=== PATIENT | male | born 1990 | race Caucasian/White ===

== ENCOUNTER 2023-09-21 08:09 | Day surgery (SDC) | payer OTHER ==
[2023-09-21 09:10] VITALS: RESP 18; TEMP 98.2
[2023-09-21 09:22] LABS: ALT 14 U/L (4-49); AST 37 U/L (17-59); African American GFR (CKD) >90 (>60 ml/min/1.73 sqM); Albumin 2.6 g/dL (3.5-5.0); Alkaline Phosphatase 130 U/L (38-126); Anion Gap 3 mmol/L; Blood Urea Nitrogen 13 mg/dL (9-20); Calcium 7.6 mg/dL (8.4-10.2); Carbon Dioxide 25 mmol/L (22-30); Chloride 104 mmol/L (98-107); Glucose 102 mg/dL (74-99); Non-African American GFR(CKD) >90 (>60 ml/min/1.73 sqM); Sodium 132 mmol/L (137-145); Total Bilirubin 1.2 mg/dL (0.2-1.3); Total Protein 6.6 g/dL (6.3-8.2)
[2023-09-21 09:51] LABS: Mean Platelet Volume 8.2; Platelet Count 176 k/uL (150-450)
[2023-09-21 09:57] LABS: INR 1.5 (<1.2); Prothrombin Time 15.8 sec (10.0-12.5)
[2023-09-21] MEDS: ALBUMIN HUMAN 25% 50 ML in EMPTY BAG 1 BAG IVPB SCH (10:18)
[2023-09-21 12:11] VITALS: BP 109/65; PULSE 81
--- NOTE | 2023-09-21 13:19 | US ---
Ultrasound-guided paracentesis. DATE OF EXAM: 09/21/2023 CLINICAL HISTORY: Ascites The procedure was discussed with the patient. The risks, complications, benefits, and alternatives we re discussed and any questions were answered. Informed consent was obtained. The patient was placed s upine on the ultrasound table and prepped and draped in the usual sterile fashion. All elements of maximal barrier technique were utilized. Under ultrasound guidance, access into the right lower quadrant was obtained, via the paracentesis catheter system and direct ultrasound guidanc e. Approximately 7.3 liters of straw-colored fluid was removed. The patient was stable throughout the pr ocedure and remained stable upon discharge from Department of Radiology. IMPRESSION: Successful paracentesis under ultrasound guidance.
== END 2023-09-21 11:25 | disposition home or self-care (01) ==
LOC: RADPROMAIN 08:09
PROVIDERS: ATTEND Internal Medicine
DX: R18.8 Other ascites (principal)
CPT/HCPCS: 80053; 85049; 85610; 36415; 49083; P9047

== ENCOUNTER 2023-09-28 08:47 | Day surgery (SDC) | payer OTHER ==
[2023-09-28] MEDS: ALPRAZolam 0.5 MG TAB PO PRN (09:20)
[2023-09-28] MEDS: ALBUMIN HUMAN 25% 50 ML in EMPTY BAG 1 BAG IVPB SCH (10:15)
[2023-09-28 10:17] VITALS: RESP 18; TEMP 97.9
[2023-09-28 12:09] VITALS: BP 111/70; PULSE 74
--- NOTE | 2023-09-28 14:00 | US ---
EXAMINATION TYPE: US paracentesis abd w/image DATE OF EXAM: 09/28/2023 10:22 AM CLINICAL INDICATION:Male, 32 years old with history of R18.8 OTHER ASCITES; COMPARISON: 09/21/2023 ATTENDING: Dr. Lemuel Vanegas PROCEDURE: Informed consent was obtained. The risks of the procedure were extensively explained incl uding risk of damage to surrounding bowel with perforation and need for additional procedures. Proced ure was performed in the ultrasound procedure suite. Ultrasound imaging of the abdomen demonstrate as citic fluid. An appropriate access site was localized to the right lower abdomen. Timeout was taken p er protocol. The skin was prepped and draped in the usual sterile fashion and then locally anesthetiz ed with 1% lidocaine. The peritoneal cavity was then accessed via a 5-Thai one-step needle/cathete r. Approximately 7600 cc of clear straw-colored fluid was obtained. Postprocedural imaging of the a bdomen demonstrate a minimal amount of abdominal fluid. Patient tolerated procedure well without immediate complication. Hemostasis at the procedural site w as obtained with a sterile bandage placed. The patient was monitored in the holding area following th e procedure and was subsequently discharged in stable condition. IMPRESSION: Ultrasound guided paracentesis, with approximately 7600 cc of clear straw-colored fluid drained. No immediate complications were evident.
== END 2023-09-28 11:40 | disposition home or self-care (01) ==
LOC: RADPROMAIN 08:47
PROVIDERS: ATTEND Internal Medicine
DX: R18.8 Other ascites (principal)
CPT/HCPCS: 49083; P9047

== ENCOUNTER 2023-10-05 09:18 | Day surgery (SDC) | payer OTHER ==
[~2023-10-05 09:18] MED LIST: ALPRAZolam 1 MG TAB PO PRN
[2023-10-05] MEDS: ALPRAZolam 0.5 MG TAB PO STA (09:52)
[2023-10-05 09:59] LABS: Mean Platelet Volume 7.7; Platelet Count 229 k/uL (150-450)
[2023-10-05 10:04] LABS: INR 1.5 (<1.2); Prothrombin Time 15.6 sec (10.0-12.5)
[2023-10-05 10:08] VITALS: TEMP 98
[2023-10-05 10:27] LABS: African American GFR (CKD) >90 (>60 ml/min/1.73 sqM); Non-African American GFR(CKD) >90 (>60 ml/min/1.73 sqM)
[2023-10-05] MEDS: ALBUMIN HUMAN 25% 50 ML in EMPTY BAG 1 BAG IVPB SCH (10:33)
[2023-10-05 12:06] VITALS: BP 101/56; PULSE 56; RESP 18
--- NOTE | 2023-10-05 12:38 | US ---
EXAMINATION TYPE: US paracentesis abd w/image DATE OF EXAM: 10/05/2023 11:00 AM CLINICAL INDICATION:Male, 32 years old with history of R18.8 OTHER ASCITES; COMPARISON: 09/28/2023 ATTENDING: Dr. Lemuel Vanegas PROCEDURE: Informed consent was obtained. The risks of the procedure were extensively explained incl uding risk of damage to surrounding bowel with perforation and need for additional procedures. Proced ure was performed in the ultrasound procedure suite. Ultrasound imaging of the abdomen demonstrate as citic fluid. An appropriate access site was localized to the right lower abdomen. Timeout was taken p er protocol. The skin was prepped and draped in the usual sterile fashion and then locally anesthetiz ed with 1% lidocaine. The peritoneal cavity was then accessed via a 5-Sinhala one-step needle/cathete r. Approximately 2700 cc of clear straw-colored fluid was obtained. Postprocedural imaging of the ab domen demonstrate a minimal amount of abdominal fluid. Patient tolerated procedure well without immediate complication. Hemostasis at the procedural site w as obtained with a sterile bandage placed. The patient was monitored in the holding area following th e procedure and was subsequently discharged in stable condition. IMPRESSION: Ultrasound guided paracentesis, with approximately 2700 cc of clear straw-colored fluid drained. No immediate complications were evident.
== END 2023-10-05 12:00 | disposition home or self-care (01) ==
LOC: RADPROMAIN 09:18
PROVIDERS: ATTEND Internal Medicine
DX: R18.8 Other ascites (principal)
CPT/HCPCS: 82565; 85049; 85610; 36415; 49083; P9047

== ENCOUNTER 2023-10-15 09:08 | Day surgery (SDC) | payer OTHER ==
[2023-10-15] MEDS: ALPRAZolam 0.5 MG TAB PO STA (09:22)
[2023-10-15 09:43] VITALS: RESP 12; TEMP 98.2
[2023-10-15 09:50] LABS: Mean Platelet Volume 7.7; Platelet Count 222 k/uL (150-450)
[2023-10-15 09:59] LABS: African American GFR (CKD) >90 (>60 ml/min/1.73 sqM); Anion Gap 4 mmol/L; Blood Urea Nitrogen 13 mg/dL (9-20); Calcium 7.5 mg/dL (8.4-10.2); Carbon Dioxide 26 mmol/L (22-30); Chloride 98 mmol/L (98-107); Glucose 103 mg/dL (74-99); Non-African American GFR(CKD) >90 (>60 ml/min/1.73 sqM); Potassium 4.2 mmol/L (3.5-5.1); Sodium 128 mmol/L (137-145)
[2023-10-15 10:10] LABS: INR 1.4 (<1.2); Prothrombin Time 14.8 sec (10.0-12.5)
[2023-10-15] MEDS: ALBUMIN HUMAN 25% 50 ML in EMPTY BAG 1 BAG IVPB SCH (10:52)
[2023-10-15 11:38] VITALS: BP 111/62; PULSE 70
--- NOTE | 2023-10-15 12:26 | US ---
EXAMINATION TYPE: US paracentesis abd w/image DATE OF EXAM: 10/15/2023 10:51 AM CLINICAL INDICATION:Male, 32 years old with history of R18.8 OTHER ASCITES; COMPARISON: 10/05/2023 ATTENDING: Dr. Lemuel Vanegas PROCEDURE: Informed consent was obtained. The risks of the procedure were extensively explained incl uding risk of damage to surrounding bowel with perforation and need for additional procedures. Proced ure was performed in the ultrasound procedure suite. Ultrasound imaging of the abdomen demonstrate as citic fluid. An appropriate access site was localized to the right lower abdomen. Timeout was taken p er protocol. The skin was prepped and draped in the usual sterile fashion and then locally anesthetiz ed with 1% lidocaine. The peritoneal cavity was then accessed via a 5-Angolan one-step needle/cathete r. Approximately 7100 cc of clear straw-colored fluid was obtained. Postprocedural imaging of the a bdomen demonstrate a minimal amount of abdominal fluid. Patient tolerated procedure well without immediate complication. Hemostasis at the procedural site w as obtained with a sterile bandage placed. The patient was monitored in the holding area following th e procedure and was subsequently discharged in stable condition. IMPRESSION: Ultrasound guided paracentesis, with approximately 7100 cc of clear straw-colored fluid drained. No i mmediate complications were evident.
== END 2023-10-15 11:55 | disposition home or self-care (01) ==
LOC: RADPROMAIN 09:08
PROVIDERS: ATTEND Internal Medicine
DX: R18.8 Other ascites (principal)
CPT/HCPCS: 80048; 85049; 85610; 36415; 49083; P9047

== ENCOUNTER 2023-10-23 12:01 | Day surgery (SDC) | payer OTHER ==
[2023-10-23] MEDS: ALPRAZolam 0.5 MG TAB PO PRN (12:36)
[2023-10-23 12:49] VITALS: TEMP 98
[2023-10-23 12:56] LABS: Mean Platelet Volume 7.9; Platelet Count 255 k/uL (150-450)
[2023-10-23 13:03] LABS: African American GFR (CKD) >90 (>60 ml/min/1.73 sqM); Non-African American GFR(CKD) >90 (>60 ml/min/1.73 sqM)
[2023-10-23 13:06] LABS: INR 1.4 (<1.2); Prothrombin Time 14.4 sec (10.0-12.5)
[2023-10-23] MEDS: ALBUMIN HUMAN 25% 50 ML in EMPTY BAG 1 BAG IVPB SCH (13:24)
[2023-10-23 13:53] VITALS: RESP 16
[2023-10-23 14:28] VITALS: PULSE 88
[2023-10-23 15:07] VITALS: BP 109/60
--- NOTE | 2023-10-23 15:35 | US ---
EXAMINATION TYPE: US paracentesis abd w/image DATE OF EXAM: 10/23/2023 CLINICAL HISTORY: 32 year-old male R18.8, other ascites. Weekly paracentesis. The procedure was discussed with the patient. The risks, complications, benefits, and alternatives we re discussed and any questions were answered. Informed consent was obtained. The patient was placed s upine on the ultrasound table and prepped and draped in the usual sterile fashion. All elements of maximal barrier technique were utilized. Ultrasound was utilized to determine the precise skin entry site along the right lower quadrant. Utilizing trocar technique and a 6 [place] [employer]esis catheter system, access into the ascites fl uid was obtained. Approximately 7.8 liters of clear, straw-colored fluid was removed. Catheter was removed, hemostasis obtained, and a dressing placed. The patient was stable throughout the procedure and remained stable upon discharge from Department of Radiology. IMPRESSION: Successful therapeutic paracentesis under ultrasound guidance. 7.8 L of fluid removed.
== END 2023-10-23 15:00 | disposition home or self-care (01) ==
LOC: RADPROMAIN 12:01
PROVIDERS: ATTEND Internal Medicine
DX: R18.8 Other ascites (principal)
CPT/HCPCS: 82565; 85049; 85610; 49083; P9047

== ENCOUNTER 2023-10-29 12:56 | Day surgery (SDC) | payer OTHER ==
[2023-10-29] MEDS: ALPRAZolam 0.5 MG TAB PO PRN (13:13)
[2023-10-29 13:33] VITALS: RESP 16; TEMP 98
[2023-10-29 13:47] LABS: Mean Platelet Volume 6.9; Platelet Count 359 k/uL (150-450)
[2023-10-29 13:51] LABS: INR 1.5 (<1.2)
[2023-10-29 13:52] LABS: Prothrombin Time 15.4 sec (10.0-12.5)
[2023-10-29 13:53] LABS: African American GFR (CKD) >90 (>60 ml/min/1.73 sqM); Non-African American GFR(CKD) >90 (>60 ml/min/1.73 sqM)
[2023-10-29] MEDS: ALBUMIN HUMAN 25% 50 ML in EMPTY BAG 1 BAG IVPB SCH (14:31)
[2023-10-29 15:23] VITALS: BP 114/68; PULSE 74
--- NOTE | 2023-10-30 07:58 | US ---
Ultrasound-guided paracentesis. DATE OF EXAM: 10/29/2023 CLINICAL HISTORY: Ascites The procedure was discussed with the patient. The risks, complications, benefits, and alternatives we re discussed and any questions were answered. Informed consent was obtained. The patient was placed s upine on the ultrasound table and prepped and draped in the usual sterile fashion. All elements of maximal barrier technique were utilized. Under ultrasound guidance, access into the right lower quadrant was obtained, via the paracentesis catheter system and direct ultrasound guidanc e. Approximately 8 liters of straw-colored fluid was removed. The patient was stable throughout the proc edure and remained stable upon discharge from Department of Radiology. IMPRESSION: Successful paracentesis under ultrasound guidance.
== END 2023-10-29 15:27 | disposition home or self-care (01) ==
LOC: RADPROMAIN 12:56
PROVIDERS: ATTEND Internal Medicine
DX: R18.8 Other ascites (principal)
CPT/HCPCS: 82565; 85049; 85610; 36415; 49083; P9047

== ENCOUNTER 2023-11-02 22:20 | Emergency (ER) | payer OTHER ==
[2023-11-02 22:41] VITALS: TEMP 99.1
[2023-11-02] MEDS: HYDROmorphone 1 MG/ML 1 ML SYRINGE IVP STA (23:26)
[2023-11-02 23:35] LABS: Basophils % (A) 0 %; Eosinophils # (A) 0.1 k/uL (0-0.7); Eosinophils % (A) 2 %; HCT 38.3 % (39.0-53.0); HGB 12.4 gm/dL (13.0-17.5); Lymphocytes # (A) 1.1 k/uL (1.0-4.8); Lymphocytes % (A) 23 %; MCH 33.1 pg (25.0-35.0); MCHC 32.3 g/dL (31.0-37.0); MCV 102.4 fL (80.0-100.0); Macrocytosis Slight; Mean Platelet Volume 7.2; Monocytes # (A) 0.3 k/uL (0-1.0); Monocytes % (A) 5 %; Neutrophils # (A) 3.3 k/uL (1.3-7.7); Neutrophils % (A) 68 %; Platelet Count 277 k/uL (150-450); RBC 3.74 m/uL (4.30-5.90); RDW 15.9 % (11.5-15.5); WBC 4.9 k/uL (3.8-10.6)
[2023-11-03 00:04] LABS: African American GFR (CKD) >90 (>60 ml/min/1.73 sqM); Anion Gap 5 mmol/L; Blood Urea Nitrogen 13 mg/dL (9-20); Calcium 7.9 mg/dL (8.4-10.2); Carbon Dioxide 24 mmol/L (22-30); Chloride 100 mmol/L (98-107); Glucose 103 mg/dL (74-99); Non-African American GFR(CKD) >90 (>60 ml/min/1.73 sqM); Potassium 4.1 mmol/L (3.5-5.1); Sodium 129 mmol/L (137-145)
[2023-11-03 00:17] VITALS: BP 143/86; PULSE 81; RESP 18
--- NOTE | 2023-11-03 00:31 | ED ---
Abdominal Pain HPI - General Chief Complaint: Abdominal Pain Stated Complaint: Pain,Nausea Time Seen by Provider: 11/02/23 22:58 Source: patient Mode of arrival: wheelchair Limitations: no limitations - History of Present Illness Initial Comments: 32-year-old male presenting with chief complaint of abdominal pain. Patient currently has end-stage liver disease. States that he previously went to [place] and is newer to the area. He last received paracentesis on Sunday by Dr. Sanchez. He is having soreness from his distention as well as nausea vomiti ng and anxiety. No fever. Pain is diffuse, nonspecific. No urinary symptoms. No flank pain. No chest pain or difficulty breathing. - Related Data Home Medications Medication Instructions Recorded Confirmed Acamprosate Calcium [Campral] 333 mg PO BID 09/17/23 10/29/23 Ciprofloxacin HCl 500 mg PO DAILY 09/17/23 10/29/23 Folic Acid 1 mg PO 5XD 09/17/23 10/29/23 Furosemide [Lasix] 20 mg PO BID 09/17/23 10/29/23 Lactulose 45 gm PO BID 09/17/23 10/29/23 Magnesium Gluconate [Magonate] 500 mg PO DAILY 09/17/23 10/29/23 Midodrine HCl [ProAmatine] 20 mg PO TID 09/17/23 10/29/23 Multivitamin [Multivitamins Adult 1 tab PO DAILY 09/17/23 10/29/23 Gummies] Omeprazole [PriLOSEC] 20 mg PO AC-BID 09/17/23 10/29/23 Ondansetron [Zofran] 4 mg PO Q12HR PRN 09/17/23 10/29/23 Rifaximin [Xifaxan] 550 mg PO Q12H 09/17/23 10/29/23 Spironolactone 50 mg PO DAILY 09/17/23 10/29/23 levETIRAcetam [Keppra] 500 mg PO Q12HR 09/17/23 10/29/23 Buprenorphine HCl/Naloxone HCl 1 each SL DAILY 09/28/23 10/29/23 [Suboxone 4 mg-1 mg Sl Film] Allergies Allergy/AdvReac Type Severity Reaction Status Date / Time No Known Allergies Allergy Verified 11/02/23 22:36 Review of Systems ROS Statement: Those systems with pertinent positive or pertinent negative responses have been documented in the HPI. ROS Other: All systems not noted in ROS Statement are negative. Past Medical History Past Medical History: GERD/Reflux, Liver Disease Additional Past Medical History / Comment(s): Pancreatitis, ETOH abuse, subtance abuse, large volume paracentesis, previously on liver transplant list but was removed due to continued substance abuse, chirrhosis History of Any Multi-Drug Resistant Organisms: None Reported Additional Past Surgical History / Comment(s): ERCP stent placement Past Anesthesia/Blood Transfusion Reactions: Unable to Obtain Past Psychological History: Anxiety, Depression Smoking Status: Current every day smoker Past Alcohol Use History: Abuse Past Drug Use History: Marijuana General Exam Limitations: no limitations General appearance: alert, anxious Head exam: Present: atraumatic, normocephalic Eye exam: Present: normal appearance, EOMI Neck exam: Present: normal inspection. Absent: meningismus Respiratory exam: Present: normal lung sounds bilaterally. Absent: respiratory distress, wheezes, rales, rhonchi, stridor Cardiovascular Exam: Present: regular rate, normal rhythm, normal heart sounds. Absent: systolic murmur, diastolic murmur, rubs, gallop, clicks GI/Abdominal exam: Present: soft, distended. Absent: tenderness, guarding, rebound, rigid Neurological exam: Present: alert, oriented X3 Psychiatric exam: Present: anxious Skin exam: Present: warm, dry Course Vital Signs 11/02/23 11/03/23 22:36 00:01 Temperature 99.1 F Pulse Rate 95 81 Respiratory 16 18 Rate Blood Pressure 117/84 143/86 O2 Sat by Pulse 98 94 L Oximetry Medical Decision Making - Medical Decision Making Was pt. sent in by a medical professional or institution (, PA, MANAGER INTERNSH[employer], urgent care, hospital, or skilled nursing...) When possible be specific @ -No Did you speak to anyone other than the patient for history (EMS, parent, family, police, friend...)? What history was obtained from this source @ -No Did you review nursing and triage notes (agree or disagree)? Why? @ -I reviewed and agree with nursing and triage notes Were old charts reviewed (outside hosp., previous admission, EMS record, old EKG, old radiological studies, urgent care reports/EKG's, skilled nursing records)? Report findings @ -Reviewed patient's paracentesis Differential Diagnosis (chest pain, altered mental status, abdominal pain women, abdominal pain men, vaginal bleeding, weakness, fever, dyspnea, syncope, headache, dizziness, GI bleed, back pain, seizure, CVA, palpatations, mental health, musculoskeletal)? @ -[facility] Differential Abdominal Pain Men: Appendicitis, cholecystitis, diverticulosis, ischemic bowel, pancreatitis, hepatitis, UTI, gastroenteritis, AAA, incarcerated hernia, bowel obstruction, constipation, inflammatory bowel, hepatitis, peptic ulcer disease, splenic infarction, perforated viscus, testicular torsion... This is not meant to be an all-inclusive list EKG interpreted by me (3pts min.). @ -As above X-rays interpreted by me (1pt min.). @ -None done CT interpreted by me (1pt min.). @ -None done U/S interpreted by me (1pt. min.). @ -None done What testing was considered but not performed or refused? (CT, X-rays, U/S, labs)? Why? @ -None What meds were considered but not given or refused? Why? @ -None Did you discuss the management of the patient with other professionals (professionals i.e. , PA, MANAGER [employer], lab, RT, psych nurse, director of social media marketing, robot programmer, teacher, district fire management officer, nurse outreach case manager)? Give summary @ -No Was smoking cessation discussed for >3mins.? @ -No Was critical care preformed (if so, how long)? @ -No Were there social determinants of health that impacted care today? How? (Homelessness, low income, unemployed, alcoholism, drug addiction, transp ortation, low edu. Level, literacy, decrease access to med. care, group home, rehab)? @ -No Was there de-escalation of care discussed even if they declined (Discuss DNR or withdrawal of care, Hospice)? DNR status @ -No What co-morbidities impacted this encounter? (DM, HTN, Smoking, COPD, CAD, Cancer, CVA, ARF, Chemo, Hep., AIDS, mental health diagnosis, sleep apnea, morbid obesity)? @ -None Was patient admitted / discharged? Hospital course, mention meds given and route, prescriptions, significant lab abnormalities, going to OR and other pertinent info. @ -32-year-old male presenting with chief complaint of abdominal pain. End- stage liver disease, patient has significant ascites. Pain is generalized, seems to be soreness from the distention. Patient has his next paracentesis planned. He has no fever. Lab work requires no action. He is given pain medication and reports improvement in his symptoms. Instructed to follow-up with GI and PCP. Discharged. Follow-up with PCP. Report back to ER with any new or worsening symptoms. Discussed return parameters and answered all questions. Patient conveyed verbal understanding and agreed to the plan. I discussed this case in detail with my attending Dr. Abel Undiagnosed new problem with uncertain prognosis? @ -No Drug Therapy requiring intensive monitoring for toxicity (Heparin, Nitro, Insulin, Cardizem)? @ -No Were any procedures done? @ -No Diagnosis/symptom? @ -Ascites Acute, or Chronic, or Acute on Chronic? @ -Acute on chronic Uncomplicated (without systemic symptoms) or Complicated (systemic symptoms)? @ -Uncomplicated Side effects of treatment? @ -No Exacerbation, Progression, or Severe Exacerbation? @ -No Poses a threat to life or bodily function? How? (Chest pain, USA, MD, pneumonia, PE, COPD, DKA, ARF, appy, cholecystitis, CVA, Diverticulitis, Homicidal, Suicidal, threat to staff... and all critical care pts) @ -The ascites alone poses a small threat, end-stage liver disease clearly poses greater threat - Lab Data Result diagrams: 11/02/23 23:30 11/02/23 23:30 Lab Results 11/02/23 11/02/23 Range/Units 23:30 23:30 WBC 4.9 (3.8-10.6) k/uL RBC 3.74 L (4.30-5.90) m/uL Hgb 12.4 L (13.0-17.5) gm/dL Hct 38.3 L (39.0-53.0) % MCV 102.4 H (80.0-100.0) fL MCH 33.1 (25.0-35.0) pg MCHC 32.3 (31.0-37.0) g/dL RDW 15.9 H (11.5-15.5) % Plt Count 277 (150-450) k/uL MPV 7.2 Neutrophils % 68 % Lymphocytes % 23 % Monocytes % 5 % Eosinophils % 2 % Basophils % 0 % Neutrophils # 3.3 (1.3-7.7) k/uL Lymphocytes # 1.1 (1.0-4.8) k/uL Monocytes # 0.3 (0-1.0) k/uL Eosinophils # 0.1 (0-0.7) k/uL Basophils # 0.0 (0-0.2) k/uL Macrocytosis Slight Sodium 129 L (137-145) mmol/L Potassium 4.1 (3.5-5.1) mmol/L Chloride 100 (98-107) mmol/L Carbon Dioxide 24 (22-30) mmol/L Anion Gap 5 mmol/L BUN 13 (9-20) mg/dL Creatinine 0.46 L (0.66-1.25) mg/dL Est GFR (CKD-EPI)AfAm >90 (>60 ml/min/1.73 sqM) Est GFR (CKD-EPI)NonAf >90 (>60 ml/min/1.73 sqM) Glucose 103 H (74-99) mg/dL Calcium 7.9 L (8.4-10.2) mg/dL Disposition Clinical Impression: Ascites, Chronic abdominal pain Disposition: HOME SELF-CARE Condition: Fair Instructions (If sedation given, give patient instructions): Ascites (ED), Abdominal Pain (ED) Additional Instructions: Follow-up with PCP and your remaining care team. Report back to ER with any new or worsening symptoms. Is patient prescribed a controlled substance at d/c from ED?: No Referrals: Nonstaff,Physician [Primary Care Provider] - 1-2 days Chiquita Baum MD [STAFF PHYSICIAN] - 1-2 days Bryan Mercado MD [STAFF PHYSICIAN] - 1-2 days [facility] [NON-STAFF] - 1-2 days Time of Disposition: 00:31
[2023-11-03] MEDS: traMADol 50 MG STARTER PACK 3 TAB BTL PO STA (00:37)
== END 2023-11-03 00:37 | disposition home or self-care (01) ==
LOC: EC 22:20
DX: G89.29 Other chronic pain (principal); R10.9 Unspecified abdominal pain; R18.8 Other ascites; F17.290 Nicotine dependence, other tobacco product, uncomplicated; Z94.4 Liver transplant status
CPT/HCPCS: 36415; 80048; 85025; 99284; 96374; J1170

== ENCOUNTER → 2023-11-13 | Day surgery (SDC) | payer OTHER ==
[~2023-11-13] MED LIST changes: +ALBUMIN HUMAN 25% (12.5gm) 50 ML VIAL ONE; +ALPRAZolam 0.25 MG TAB ONE; -ALPRAZolam 1 MG TAB PO PRN
--- NOTE | 2023-12-04 15:59 | US ---
Report Patient: Marcial Arnett Ordering Physician: Unknown, Unknown ID: [id number] Phone, Pager: Phone: N/A Pager: N/A : 1990 Age/Gender: 32Y, M Primary Location: N/A Procedure: US paracentesis abd w/image Study Date: 11/13/2023 3:00:00 PM EXAMINATION TYPE: US paracentesis abd w/image DATE OF EXAM: 12/03/2023 CLINICAL HISTORY: 32-year-old male referred for ultrasound-guided paracentesis The procedure was discussed with the patient. The risks, complications, benefits, and alternatives we re discussed and any questions were answered. Informed consent was obtained. The patient was placed s upine on the ultrasound table and prepped and draped in the usual sterile fashion. All elements of maximal barrier technique were utilized. Ultrasound was utilized to determine the precise skin entry site along the right lower quadrant. Utilizing 5 Hungarian one-step catheter, access into the right lower quadrant was obtained with direct u ltrasound guidance. Approximately 4.0 liters of fluid was removed. The patient was stable throughout the procedure and re mained stable upon discharge from Department of Radiology. IMPRESSION: Successful paracentesis under ultrasound guidance. 4.0 L of fluid removed.
== END ==
LOC: RADPROMAIN 12:45
PROVIDERS: ATTEND Internal Medicine
DX: R18.8 Other ascites (principal)
CPT/HCPCS: 49083; 82565; 85049; 85610

== ENCOUNTER → 2023-11-27 | Day surgery (SDC) | payer OTHER ==
[~2023-11-27] MED LIST changes: -ALPRAZolam 0.25 MG TAB ONE; +ALPRAZolam 0.5 MG TAB ONE
--- NOTE | 2023-12-27 12:33 | US ---
Patient: Marcial Arnett Ordering Physician: Unknown, Unknown ID: [id number] Phone, Pager: Phone: N/A Pager: N/A : 1990 Age/Gender: 32Y, N/A Primary Location: N/A Procedure: US paracentesis abd w/image Study Date: 11/27/2023 1:38:00 PM EXAMINATION TYPE: US paracentesis abd w/image DATE OF EXAM: 11/27/2023 CLINICAL HISTORY: 32-year-old male liver disease referred for routine paracentesis The procedure was discussed with the patient. The risks, complications, benefits, and alternatives we re discussed and any questions were answered. Informed consent was obtained. The patient was placed s upine on the ultrasound table and prepped and draped in the usual sterile fashion. All elements of maximal barrier technique were utilized. Ultrasound was utilized to determine the precise skin entry site along the right lower quadrant/right flank. A 5 Turkmen One-Step catheter and trocar technique was utilized to access the ascites collection under direct ultrasound guidance. Approximately 8.5 liters of slightly cloudy, yellow-colored fluid was removed (typical for the patien t). Catheter was removed, hemostasis obtained, and a dressing placed. The patient was stable throughout the procedure and remained stable upon discharge from Department of Radiology. IMPRESSION: Successful therapeutic paracentesis under ultrasound guidance. 8.5 L of fluid removed.
== END ==
LOC: RADPROMAIN 13:30
PROVIDERS: ATTEND Internal Medicine
DX: R18.8 Other ascites (principal)
CPT/HCPCS: 49083

== ENCOUNTER 2023-12-11 12:01 | Day surgery (SDC) | payer OTHER ==
[2023-12-11] MEDS: ALPRAZolam 0.5 MG TAB PO STA (12:48)
[2023-12-11 12:50] VITALS: RESP 16; TEMP 98.1
[2023-12-11 12:52] LABS: Mean Platelet Volume 7.7; Platelet Count 277 k/uL (150-450)
[2023-12-11 12:54] LABS: INR 1.4 (<1.2); Prothrombin Time 14.8 sec (10.0-12.5)
[2023-12-11 13:10] LABS: African American GFR (CKD) >90 (>60 ml/min/1.73 sqM); Non-African American GFR(CKD) >90 (>60 ml/min/1.73 sqM)
[2023-12-11] MEDS: ALBUMIN HUMAN 25% 50 ML in EMPTY BAG 1 BAG IVPB SCH (13:35)
--- NOTE | 2023-12-11 14:42 | US ---
Ultrasound-guided paracentesis. DATE OF EXAM: 12/11/2023 CLINICAL HISTORY: Ascites The procedure was discussed with the patient. The risks, complications, benefits, and alternatives we re discussed and any questions were answered. Informed consent was obtained. The patient was placed s upine on the ultrasound table and prepped and draped in the usual sterile fashion. All elements of maximal barrier technique were utilized. Under ultrasound guidance, access into the right lower quadrant was obtained, via the paracentesis catheter system and direct ultrasound guidanc e. Approximately 6.8 liters of straw-colored fluid was removed. The patient was stable throughout the pr ocedure and remained stable upon discharge from Department of Radiology. IMPRESSION: Successful paracentesis under ultrasound guidance.
[2023-12-11 14:52] VITALS: BP 111/72; PULSE 80
== END 2023-12-11 14:52 | disposition home or self-care (01) ==
LOC: RADPROMAIN 12:01
PROVIDERS: ATTEND Internal Medicine
DX: R18.8 Other ascites (principal)

== ENCOUNTER 2023-12-17 12:23 | Day surgery (SDC) | payer OTHER ==
[2023-12-17 13:15] LABS: Platelet Count 457 k/uL (150-450)
[2023-12-17] MEDS: ALPRAZolam 0.5 MG TAB PO STA (13:15)
[2023-12-17 13:25] LABS: African American GFR (CKD) >90 (>60 ml/min/1.73 sqM); Non-African American GFR(CKD) >90 (>60 ml/min/1.73 sqM)
[2023-12-17 13:36] LABS: INR 1.5 (<1.2); Prothrombin Time 15.3 sec (10.0-12.5)
[2023-12-17 13:54] VITALS: RESP 18
[2023-12-17] MEDS: ALBUMIN HUMAN 25% 50 ML in EMPTY BAG 1 BAG IVPB SCH (14:10)
[2023-12-17 15:43] VITALS: BP 104/68; PULSE 98
--- NOTE | 2023-12-17 15:53 | US ---
EXAMINATION TYPE: US paracentesis abd w/image DATE OF EXAM: 12/17/2023 CLINICAL HISTORY: 33-year-old male R18.8, another ascites, referred for weekly paracentesis The procedure was discussed with the patient. The risks, complications, benefits, and alternatives we re discussed and any questions were answered. Informed consent was obtained. The patient was placed s upine on the ultrasound table and prepped and draped in the usual sterile fashion. All elements of maximal barrier technique were utilized. Ultrasound was utilized to determine the precise skin entry site along the right lower quadrant/right flank. A 5 Telugu One-Step catheter and trocar technique was utilized to access the ascites collection under direct ultrasound guidance. Approximately 10.5 liters of clear, straw-colored fluid was removed. Catheter was removed, hemostasis obtained, and a dressing placed. The patient was stable throughout the procedure and remained stable upon discharge from Department of Radiology. IMPRESSION: Successful therapeutic paracentesis under ultrasound guidance. 10.5 L of fluid removed.
== END 2023-12-17 15:30 | disposition home or self-care (01) ==
LOC: RADPROMAIN 12:23
PROVIDERS: ATTEND Internal Medicine
DX: R18.8 Other ascites (principal)
CPT/HCPCS: 36415; 49083; 82565; 85049; 85610

== ENCOUNTER 2023-12-24 12:36 | Day surgery (SDC) | payer OTHER ==
[2023-12-24] MEDS: ALPRAZolam 0.5 MG TAB PO PRN (13:12)
[2023-12-24] MEDS: ALBUMIN HUMAN 25% 50 ML in EMPTY BAG 1 BAG IVPB SCH (13:32)
[2023-12-24 14:16] VITALS: RESP 16; TEMP 97.5
[2023-12-24] MEDS: ALBUMIN HUMAN 25% 50 ML in EMPTY BAG 1 BAG IVPB ONE (15:03)
[2023-12-24 15:47] VITALS: BP 97/52; PULSE 81
--- NOTE | 2023-12-25 14:01 | US ---
EXAMINATION TYPE: US paracentesis abd w/image DATE OF EXAM: 12/24/2023 1:53 PM CLINICAL INDICATION:Male, 33 years old with history of ascites; COMPARISON: 12/17/2023 ATTENDING: Dr. Lemuel Vanegas PROCEDURE: Informed consent was obtained. The risks of the procedure were extensively explained incl uding risk of damage to surrounding bowel with perforation and need for additional procedures. Proced ure was performed in the ultrasound procedure suite. Ultrasound imaging of the abdomen demonstrate as citic fluid. An appropriate access site was localized to the right lower abdomen. Timeout was taken p er protocol. The skin was prepped and draped in the usual sterile fashion and then locally anesthetiz ed with 1% lidocaine. The peritoneal cavity was then accessed via a 5-Niuean one-step needle/cathete r. Approximately 9100 cc of clear straw-colored fluid was obtained. Postprocedural imaging of the a bdomen demonstrate a minimal amount of abdominal fluid. Patient tolerated procedure well without immediate complication. Hemostasis at the procedural site w as obtained with a sterile bandage placed. The patient was monitored in the holding area following th e procedure and was subsequently discharged in stable condition. IMPRESSION: Ultrasound guided paracentesis, with approximately 9100 cc of clear straw-colored fluid drained. No immediate complications were evident. [facility], , 12/25/2023 1:59 PM
== END 2023-12-24 15:35 | disposition home or self-care (01) ==
LOC: RADPROMAIN 12:36
PROVIDERS: ATTEND Internal Medicine
DX: R18.8 Other ascites (principal)
CPT/HCPCS: 36415; 49083; P9047

== ENCOUNTER 2023-12-31 12:17 | Day surgery (SDC) | payer OTHER ==
[2023-12-31] MEDS: ALPRAZolam 0.5 MG TAB PO PRN (12:52)
[2023-12-31 14:08] VITALS: TEMP 97.4
[2023-12-31] MEDS: ALBUMIN HUMAN 25% 50 ML in EMPTY BAG 1 BAG IVPB SCH (14:17)
[2023-12-31 14:37] LABS: Mean Platelet Volume 7.1; Platelet Count 218 k/uL (150-450)
[2023-12-31 14:41] LABS: African American GFR (CKD) >90 (>60 ml/min/1.73 sqM); Non-African American GFR(CKD) >90 (>60 ml/min/1.73 sqM)
[2023-12-31 14:53] LABS: INR 1.5 (<1.2); Prothrombin Time 15.4 sec (10.0-12.5)
[2023-12-31 15:30] VITALS: RESP 14
[2023-12-31 16:18] VITALS: BP 97/55; PULSE 70
--- NOTE | 2024-01-01 07:37 | US ---
Ultrasound-guided paracentesis. DATE OF EXAM: 12/31/2023 CLINICAL HISTORY: Ascites The procedure was discussed with the patient. The risks, complications, benefits, and alternatives we re discussed and any questions were answered. Informed consent was obtained. The patient was placed s upine on the ultrasound table and prepped and draped in the usual sterile fashion. All elements of maximal barrier technique were utilized. Under ultrasound guidance, access into the right lower quadrant was obtained, via the paracentesis catheter system and direct ultrasound guidanc e. Approximately 9 liters of straw-colored fluid was removed. The patient was stable throughout the proc edure and remained stable upon discharge from Department of Radiology. IMPRESSION: Successful paracentesis under ultrasound guidance. [facility], , 01/01/2024 7:35 AM
== END 2023-12-31 16:58 | disposition home or self-care (01) ==
LOC: RADPROMAIN 12:17
PROVIDERS: ATTEND Radiology Diagnostic Radiology
DX: R18.8 Other ascites (principal)
CPT/HCPCS: 49083; 82565; 84520; 85049; 85610

== ENCOUNTER 2024-01-07 12:54 | Day surgery (SDC) | payer OTHER ==
[2024-01-07] MEDS: ALPRAZolam 0.25 MG TAB PO PRN (13:19)
[2024-01-07] MEDS: ALBUMIN HUMAN 25% 50 ML in EMPTY BAG 1 BAG IVPB SCH (13:49)
[2024-01-07 13:59] VITALS: RESP 16; TEMP 98
[2024-01-07 14:54] VITALS: BP 99/63; PULSE 83
[2024-01-07 15:02] LABS: Mean Platelet Volume 7.5; Platelet Count 203 k/uL (150-450)
[2024-01-07 15:07] LABS: INR 1.5 (<1.2)
[2024-01-07 15:09] LABS: African American GFR (CKD) >90 (>60 ml/min/1.73 sqM); Non-African American GFR(CKD) >90 (>60 ml/min/1.73 sqM)
--- NOTE | 2024-01-09 10:33 | US ---
EXAMINATION TYPE: US paracentesis abd w/image DATE OF EXAM: 01/07/2024 1:57 PM CLINICAL INDICATION:Male, 33 years old with history of R18.8 OTHER ASCITES; COMPARISON: 12/31/2023 ATTENDING: Dr. Lemuel Vanegas PROCEDURE: Informed consent was obtained. The risks of the procedure were extensively explained incl uding risk of damage to surrounding bowel with perforation and need for additional procedures. Proced ure was performed in the ultrasound procedure suite. Ultrasound imaging of the abdomen demonstrate as citic fluid. An appropriate access site was localized to the right lower abdomen. Timeout was taken p er protocol. The skin was prepped and draped in the usual sterile fashion and then locally anesthetiz ed with 1% lidocaine. The peritoneal cavity was then accessed via a 5-Montserratian one-step needle/cathete r. Approximately 9400 cc of clear straw-colored fluid was obtained. Postprocedural imaging of the ab domen demonstrate a minimal amount of abdominal fluid. Patient tolerated procedure well without immediate complication. Hemostasis at the procedural site w as obtained with a sterile bandage placed. The patient was monitored in the holding area following th e procedure and was subsequently discharged in stable condition. IMPRESSION: Ultrasound guided paracentesis, with approximately 9400 cc of clear straw-colored fluid drained. No immediate complications were evident. [facility], , 01/09/2024 10:31 AM
== END 2024-01-07 15:00 | disposition home or self-care (01) ==
LOC: RADPROMAIN 12:54
PROVIDERS: ATTEND Internal Medicine
DX: R18.8 Other ascites (principal)
CPT/HCPCS: 36415; 49083; 82565; 85049; 85610

== ENCOUNTER 2024-01-14 12:23 | Day surgery (SDC) | payer OTHER ==
[2024-01-14 13:10] LABS: Mean Platelet Volume 6.9; Platelet Count 295 k/uL (150-450)
[2024-01-14] MEDS: ALBUMIN HUMAN 25% 50 ML in EMPTY BAG 1 BAG IVPB SCH (13:13)
[2024-01-14 13:18] LABS: African American GFR (CKD) >90 (>60 ml/min/1.73 sqM); Non-African American GFR(CKD) >90 (>60 ml/min/1.73 sqM)
[2024-01-14 13:24] VITALS: RESP 16; TEMP 98
[2024-01-14 13:25] LABS: INR 1.3 (<1.2); Prothrombin Time 14.1 sec (10.0-12.5)
[2024-01-14] MEDS: ALPRAZolam 0.25 MG TAB PO STA (13:34)
[2024-01-14 14:43] VITALS: BP 102/62; PULSE 81
--- NOTE | 2024-01-14 15:47 | US ---
EXAMINATION TYPE: US paracentesis abd w/image DATE OF EXAM: 01/14/2024 CLINICAL HISTORY: 33-year-old male referred for routine, weekly outpatient paracentesis, ascites. Li tony disease. The procedure was discussed with the patient. The risks, complications, benefits, and alternatives we re discussed and any questions were answered. Informed consent was obtained. The patient was placed s upine on the ultrasound table and prepped and draped in the usual sterile fashion. All elements of maximal barrier technique were utilized. Ultrasound was utilized to determine the precise skin entry site along the right lower quadrant. A 5 Marshallese One-Step catheter and trocar technique was utilized to access the ascites collection under direct ultrasound guidance. Approximately 11.1 liters of light yellow, slightly translucent fluid was removed, typical for the pa tient. Catheter was removed, hemostasis obtained, and a dressing placed. The patient was stable throughout the procedure and remained stable upon discharge from Department of Radiology. IMPRESSION: Successful therapeutic paracentesis under ultrasound guidance. 11.1 L of fluid removed. [facility], , 01/14/2024 3:44 PM
== END 2024-01-14 14:50 | disposition home or self-care (01) ==
LOC: RADPROMAIN 12:23
PROVIDERS: ATTEND Internal Medicine
CPT/HCPCS: 36415; 49083; 82565; 85049; 85610

== ENCOUNTER 2024-01-21 12:33 | Day surgery (SDC) | payer OTHER ==
[2024-01-21] MEDS ORDERED: ALPRAZolam 0.25 MG TAB PO PRN (12:51)
[2024-01-21] MEDS: ALBUMIN HUMAN 25% 50 ML in EMPTY BAG 1 BAG IVPB SCH (13:14)
[2024-01-21 13:18] LABS: Mean Platelet Volume 6.8; Platelet Count 261 k/uL (150-450)
[2024-01-21 13:26] VITALS: RESP 16; TEMP 98
[2024-01-21 13:30] LABS: African American GFR (CKD) >90 (>60 ml/min/1.73 sqM); Non-African American GFR(CKD) >90 (>60 ml/min/1.73 sqM)
[2024-01-21 13:46] LABS: INR 1.4 (<1.2); Prothrombin Time 14.3 sec (10.0-12.5)
[2024-01-21 14:34] VITALS: BP 93/55; PULSE 78
--- NOTE | 2024-01-21 14:51 | US ---
Ultrasound-guided paracentesis. DATE OF EXAM: 01/21/2024 CLINICAL HISTORY: Ascites The procedure was discussed with the patient. The risks, complications, benefits, and alternatives we re discussed and any questions were answered. Informed consent was obtained. The patient was placed s upine on the ultrasound table and prepped and draped in the usual sterile fashion. All elements of maximal barrier technique were utilized. Under ultrasound guidance, access into the right lower quadrant was obtained, via the paracentesis catheter system and direct ultrasound guidanc e. Approximately 7.6 liters of straw-colored fluid was removed. The patient was stable throughout the pr ocedure and remained stable upon discharge from Department of Radiology. IMPRESSION: Successful paracentesis under ultrasound guidance. [facility], , 01/21/2024 2:49 PM
== END 2024-01-21 15:10 | disposition home or self-care (01) ==
LOC: RADPROMAIN 12:33
PROVIDERS: ATTEND Internal Medicine
DX: R18.8 Other ascites (principal)
CPT/HCPCS: 36415; 49083; 82565; 85049; 85610

== ENCOUNTER 2024-01-28 11:58 | Day surgery (SDC) | payer OTHER ==
[2024-01-28 12:56] LABS: Mean Platelet Volume 7.4; Platelet Count 218 k/uL (150-450)
[2024-01-28 13:05] LABS: African American GFR (CKD) >90 (>60 ml/min/1.73 sqM); Non-African American GFR(CKD) >90 (>60 ml/min/1.73 sqM)
[2024-01-28 13:09] LABS: INR 1.4 (<1.2); Prothrombin Time 14.8 sec (10.0-12.5)
[2024-01-28] MEDS: ALBUMIN HUMAN 25% 50 ML in EMPTY BAG 1 BAG IVPB SCH (13:24)
[2024-01-28 13:33] VITALS: RESP 18; TEMP 98.1
[2024-01-28 16:18] VITALS: BP 98/56; PULSE 80
--- NOTE | 2024-01-29 08:35 | US ---
EXAMINATION TYPE: US paracentesis abd w/image DATE OF EXAM: 01/28/2024 1:15 PM CLINICAL INDICATION:Male, 33 years old with history of R18.8 OTHER ASCITES; COMPARISON: prior paracentesis. ATTENDING: Dr. Lemuel Vanegas PROCEDURE: Informed consent was obtained. The risks of the procedure were extensively explained incl uding risk of damage to surrounding bowel with perforation and need for additional procedures. Proced ure was performed in the ultrasound procedure suite. Ultrasound imaging of the abdomen demonstrate as citic fluid. An appropriate access site was localized to the right lower abdomen. Timeout was taken p er protocol. The skin was prepped and draped in the usual sterile fashion and then locally anesthetiz ed with 1% lidocaine. The peritoneal cavity was then accessed via a 5-Palauan one-step needle/cathete r. Approximately 5100 cc of clear straw-colored fluid was obtained. Postprocedural imaging of the a bdomen demonstrate a minimal amount of abdominal fluid. Patient tolerated procedure well without immediate complication. Hemostasis at the procedural site w as obtained with a sterile bandage placed. The patient was monitored in the holding area following th e procedure and was subsequently discharged in stable condition. IMPRESSION: Ultrasound guided paracentesis, with approximately 5100 cc of clear straw-colored fluid drained. No immediate complications were evident. [facility], , 01/29/2024 8:32 AM
== END 2024-01-28 14:30 | disposition home or self-care (01) ==
LOC: RADPROMAIN 11:58
PROVIDERS: ATTEND Internal Medicine
DX: R18.8 Other ascites (principal)
CPT/HCPCS: 36415; 49083; 82565; 85049; 85610

== ENCOUNTER 2024-02-04 12:22 | Day surgery (SDC) | payer OTHER ==
[2024-02-04 13:03] LABS: Mean Platelet Volume 7.1; Platelet Count 278 k/uL (150-450)
[2024-02-04 13:08] LABS: INR 1.5 (<1.2); Prothrombin Time 15.3 sec (10.0-12.5)
[2024-02-04] MEDS: ALBUMIN HUMAN 25% 50 ML in EMPTY BAG 1 BAG IVPB SCH (13:10)
[2024-02-04 13:17] LABS: African American GFR (CKD) >90 (>60 ml/min/1.73 sqM); Non-African American GFR(CKD) >90 (>60 ml/min/1.73 sqM)
[2024-02-04 13:20] VITALS: RESP 16; TEMP 98.1
[2024-02-04 14:35] VITALS: BP 97/52; PULSE 68
--- NOTE | 2024-02-04 15:20 | US ---
EXAMINATION TYPE: US paracentesis abd w/image DATE OF EXAM: 02/04/2024 CLINICAL HISTORY: 33-year-old male liver disease, ascites, referred for routine outpatient paracente sis The procedure was discussed with the patient. The risks, complications, benefits, and alternatives we re discussed and any questions were answered. Informed consent was obtained. The patient was placed s upine on the ultrasound table and prepped and draped in the usual sterile fashion. All elements of maximal barrier technique were utilized. Under ultrasound guidance, access into the right lower quadrant ascites was obtained, via the 5 Frenc h one-step catheter system and direct ultrasound guidance. Approximately 8.3 liters of straw-colored fluid was removed. The patient was stable throughout the pr ocedure and remained stable upon discharge from Department of Radiology. The catheter was removed, hemostasis obtained, and a dressing placed. IMPRESSION: Successful therapeutic paracentesis under ultrasound guidance. 8.3 L of fluid removed [facility], , 02/04/2024 3:17 PM
== END 2024-02-04 14:20 | disposition home or self-care (01) ==
LOC: RADPROMAIN 12:22
PROVIDERS: ATTEND Nurse Practitioner Family
CPT/HCPCS: 36415; 49083; 82565; 85049; 85610

== ENCOUNTER 2024-02-09 20:23 | Observation (INO) | payer OTHER ==
--- NOTE | 2024-02-09 21:50 | ED ---
Abdominal Pain HPI - General Chief Complaint: Abdominal Pain Stated Complaint: pain management(stg4 liver) Time Seen by Provider: 02/09/24 21:06 Source: patient Mode of arrival: ambulatory Limitations: no limitations - History of Present Illness Initial Comments: Patient is a 33-year-old male with a past medical history of alcoholism, liver cirrhosis requiring weekly paracentesis, presenting today for generalized weakness and abdominal distention. Patient states last paracentesis was last Sunday, last Sunday. He typically has 1 every Sunday however he has gone to the point where he has not been able to get from Sunday to Sunday without having worsening abdominal distention. Patient states his distention and weakness became so badly bad today that he called the sister bring him to the emergency department. Just endorses generalized abdominal pain states is similar to usual abdominal pain prior to receiving his paracentesis. Endorses nausea but denies any vomiting or hematemesis stating that Zofran helps his nausea. States he has had 1 week of frequent loose stools, that are nonbloody and nonmelanotic Synotic. He endorses shortness of breath due to difficulty taking a deep breath due to abdominal distention. Denies cough, hemoptysis or chest pain. Denies fevers or chills. States he did take 1 tablet of Suboxone prior to coming in due to his abdominal pain. He is still drinking though would like to quit. He states he relapsed 3 weeks ago. Drinks 1 pint today last drink was this morning. Endorses chronic tingling in the distal aspects of his feet bilaterally otherwise denies new numbness. - Related Data Home Medications Medication Instructions Recorded Confirmed Acamprosate Calcium [Campral] 666 mg PO TID 09/17/23 02/10/24 Furosemide [Lasix] 20 mg PO BID 09/17/23 02/10/24 Lactulose 30 gm PO Q8H 09/17/23 02/10/24 Omeprazole [PriLOSEC] 20 mg PO BID 09/17/23 02/10/24 Ondansetron [Zofran] 4 mg PO DAILY PRN 09/17/23 02/10/24 Rifaximin [Xifaxan] 550 mg PO Q12H 09/17/23 02/10/24 levETIRAcetam [Keppra] 500 mg PO Q12HR 09/17/23 02/10/24 ALPRAZolam [Xanax] 0.25 mg PO DAILY PRN 02/10/24 02/10/24 Albuterol Sulfate [Albuterol 2 puff INHALATION RT-Q6H PRN 02/10/24 02/10/24 Sulfate Hfa] Buprenorphine HCl/Naloxone HCl 1 film SL DAILY PRN 02/10/24 02/10/24 [Suboxone 2 mg-0.5 mg Sl Film] Midodrine [ProAmatine] 5 mg PO TID 02/10/24 02/10/24 Mirtazapine 7.5 mg PO HS 02/10/24 02/10/24 Nicotine 7Mg/24Hr Patch [Habitrol] 1 patch TRANSDERM DAILY PRN 02/10/24 02/10/24 diphenhydrAMINE & Zinc Cream 1 applic TOPICAL TID PRN 02/10/24 02/10/24 [Benadryl Cream] hydrOXYzine HCL [Atarax] 25 mg PO Q6H PRN 02/10/24 02/10/24 methocarbamoL [Robaxin-750] 750 mg PO Q8H PRN 02/10/24 02/10/24 Allergies Allergy/AdvReac Type Severity Reaction Status Date / Time No Known Allergies Allergy Verified 02/11/24 13:12 Review of Systems ROS Statement: Those systems with pertinent positive or pertinent negative responses have been documented in the HPI. ROS Other: All systems not noted in ROS Statement are negative. Past Medical History Past Medical History: GERD/Reflux, Liver Disease Additional Past Medical History / Comment(s): Pancreatitis, ETOH abuse, subtance abuse, large volume paracentesis, previously on liver transplant list but was removed due to continued substance abuse, chirrhosis History of Any Multi-Drug Resistant Organisms: None Reported Additional Past Surgical History / Comment(s): ERCP stent placement Past Anesthesia/Blood Transfusion Reactions: Unable to Obtain Past Psychological History: Anxiety, Depression Smoking Status: Current every day smoker Past Alcohol Use History: Abuse Past Drug Use History: Marijuana - Past Family History Father Family Medical History: Hypertension Additional Family Medical History / Comment(s): Parkinson's Disease Mother Additional Family Medical History / Comment(s): mental illness General Exam - General Exam Comments Initial Comments: PE: CONSTITUTIONAL: No apparent distress, chronically ill-appearing, non toxic SKIN: Warm, dry, no jaundice, hives or petechiae. area of erythema with excoriations present on abdomen EYES: Pupils are equally round, extraocular movements intact without nystagmus, clear conjunctiva, non-icteric sclera HENT: Normocephalic, atraumatic, moist mucus membranes, oropharynx clear without exudates NECK: , Full range of motion, normal appearance PULMONARY: Clear to auscultation without wheezes, rhonchi, or rales, normal excursion, no accessory muscle use and no stridor CARDIOVASCULAR: Regular rate, rhythm, normal S1 and S2. No appreciated murmurs, rubs or gallops. Strong radial pulses with intact distal perfusion. 2+ LE edema GASTROINTESTINAL: Soft, active bowel sounds throughout, non-tender, distended, no palpable masses, no rebound or guarding. Hepatomegaly present GENITOURINARY: MUSCULOSKELETAL: Extremities have no gross deformity, No calf swelling NEUROLOGIC:_a/o x 3, GCS 15, normal mentation and speech. Moves all extremities x 4 without motor or sensory deficit PSYCHIATRIC: Tearful mood and affect, thought process is clear and linear Limitations: no limitations Course Vital Signs 02/09/24 02/09/24 02/10/24 20:41 23:22 06:22 Temperature 97.5 F L 97.9 F Pulse Rate 76 75 86 Respiratory 20 20 19 Rate Blood Pressure 116/85 113/77 112/71 O2 Sat by Pulse 99 100 98 Oximetry Medical Decision Making - Medical Decision Making Was pt. sent in by a medical professional or institution (, PA, BURGLAR ALARM INSPECTOR, urgent care, hospital, or usp...) When possible be specific @ -No Did you speak to anyone other than the patient for history (EMS, parent, family, police, friend...)? What history was obtained from this source @ -No Did you review nursing and triage notes (agree or disagree)? Why? @ -I reviewed and agree with nursing and triage notes Were old charts reviewed (outside hosp., previous admission, EMS record, old EKG, old radiological studies, urgent care reports/EKG's, usp records)? Report findings @Medical records reviewed Differential Diagnosis (chest pain, altered mental status, abdominal pain women, abdominal pain men, vaginal bleeding, weakness, fever, dyspnea, syncope, headache, dizziness, GI bleed, back pain, seizure, CVA, palpatations, mental health, musculoskeletal)? @ -Differential diagnosis remains broad however top considerations include abdominal pain secondary to ascites due to liver cirrhosis from persistent alcoholism, spontaneous bacterial peritonitis, bowel obstruction, constipation, colitis, this is not all-inclusive list EKG interpreted by me (3pts min.). @Sinus rhythm, rate 69 bpm, CT interval 160 ms QRS duration 77 ms QT/QTc 410/429 ms, normal axis, no ST elevations or depressions, no arrhythmia X-rays interpreted by me (1pt min.). @ -Bilateral pleural effusions CT interpreted by me (1pt min.). @ -Ascites, no free air or obstruction U/S interpreted by me (1pt. min.). @ -None done What testing was considered but not performed or refused? (CT, X-rays, U/S, labs)? Why? @ -None What meds were considered but not given or refused? Why? @ -None Did you discuss the management of the patient with other professionals ( professionals i.e. , PA, BURGLAR ALARM INSPECTOR, lab, RT, psych nurse, older adult social work specialist, salvage laborer, teacher, chief security officer, transplant case manager)? Give summary @ -No Was smoking cessation discussed for >3mins.? @ -No Was critical care preformed (if so, how long)? @ -No Were there social determinants of health that impacted care today? How? (Homelessness, low income, unemployed, alcoholism, drug addiction, transportation, low edu. Level, literacy, decrease access to med. care, [place] [facility], rehab)? @Alcoholism, low income Was there de-escalation of care discussed even if they declined (Discuss DNR or withdrawal of care, Hospice)? @ -No What co-morbidities impacted this encounter? (DM, HTN, Smoking, COPD, CAD, Cancer, CVA, ARF, Chemo, Hep., AIDS, mental health diagnosis, sleep apnea, morbid obesity)? @ -Alcoholism, liver cirrhosis Was patient admitted / discharged? Hospital course, mention meds given and route, prescriptions, significant lab abnormalities, going to OR and other pertinent info. @Admission Is a 33-year-old gentleman past medical history liver cirrhosis secondary to alcoholism, ascites requiring weekly paracentesis presenting for abdominal pain generalized weakness. Patient afebrile and denies recent fevers, on exam abdomen is distended and minimally tender with hepatomegaly. No peritoneal signs, lower extremity edema noted. Patient has tearful mood and affect. Due to lack of fever and minimal tenderness ovation of the abdomen and patient stating abdominal pain is consistent with when he usually needs a paracentesis is a very low suspicion for spontaneous bacterial peritonitis at this point wever will give dose rocephin. Discussed with patient labs, pain control, CT abdomen to ensure no signs obstruction, anticipated admission. Patient agreeable plan of care. CT scan significant for small size liver with cirrhosis, severe intraperitoneal ascites diffuse subcutaneous edema, small to moderate size pleural bilateral pleural effusions, 7.7 cm thin-walled cyst appear to be localized to the wall of the stomach with possible pseudocyst versus other etiology follow-up advised Endoscopic ultrasound to further evaluate, chest x-ray with small to moderate bilateral pleural effusions. On review labs significant for elevated PT, PTT suspect secondary to liver cirrhosis, sodium 134, calcium 7.9, alkaline phosphatase 148 lipase within normal limits, blood alcohol 105 no leukocytosis, BNP 155. Updated patient to findings including cyst within the stomach and the importance of close follow-up. Patient aware of this. Discussed plan of admission. Patient agreeable with plan. Case discussed with [facility], who kindly accepts patient for admission. Undiagnosed new problem with uncertain prognosis? @ -No Drug Therapy requiring intensive monitoring for toxicity (Heparin, Nitro, Insulin, Cardizem)? @ -No Were any procedures done? @ -No Diagnosis/symptom? @Abdominal ascites secondary to liver cirrhosis, bilateral pleural effusions Acute, or Chronic, or Acute on Chronic? @Acute on chronic Uncomplicated (without systemic symptoms) or Complicated (systemic symptoms)? @Complicated Side effects of treatment? @ -No Exacerbation, Progression, or Severe Exacerbation? @ -No Poses a threat to life or bodily function? How? (Chest pain, USA, IA, pneumonia, PE, COPD, DKA, ARF, appy, cholecystitis, CVA, Diverticulitis, Homicidal, Suicidal, threat to staff... and all critical care pts) @ -No - Lab Data Result diagrams: 02/10/24 06:29 02/10/24 06:29 Lab Results 02/09/24 02/09/24 02/09/24 Range/Units 22:03 22:03 22:03 WBC 7.5 (3.8-10.6) k/uL RBC 4.14 L (4.30-5.90) m/uL Hgb 13.3 (13.0-17.5) gm/dL Hct 41.8 (39.0-53.0) % MCV 101.0 H (80.0-100.0) fL MCH 32.1 (25.0-35.0) pg MCHC 31.8 (31.0-37.0) g/dL RDW 14.3 (11.5-15.5) % Plt Count 309 (150-450) k/uL MPV 6.7 Neutrophils % 68 % Lymphocytes % 21 % Monocytes % 8 % Eosinophils % 2 % Basophils % 1 % Neutrophils # 5.1 (1.3-7.7) k/uL Lymphocytes # 1.5 (1.0-4.8) k/uL Monocytes # 0.6 (0-1.0) k/uL Eosinophils # 0.1 (0-0.7) k/uL Basophils # 0.1 (0-0.2) k/uL Macrocytosis Slight PT 14.8 H (10.0-12.5) sec INR 1.4 H (<1.2) APTT 31.5 H (22.0-30.0) sec Sodium 134 L (137-145) mmol/L Potassium 3.8 (3.5-5.1) mmol/L Chloride 102 (98-107) mmol/L Carbon Dioxide 24 (22-30) mmol/L Anion Gap 8 mmol/L BUN 10 (9-20) mg/dL Creatinine 0.40 L (0.66-1.25) mg/dL Est GFR (CKD-EPI)AfAm >90 (>60 ml/min/1.73 sqM) Est GFR (CKD-EPI)NonAf >90 (>60 ml/min/1.73 sqM) Glucose 91 (74-99) mg/dL Calcium 7.9 L (8.4-10.2) mg/dL Magnesium 1.7 (1.6-2.3) mg/dL Total Bilirubin 0.9 (0.2-1.3) mg/dL AST 55 (17-59) U/L ALT 20 (4-49) U/L Alkaline Phosphatase 148 H (38-126) U/L Troponin I (0.000-0.034) ng/mL NT-Pro-B Natriuret Pep 155 pg/mL Total Protein 6.5 (6.3-8.2) g/dL Albumin 3.2 L (3.5-5.0) g/dL Amylase 48 (30-110) U/L Lipase 43 (23-300) U/L TSH 4.450 (0.465-4.680) mIU/L Urine Color Urine Appearance (Clear) Urine pH (5.0-8.0) Ur Specific [place] (1.001-1.035) Urine Protein (Negative) Urine Glucose (UA) (Negative) Urine Ketones (Negative) Urine Blood (Negative) Urine Nitrite (Negative) Urine Bilirubin (Negative) Urine Urobilinogen (<2.0) mg/dL Ur Leukocyte Esterase (Negative) Urine RBC (0-5) /hpf Urine WBC (0-5) /hpf Ur Squamous Epith Cells (0-4) /hpf Calcium Oxalate Crystal (None) /hpf Amorphous Sediment (None) /hpf Urine Mucus (None) /hpf Serum Alcohol 105 mg/dL 02/09/24 02/09/24 Range/Units 22:03 23:16 WBC (3.8-10.6) k/uL RBC (4.30-5.90) m/uL Hgb (13.0-17.5) gm/dL Hct (39.0-53.0) % MCV (80.0-100.0) fL MCH (25.0-35.0) pg MCHC (31.0-37.0) g/dL RDW (11.5-15.5) % Plt Count (150-450) k/uL MPV Neutrophils % % Lymphocytes % % Monocytes % % Eosinophils % % Basophils % % Neutrophils # (1.3-7.7) k/uL Lymphocytes # (1.0-4.8) k/uL Monocytes # (0-1.0) k/uL Eosinophils # (0-0.7) k/uL Basophils # (0-0.2) k/uL Macrocytosis PT (10.0-12.5) sec INR (<1.2) APTT (22.0-30.0) sec Sodium (137-145) mmol/L Potassium (3.5-5.1) mmol/L Chloride (98-107) mmol/L Carbon Dioxide (22-30) mmol/L Anion Gap mmol/L BUN (9-20) mg/dL Creatinine (0.66-1.25) mg/dL Est GFR (CKD-EPI)AfAm (>60 ml/min/1.73 sqM) Est GFR (CKD-EPI)NonAf (>60 ml/min/1.73 sqM) Glucose (74-99) mg/dL Calcium (8.4-10.2) mg/dL Magnesium (1.6-2.3) mg/dL Total Bilirubin (0.2-1.3) mg/dL AST (17-59) U/L ALT (4-49) U/L Alkaline Phosphatase (38-126) U/L Troponin I <0.012 (0.000-0.034) ng/mL NT-Pro-B Natriuret Pep pg/mL Total Protein (6.3-8.2) g/dL Albumin (3.5-5.0) g/dL Amylase (30-110) U/L Lipase (23-300) U/L TSH (0.465-4.680) mIU/L Urine Color [place] Urine Appearance Cloudy (Clear) Urine pH 6.0 (5.0-8.0) Ur Specific [place] 1.033 (1.001-1.035) Urine Protein 1+ H (Negative) Urine Glucose (UA) Negative (Negative) Urine Ketones Negative (Negative) Urine Blood Negative (Negative) Urine Nitrite Negative (Negative) Urine Bilirubin Negative (Negative) Urine Urobilinogen 2.0 (<2.0) mg/dL Ur Leukocyte Esterase Negative (Negative) Urine RBC 2 (0-5) /hpf Urine WBC 8 H (0-5) /hpf Ur Squamous Epith Cells 3 (0-4) /hpf Calcium Oxalate Crystal Many H (None) /hpf Amorphous Sediment Rare H (None) /hpf Urine Mucus Many H (None) /hpf Serum Alcohol mg/dL Disposition Clinical Impression: Cyst of stomach, Ascites Disposition: ADMITTED IP TO [facility] Condition: Stable
[2024-02-09 22:22] LABS: Basophils # (A) 0.1 k/uL (0-0.2); Basophils % (A) 1 %; Eosinophils # (A) 0.1 k/uL (0-0.7); Eosinophils % (A) 2 %; HCT 41.8 % (39.0-53.0); HGB 13.3 gm/dL (13.0-17.5); Lymphocytes # (A) 1.5 k/uL (1.0-4.8); Lymphocytes % (A) 21 %; MCH 32.1 pg (25.0-35.0); MCHC 31.8 g/dL (31.0-37.0); Macrocytosis Slight; Mean Platelet Volume 6.7; Monocytes # (A) 0.6 k/uL (0-1.0); Monocytes % (A) 8 %; Neutrophils # (A) 5.1 k/uL (1.3-7.7); Neutrophils % (A) 68 %; Platelet Count 309 k/uL (150-450); RBC 4.14 m/uL (4.30-5.90); RDW 14.3 % (11.5-15.5); WBC 7.5 k/uL (3.8-10.6)
--- NOTE | 2024-02-09 22:30 | XR ---
EXAMINATION TYPE: XR chest 2V DATE OF EXAM: 02/09/2024 COMPARISON: NONE HISTORY: Shortness of breath, history of cirrhosis, lower extremity swelling TECHNIQUE: Frontal and lateral views of the chest are obtained. FINDINGS: There is small to moderate sized bilateral pleural effusions. The upper lungs are clear wi thout pneumothorax. The cardiac silhouette size is within normal limits. The osseous structures are intact. IMPRESSION: Small to moderate-sized bilateral pleural effusions. [facility], , 02/09/2024 10:28 PM
[2024-02-09 22:32] LABS: ALT 20 U/L (4-49); AST 55 U/L (17-59); African American GFR (CKD) >90 (>60 ml/min/1.73 sqM); Albumin 3.2 g/dL (3.5-5.0); Alkaline Phosphatase 148 U/L (38-126); Amylase 48 U/L (30-110); Anion Gap 8 mmol/L; Blood Urea Nitrogen 10 mg/dL (9-20); Calcium 7.9 mg/dL (8.4-10.2); Carbon Dioxide 24 mmol/L (22-30); Chloride 102 mmol/L (98-107); Glucose 91 mg/dL (74-99); Lipase 43 U/L (23-300); Magnesium 1.7 mg/dL (1.6-2.3); Non-African American GFR(CKD) >90 (>60 ml/min/1.73 sqM); Potassium 3.8 mmol/L (3.5-5.1); Sodium 134 mmol/L (137-145); Total Bilirubin 0.9 mg/dL (0.2-1.3); Total Protein 6.5 g/dL (6.3-8.2)
[2024-02-09 22:39] LABS: NT-Pro-B-Type Natriuretic Pept 155 pg/mL
[2024-02-09 22:41] LABS: INR 1.4 (<1.2); Partial Thromboplastin Time 31.5 sec (22.0-30.0); Prothrombin Time 14.8 sec (10.0-12.5)
[2024-02-09 23:06] LABS: Alcohol 105 mg/dL
--- NOTE | 2024-02-09 23:08 | CT ---
EXAMINATION TYPE: CT abdomen pelvis wo con DATE OF EXAM: 02/09/2024 HISTORY: pt states he has terminal liver disease and he gets paracentesis here weekly. pt reports the last couple of months the weekly treatments have not been effective. He reports that by Sunday he is having increasing swelling, inability to care for self, and increased pain the legs and ABD, decr eased ability to sleep. pt is teary in triage. CT DLP: 667.6 mGycm. Automated Exposure Control for Dose Reduction was Utilized. TECHNIQUE: CT scan of the abdomen and pelvis is performed without oral or IV contrast. COMPARISON: NONE FINDINGS: Within the limitations of a non-contrast study, the following observations are made. LUNG BASES: There are [id number] sized bilateral pleural effusions with associated compressive atelectasis. LIVER/GB: Liver is small in size and heterogeneously hypodense consistent with known underlying hepat ocellular disease. Some pneumobilia is seen. There is metallic CBD stent. No obvious biliary dilatati on. Likely gas filled gallbladder in region of gallbladder fossa coronal image 56. PANCREAS: Suboptimally evaluated on noncontrast study. SPLEEN: Spleen remains normal in size. ADRENALS: Some calcification region of right adrenal gland was 53 is noted.. KIDNEYS: No significant abnormality is seen. BOWEL: Suboptimal evaluation without enteric contrast. No obvious biliary dilatation. In the region o f the stomach there is a 7.7 cm well-circumscribed fluid dense lesion axial image 58 noted. This appe ars to push the lumen centrally and anteriorly suggesting it may be in the wall of the stomach GENITAL ORGANS: No gross abnormality seen. LYMPH NODES: Suboptimal evaluation, no definitive greater than 1cm abdominal or pelvic lymph nodes ar e appreciated. OSSEOUS STRUCTURES: No significant abnormality is seen. OTHER: Severe intraperitoneal ascites. Severe diffuse subcutaneous edema IMPRESSION: 1. Small size liver consistent with known cirrhosis. Severe intraperitoneal ascites and diffuse subcu taneous edema. Small to moderate-sized bilateral pleural effusions. 2. There is 7.7 cm thin-walled cyst that appears to be localized to the wall of the stomach. Possible pseudocyst versus other etiology. Follow-up advised. Consider endoscopic ultrasound to further evalu ate. [facility], , 02/09/2024 11:06 PM
[2024-02-09] MEDS: ONDANSETRON 4 MG/2 ML VIAL IVP STA (23:19)
[2024-02-09] MEDS: HYDROmorphone 1 MG/ML 1 ML SYRINGE IVP STA (23:22)
[2024-02-09 23:47] LABS: Amorphous Sediment,Urine Rare /hpf; Appearance,Urine Cloudy (Clear); Bilirubin,Urine Negative (Negative); Blood,Urine Negative (Negative); Calcium Oxalate Crystals,Urine Many /hpf; Color,Urine Orange; Glucose,Urine (UA) Negative (Negative); Ketones,Urine Negative (Negative); Leukocyte Esterase,Urine Negative (Negative); Mucus,Urine Many /hpf; Nitrite,Urine Negative (Negative); Protein,Urine 1+ (Negative); RBC,Urine 2 /hpf (0-5); Specific Gravity,Urine 1.033 (1.001-1.035); Squamous Epithelial Cell,Urine 3 /hpf (0-4); WBC,Urine 8 /hpf (0-5)
[2024-02-10] MEDS ORDERED: NALOXONE 0.4 MG/ML 1 ML VIAL IV PRN (01:12)
[2024-02-10] MEDS: LORazepam 0.5 MG TAB PO PRN (01:13)
[2024-02-10] MEDS ORDERED: LORazepam 2 MG/ML INJ IV PRN (01:14)
[2024-02-10] MEDS ORDERED: LORazepam 1 MG TAB PO PRN ×4 (01:14)
--- NOTE | 2024-02-10 01:25 | P.HPIM ---
History of Present Illness H&P Date: 02/10/24 Chief Complaint: Abdominal pain History of present illness; Marcial Arnett 33-year-old male with alcohol use disorder, liver cirrhosis, GERD presented with abdominal pain. Patient attest to once weekly paracentesis usually on Mondays, including his last his procedure this week and states he has had difficulty getting to his appointments. He describes the pain as searing, g eneralized but slightly worse in left upper quadrant. Patient states he has chronic abdominal pain which has now progressed. He also states he is having trouble breathing due to the pain, and endorses some pain in bilateral lower extremities. He admits to taking Suboxone prior to arrival due to pain. Patient states his last drink was earlier today with several shots of liquor. He states he can would like to quit drinking alcohol but has relapsed 3 weeks ago. States no known history of seizures or delirium tremens. Stated 1 week history of loose nonbloody diarrhea, also increased heartburn symptoms. Patient reports absence of fever, chills, chest pain, palpitations, diaphoresis, cough, nausea, vomiting, constipation, dizziness, headache, and dysuria. Chest x-ray done independently interpreted in the ER showed small to moderate- sized bilateral pleural effusions CT AP done independently interpreted showed severe intraperitoneal ascites and diffuse subcutaneous edema. 7.7 cm thin-walled cyst localized within wall of stomach. Spoke with the ER physician, patient admission was accepted by internal medicine service for treatment of abdominal pain and alcohol use disorder REVIEW OF SYSTEMS: Pertinent positives and negatives noted in HPI. PHYSICAL EXAMINATION: Vitals reviewed GENERAL: Tearful, disheveled. HEENT: Pupils are round and equally reacting to light. EOMI. No scleral icterus. Normocephalic, atraumatic. No pharyngeal erythema. No thyromegaly. CARDIOVASCULAR: S1 and S2 present. No murmurs, rubs, or gallops. PULMONARY: Chest is clear to auscultation, no wheezing, rhonchi, or crackles. ABDOMEN: distended, generalized tenderness MUSCULOSKELETAL: No apparent joint swelling and deformities. EXTREMITIES: No apparent cyanosis, clubbing. 2+ pedal edema. NEUROLOGICAL: The patient is alert and oriented x3, Gross neurological examination did not reveal any focal deficits. 5/5 Strength bilateral UE and LE SKIN: No apparent rashes. Assessment and plan: Marcial Brown 33-year-old male with history of alcohol use disorder, liver cirrhosis, GERD presented with abdominal pain. Spoke with the ED and admission accepted by internal medicine service for treatment of abdominal pain and alcohol use disorder. #Ascites, secondary to liver cirrhosis CTAP reveals severe intraperitoneal ascites and diffuse subcutaneous edema Continue tramadol 50 mg every 8 hour, Dilaudid 1 mg IVP every 3 hour as needed for pain follow up blood culture WBC 7.5 is WNL, afebrile, Given Rocephin 2 g in ER for SBP Empiric treatment suspected based on severe tenderness Begin Lasix 40 mg twice daily - Plan therapeutic and diagnostic paracentesis - consult IR MELD score 12 (Bilirubin 0.9, Cr 0.4, Na 134, alb 3.2) lactulose 20 gm TID goal 3-5 BM daily #Alcohol dependence with impending withdrawal - Alcohol 105, last drink morning of - ALP 148 elevated, albumin 3.2 decreased Benzo per CIWA protocol Give daily thiamine and folic acid - seizure precautions monitor daily electrolytes - cardiac monitoring -psych social worker consult Chronic Medical Conditions # Liver cirrhosis - Resume home medications once verified #GERD -Begin pantoprazole 40 mg BID F: P.o. E: Replete as needed N: Heart healthy diet DVT ppx: Subq Lovenox 40 meq daily Code status: Full code Anticipated discharge place: Home Anticipated discharge time: Greater than 2 days Dictation was produced using [employer] dictation software. Please excuse any grammatical, word or spelling errors. Past Medical History Past Medical History: GERD/Reflux, Liver Disease Additional Past Medical History / Comment(s): Pancreatitis, ETOH abuse, subtance abuse, large volume paracentesis, previously on liver transplant list but was removed due to continued substance abuse, chirrhosis History of Any Multi-Drug Resistant Organisms: None Reported Additional Past Surgical History / Comment(s): ERCP stent placement Past Anesthesia/Blood Transfusion Reactions: Unable to Obtain Past Psychological History: Anxiety, Depression Smoking Status: Current every day smoker Past Alcohol Use History: Abuse Past Drug Use History: Marijuana Medications and Allergies Home Medications Medication Instructions Recorded Confirmed Type Acamprosate Calcium [Campral] 333 mg PO BID 09/17/23 02/04/24 History Ciprofloxacin HCl 500 mg PO DAILY 09/17/23 02/04/24 History Folic Acid 1 mg PO 5XD 09/17/23 02/04/24 History Furosemide [Lasix] 20 mg PO BID 09/17/23 02/04/24 History Lactulose 45 gm PO BID 09/17/23 02/04/24 History Magnesium Gluconate [Magonate] 500 mg PO DAILY 09/17/23 02/04/24 History Midodrine HCl [ProAmatine] 20 mg PO TID 09/17/23 02/04/24 History Multivitamin [Multivitamins Adult 1 tab PO DAILY 09/17/23 02/04/24 History Gummies] Omeprazole [PriLOSEC] 20 mg PO AC-BID 09/17/23 02/04/24 History Ondansetron [Zofran] 4 mg PO Q12HR PRN 09/17/23 02/04/24 History Rifaximin [Xifaxan] 550 mg PO Q12H 09/17/23 02/04/24 History Spironolactone 50 mg PO DAILY 09/17/23 02/04/24 History levETIRAcetam [Keppra] 500 mg PO Q12HR 09/17/23 02/04/24 History Buprenorphine HCl/Naloxone HCl 1 each SL DAILY 09/28/23 02/04/24 History [Suboxone 4 mg-1 mg Sl Film] Allergies Allergy/AdvReac Type Severity Reaction Status Date / Time No Known Allergies Allergy Verified 02/09/24 20:41 Physical Exam Vitals: Vital Signs Temp Pulse Resp BP Pulse Ox 02/09/24 23:22 75 20 113/77 100 02/09/24 20:41 97.5 F L 76 20 116/85 99 Intake and Output 02/09/24 02/09/24 02/10/24 14:59 22:59 05:59 Other: Weight 72.575 kg Results CBC & Chem 7: 02/09/24 22:03 02/09/24 22:03 Labs: Abnormal Lab Results - Last 24 Hours (Table) 02/09/24 02/09/24 02/09/24 Range/Units 22:03 22:03 22:03 RBC 4.14 L (4.30-5.90) m/uL MCV 101.0 H (80.0-100.0) fL PT 14.8 H (10.0-12.5) sec INR 1.4 H (<1.2) APTT 31.5 H (22.0-30.0) sec Sodium 134 L (137-145) mmol/L Creatinine 0.40 L (0.66-1.25) mg/dL Calcium 7.9 L (8.4-10.2) mg/dL Alkaline Phosphatase 148 H (38-126) U/L Albumin 3.2 L (3.5-5.0) g/dL Urine Protein (Negative) Urine WBC (0-5) /hpf Calcium Oxalate Crystal (None) /hpf Amorphous Sediment (None) /hpf Urine Mucus (None) /hpf 02/09/24 Range/Units 23:16 RBC (4.30-5.90) m/uL MCV (80.0-100.0) fL PT (10.0-12.5) sec INR (<1.2) APTT (22.0-30.0) sec Sodium (137-145) mmol/L Creatinine (0.66-1.25) mg/dL Calcium (8.4-10.2) mg/dL Alkaline Phosphatase (38-126) U/L Albumin (3.5-5.0) g/dL Urine Protein 1+ H (Negative) Urine WBC 8 H (0-5) /hpf Calcium Oxalate Crystal Many H (None) /hpf Amorphous Sediment Rare H (None) /hpf Urine Mucus Many H (None) /hpf Assessment and Plan Assessment: I have seen and evaluated the patient today. I Discussed the case with the resident and agree with the resident's findings I edited the assessment and plan as necessary as documented in the resident's note.
[2024-02-10] MEDS: PANTOPRAZOLE 40 MG/10 ML VIAL IV SCH (01:57)
[2024-02-10] MEDS: FUROSEMIDE 20 MG TAB PO SCH (01:58)
[2024-02-10] MEDS: ALBUTEROL HFA INHALER INHALATION STA (02:32)
[2024-02-10] MEDS: HYDROmorphone 1 MG/ML 1 ML SYRINGE IVP PRN (03:04)
[2024-02-10] MEDS ORDERED: CALCIUM CARBONATE 500 MG CHEWABLE PO PRN (03:05)
[2024-02-10] MEDS: THIAMINE 100 MG/ML 2 ML VIAL IM STA (03:09)
[2024-02-10] MEDS: DEXTROSE 5%-0.45% NACL 1,000 ML IV SCH (03:56)
[2024-02-10] MEDS: SPIRONOLACTONE 25 MG TAB PO SCH (08:00)
[2024-02-10] MEDS: PANTOPRAZOLE 40 MG TABLET PO SCH (08:00)
[2024-02-10] MEDS: LACTULOSE 20 GM/30 ML CUP PO SCH (08:00)
[2024-02-10] MEDS: MULTIVITAMINS, THERA 1 EACH TAB PO SCH (08:00)
[2024-02-10] MEDS: FUROSEMIDE 10 MG/ML 4 ML VIAL IV SCH (08:00)
[2024-02-10] MEDS: ENOXAPARIN 40 MG/0.4 ML SYRINGE SQ SCH (08:00)
[2024-02-10] MEDS: levETIRAcetam 500 MG TAB PO SCH (08:00)
[2024-02-10] MEDS: FOLIC ACID 1 MG TAB PO SCH (08:00)
[2024-02-10] MEDS: traMADol 50 MG TAB PO PRN (08:01)
[2024-02-10 09:06] LABS: ALT 14 U/L (10-49); AST 35 U/L (14-35); Albumin 2.7 g/dL (3.8-4.9); Albumin/Globulin Ratio 1.04 Ratio (1.60-3.17); Alkaline Phosphatase 158 U/L (41-126); Basophils % (A) 1.4 %; Blood Urea Nitrogen 9.5 mg/dL (9.0-27.0); Calcium 7.6 mg/dL (8.7-10.3); Carbon Dioxide 20.4 mmol/L (21.6-31.8); Chloride 102 mmol/L (96-109); Eosinophils # (A) 0.17 X 10*3/uL (0.04-0.35); Eosinophils % (A) 2.4 %; Globulin 2.6 g/dL (1.6-3.3); Glucose 107 mg/dL (70-110); HCT 33.4 % (39.6-50.0); HGB 10.8 g/dL (13.0-17.0); Lymphocytes # (A) 1.53 X 10*3/uL (0.90-5.00); MCH 31.9 pg (27.0-32.0); MCHC 32.3 g/dL (32.0-37.0); MCV 98.5 FL (80.0-97.0); Magnesium 1.5 mg/dL (1.5-2.4); Mean Platelet Volume 8.8 FL (9.5-12.2); Monocytes # (A) 1.18 X 10*3/uL (0.20-1.00); NRBC Per 100 WBC 0 X 10*3/uL (0.00-0.01); Neutrophils # (A) 3.93 X 10*3/uL (1.80-7.70); Neutrophils % (A) 56.8 %; Platelet Count 247 X 10*3/uL (140-440); RBC 3.39 X 10*6/uL (4.40-5.60); Sodium 135 mmol/L (135-145); Total Bilirubin 0.5 mg/dL (0.3-1.2); Total Protein 5.3 g/dL (6.2-8.2); WBC 6.94 X 10*3/uL (4.50-10.00)
[2024-02-10] MEDS: HYDROmorphone 2 MG/ML 1 ML SYRINGE IVP PRN (10:14)
[2024-02-10] MEDS ORDERED: NICOTINE 7MG/24HR PATCH TRANSDERM PRN (11:56)
[2024-02-10] MEDS ORDERED: ALBUTEROL HFA INHALER INHALATION PRN (11:56)
[2024-02-10] MEDS ORDERED: Buprenorphine Hcl/Naloxone Hcl [Suboxone 2 Mg-0.5 Mg Sl Film] 1 EACH F SUBLINGUAL PRN (11:56)
[2024-02-10] MEDS ORDERED: methocarbamoL 750 MG TAB PO PRN (11:56)
[2024-02-10] MEDS ORDERED: NON FORMULARY DRUG (Omeprazole 20 MG Capsule.Dr) PO SCH (12:15)
--- NOTE | 2024-02-10 12:15 | P.PN ---
Progress Note - Text Progress Note Date: 02/10/24 This is not a billable document. Please see H&P for full documentation Hospital course Marcial Arnett 33-year-old male with alcohol use disorder, liver cirrhosis, GERD presented with abdominal pain. Patient attest to once weekly paracentesis usually on Mondays, including his last his procedure this week and states he has had difficulty getting to his appointments. He describes the pain as searing, generalized but slightly worse in left upper quadrant. Patient states he has chronic abdominal pain which has now progressed. He also states he is having trouble breathing due to the pain, and endorses some pain in bilateral lower extremities. He admits to taking Suboxone prior to arrival due to pain. Patient states his last drink was earlier today with several shots of liquor. He states he can would like to quit drinking alcohol but has relapsed 3 weeks ago. In the ED chest x-ray showed small to moderate-sized bilateral pleural effusions. CT abdomen pelvis showed severe intraperitoneal ascites and also a 7.7 cm thin- walled cyst localized within wall of stomach. Patient seen this morning. Patient tells me that he relapsed and is drinking again. He knows he needs to stop. He is also frustrated because he has to wait so long to see his doctors at [facility]. Physical exam General examination - Alert and Oriented 3 in NAD Heart - + S1S2 no murmurs Lungs - Clear to auscultation Abdomen distended Extremities - No edema MEDICAL SERVICE TECHNICIAN - Moving all 4 extremities spontaneously Psych - Calm and cooperative Assessment and plan Decompensated liver cirrhosis secondary to alcohol abuse Severe ascites Continue tramadol 50 mg every 8 hour, Dilaudid 1 mg IVP every 3 hour as needed for pain. Also continue with his home medications Suboxone 1 film as needed daily for pain. IR consult for paracentesis Continue with IV Lasix 40 mg every 12 hours Continue with his home dose midodrine 5 mg p.o. 3 times daily to keep blood pressure elevated and to allow for diuresing. Continue with lactulose 45 g 3 times daily. Ammonia within normal limits Continue with Xifaxan 550 mg every 12 hours. Patient states that starting February 20 he will be having paracentesis twice a week. Currently he is scheduled for paracentesis every Sunday. Patient's media analyst is at [facility]. Alcohol abuse Patient started on [place] protocol I counseled patient on alcohol cessation. History of seizure Continue with Keppra 500 mg p.o. every 12 hours GERD Continue with Protonix 40 mg p.o. twice daily Anxiety and depression Continue with mirtazapine 7.5 mg p.o. at bedtime DVT prophylaxis: Will stop Lovenox due to liver cirrhosis Patient's prognosis is guarded. Anticipate discharge tomorrow after paracentesis
[2024-02-10] MEDS: RIFAXIMIN 550 MG TAB (PTS OWN) PO SCH (12:47)
[2024-02-10] MEDS: MIDODRINE 5 MG TAB PO SCH (12:54)
[2024-02-10] MEDS: ALPRAZolam 0.25 MG TAB PO PRN (13:27)
[2024-02-10] MEDS: hydrOXYzine HCL 25 MG TAB PO PRN (14:25)
[2024-02-10] MEDS: ONDANSETRON 4 MG/2 ML VIAL IVP PRN (15:45)
[2024-02-10] MEDS: ACAMPROSATE CALCIUM 333 MG TABLET.DR PO SCH (15:45)
[2024-02-10] MEDS: MIRTAZAPINE 15 MG TAB PO SCH (20:11)
[2024-02-11 12:57] VITALS: BP 116/76; RESP 15; TEMP 98.2
[2024-02-11 12:58] VITALS: PULSE 93
[2024-02-11] MEDS: ALBUMIN HUMAN 25% 50 ML in EMPTY BAG 1 BAG IVPB ONE (13:08)
--- NOTE | 2024-02-11 13:39 | US ---
EXAMINATION TYPE: US paracentesis abd w/image DATE OF EXAM: 02/11/2024 11:29 AM COMPARISON: None. Previous Paracentesis CLINICAL INDICATION: Male, 33 years old with history of see IR consult for ordering information; , as cites TECHNIQUE/FINDINGS: The procedure was discussed with the patient. The risks, complications, benefits, and alternatives we re discussed and any questions were answered. Informed consent was obtained. The patient was placed s upine on the ultrasound table and prepped and draped in the usual sterile fashion. All elements of maximal barrier technique were utilized. Under ultrasound guidance, access into the right lower quadrant was obtained, via the paracentesis catheter system and direct ultrasound guidanc e. Approximately 10.0 liters of straw-colored fluid was removed. The patient was stable throughout the p rocedure and remained stable upon discharge from Department of Radiology. IMPRESSION: Successful paracentesis under ultrasound guidance. [facility], , 02/11/2024 1:36 PM
[2024-02-11] MEDS: ALBUMIN HUMAN 25% 50 ML in EMPTY BAG 1 BAG IVPB SCH (13:44)
--- NOTE | 2024-02-11 14:16 | P.PN ---
Subjective Progress Note Date: 02/11/24 33 year old M with PMH of EtOH abuse, liver cirrhosis, GERD presents to the ED for abdominal pain. Last drink was earlier today with several shots of liquor. In the ED he underwent extensive evaluation. BP 116/85, HR 76, T 97.5F, RR 20, 99% on RA. CBC, Coag panel, CMP significant for RBC 4.14, MCV 101, PT 14.8, INR 1.4, APTT 31.5, Na 134, Cr 0.4, Ca 7.9, alk phos 148, alb 3.2. Trop < 0.012. BNP 155. Amylase Lipase neg. TSH 4.45. UA neg LE or nitrite. CT AP showed severe intraperitoneal ascites and 7.7 cm thin-walled cyst localized within wall of stomach. Patient admitted for further workup and management. 02/10 Patient was seen and examined. He reports well controlled abdominal pain with Dilaudid. No nausea or vomiting. Plans for paracentesis later on today. General: non toxic, no distress, appears at stated age Derm: warm, dry Head: atraumatic, normocephalic, symmetric Eyes: EOMI, no lid lag, anicteric sclera Mouth: no lip lesion, mucus membranes moist Cardiovascular: S1S2 reg, no murmur Lungs: Decreased BS bilaterally, no rhonchi, no rales , no accessory muscle use Abd: Distended, TTP in all 4 quadrants without rebound Neuro: no focal neuro deficits Psych: Alert, oriented, appropriate affect Based on my assessment of this patient, this patient meets a high complexity level of care. Decompensated liver cirrhosis secondary to alcohol abuse: Follow up with Respiratory Assistant at [facility] on discharge. lactulose 45 g 3 times daily. Lasix 40 mg IV BID. Rifaximin 550 mg PO BID. Plans for biweekly paracentesis starting Feb 20. Severe ascites: Plans for paracentesis today. Stomach versus pancreatic cyst: Seen on CT. 7.[address] AP with contrast to better delineate. Alcohol abuse: CIWA protocol with Ativan PRN. History of seizure: Continue with Keppra 500 mg p.o. every 12 hours GERD: Continue with Protonix 40 mg p.o. twice daily Anxiety and depression: Continue with mirtazapine 7.5 mg p.o. at bedtime CODE STATUS: FULL CODE. DVT Prophylaxis: SCD GI Prophylaxis: Protonix Designated medical POA if patient is not able to make medical decisions for themselves: I have reviewed the following wine consultant notes: I have reviewed the results of the following tests: I have ordered the following tests: CT AP. I have discussed the care of this patient with the following independent historian: DEYVI. I have independently interpreted the following test below: I have discussed the management of this patient with the following physician: Objective - Vital Signs Vital signs: Vital Signs Temp 98.2 F 02/11/24 12:54 Pulse 93 02/11/24 12:54 Resp 15 02/11/24 12:54 BP 116/76 02/11/24 12:54 Pulse Ox 98 02/11/24 12:54 FiO2 Intake & Output 02/10/24 02/11/24 02/11/24 18:59 06:59 18:59 Intake Total 600 790 Output Total 1600 500 Balance -1000 290 Weight 72.575 kg 88.5 kg Intake: Oral 600 790 Output: Urine 1600 500 Other: Voiding Method Toilet Toilet Urinal Urinal # Voids 2 - Labs CBC & Chem 7: 02/10/24 06:29 02/10/24 06:29 Labs: Microbiology - Last 24 Hours (Table) 02/10/24 03:04 Blood Culture - Preliminary Blood
--- NOTE | 2024-02-11 15:48 | CT ---
EXAMINATION TYPE: CT abdomen w con DATE OF EXAM: 02/11/2024 COMPARISON: 02/09/2024 CLINICAL INDICATION: Male, 33 years old with history of stomach vs pancreatic cyst; PHH, Stomach vs p ancreatic cyst. TECHNIQUE: Performed without Oral Contrast and with IV Contrast, patient injected with 100 mL of Isovue 300. CT DLP: 402.[address] CTDI: mGy Automated exposure control for dose reduction was used. FINDINGS: There are persistent moderate bilateral pleural effusions with mild adjacent lung infiltrates, likely compressive atelectasis. There the liver is small in size consistent with the history of cirrhosis. Delineation of the gallbla dder is difficult. A contracted gallbladder intraluminal gas is suspected. There is a biliary stent i n place. There is a stable 7.7 cm well-circumscribed cystic mass in the region of the stomach and tail of the pancreas possibly representing a synovial cyst of the pancreas. There is no splenomegaly. There are no solid renal mass or hydronephrosis. The caliber of the abdominal aorta is normal. There is mild ascites within the abdomen markedly reduced compared to the prior study. There is no bowel dilatation or obstruction. The osseous structures are intact. IMPRESSION: 1. Mild ascites markedly reduced compared to prior study. 2. Stable moderate bilateral pleural effusions with mild bibasilar infiltrates, likely compressive at electasis. 3. Chronic liver disease. 4. Biliary stent. 5. Stable 7.7 cm well-circumscribed cyst in the region of the stomach and tail of pancreas possibly a pseudocyst of the pancreas. [facility], , 02/11/2024 3:46 PM
[2024-02-11 22:01] LABS: Appearance,BF Clear (Clear)
[2024-02-11 23:26] LABS: Glucose, BF Source Ascities; Glucose, Body Fluid 132 mg/dL; LDH, Body Fluid Source Ascities
--- NOTE | 2024-02-12 08:13 | P.DS ---
Providers Date of admission: 02/10/24 01:14 EST Expected date of discharge: 02/11/24 Attending physician: Melody Nath MD [facility]: 33 year old M with PMH of EtOH abuse, liver cirrhosis, GERD presents to the ED for abdominal pain. Last drink was earlier today with several shots of liquor. In the ED he underwent extensive evaluation. BP 116/85, HR 76, T 97.5F, RR 20, 99% on RA. CBC, Coag panel, CMP significant for RBC 4.14, MCV 101, PT 14.8, INR 1.4, APTT 31.5, Na 134, Cr 0.4, Ca 7.9, alk phos 148, alb 3.2. Trop < 0.012. BNP 155. Amylase Lipase neg. TSH 4.45. UA neg LE or nitrite. CT AP showed severe intraperitoneal ascites and 7.7 cm thin-walled cyst localized within wall of stomach. Patient admitted for further workup and management. 02/10 Patient was seen and examined. He reports well controlled abdominal pain with Dilaudid. No nausea or vomiting. Plans for paracentesis later on today. Patient underwent paracentesis and received Albumin afterwards. He was doing wel l and requested discharge. Repeat CT AP with contrast after paracentesis showed mild ascites, moderate bilateral pleural effusions, chronic liver disease with biliary stent, stable 7.7 cm cyst in the region of the stomach and tail of pancreas. He was advised to follow up with her Gastrotenterologist with regard to the abnormal findings on CT. General: non toxic, no distress, appears at stated age Derm: warm, dry Head: atraumatic, normocephalic, symmetric Eyes: EOMI, no lid lag, anicteric sclera Mouth: no lip lesion, mucus membranes moist Cardiovascular: S1S2 reg, no murmur Lungs: Decreased BS bilaterally, no rhonchi, no rales , no accessory muscle use Abd: Distended, TTP in all 4 quadrants without rebound Neuro: no focal neuro deficits Psych: Alert, oriented, appropriate affect Discharge Diagnosis: Decompensated liver cirrhosis secondary to alcohol abuse Severe ascites due to above Stomach versus pancreatic cyst Alcohol abuse History of seizure GERD Anxiety and depression This complex discharge took 35 minutes to complete. Patient Condition at Discharge: Stable Plan - Discharge Summary Discharge Rx Participant: Yes New Discharge Prescriptions: Continue Rifaximin [Xifaxan] 550 mg PO Q12H Furosemide [Lasix] 20 mg PO BID Omeprazole [PriLOSEC] 20 mg PO BID levETIRAcetam [Keppra] 500 mg PO Q12HR Acamprosate Calcium [Campral] 666 mg PO TID diphenhydrAMINE & Zinc Cream [Benadryl Cream] 1 applic TOPICAL TID PRN PRN Reason: Skin Irritation Albuterol Sulfate [Albuterol Sulfate Hfa] 2 puff INHALATION RT-Q6H PRN PRN Reason: Shortness Of Breath Buprenorphine HCl/Naloxone HCl [Suboxone 2 mg-0.5 mg Sl Film] 1 film SL DAILY PRN PRN Reason: Pain Nicotine 7Mg/24Hr Patch [Habitrol] 1 patch TRANSDERM DAILY PRN PRN Reason: Nicotine Cravings methocarbamoL [Robaxin-750] 750 mg PO Q8H PRN PRN Reason: Muscle Spasm ALPRAZolam [Xanax] 0.25 mg PO DAILY PRN PRN Reason: Anxiety Midodrine [ProAmatine] 5 mg PO TID Ondansetron [Zofran] 4 mg PO DAILY PRN PRN Reason: Nausea Lactulose 30 gm PO Q8H hydrOXYzine HCL [Atarax] 25 mg PO Q6H PRN PRN Reason: Anxiety Mirtazapine 7.5 mg PO HS Discontinued Ciprofloxacin HCl 500 mg PO DAILY Discharge Medication List Acamprosate Calcium [Campral] 666 mg PO TID 09/17/23 [History] Furosemide [Lasix] 20 mg PO BID 09/17/23 [History] Lactulose 30 gm PO Q8H 09/17/23 [History] Omeprazole [PriLOSEC] 20 mg PO BID 09/17/23 [History] Ondansetron [Zofran] 4 mg PO DAILY PRN 09/17/23 [History] Rifaximin [Xifaxan] 550 mg PO Q12H 09/17/23 [History] levETIRAcetam [Keppra] 500 mg PO Q12HR 09/17/23 [History] ALPRAZolam [Xanax] 0.25 mg PO DAILY PRN 02/10/24 [History] Albuterol Sulfate [Albuterol Sulfate Hfa] 2 puff INHALATION RT-Q6H PRN 02/10/24 [History] Buprenorphine HCl/Naloxone HCl [Suboxone 2 mg-0.5 mg Sl Film] 1 film SL DAILY PRN 02/10/24 [History] Midodrine [ProAmatine] 5 mg PO TID 02/10/24 [History] Mirtazapine 7.5 mg PO HS 02/10/24 [History] Nicotine 7Mg/24Hr Patch [Habitrol] 1 patch TRANSDERM DAILY PRN 02/10/24 [History] diphenhydrAMINE & Zinc Cream [Benadryl Cream] 1 applic TOPICAL TID PRN 02/10/24 [History] hydrOXYzine HCL [Atarax] 25 mg PO Q6H PRN 02/10/24 [History] methocarbamoL [Robaxin-750] 750 mg PO Q8H PRN 02/10/24 [History] Follow up Appointment(s)/Referral(s): Chiquita Baum MD [STAFF PHYSICIAN] - 1 Week Luzma Jaime NPC [Family Provider] - 1-2 days [facility], [NON-STAFF] - As Needed Activity/Diet/Wound Care/Special Instructions: *home meds in inpat. pharmacy (methocarbamol) Patient requires a hospital bed due to ascites causing difficulty breathing and needing the head of the bed elevated at 30 degrees or higher to alleviate dyspnea. This cannot be done with an ordinary bed. Next appointment for Paracentesis is February 17 at 1230 pm at [facility]. You can reach us in the Radiology Nursing department at [phone], if you have any questions. Follow up with your Aviation Metalsmith at [place] within 1 week of discharge regarding the 7.7 cm cyst seen on your CT AP. Discharge/Stand Alone Forms: AA Meetings [place], Outpatient Counseling, Inp Substance Abuse Facilities Discharge Disposition: HOME SELF-CARE
== END 2024-02-11 17:48 | disposition home or self-care (01) ==
LOC: EC 20:23 → 5NMEDONC 02-10 01:14
PROVIDERS: ADMIT Internal Medicine; ATTEND Internal Medicine
DX: F10.20 Alcohol dependence, uncomplicated (principal); K70.30 Alcoholic cirrhosis of liver without ascites; Z53.29 Procedure and treatment not carried out because of patient's decision for other reasons
CPT/HCPCS: 96376 ×3; 96367; 96375 ×3; 96365; 96366; 99285; 36415; 94640; 93005; 83880; 80053 ×2; 84443; 89050; 82140; 82150; 83690; 83735 ×2; 84484; 85025 ×2; 85610; 85730; 81001; 87040; 87070; 87205; 82945; 83615; 71046; 49083; 74160; 74176; G0378 ×2; G0480; J1171 ×4; J1940 ×2; J2405 ×2; J0696; P9047; Q9967; J2470; 80320

== ENCOUNTER 2024-02-18 13:44 | Day surgery (SDC) | payer OTHER ==
[2024-02-18 14:25] LABS: Platelet Count 254 k/uL (150-450)
[2024-02-18 14:45] LABS: African American GFR (CKD) >90 (>60 ml/min/1.73 sqM); Non-African American GFR(CKD) >90 (>60 ml/min/1.73 sqM)
[2024-02-18 14:58] VITALS: RESP 18; TEMP 97.7
[2024-02-18 15:05] LABS: INR 1.5 (<1.2); Prothrombin Time 15.3 sec (10.0-12.5)
[2024-02-18] MEDS: ALBUMIN HUMAN 25% 50 ML in EMPTY BAG 1 BAG IVPB SCH (15:09)
[2024-02-18 17:53] VITALS: BP 97/52; PULSE 70
--- NOTE | 2024-02-19 07:09 | US ---
EXAMINATION TYPE: US paracentesis abd w/image DATE OF EXAM: 02/18/2024 2:54 PM COMPARISON: prior paracentesis. CLINICAL INDICATION:Male, 33 years old with history of R18.8 OTHER ASCITES; , ascites ATTENDING: Dr. Lemuel Vanegas PROCEDURE: Informed consent was obtained. The risks of the procedure were extensively explained incl uding risk of damage to surrounding bowel with perforation and need for additional procedures. Proced ure was performed in the ultrasound procedure suite. Ultrasound imaging of the abdomen demonstrate as citic fluid. An appropriate access site was localized to the right lower abdomen. Timeout was taken p er protocol. The skin was prepped and draped in the usual sterile fashion and then locally anesthetiz ed with 1% lidocaine. The peritoneal cavity was then accessed via a 5-Polish one-step needle/cathete r. Approximately 7200 mL of clear straw-colored fluid was obtained. Postprocedural imaging of the ab domen demonstrate a minimal amount of abdominal fluid. Patient tolerated procedure well without immediate complication. Hemostasis at the procedural site w as obtained with a sterile bandage placed. The patient was monitored in the holding area following th e procedure and was subsequently discharged in stable condition. IMPRESSION: Ultrasound guided paracentesis, with approximately 7200 mL of clear straw-colored fluid drained. No i mmediate complications were evident. [facility], , 02/19/2024 7:07 AM
== END 2024-02-18 16:00 | disposition home or self-care (01) ==
LOC: RADPROMAIN 13:44
PROVIDERS: ATTEND Internal Medicine
DX: R18.8 Other ascites (principal)
CPT/HCPCS: 82565; 85049; 85610; 36415; 49083; P9047

== ENCOUNTER 2024-02-21 12:30 | Day surgery (SDC) | payer OTHER ==
[2024-02-21 13:12] VITALS: TEMP 98.3
[2024-02-21] MEDS: ALBUMIN HUMAN 25% 50 ML in EMPTY BAG 1 BAG IVPB SCH (13:50)
[2024-02-21 14:03] VITALS: RESP 16
[2024-02-21 14:14] VITALS: BP 97/66; PULSE 88
--- NOTE | 2024-02-21 15:29 | US ---
EXAMINATION TYPE: US paracentesis abd w/image DATE OF EXAM: 02/21/2024 1:54 PM COMPARISON: prior paracentesis. CLINICAL INDICATION:Male, 33 years old with history of R18.8 OTHER ASCITES; , ascites ATTENDING: Dr. Lemuel Vanegas PROCEDURE: Informed consent was obtained. The risks of the procedure were extensively explained incl uding risk of damage to surrounding bowel with perforation and need for additional procedures. Proced ure was performed in the ultrasound procedure suite. Ultrasound imaging of the abdomen demonstrate as citic fluid. An appropriate access site was localized to the right lower abdomen. Timeout was taken p er protocol. The skin was prepped and draped in the usual sterile fashion and then locally anesthetiz ed with 1% lidocaine. The peritoneal cavity was then accessed via a 5-Sami one-step needle/cathete r. Approximately 7500 mL of clear straw-colored fluid was obtained. Postprocedural imaging of the ab domen demonstrate a minimal amount of abdominal fluid. Patient tolerated procedure well without immediate complication. Hemostasis at the procedural site w as obtained with a sterile bandage placed. The patient was monitored in the holding area following th e procedure and was subsequently discharged in stable condition. IMPRESSION: Ultrasound guided paracentesis, with approximately 7500 mL of clear straw-colored fluid drained. No i mmediate complications were evident. [facility], , 02/21/2024 3:27 PM
== END 2024-02-21 14:49 | disposition home or self-care (01) ==
LOC: RADPROMAIN 12:30
PROVIDERS: ATTEND Internal Medicine
DX: R18.8 Other ascites (principal)
CPT/HCPCS: 49083; P9047

== ENCOUNTER 2024-02-24 19:48 | Observation (INO) | payer OTHER ==
[2024-02-24] MEDS: HYDROmorphone 1 MG/ML 1 ML SYRINGE IVP STA (20:35)
--- NOTE | 2024-02-24 20:35 | ED ---
General Adult HPI - General Chief complaint: Abdominal Pain Stated complaint: Cirrhosis related weakness Time Seen by Provider: 02/24/24 20:01 Source: patient, RN notes reviewed, old records reviewed Mode of arrival: ambulatory Limitations: no limitations - History of Present Illness Initial comments: 33-year-old male with alcoholic cirrhosis, recurrent ascites presenting for evaluation of abdominal pain. Patient receives paracentesis every Sunday and is now requiring paracentesis on as well. He is following with [facility] for further evaluation and treatment including possible transplant. Patient reports abdominal pain and distention which is a chronic issue. He does admit to drinking alcohol just prior to arrival. - Related Data Home Medications Medication Instructions Recorded Confirmed Acamprosate Calcium [Campral] 666 mg PO TID 09/17/23 02/21/24 Furosemide [Lasix] 20 mg PO BID 09/17/23 02/21/24 Lactulose 30 gm PO Q8H 09/17/23 02/21/24 Omeprazole [PriLOSEC] 20 mg PO BID 09/17/23 02/21/24 Ondansetron [Zofran] 4 mg PO DAILY PRN 09/17/23 02/21/24 Rifaximin [Xifaxan] 550 mg PO Q12H 09/17/23 02/21/24 levETIRAcetam [Keppra] 500 mg PO Q12HR 09/17/23 02/21/24 ALPRAZolam [Xanax] 0.25 mg PO DAILY PRN 02/10/24 02/21/24 Albuterol Sulfate [Albuterol 2 puff INHALATION RT-Q6H PRN 02/10/24 02/21/24 Sulfate Hfa] Buprenorphine HCl/Naloxone HCl 1 film SL DAILY PRN 02/10/24 02/21/24 [Suboxone 2 mg-0.5 mg Sl Film] Midodrine [ProAmatine] 5 mg PO TID 02/10/24 02/21/24 Mirtazapine 7.5 mg PO HS 02/10/24 02/21/24 Nicotine 7Mg/24Hr Patch [Habitrol] 1 patch TRANSDERM DAILY PRN 02/10/24 02/21/24 diphenhydrAMINE & Zinc Cream 1 applic TOPICAL TID PRN 02/10/24 02/21/24 [Benadryl Cream] hydrOXYzine HCL [Atarax] 25 mg PO Q6H PRN 02/10/24 02/21/24 methocarbamoL [Robaxin-750] 750 mg PO Q8H PRN 02/10/24 02/21/24 Pregabalin [Lyrica] 50 mg PO BID 02/18/24 02/21/24 Allergies Allergy/AdvReac Type Severity Reaction Status Date / Time No Known Allergies Allergy Verified 02/24/24 19:53 Review of Systems ROS Statement: Those systems with pertinent positive or pertinent negative responses have been documented in the HPI. ROS Other: All systems not noted in ROS Statement are negative. Past Medical History Past Medical History: GERD/Reflux, Liver Disease Additional Past Medical History / Comment(s): Pancreatitis, ETOH abuse, subtance abuse, large volume paracentesis, previously on liver transplant list but was removed due to continued substance abuse, chirrhosis History of Any Multi-Drug Resistant Organisms: None Reported Additional Past Surgical History / Comment(s): ERCP stent placement Past Anesthesia/Blood Transfusion Reactions: Unable to Obtain Past Psychological History: Anxiety, Depression Smoking Status: Current every day smoker Past Alcohol Use History: Abuse Past Drug Use History: Marijuana - Past Family History Father Family Medical History: Hypertension Additional Family Medical History / Comment(s): Parkinson's Disease Mother Additional Family Medical History / Comment(s): mental illness General Exam Limitations: no limitations General appearance: alert, appears intoxicated, cachectic Head exam: Present: atraumatic, normocephalic Eye exam: Present: normal appearance, PERRL Respiratory exam: Present: normal lung sounds bilaterally. Absent: respiratory distress, wheezes Cardiovascular Exam: Present: regular rate, normal rhythm GI/Abdominal exam: Present: distended, other (Tense ascites) Neurological exam: Present: alert, oriented X3, CN II-XII intact. Absent: motor sensory deficit Psychiatric exam: Present: depressed Skin exam: Present: warm, dry, intact. Absent: cyanosis, diaphoretic Course Vital Signs 02/24/24 19:50 Temperature 97.8 F Pulse Rate 100 Respiratory 16 Rate Blood Pressure 124/92 O2 Sat by Pulse 97 Oximetry Medical Decision Making - Medical Decision Making Was pt. sent in by a medical professional or institution (, PA, TRACTOR SWEEPER OPERATOR, urgent care, hospital, or correction...) When possible be specific @ -No Did you speak to anyone other than the patient for history (EMS, parent, family, police, friend...)? What history was obtained from this source @ -No Did you review nursing and triage notes (agree or disagree)? Why? @ -I reviewed and agree with nursing and triage notes Were old charts reviewed (outside hosp., previous admission, EMS record, old E KG, old radiological studies, urgent care reports/EKG's, correction records)? Report findings @ -No old charts were reviewed Differential Abdominal Pain Men: Appendicitis, cholecystitis, diverticulosis, ischemic bowel, pancreatitis, hepatitis, UTI, gastroenteritis, AAA, incarcerated hernia, bowel obstruction, constipation, inflammatory bowel, hepatitis, peptic ulcer disease, splenic infarction, perforated viscus, testicular torsion, this is not meant to be an all-inclusive list EKG interpreted by me (3pts min.). @ -As above X-rays interpreted by me (1pt min.). @ -None done CT interpreted by me (1pt min.). @ -None done U/S interpreted by me (1pt. min.). @ -None done What testing was considered but not performed or refused? (CT, X-rays, U/S, labs)? Why? @ -None What meds were considered but not given or refused? Why? @ -None Did you discuss the management of the patient with other professionals (professionals i.e. , PA, TRACTOR SWEEPER OPERATOR, lab, RT, psych nurse, executive secretary social welfare, delivery supervisor, teacher, chief lifestyle officer, case supervisor)? Give summary @ -No Was smoking cessation discussed for >3mins.? @ -No Was critical care preformed (if so, how long)? @ -No Were there social determinants of health that impacted care today? How? (Homelessness, low income, unemployed, alcoholism, drug addiction, transportation, low edu. Level, literacy, decrease access to med. care, detention, rehab)? @ -No Was there de-escalation of care discussed even if they declined (Discuss DNR or withdrawal of care, Hospice)? DNR status @ -No What co-morbidities impacted this encounter? (DM, HTN, Smoking, COPD, CAD, Canc er, CVA, ARF, Chemo, Hep., AIDS, mental health diagnosis, sleep apnea, morbid obesity)? @ -Alcoholic liver cirrhosis with ascites Was patient admitted / discharged? Hospital course, mention meds given and route, prescriptions, significant lab abnormalities, going to OR and other pertinent info. @ -33-year-old male with known liver cirrhosis and ascites presenting with generalized abdominal pain. Patient has a tense ascites and is scheduled for paracentesis tomorrow. Laboratory studies reveal chronic abnormalities including elevated INR and hypoalbuminemia. Patient's serum alcohol is 200. He states that he is having issues with [facility] regarding follow-up and transplant. Patient is scheduled for paracentesis tomorrow, will observe overnight for pain control.. Undiagnosed new problem with uncertain prognosis? @ -No Drug Therapy requiring intensive monitoring for toxicity (Heparin, Nitro, Insulin, Cardizem)? @ -No Were any procedures done? @ -No Diagnosis/symptom? @ -Abdominal pain, ascites Acute, or Chronic, or Acute on Chronic? @ -[Acute Uncomplicated (without systemic symptoms) or Complicated (systemic symptoms)? @ -Default Side effects of treatment? @ -No Exacerbation, Progression, or Severe Exacerbation? @ -No Poses a threat to life or bodily function? How? (Chest pain, USA, MS, pneumonia, PE, COPD, DKA, ARF, appy, cholecystitis, CVA, Diverticulitis, Homicidal, Suicidal, threat to staff... and all critical care pts) @ -Yes, liver failure - Lab Data Result diagrams: 02/24/24 20:37 02/24/24 20:37 Lab Results 02/24/24 02/24/24 02/24/24 Range/Units 20:37 20:37 20:37 WBC 8.3 (3.8-10.6) k/uL RBC 4.54 (4.30-5.90) m/uL Hgb 14.8 (13.0-17.5) gm/dL Hct 45.2 (39.0-53.0) % MCV 99.5 (80.0-100.0) fL MCH 32.5 (25.0-35.0) pg MCHC 32.7 (31.0-37.0) g/dL RDW 13.9 (11.5-15.5) % Plt Count 237 (150-450) k/uL MPV 7.2 Neutrophils % 60 % Lymphocytes % 28 % Monocytes % 8 % Eosinophils % 2 % Basophils % 1 % Neutrophils # 5.0 (1.3-7.7) k/uL Lymphocytes # 2.3 (1.0-4.8) k/uL Monocytes # 0.6 (0-1.0) k/uL Eosinophils # 0.1 (0-0.7) k/uL Basophils # 0.1 (0-0.2) k/uL PT 15.2 H (10.0-12.5) sec INR 1.5 H (<1.2) APTT 32.4 H (22.0-30.0) sec Sodium 130 L (137-145) mmol/L Potassium 4.3 (3.5-5.1) mmol/L Chloride 101 (98-107) mmol/L Carbon Dioxide 16 L (22-30) mmol/L Anion Gap 13 mmol/L BUN 9 (9-20) mg/dL Creatinine 0.41 L (0.66-1.25) mg/dL Est GFR (CKD-EPI)AfAm >90 (>60 ml/min/1.73 sqM) Est GFR (CKD-EPI)NonAf >90 (>60 ml/min/1.73 sqM) Glucose 149 H (74-99) mg/dL Calcium 7.6 L (8.4-10.2) mg/dL Total Bilirubin 1.1 (0.2-1.3) mg/dL AST 92 H (17-59) U/L ALT 28 (4-49) U/L Alkaline Phosphatase 196 H (38-126) U/L Total Protein 6.9 (6.3-8.2) g/dL Albumin 3.2 L (3.5-5.0) g/dL Serum Alcohol 206 H* mg/dL Disposition Clinical Impression: Ascites, Abdominal pain Disposition: ADMITTED IP TO THIS HOSP Condition: Fair Instructions (If sedation given, give patient instructions): Ascites (ED), Abdominal Pain (ED) Additional Instructions: Please continue with plan for paracentesis tomorrow. Is patient prescribed a controlled substance at d/c from ED?: No Referrals: Luzma Gordon MD [Primary Care Provider] - 1-2 days Time of Disposition: 21:26
[2024-02-24 20:54] LABS: Basophils # (A) 0.1 k/uL (0-0.2); Basophils % (A) 1 %; Eosinophils # (A) 0.1 k/uL (0-0.7); Eosinophils % (A) 2 %; HCT 45.2 % (39.0-53.0); HGB 14.8 gm/dL (13.0-17.5); Lymphocytes # (A) 2.3 k/uL (1.0-4.8); Lymphocytes % (A) 28 %; MCH 32.5 pg (25.0-35.0); MCHC 32.7 g/dL (31.0-37.0); MCV 99.5 fL (80.0-100.0); Mean Platelet Volume 7.2; Monocytes # (A) 0.6 k/uL (0-1.0); Monocytes % (A) 8 %; Neutrophils % (A) 60 %; Platelet Count 237 k/uL (150-450); RBC 4.54 m/uL (4.30-5.90); RDW 13.9 % (11.5-15.5); WBC 8.3 k/uL (3.8-10.6)
[2024-02-24 21:03] LABS: INR 1.5 (<1.2); Partial Thromboplastin Time 32.4 sec (22.0-30.0); Prothrombin Time 15.2 sec (10.0-12.5)
[2024-02-24 21:06] LABS: ALT 28 U/L (4-49); AST 92 U/L (17-59); African American GFR (CKD) >90 (>60 ml/min/1.73 sqM); Albumin 3.2 g/dL (3.5-5.0); Alkaline Phosphatase 196 U/L (38-126); Anion Gap 13 mmol/L; Blood Urea Nitrogen 9 mg/dL (9-20); Calcium 7.6 mg/dL (8.4-10.2); Carbon Dioxide 16 mmol/L (22-30); Chloride 101 mmol/L (98-107); Glucose 149 mg/dL (74-99); Non-African American GFR(CKD) >90 (>60 ml/min/1.73 sqM); Potassium 4.3 mmol/L (3.5-5.1); Sodium 130 mmol/L (137-145); Total Bilirubin 1.1 mg/dL (0.2-1.3); Total Protein 6.9 g/dL (6.3-8.2)
[2024-02-24 21:17] LABS: Alcohol 206 mg/dL
[2024-02-24] MEDS ORDERED: NALOXONE 0.4 MG/ML 1 ML VIAL IV PRN (21:47)
[2024-02-24] MEDS ORDERED: HYDROmorphone 0.5 MG/0.5 ML SYRINGE IVP PRN (21:47)
--- NOTE | 2024-02-24 23:55 | P.HPIM ---
History of Present Illness H&P Date: 02/24/24 Chief Complaint: Abdominal Pain Chief complaint: Abdominal pain History of present illness;33-year-old male with PMH of alcohol use disorder, liver cirrhosis, GERD presented with abdominal pain and generalized weakness. Reports his abdominal pain became so severe today that he believed he could not wait until tomorrow to receive his biweekly paracentesis so decided to come to the emergency department. He reports he receives paracentesis every Sunday and is now requiring paracentesis on as well. Reports he follows with [facility] for further evaluation and treatment of cirrhosis including possible liver transplant. Admits to drinking alcohol just prior to arrival, and reports he drinks half to 1 pint of alcohol (most recently tequila) daily. Admits to shortness of breath, generalized lower extremity pain, abdominal pain and distention. He rated his generalized pain at a 9/10 at the time of i nterview. Denies headache, chest pain, palpitations, fevers, chills, diaphoresis, and lower extremity swelling. Labs: WBC 8.3, hemoglobin 14.8, MCV 9.5, PT 15.2, INR 1.5, APTT 32.4, sodium 130, bicarb 16, creatinine 0.41, glucose 149, calcium 7.6, AST 92, ALT 28, alkaline phosphatase 196, albumin 3.2, and serum alcohol 206. REVIEW OF SYSTEMS: As stated above in HPI. The rest of the 14-point review of systems is negative. PHYSICAL EXAMINATION: GENERAL: The patient is alert and oriented x3, not in any acute distress, appears significantly older than age HEENT: No scleral icterus. No conjunctival pallor. Normocephalic, atraumatic. CARDIOVASCULAR: S1 and S2 present. No murmurs, rubs, or gallops. PULMONARY: Chest is clear to auscultation b/l, no wheezing or crackles. ABDOMEN: Severely Distended, tender with tense ascites MUSCULOSKELETAL: No joint swelling or deformity. EXTREMITIES: No cyanosis, clubbing, 1+ pitting edema up to the knee bilaterally NEUROLOGICAL: Gross neurological examination did not reveal any focal deficits. No asterixis noted. SKIN: No rashes. No spider angiomas noted Assessment and plan: Marcial Arnett 33-year-old male with history of alcohol use disorder, liver cirrhosis, GERD presented with abdominal pain. Patient is accepted by internal medicine service for treatment of abdominal pain, generalized weakness likely secondary to ascites from cirrhosis, and alcohol use disorder. #Ascites, secondary to liver cirrhosis - Continue morphine prn IVP - WBC 8.3 is WNL, afebrile, does meet criteria for empiric treatment for SBP based on severe abdominal tenderness in setting of ascites, initiate Rocephin 2 g IV every 24 hours - Order blood culture - Begin Lasix 40 mg twice daily - Plan therapeutic and diagnostic paracentesis - Consult IR - MELD score 11 (Bilirubin 1.1, Cr 0.41, Na 130, alb 3.2) - 6% estimated 3-month mortality -Continue home lactulose 20 gm TID goal 3-5 BM daily #Alcohol dependence with impending withdrawal - Alcohol 206, last drink morning of - ALP 196 elevated, albumin 3.2 decreased - Benzo per [facility] protocol - Give daily thiamine and folic acid - seizure precautions - monitor daily electrolytes - cardiac monitoring - licensed social worker consult Chronic Medical Conditions # Liver cirrhosis - Resume home medications once verified # GERD -Begin pantoprazole 40 mg BID F: P.o. E: Replete as needed N: Heart healthy diet DVT ppx: Heparin subq Code status: Full code Anticipated discharge place: Home Anticipated discharge time: Greater than 2 days Xavi Lopez MD PGY-1 FM Dictation was produced using [employer] dictation software. please excuse any g rammatical, word or spelling errors. Past Medical History Past Medical History: GERD/Reflux, Liver Disease Additional Past Medical History / Comment(s): Pancreatitis, ETOH abuse, subtance abuse, large volume paracentesis, previously on liver transplant list but was removed due to continued substance abuse, chirrhosis History of Any Multi-Drug Resistant Organisms: None Reported Additional Past Surgical History / Comment(s): ERCP stent placement Past Anesthesia/Blood Transfusion Reactions: Unable to Obtain Past Psychological History: Anxiety, Depression Smoking Status: Current every day smoker Past Alcohol Use History: Abuse Past Drug Use History: Marijuana - Past Family History Father Family Medical History: Hypertension Additional Family Medical History / Comment(s): Parkinson's Disease Mother Additional Family Medical History / Comment(s): mental illness Medications and Allergies Home Medications Medication Instructions Recorded Confirmed Type Acamprosate Calcium [Campral] 666 mg PO TID 09/17/23 02/21/24 History Furosemide [Lasix] 20 mg PO BID 09/17/23 02/21/24 History Lactulose 30 gm PO Q8H 09/17/23 02/21/24 History Omeprazole [PriLOSEC] 20 mg PO BID 09/17/23 02/21/24 History Ondansetron [Zofran] 4 mg PO DAILY PRN 09/17/23 02/21/24 History Rifaximin [Xifaxan] 550 mg PO Q12H 09/17/23 02/21/24 History levETIRAcetam [Keppra] 500 mg PO Q12HR 09/17/23 02/21/24 History ALPRAZolam [Xanax] 0.25 mg PO DAILY PRN 02/10/24 02/21/24 History Albuterol Sulfate [Albuterol 2 puff INHALATION RT-Q6H PRN 02/10/24 02/21/24 History Sulfate Hfa] Buprenorphine HCl/Naloxone HCl 1 film SL DAILY PRN 02/10/24 02/21/24 History [Suboxone 2 mg-0.5 mg Sl Film] Midodrine [ProAmatine] 5 mg PO TID 02/10/24 02/21/24 History Mirtazapine 7.5 mg PO HS 02/10/24 02/21/24 History Nicotine 7Mg/24Hr Patch [Habitrol] 1 patch TRANSDERM DAILY PRN 02/10/24 02/21/24 History diphenhydrAMINE & Zinc Cream 1 applic TOPICAL TID PRN 02/10/24 02/21/24 History [Benadryl Cream] hydrOXYzine HCL [Atarax] 25 mg PO Q6H PRN 02/10/24 02/21/24 History methocarbamoL [Robaxin-750] 750 mg PO Q8H PRN 02/10/24 02/21/24 History Pregabalin [Lyrica] 50 mg PO BID 02/18/24 02/21/24 History Allergies Allergy/AdvReac Type Severity Reaction Status Date / Time No Known Allergies Allergy Verified 02/24/24 19:53 Physical Exam Vitals: Vital Signs Temp Pulse Resp BP Pulse Ox 02/24/24 19:50 97.8 F 100 16 124/92 97 Intake and Output 02/24/24 02/24/24 02/24/24 06:59 14:59 22:59 Other: Weight 74.843 kg Results CBC & Chem 7: 02/24/24 20:37 02/24/24 20:37 Labs: Abnormal Lab Results - Last 24 Hours (Table) 02/24/24 02/24/24 Range/Units 20:37 20:37 PT 15.2 H (10.0-12.5) sec INR 1.5 H (<1.2) APTT 32.4 H (22.0-30.0) sec Sodium 130 L (137-145) mmol/L Carbon Dioxide 16 L (22-30) mmol/L Creatinine 0.41 L (0.66-1.25) mg/dL Glucose 149 H (74-99) mg/dL Calcium 7.6 L (8.4-10.2) mg/dL AST 92 H (17-59) U/L Alkaline Phosphatase 196 H (38-126) U/L Albumin 3.2 L (3.5-5.0) g/dL Serum Alcohol 206 H* mg/dL
[2024-02-25] MEDS: HYDROmorphone 1 MG/ML 1 ML SYRINGE IVP PRN (00:26)
[2024-02-25] MEDS ORDERED: LORazepam 0.5 MG TAB PO PRN (00:29)
[2024-02-25] MEDS ORDERED: LORazepam 1 MG TAB PO PRN ×4 (00:29)
[2024-02-25] MEDS: THIAMINE 100 MG/ML 2 ML VIAL IM STA (00:33)
[2024-02-25 01:49] LABS: HCT 33.8 % (39.0-53.0); Mean Platelet Volume 7.2; Platelet Count 182 k/uL (150-450); RBC 3.39 m/uL (4.30-5.90); RDW 13.9 % (11.5-15.5); WBC 6.9 k/uL (3.8-10.6)
[2024-02-25] MEDS: LACTULOSE 20 GM/30 ML CUP PO SCH (02:05)
[2024-02-25 02:16] LABS: HGB 11.2 gm/dL (13.0-17.5)
[2024-02-25] MEDS: diphenhydrAMINE 50 MG CAP PO PRN (02:57)
[2024-02-25] MEDS: HYDROmorphone 1 MG/ML 1 ML SYRINGE IVP STA (04:23)
[2024-02-25] MEDS: PANTOPRAZOLE 40 MG TABLET PO SCH (06:54)
[2024-02-25] MEDS ORDERED: PANTOPRAZOLE 40 MG TABLET PO SCH (07:30)
[2024-02-25 08:44] LABS: ALT 22 U/L (10-49); AST 58 U/L (14-35); Albumin 2.6 g/dL (3.8-4.9); Alkaline Phosphatase 160 U/L (41-126); Blood Urea Nitrogen 9.7 mg/dL (9.0-27.0); Calcium 7.3 mg/dL (8.7-10.3); Carbon Dioxide 20.2 mmol/L (21.6-31.8); Chloride 100 mmol/L (96-109); Globulin 2.6 g/dL (1.6-3.3); Glucose 134 mg/dL (70-110); Potassium 4.1 mmol/L (3.5-5.5); Sodium 130 mmol/L (135-145); Total Bilirubin 0.5 mg/dL (0.3-1.2); Total Protein 5.2 g/dL (6.2-8.2)
[2024-02-25] MEDS ORDERED: ENOXAPARIN 40 MG/0.4 ML SYRINGE SQ SCH (09:00)
[2024-02-25] MEDS: HEPARIN SODIUM,PORCINE 5,000 UNIT/ML 1 ML VIAL SQ SCH (09:22)
[2024-02-25] MEDS: FOLIC ACID 1 MG TAB PO SCH (09:25)
[2024-02-25] MEDS: MULTIVITAMINS, THERA 1 EACH TAB PO SCH (09:25)
[2024-02-25] MEDS: FUROSEMIDE 10 MG/ML 4 ML VIAL IV SCH (09:33)
[2024-02-25] MEDS: ONDANSETRON 4 MG/2 ML VIAL IVP PRN (09:38)
[2024-02-25] MEDS: MORPHINE SULFATE 2 MG/ML SYRINGE IVP PRN (09:42)
[2024-02-25] MEDS ORDERED: NICOTINE 7MG/24HR PATCH TRANSDERM PRN (09:45)
[2024-02-25] MEDS: levETIRAcetam 500 MG TAB PO SCH (11:51)
[2024-02-25] MEDS: SPIRONOLACTONE 25 MG TAB PO SCH (11:51)
[2024-02-25] MEDS: RIFAXIMIN 550 MG TABLET PO SCH (11:51)
[2024-02-25] MEDS: MIDODRINE 5 MG TAB PO SCH (11:51)
--- NOTE | 2024-02-25 14:36 | US ---
EXAMINATION TYPE: US paracentesis abd w/image DATE OF EXAM: 02/25/2024 12:59 PM COMPARISON: prior paracentesis. CLINICAL INDICATION:Male, 33 years old with history of ascites; , ascites ATTENDING: Dr. Lemuel Vanegas PROCEDURE: Informed consent was obtained. The risks of the procedure were extensively explained incl uding risk of damage to surrounding bowel with perforation and need for additional procedures. Proced ure was performed in the ultrasound procedure suite. Ultrasound imaging of the abdomen demonstrate as citic fluid. An appropriate access site was localized to the right lower abdomen. Timeout was taken p er protocol. The skin was prepped and draped in the usual sterile fashion and then locally anesthetiz ed with 1% lidocaine. The peritoneal cavity was then accessed via a 5-Yoruba one-step needle/cathete r. Approximately 7400 mL of clear straw-colored fluid was obtained. Postprocedural imaging of the ab domen demonstrate a minimal amount of abdominal fluid. Patient tolerated procedure well without immediate complication. Hemostasis at the procedural site w as obtained with a sterile bandage placed. The patient was monitored in the holding area following th e procedure and was subsequently discharged in stable condition. IMPRESSION: Ultrasound guided paracentesis, with approximately 7400 mL of clear straw-colored fluid drained. No i mmediate complications were evident. [facility], , 02/25/2024 2:34 PM
[2024-02-25] MEDS: ALBUMIN HUMAN 25% 50 ML in EMPTY BAG 1 BAG IVPB SCH (17:00)
--- NOTE | 2024-02-25 19:20 | P.PN ---
Subjective Progress Note Date: 02/25/24 Ongoing abd pain today, but able to ambulate in the hallways without any device. Pending IR consult for paracentesis at time of my evaluation. Gen: In NAD, non-toxic HEENT: normocephalic, atraumatic, hearing acuity is intant, mucous membranes moist CVS: perfusing all extremities well, no pitting edema, Respiratory: symmetric chest expansion, no accessory muscle use, GI: Distended, positive ascites : no suprapubic tenderness, no CVA tenderness MSK/Derm: no rashes, cyanosis Neuro: CN II-XII intact, no motor weakness, Psych: cooperative, euthymic mood, judgment and insight is intact Hospital course: 33-year-old male with PMH of alcohol use disorder, liver cirrhosis, GERD presented with abdominal pain and generalized weakness. Labs: WBC 8.3, hemoglobin 14.8, MCV 9.5, PT 15.2, INR 1.5, APTT 32.4, sodium 130, bicarb 16, creatinine 0.41, glucose 149, calcium 7.6, AST 92, ALT 28, alkaline phosphatase 196, albumin 3.2, and serum alcohol 206. Assessment and plan: Marcial Arnett 33-year-old male with history of alcohol use disorder, liver cirrhosis, GERD presented with abdominal pain. Patient is accepted by internal medicine service for treatment of abdominal pain, generalized weakness likely secondary to ascites from cirrhosis, and alcohol use disorder. #Ascites, secondary to liver cirrhosis - Continue morphine prn IVP - WBC 8.3 is WNL, afebrile, does meet criteria for empiric treatment for SBP based on severe abdominal tenderness in setting of ascites, initiate Rocephin 2 g IV every 24 hours - Order blood culture - Begin Lasix 40 mg twice daily, spironolactone - Plan therapeutic and diagnostic paracentesis - Consult IR - MELD score 11 (Bilirubin 1.1, Cr 0.41, Na 130, alb 3.2) - 6% estimated 3-month mortality -Continue home lactulose 20 gm TID goal 3-5 BM daily, rifaximin #Alcohol dependence with impending withdrawal - Alcohol 206, last drink morning of - ALP 196 elevated, albumin 3.2 decreased - Benzo per [facility] protocol - Give daily thiamine and folic acid - seizure precautions - monitor daily electrolytes - cardiac monitoring - social work nurse consult Chronic Medical Conditions # Liver cirrhosis - Resume home medications once verified # GERD -Begin pantoprazole 40 mg BID F: P.o. E: Replete as needed N: Heart healthy diet DVT ppx: Heparin subq Code status: Full code Anticipated discharge place: Home Anticipated discharge time: Greater than 2 days Objective - Vital Signs Vital signs: Vital Signs Temp 98 F 02/25/24 18:27 Pulse 81 02/25/24 18:27 Resp 18 02/25/24 18:27 BP 104/69 02/25/24 18:27 Pulse Ox 99 02/25/24 18:27 FiO2 Intake & Output 02/25/24 02/25/24 02/26/24 06:59 18:59 06:59 Weight 74.843 kg 74.843 kg - Labs CBC & Chem 7: 02/25/24 06:00 02/25/24 06:00 Labs: Abnormal Lab Results - Last 24 Hours (Table) 02/24/24 02/24/24 02/25/24 Range/Units 20:37 20:37 06:00 RBC 3.39 L (4.30-5.90) m/uL Hgb 11.2 L D (13.0-17.5) gm/dL Hct 33.8 L (39.0-53.0) % PT 15.2 H (10.0-12.5) sec INR 1.5 H (<1.2) APTT 32.4 H (22.0-30.0) sec Sodium 130 L (137-145) mmol/L Carbon Dioxide 16 L (22-30) mmol/L Creatinine 0.41 L (0.66-1.25) mg/dL Glucose 149 H (74-99) mg/dL Calcium 7.6 L (8.4-10.2) mg/dL AST 92 H (17-59) U/L Alkaline Phosphatase 196 H (38-126) U/L Total Protein (6.2-8.2) g/dL Albumin 3.2 L (3.5-5.0) g/dL Albumin/Globulin Ratio (1.60-3.17) Ratio Serum Alcohol 206 H* mg/dL 02/25/24 Range/Units 06:00 RBC (4.30-5.90) m/uL Hgb (13.0-17.5) gm/dL Hct (39.0-53.0) % PT (10.0-12.5) sec INR (<1.2) APTT (22.0-30.0) sec Sodium 130 L (137-145) mmol/L Carbon Dioxide 20.2 L (22-30) mmol/L Creatinine 0.5 L (0.66-1.25) mg/dL Glucose 134 H (74-99) mg/dL Calcium 7.3 L (8.4-10.2) mg/dL AST 58 H (17-59) U/L Alkaline Phosphatase 160 H (38-126) U/L Total Protein 5.2 L (6.2-8.2) g/dL Albumin 2.6 L (3.5-5.0) g/dL Albumin/Globulin Ratio 1.00 L (1.60-3.17) Ratio Serum Alcohol mg/dL
[2024-02-25] MEDS: ALBUTEROL NEBULIZED 2.5 MG/3 ML INHALATION PRN (19:43)
[2024-02-25] MEDS: PREGABALIN 50 MG CAP PO SCH (21:06)
[2024-02-25] MEDS: MIRTAZAPINE 15 MG TAB PO SCH (21:06)
[2024-02-26] MEDS: diphenhydrAMINE 25 MG CAP PO PRN (04:21)
[2024-02-26 07:38] VITALS: BP 97/73; PULSE 93; RESP 15; TEMP 98
[2024-02-26 07:39] LABS: ALT 17 U/L (4-49); AST 41 U/L (17-59); African American GFR (CKD) >90 (>60 ml/min/1.73 sqM); Albumin 2.6 g/dL (3.5-5.0); Alkaline Phosphatase 122 U/L (38-126); Anion Gap 5 mmol/L; Blood Urea Nitrogen 8 mg/dL (9-20); Calcium 7.5 mg/dL (8.4-10.2); Carbon Dioxide 28 mmol/L (22-30); Chloride 97 mmol/L (98-107); Globulin 2.7 g/dL; Glucose 122 mg/dL (74-99); Non-African American GFR(CKD) >90 (>60 ml/min/1.73 sqM); Potassium 3.4 mmol/L (3.5-5.1); Sodium 130 mmol/L (137-145); Total Bilirubin 1.7 mg/dL (0.2-1.3); Total Protein 5.3 g/dL (6.3-8.2)
[2024-02-26 07:53] LABS: Basophils % (A) 1 %; Eosinophils # (A) 0.1 k/uL (0-0.7); Eosinophils % (A) 2 %; HCT 35.3 % (39.0-53.0); HGB 11.9 gm/dL (13.0-17.5); Lymphocytes # (A) 1.1 k/uL (1.0-4.8); Lymphocytes % (A) 20 %; MCH 33.5 pg (25.0-35.0); MCHC 33.6 g/dL (31.0-37.0); MCV 99.7 fL (80.0-100.0); Mean Platelet Volume 7.3; Monocytes # (A) 0.5 k/uL (0-1.0); Monocytes % (A) 9 %; Neutrophils # (A) 3.7 k/uL (1.3-7.7); Neutrophils % (A) 66 %; Platelet Count 180 k/uL (150-450); RBC 3.54 m/uL (4.30-5.90); RDW 13.5 % (11.5-15.5); WBC 5.6 k/uL (3.8-10.6)
[2024-02-26] MEDS: THIAMINE 100 MG TAB PO SCH (08:50)
--- NOTE | 2024-02-26 13:16 | P.DS ---
Providers Date of admission: 02/24/24 21:48 Attending physician: Adama Branch MD Primary care physician: [facility] Course: 33-year-old male with PMH of alcohol use disorder, liver cirrhosis, GERD presented with abdominal pain and generalized weakness. Reports his abdominal pain became so severe today that he believed he could not wait until tomorrow to receive his biweekly paracentesis so decided to come to the emergency department. He reports he receives paracentesis every Sunday and is now requiring paracentesis on as well. Reports he follows with [facility] for further evaluation and treatment of cirrhosis including possible liver transplant. Admits to drinking alcohol just prior to arrival, and reports he drinks half to 1 pint of alcohol (most recently tequila) daily. Admits to shortness of breath, generalized lower extremity pain, abdominal pain and distention. He rated his generalized pain at a 9/10 at the time of interview. Denies headache, chest pain, palpitations, fevers, chills, diaphoresis, and lower extremity swelling. WBC 8.3, hemoglobin 14.8, MCV 9.5, PT 15.2, INR 1.5, APTT 32.4, sodium 130, bicarb 16, creatinine 0.41, glucose 149, calcium 7.6, AST 92, ALT 28, alkaline phosphatase 196, albumin 3.2, and serum alcohol 206. Patient was admitted for management of alcohol dependence with impending withdrawal and ascites patient was placed on CIWA protocol and given thiamine, folic acid, spironolactone, Lasix and empiric antibiotics. Interventional radiology was consulted for inpatient paracentesis. Ultrasound guided paracentesis was done on 02/24 and approximately 7.4 L of clear straw-colored fluid was drained. Patient symptoms improved during hospital stay and no new complications occurred. Patient was prescribed oral spironolactone, and advised to resume home medications, continue with scheduled paracentesis twice weekly, and follow-up with PCP on outpatient basis. Physical examination: General: non toxic, no distress, appears at stated age Head: atraumatic, normocephalic, symmetric Mouth: no lip lesion, mucus membranes moist Cardiovascular: S1S2 reg, no murmur Lungs: CTA bilateral, no rhonchi, no rales, no accessory muscle use Abdominal: distended and tense due to ascites, nontender to palpation, no guarding Ext: muscle strength 5 out of 5 in all 4 extremities grossly, no gross muscle atrophy, no contractures, positive dorsalis pedis pulse bilateral, +2 bilateral pitting edema Neuro: no gross focal neuro deficits Psych: Alert and oriented x3, appropriate affect and mood I saw and evaluated the patient during the madden and critical portions of this encounter, and discussed the case in detail with the resident author of this note, I agree with the Assessment and Plan, and my changes, if any, are highlighted in blue. 38 minutes were spent coordinating this discharge. Assessment: # Ascites, secondary to liver cirrhosis, improved with paracentesis # Alcohol dependence with impending withdrawal, resolved # Liver cirrhosis, stable Patient Condition at Discharge: Fair Plan - Discharge Summary Discharge Rx Participant: No New Discharge Prescriptions: New Spironolactone [Aldactone] 25 mg PO DAILY 30 Days #30 tab Continue Rifaximin [Xifaxan] 550 mg PO Q12H Furosemide [Lasix] 20 mg PO BID Omeprazole [PriLOSEC] 20 mg PO BID levETIRAcetam [Keppra] 500 mg PO Q12HR Acamprosate Calcium [Campral] 666 mg PO TID diphenhydrAMINE & Zinc Cream [Benadryl Cream] 1 applic TOPICAL TID PRN PRN Reason: Skin Irritation Albuterol Sulfate [Albuterol Sulfate Hfa] 2 puff INHALATION RT-Q6H PRN PRN Reason: Shortness Of Breath Buprenorphine HCl/Naloxone HCl [Suboxone 2 mg-0.5 mg Sl Film] 1 film SL DAILY PRN PRN Reason: Pain Nicotine 7Mg/24Hr Patch [Habitrol] 1 patch TRANSDERM DAILY PRN PRN Reason: Nicotine Cravings methocarbamoL [Robaxin-750] 750 mg PO Q8H PRN PRN Reason: Muscle Spasm ALPRAZolam [Xanax] 0.25 mg PO DAILY PRN PRN Reason: Anxiety Midodrine [ProAmatine] 5 mg PO TID Ondansetron [Zofran] 4 mg PO DAILY PRN PRN Reason: Nausea Lactulose 30 gm PO Q8H hydrOXYzine HCL [Atarax] 25 mg PO Q6H PRN PRN Reason: Anxiety Mirtazapine 7.5 mg PO HS Pregabalin [Lyrica] 50 mg PO BID Discharge Medication List Acamprosate Calcium [Campral] 666 mg PO TID 09/17/23 [History] Furosemide [Lasix] 20 mg PO BID 09/17/23 [History] Lactulose 30 gm PO Q8H 09/17/23 [History] Omeprazole [PriLOSEC] 20 mg PO BID 09/17/23 [History] Ondansetron [Zofran] 4 mg PO DAILY PRN 09/17/23 [History] Rifaximin [Xifaxan] 550 mg PO Q12H 09/17/23 [History] levETIRAcetam [Keppra] 500 mg PO Q12HR 09/17/23 [History] ALPRAZolam [Xanax] 0.25 mg PO DAILY PRN 02/10/24 [History] Albuterol Sulfate [Albuterol Sulfate Hfa] 2 puff INHALATION RT-Q6H PRN 02/10/24 [History] Buprenorphine HCl/Naloxone HCl [Suboxone 2 mg-0.5 mg Sl Film] 1 film SL DAILY PRN 02/10/24 [History] Midodrine [ProAmatine] 5 mg PO TID 02/10/24 [History] Mirtazapine 7.5 mg PO HS 02/10/24 [History] Nicotine 7Mg/24Hr Patch [Habitrol] 1 patch TRANSDERM DAILY PRN 02/10/24 [History] diphenhydrAMINE & Zinc Cream [Benadryl Cream] 1 applic TOPICAL TID PRN 02/10/24 [History] hydrOXYzine HCL [Atarax] 25 mg PO Q6H PRN 02/10/24 [History] methocarbamoL [Robaxin-750] 750 mg PO Q8H PRN 02/10/24 [History] Pregabalin [Lyrica] 50 mg PO BID 02/18/24 [History] Spironolactone [Aldactone] 25 mg PO DAILY 30 Days #30 tab 02/26/24 [Rx] Follow up Appointment(s)/Referral(s): Luzma Gordon MD [Primary Care Provider] - 1-2 days Patient Instructions/Handouts: Ascites (ED), Abdominal Pain (ED) Activity/Diet/Wound Care/Special Instructions: Please continue with plan for paracentesis for Sunday, February 26 at 830am. Discharge/Stand Alone Forms: AA Meetings Dist 22 & 24 - [facility], AA Meetings . [facility], Who Do I Call?, Community Resources, Outpatient Counseling, In Substance Abuse Facilities Discharge Disposition: HOME SELF-CARE
== END 2024-02-26 13:08 | disposition home or self-care (01) ==
LOC: EC 19:48 → 6NMEDSUR 21:48
PROVIDERS: ADMIT Internal Medicine; ATTEND Internal Medicine
DX: K70.31 Alcoholic cirrhosis of liver with ascites (principal); R53.1 Weakness; Y90.7 Blood alcohol level of 200-239 mg/100 ml; F10.129 Alcohol abuse with intoxication, unspecified; K21.9 Gastro-esophageal reflux disease without esophagitis; F17.200 Nicotine dependence, unspecified, uncomplicated; M79.669 Pain in unspecified lower leg; F32.A Depression, unspecified; F41.9 Anxiety disorder, unspecified; Z79.899 Other long term (current) drug therapy
CPT/HCPCS: 96376 ×3; 96366 ×2; 96365; 96375 ×2; 99284; 36415; 94640; 80053 ×3; 85025 ×2; 85027; 85610; 85730; 87040; 49083; G0378 ×6; G0480; J1940 ×2; J2405 ×2; J0696 ×2; P9047; J2270 ×2; J1171 ×2; 80320

== ENCOUNTER 2024-02-27 08:37 | Day surgery (SDC) | payer OTHER ==
[2024-02-27 09:08] VITALS: RESP 16; TEMP 98
[2024-02-27 09:28] LABS: Mean Platelet Volume 7.4; Platelet Count 178 k/uL (150-450)
[2024-02-27 09:32] LABS: INR 1.4 (<1.2); Prothrombin Time 14.6 sec (10.0-12.5)
[2024-02-27 09:35] LABS: African American GFR (CKD) >90 (>60 ml/min/1.73 sqM); Non-African American GFR(CKD) >90 (>60 ml/min/1.73 sqM)
[2024-02-27] MEDS: ALBUMIN HUMAN 25% 50 ML in EMPTY BAG 1 BAG IVPB SCH (09:36)
[2024-02-27 09:43] VITALS: BP 117/70; PULSE 82
--- NOTE | 2024-02-27 12:36 | US ---
EXAMINATION TYPE: US paracentesis abd w/image DATE OF EXAM: 02/27/2024 9:32 AM COMPARISON: prior paracentesis. CLINICAL INDICATION:Male, 33 years old with history of R18.8 OTHER ASCITES; , ascites ATTENDING: Dr. Lemuel Vanegas PROCEDURE: Informed consent was obtained. The risks of the procedure were extensively explained incl uding risk of damage to surrounding bowel with perforation and need for additional procedures. Proced ure was performed in the ultrasound procedure suite. Ultrasound imaging of the abdomen demonstrate as citic fluid. An appropriate access site was localized to the right lower abdomen. Timeout was taken p er protocol. The skin was prepped and draped in the usual sterile fashion and then locally anesthetiz ed with 1% lidocaine. The peritoneal cavity was then accessed via a 5-Hungarian one-step needle/cathete r. Approximately 3600 mL of clear straw-colored fluid was obtained. Postprocedural imaging of the a bdomen demonstrate a minimal amount of abdominal fluid. Patient tolerated procedure well without immediate complication. Hemostasis at the procedural site w as obtained with a sterile bandage placed. The patient was monitored in the holding area following th e procedure and was subsequently discharged in stable condition. IMPRESSION: Ultrasound guided paracentesis, with approximately 3600 mL of clear straw-colored fluid drained. No immediate complications were evident. [facility], , 02/27/2024 12:34 PM
== END 2024-02-27 09:55 | disposition home or self-care (01) ==
LOC: RADPROMAIN 08:37 → EEVIPCON 08:37 → RADPROMAIN 09:55
PROVIDERS: ATTEND Internal Medicine
DX: R18.8 Other ascites (principal)
CPT/HCPCS: 82565; 85049; 85610; 36415; 49083; P9047

== ENCOUNTER 2024-03-03 13:15 | Day surgery (SDC) | payer OTHER ==
[2024-03-03] MEDS: ALBUMIN HUMAN 25% 50 ML in EMPTY BAG 1 BAG IVPB SCH (14:25)
[2024-03-03 15:51] VITALS: PULSE 73; RESP 16; TEMP 97.6
[2024-03-03 15:55] VITALS: BP 106/72
--- NOTE | 2024-03-04 10:59 | US ---
EXAMINATION TYPE: US paracentesis abd w/image DATE OF EXAM: 03/03/2024 2:28 PM COMPARISON: None. Previous Paracentesis CLINICAL INDICATION: Male, 33 years old with history of R18.8 OTHER ASCITES; , ascites TECHNIQUE/FINDINGS: The procedure was discussed with the patient. The risks, complications, benefits, and alternatives we re discussed and any questions were answered. Informed consent was obtained. The patient was placed s upine on the ultrasound table and prepped and draped in the usual sterile fashion. All elements of maximal barrier technique were utilized. Under ultrasound guidance, access into the right lower quadrant was obtained, via the paracentesis catheter system and direct ultrasound guidanc e. Approximately 3.7 liters of straw-colored fluid was removed. The patient was stable throughout the pr ocedure and remained stable upon discharge from Department of Radiology. IMPRESSION: Successful paracentesis under ultrasound guidance. [facility], , 03/04/2024 10:57 AM
== END 2024-03-03 15:15 | disposition home or self-care (01) ==
LOC: RADPROMAIN 13:15
PROVIDERS: ATTEND Internal Medicine
DX: R18.8 Other ascites (principal)
CPT/HCPCS: 36415; 49083; P9047

== ENCOUNTER 2024-03-07 08:33 | Day surgery (SDC) | payer OTHER ==
[2024-03-07 09:38] LABS: Mean Platelet Volume 6.9; Platelet Count 226 k/uL (150-450)
[2024-03-07 09:42] LABS: INR 1.4 (<1.2); Prothrombin Time 14.6 sec (10.0-12.5)
[2024-03-07 09:43] LABS: African American GFR (CKD) >90 (>60 ml/min/1.73 sqM); Non-African American GFR(CKD) >90 (>60 ml/min/1.73 sqM)
[2024-03-07] MEDS: ALBUMIN HUMAN 25% 50 ML in EMPTY BAG 1 BAG IVPB SCH (10:01)
[2024-03-07 10:05] VITALS: RESP 16
[2024-03-07 10:25] VITALS: BP 111/72
[2024-03-07 10:47] VITALS: TEMP 97.8
--- NOTE | 2024-03-07 11:34 | US ---
EXAMINATION TYPE: US paracentesis abd w/image DATE OF EXAM: 03/07/2024 10:13 AM COMPARISON: None. Previous Paracentesis CLINICAL INDICATION: Male, 33 years old with history of R18.8 OTHER ASCITES; , ascites TECHNIQUE/FINDINGS: The procedure was discussed with the patient. The risks, complications, benefits, and alternatives we re discussed and any questions were answered. Informed consent was obtained. The patient was placed s upine on the ultrasound table and prepped and draped in the usual sterile fashion. All elements of maximal barrier technique were utilized. Under ultrasound guidance, access into the right lower quadrant was obtained, via the paracentesis catheter system and direct ultrasound guidanc e. Approximately 6.25 liters of straw-colored fluid was removed. The patient was stable throughout the p rocedure and remained stable upon discharge from Department of Radiology. IMPRESSION: Successful paracentesis under ultrasound guidance. [facility], , 03/07/2024 11:32 AM
[2024-03-07 11:41] VITALS: PULSE 75
== END 2024-03-07 11:15 | disposition home or self-care (01) ==
LOC: RADPROMAIN 08:33
PROVIDERS: ATTEND Internal Medicine
DX: R18.8 Other ascites (principal)
CPT/HCPCS: 82565; 85049; 85610; 36415; 49083; P9047

== ENCOUNTER 2024-03-07 20:17 | Observation (INO) | payer OTHER ==
[2024-03-07] MEDS: HYDROmorphone 0.5 MG/0.5 ML SYRINGE IVP STA (21:51)
[2024-03-07 21:57] LABS: Basophils % (A) 0 %; Eosinophils # (A) 0.1 k/uL (0-0.7); Eosinophils % (A) 2 %; HCT 34.1 % (39.0-53.0); HGB 11.4 gm/dL (13.0-17.5); Lymphocytes # (A) 1.4 k/uL (1.0-4.8); Lymphocytes % (A) 24 %; MCH 32.8 pg (25.0-35.0); MCHC 33.5 g/dL (31.0-37.0); MCV 97.9 fL (80.0-100.0); Mean Platelet Volume 7.2; Monocytes # (A) 0.6 k/uL (0-1.0); Monocytes % (A) 10 %; Neutrophils # (A) 3.4 k/uL (1.3-7.7); Neutrophils % (A) 61 %; Platelet Count 182 k/uL (150-450); RBC 3.48 m/uL (4.30-5.90); RDW 13.6 % (11.5-15.5); WBC 5.6 k/uL (3.8-10.6)
--- NOTE | 2024-03-07 22:07 | ED ---
Abdominal Pain HPI - General Chief Complaint: Abdominal Pain Stated Complaint: pain management, cirrhosis PT Time Seen by Provider: 03/07/24 21:26 Source: patient Mode of arrival: ambulatory Limitations: no limitations - History of Present Illness Initial Comments: Patient is a 33-year-old man who presents with complaint that he is having burning pain from basically the costal margins down to his feet bilaterally. He does relate that he had been in the hospital and had paracentesis performed earlier in the day. The patient states he went home and the pain which was present then only got worse. To complicate matters the patient is out of Suboxone that he had been taking for pains. He states that he has switched physicians, and the new physician he is seeing does not prescribe Suboxone. He has not noted fever or chills. No vomiting/diarrhea. No change in urination. MD Complaint: abdominal pain -: days(s) Location: diffuse Radiation: other (Bilateral legs) Migration to: no migration Severity: severe Quality: burning Consistency: constant Improves With: nothing Worsens With: nothing Context: recent surgery/procedure Associated Symptoms: denies other symptoms - Related Data Home Medications Medication Instructions Recorded Confirmed Acamprosate Calcium [Campral] 666 mg PO TID 09/17/23 03/07/24 Furosemide [Lasix] 20 mg PO BID 09/17/23 03/07/24 Lactulose 30 gm PO Q8H 09/17/23 03/07/24 Omeprazole [PriLOSEC] 20 mg PO BID 09/17/23 03/07/24 Ondansetron [Zofran] 4 mg PO DAILY PRN 09/17/23 03/07/24 Rifaximin [Xifaxan] 550 mg PO Q12H 09/17/23 03/07/24 levETIRAcetam [Keppra] 500 mg PO Q12HR 09/17/23 03/07/24 ALPRAZolam [Xanax] 0.25 mg PO DAILY PRN 02/10/24 03/07/24 Albuterol Sulfate [Albuterol 2 puff INHALATION RT-Q6H PRN 02/10/24 03/07/24 Sulfate Hfa] Buprenorphine HCl/Naloxone HCl 1 film SL DAILY PRN 02/10/24 03/07/24 [Suboxone 2 mg-0.5 mg Sl Film] Midodrine [ProAmatine] 5 mg PO TID 02/10/24 03/07/24 Mirtazapine 7.5 mg PO HS 02/10/24 03/07/24 diphenhydrAMINE & Zinc Cream 1 applic TOPICAL TID PRN 02/10/24 03/07/24 [Benadryl Cream] hydrOXYzine HCL [Atarax] 25 mg PO Q6H PRN 02/10/24 03/07/24 methocarbamoL [Robaxin-750] 750 mg PO Q8H PRN 02/10/24 03/07/24 Pregabalin [Lyrica] 50 mg PO BID 02/18/24 03/07/24 Previous Rx's Medication Instructions Recorded Spironolactone [Aldactone] 25 mg PO DAILY 30 Days #30 tab 02/26/24 Allergies Allergy/AdvReac Type Severity Reaction Status Date / Time No Known Allergies Allergy Verified 03/07/24 20:28 Review of Systems ROS Statement: Those systems with pertinent positive or pertinent negative responses have been documented in the HPI. ROS Other: All systems not noted in ROS Statement are negative. Constitutional: Denies: fever, chills, weakness Respiratory: Denies: cough, dyspnea Cardiovascular: Denies: chest pain, palpitations, edema Gastrointestinal: Reports: as per HPI, abdominal pain. Denies: vomiting, diarrhea, constipation, melena, hematochezia Genitourinary: Denies: dysuria, hematuria, testicular pain Musculoskeletal: Denies: back pain Skin: Denies: rash Neurological: Denies: headache, weakness, numbness Past Medical History Past Medical History: GERD/Reflux, Liver Disease Additional Past Medical History / Comment(s): Pancreatitis, ETOH abuse, subtance abuse, large volume paracentesis, previously on liver transplant list but was removed due to continued substance abuse, chirrhosis History of Any Multi-Drug Resistant Organisms: None Reported Additional Past Surgical History / Comment(s): ERCP stent placement Past Anesthesia/Blood Transfusion Reactions: Unable to Obtain Past Psychological History: Anxiety, Depression Smoking Status: Current every day smoker Past Alcohol Use History: Abuse Past Drug Use History: Marijuana - Past Family History Father Family Medical History: Hypertension Additional Family Medical History / Comment(s): Parkinson's Disease Mother Additional Family Medical History / Comment(s): mental illness General Exam Limitations: no limitations General appearance: alert, in no apparent distress Head exam: Present: atraumatic, normocephalic Eye exam: Present: normal appearance. Absent: scleral icterus, conjunctival injection Neck exam: Present: normal inspection Respiratory exam: Present: normal lung sounds bilaterally. Absent: respiratory distress, wheezes, rales, rhonchi, stridor, accessory muscle use Cardiovascular Exam: Present: regular rate, normal rhythm, normal heart sounds. Absent: systolic murmur, diastolic murmur, rubs, gallop GI/Abdominal exam: Present: soft. Absent: distended, tenderness, guarding, rebound, rigid, mass, pulsatile mass, hernia Extremities exam: Present: normal inspection, normal capillary refill. Absent: pedal edema, calf tenderness Back exam: Present: normal inspection. Absent: CVA tenderness (R), CVA tenderness (L) Neurological exam: Present: alert Skin exam: Present: warm, dry, intact, normal color. Absent: rash Course Vital Signs 03/07/24 20:28 Temperature 98.9 F Pulse Rate 96 Respiratory 18 Rate Blood Pressure 111/76 O2 Sat by Pulse 96 Oximetry Medical Decision Making - Lab Data Result diagrams: 03/07/24 21:44 Lab Results 03/07/24 Range/Units 21:44 WBC 5.6 (3.8-10.6) k/uL RBC 3.48 L (4.30-5.90) m/uL Hgb 11.4 L (13.0-17.5) gm/dL Hct 34.1 L (39.0-53.0) % MCV 97.9 (80.0-100.0) fL MCH 32.8 (25.0-35.0) pg MCHC 33.5 (31.0-37.0) g/dL RDW 13.6 (11.5-15.5) % Plt Count 182 (150-450) k/uL MPV 7.2 Neutrophils % 61 % Lymphocytes % 24 % Monocytes % 10 % Eosinophils % 2 % Basophils % 0 % Neutrophils # 3.4 (1.3-7.7) k/uL Lymphocytes # 1.4 (1.0-4.8) k/uL Monocytes # 0.6 (0-1.0) k/uL Eosinophils # 0.1 (0-0.7) k/uL Basophils # 0.0 (0-0.2) k/uL Disposition Referrals: Luzma Jaime, FRAN [Primary Care Provider] - 1-2 days
[2024-03-07] MEDS: ONDANSETRON 4 MG/2 ML VIAL IVP STA (22:52)
[2024-03-07 22:54] LABS: ALT 22 U/L (4-49); AST 81 U/L (17-59); African American GFR (CKD) >90 (>60 ml/min/1.73 sqM); Albumin 2.7 g/dL (3.5-5.0); Alkaline Phosphatase 121 U/L (38-126); Amylase 59 U/L (30-110); Anion Gap 4 mmol/L; Blood Urea Nitrogen 7 mg/dL (9-20); C Reactive Protein <0.5 mg/dL (<1.0); Calcium 7.5 mg/dL (8.4-10.2); Carbon Dioxide 22 mmol/L (22-30); Chloride 103 mmol/L (98-107); Glucose 76 mg/dL (74-99); Lipase 98 U/L (23-300); Non-African American GFR(CKD) >90 (>60 ml/min/1.73 sqM); Potassium 3.9 mmol/L (3.5-5.1); Sodium 129 mmol/L (137-145); Total Bilirubin 1.2 mg/dL (0.2-1.3); Total Protein 5.8 g/dL (6.3-8.2)
[2024-03-07 23:48] LABS: Appearance,Urine Cloudy (Clear); Bacteria,Urine Rare /hpf; Bilirubin,Urine Negative (Negative); Blood,Urine Negative (Negative); Calcium Oxalate Crystals,Urine Occasional /hpf; Color,Urine Yellow; Glucose,Urine (UA) Negative (Negative); Hyaline Casts,Urine 22 /lpf (0-2); Ketones,Urine Trace (Negative); Leukocyte Esterase,Urine Negative (Negative); Mucus,Urine Many /hpf; Nitrite,Urine Negative (Negative); PH, Urine 5.5 (5.0-8.0); Protein,Urine Trace (Negative); RBC,Urine 1 /hpf (0-5); Specific Gravity,Urine 1.027 (1.001-1.035); Urobilinogen,Urine <2.0 mg/dL (<2.0); WBC,Urine 1 /hpf (0-5)
--- NOTE | 2024-03-08 06:09 | P.HPIM ---
History of Present Illness H&P Date: 03/08/24 History of present illness; 33-year-old male with alcohol use disorder, liver cirrhosis, GERD presents to the emergency department with abdominal pain. Patient attests to receiving biweekly paracentesis, with his most recent paracentesis being yesterday. However he states that it has not alleviated any of the pain. He describes having a pressure-like pain throughout the entirety of his abdomen that he rates at a 8.5/10. He does endorse his most recent drink being at approximately 3 AM on 03/07, and states that throughout the day leading up to that he drank > 1 pint. He states that he has generally taken Suboxone for pain associated with his ascites, however his changes primary care, now follows with a primary care who is a nurse practitioner who is unable to provide this medication for him. He denies any fever, chills, nausea, vomiting. Additionally, he notes having a good appetite, stating that he has been very hungry. Vitals: -Blood pressure 115/80, heart rate 72, respiratory rate 17, SpO2 96% on room air Patient admitted to internal medicine service REVIEW OF SYSTEMS: CONSTITUTIONAL: No fever, no malaise, no fatigue. HEENT: No recent visual problems or hearing problems. Denied any sore throat. CARDIOVASCULAR: No chest pain, orthopnea, PND, no palpitations, no syncope. PULMONARY: No shortness of breath, no cough, no hemoptysis. GASTROINTESTINAL: No diarrhea, no nausea, no vomiting, no abdominal pain. NEUROLOGICAL: No headaches, no weakness, no numbness. HEMATOLOGICAL: Denies any bleeding or petechiae. GENITOURINARY: Denies any burning micturition, frequency, or urgency. MUSCULOSKELETAL/RHEUMATOLOGICAL: Denies any joint pain, swelling, or any muscle pain. ENDOCRINE: Denies any polyuria or polydipsia. The rest of the 14-point review of systems is negative. PHYSICAL EXAMINATION: GENERAL: The patient is alert and oriented x3, not in any acute distress. Well developed, well nourished. Appears significantly older than his stated age. HEENT: No scleral icterus. No conjunctival pallor. Normocephalic, atraumatic. CARDIOVASCULAR: S1 and S2 present. No murmurs, rubs, or gallops. PULMONARY: Chest is clear to auscultation, no wheezing or crackles. ABDOMEN: Severely distended, tender with tense ascites noted throughout the abdomen. MUSCULOSKELETAL: No joint swelling or deformity. EXTREMITIES: No cyanosis, clubbing, or pedal edema. NEUROLOGICAL: Gross neurological examination did not reveal any focal deficits. No asterixis noted. SKIN: No spider angiomas noted. Assessment and plan Marcial Arnett is a 33-year-old male with history of alcohol use disorder, liver cirrhosis, GERD who presents emergency department with abdominal pain. Patient excepted to internal medicine service for treatment of abdominal pain, alcohol use disorder, generalized weakness likely secondary to liver cirrhosis. #Ascites, secondary to liver cirrhosis -Continue Dilaudid as needed IVP -WBCs 5.6, patient remains afebrile however due to abdominal pain patient meets criteria for empiric SBP based on abdominal tenderness and significant ascites -Initiate Rocephin 2 g IV every 24 hours -Order blood culture -MELD 3.0 score 17 (bilirubin 1.2, creatinine 0.52, sodium 129, albumin 5.8) - 3.1% estimated 3-month mortality #Alcohol dependence with impending withdrawal -Last drink 03/07/24 -Benzodiazepines per [facility] protocol -Given daily thiamine, folic acid, multivitamin -Seizure precautions -Monitor electrolytes -Cardiac monitoring -Social work consulted #Hyponatremia Continue to monitor CBC -Maintained on #Lactic acidosis -Monitor lactic acidosis #Liver cirrhosis -Resume home medication once verified by pharmacy #GERD -Protonix 40 mg twice daily GI prohylaxis: Protonix 40 mg twice daily DVT prophylaxis: Lovenox 40 mg daily Dictation was produced using Jumio dictation software. please excuse any grammatical, word or spelling errors. I have seen and evaluated the patient today. I Discussed the case with the resident and agree with the resident's findings I edited the assessment and plan as necessary as documented in the resident's note. Past Medical History Past Medical History: GERD/Reflux, Liver Disease Additional Past Medical History / Comment(s): Pancreatitis, ETOH abuse, subtance abuse, large volume paracentesis, previously on liver transplant list but was removed due to continued substance abuse, chirrhosis History of Any Multi-Drug Resistant Organisms: None Reported Additional Past Surgical History / Comment(s): ERCP stent placement Past Anesthesia/Blood Transfusion Reactions: Unable to Obtain Past Psychological History: Anxiety, Depression Smoking Status: Current every day smoker Past Alcohol Use History: Abuse Past Drug Use History: Marijuana - Past Family History Father Family Medical History: Hypertension Additional Family Medical History / Comment(s): Parkinson's Disease Mother Additional Family Medical History / Comment(s): mental illness Medications and Allergies Home Medications Medication Instructions Recorded Confirmed Type Acamprosate Calcium [Campral] 666 mg PO TID 09/17/23 03/07/24 History Furosemide [Lasix] 20 mg PO BID 09/17/23 03/07/24 History Lactulose 30 gm PO Q8H 09/17/23 03/07/24 History Omeprazole [PriLOSEC] 20 mg PO BID 09/17/23 03/07/24 History Ondansetron [Zofran] 4 mg PO DAILY PRN 09/17/23 03/07/24 History Rifaximin [Xifaxan] 550 mg PO Q12H 09/17/23 03/07/24 History levETIRAcetam [Keppra] 500 mg PO Q12HR 09/17/23 03/07/24 History ALPRAZolam [Xanax] 0.25 mg PO DAILY PRN 02/10/24 03/07/24 History Albuterol Sulfate [Albuterol 2 puff INHALATION RT-Q6H PRN 02/10/24 03/07/24 History Sulfate Hfa] Buprenorphine HCl/Naloxone HCl 1 film SL DAILY PRN 02/10/24 03/07/24 History [Suboxone 2 mg-0.5 mg Sl Film] Midodrine [ProAmatine] 5 mg PO TID 02/10/24 03/07/24 History Mirtazapine 7.5 mg PO HS 02/10/24 03/07/24 History diphenhydrAMINE & Zinc Cream 1 applic TOPICAL TID PRN 02/10/24 03/07/24 History [Benadryl Cream] hydrOXYzine HCL [Atarax] 25 mg PO Q6H PRN 02/10/24 03/07/24 History methocarbamoL [Robaxin-750] 750 mg PO Q8H PRN 02/10/24 03/07/24 History Pregabalin [Lyrica] 50 mg PO BID 02/18/24 03/07/24 History Spironolactone [Aldactone] 25 mg PO DAILY 30 Days #30 tab 02/26/24 03/07/24 Rx Allergies Allergy/AdvReac Type Severity Reaction Status Date / Time No Known Allergies Allergy Verified 03/07/24 20:28 Physical Exam Vitals: Vital Signs Temp Pulse Resp BP Pulse Ox 03/08/24 04:09 72 17 115/80 96 03/07/24 20:28 98.9 F 96 18 111/76 96 Intake and Output 03/07/24 03/07/24 03/08/24 14:59 22:59 06:59 Other: Weight 63.503 kg Results CBC & Chem 7: 03/07/24 21:44 03/07/24 21:44 Labs: Abnormal Lab Results - Last 24 Hours (Table) 03/07/24 03/07/24 03/07/24 Range/Units 21:44 21:44 21:44 RBC 3.48 L (4.30-5.90) m/uL Hgb 11.4 L (13.0-17.5) gm/dL Hct 34.1 L (39.0-53.0) % Sodium 129 L (137-145) mmol/L BUN 7 L (9-20) mg/dL Creatinine 0.52 L (0.66-1.25) mg/dL Plasma Lactic Acid Armando 3.0 H* (0.7-2.0) mmol/L Calcium 7.5 L (8.4-10.2) mg/dL AST 81 H (17-59) U/L Total Protein 5.8 L (6.3-8.2) g/dL Albumin 2.7 L (3.5-5.0) g/dL Urine Protein (Negative) Urine Ketones (Negative) Calcium Oxalate Crystal (None) /hpf Urine Bacteria (None) /hpf Hyaline Casts (0-2) /lpf Urine Mucus (None) /hpf 03/07/24 Range/Units 23:20 RBC (4.30-5.90) m/uL Hgb (13.0-17.5) gm/dL Hct (39.0-53.0) % Sodium (137-145) mmol/L BUN (9-20) mg/dL Creatinine (0.66-1.25) mg/dL Plasma Lactic Acid Armando (0.7-2.0) mmol/L Calcium (8.4-10.2) mg/dL AST (17-59) U/L Total Protein (6.3-8.2) g/dL Albumin (3.5-5.0) g/dL Urine Protein Trace H (Negative) Urine Ketones Trace H (Negative) Calcium Oxalate Crystal Occasional H (None) /hpf Urine Bacteria Rare H (None) /hpf Hyaline Casts 22 H (0-2) /lpf Urine Mucus Many H (None) /hpf
[2024-03-08] MEDS ORDERED: ALBUTEROL NEBULIZED 2.5 MG/3 ML INHALATION PRN (06:25)
[2024-03-08] MEDS ORDERED: LORazepam 2 MG/ML INJ IV PRN ×3 (06:37)
[2024-03-08] MEDS ORDERED: LORazepam 1 MG TAB PO PRN (06:37)
[2024-03-08] MEDS ORDERED: LORazepam 0.5 MG TAB PO PRN (06:37)
[2024-03-08] MEDS ORDERED: NALOXONE 0.4 MG/ML 1 ML VIAL IV PRN (06:38)
[2024-03-08] MEDS ORDERED: PATIENT'S OWN (Buprenorphine Hcl/Naloxone Hcl [Suboxone 2 Mg-0.5 Mg Sl Film] 1 EACH F SUBLINGUAL PRN (06:40)
[2024-03-08] MEDS: RIFAXIMIN 550 MG TABLET PO SCH (06:41)
[2024-03-08] MEDS: LACTULOSE 20 GM/30 ML CUP PO SCH (06:42)
[2024-03-08] MEDS ORDERED: ACAMPROSATE CALCIUM 333 MG TABLET.DR PO SCH (09:00)
[2024-03-08] MEDS: ACAMPROSATE 333 MG PO SCH ×2 (09:47→16:09)
[2024-03-08] MEDS: FUROSEMIDE 20 MG TAB PO SCH (09:47)
[2024-03-08] MEDS: ENOXAPARIN 40 MG/0.4 ML SYRINGE SQ SCH (09:47)
[2024-03-08] MEDS: levETIRAcetam 500 MG TAB PO SCH (09:48)
[2024-03-08] MEDS: PANTOPRAZOLE 40 MG TABLET PO SCH (09:48)
[2024-03-08] MEDS: MIDODRINE 5 MG TAB PO SCH (09:48)
[2024-03-08] MEDS: FAMOTIDINE 20 MG TAB PO SCH (09:48)
[2024-03-08] MEDS: SPIRONOLACTONE 25 MG TAB PO SCH (09:48)
[2024-03-08] MEDS: PREGABALIN 50 MG CAP PO SCH (09:51)
[2024-03-08] MEDS: HYDROmorphone 0.5 MG/0.5 ML SYRINGE IVP PRN (09:54)
[2024-03-08] MEDS ORDERED: ONDANSETRON 4 MG/2 ML VIAL IVP PRN (10:47)
[2024-03-08] MEDS ORDERED: methocarbamoL 750 MG TAB PO PRN (10:48)
--- NOTE | 2024-03-08 12:28 | XR ---
EXAMINATION TYPE: XR abdomen 2V DATE OF EXAM: 03/08/2024 11:36 AM COMPARISON: CLINICAL INDICATION: Male, 33 years old with history of obstruction; [facility] TECHNIQUE: Two views of the abdomen were obtained. FINDINGS: Moderate amount stool throughout the colon. The bowel gas pattern is nonspecific without di lated loops of small or large bowel. There is no evidence for organomegaly or pneumoperitoneum. The osseous structures are intact. No abnormal calcifications are present. Fecal material and gas are de monstrated throughout the colon and rectum. Vascular stent noted in the mid abdomen. IMPRESSION: Nonspecific bowel gas pattern without radiographic evidence for acute process. [facility], , 03/08/2024 12:26 PM
--- NOTE | 2024-03-08 14:44 | P.PN ---
Subjective Progress Note Date: 03/08/24 Hospitalist Interval Note Patient seen and examined at bedside. He continues to report abdominal pain. He also is having some nausea. Reports that he has not had bowel movements in 2 days. He did miss 3 days of lactulose. Mild abd distension on exam. Doubt SBP given no signs of systemic illness such as fevers or persistent tachycardia. White blood cell count is normal. However we will continue prophylactic antibiotics. Abdominal x-ray ordered which does show moderate stool burden but is otherwise unremarkable. Dulcolax X 1. Remainder of assessment and plan unchanged from H&P performed this morning. Objective - Vital Signs Vital signs: Vital Signs Temp 98.2 F 03/08/24 09:44 Pulse 77 03/08/24 13:23 Resp 20 03/08/24 13:23 BP 119/93 03/08/24 13:23 Pulse Ox 97 03/08/24 13:23 FiO2 Intake & Output 03/07/24 03/08/24 03/08/24 18:59 06:59 18:59 Weight 63.503 kg - Labs CBC & Chem 7: 03/07/24 21:44 03/07/24 21:44 Labs: Abnormal Lab Results - Last 24 Hours (Table) 03/07/24 03/07/24 03/07/24 Range/Units 21:44 21:44 21:44 RBC 3.48 L (4.30-5.90) m/uL Hgb 11.4 L (13.0-17.5) gm/dL Hct 34.1 L (39.0-53.0) % Sodium 129 L (137-145) mmol/L BUN 7 L (9-20) mg/dL Creatinine 0.52 L (0.66-1.25) mg/dL Plasma Lactic Acid Armando 3.0 H* (0.7-2.0) mmol/L Calcium 7.5 L (8.4-10.2) mg/dL AST 81 H (17-59) U/L Total Protein 5.8 L (6.3-8.2) g/dL Albumin 2.7 L (3.5-5.0) g/dL Urine Protein (Negative) Urine Ketones (Negative) Calcium Oxalate Crystal (None) /hpf Urine Bacteria (None) /hpf Hyaline Casts (0-2) /lpf Urine Mucus (None) /hpf 03/07/24 Range/Units 23:20 RBC (4.30-5.90) m/uL Hgb (13.0-17.5) gm/dL Hct (39.0-53.0) % Sodium (137-145) mmol/L BUN (9-20) mg/dL Creatinine (0.66-1.25) mg/dL Plasma Lactic Acid Armando (0.7-2.0) mmol/L Calcium (8.4-10.2) mg/dL AST (17-59) U/L Total Protein (6.3-8.2) g/dL Albumin (3.5-5.0) g/dL Urine Protein Trace H (Negative) Urine Ketones Trace H (Negative) Calcium Oxalate Crystal Occasional H (None) /hpf Urine Bacteria Rare H (None) /hpf Hyaline Casts 22 H (0-2) /lpf Urine Mucus Many H (None) /hpf
[2024-03-08] MEDS: bisacodyL 10 MG SUPP RECTAL STA (16:10)
[2024-03-08] MEDS: HYDROmorphone 2 MG TAB PO PRN (21:24)
[2024-03-08] MEDS: MIRTAZAPINE 15 MG TAB PO SCH (21:52)
[2024-03-09] MEDS: diphenhydrAMINE 25 MG CAP PO PRN (01:58)
[2024-03-09] MEDS ORDERED: ACETAMINOPHEN TAB 325 MG TAB PO PRN (08:49)
[2024-03-09] MEDS: THIAMINE 100 MG TAB PO SCH (09:45)
[2024-03-09] MEDS: FUROSEMIDE 10 MG/ML 4 ML VIAL IV STA (10:23)
[2024-03-09 12:31] LABS: HCT 35.2 % (39.0-53.0); HGB 11.1 gm/dL (13.0-17.5); MCH 30.6 pg (25.0-35.0); MCHC 31.5 g/dL (31.0-37.0); MCV 97.2 fL (80.0-100.0); Mean Platelet Volume 7.7; Platelet Count 152 k/uL (150-450); RBC 3.63 m/uL (4.30-5.90); RDW 13.7 % (11.5-15.5); WBC 4.4 k/uL (3.8-10.6)
[2024-03-09 12:39] LABS: African American GFR (CKD) >90 (>60 ml/min/1.73 sqM); Anion Gap 6 mmol/L; Blood Urea Nitrogen 6 mg/dL (9-20); Calcium 7.4 mg/dL (8.4-10.2); Carbon Dioxide 24 mmol/L (22-30); Chloride 98 mmol/L (98-107); Glucose 142 mg/dL (74-99); Non-African American GFR(CKD) >90 (>60 ml/min/1.73 sqM); Potassium 3.3 mmol/L (3.5-5.1); Sodium 128 mmol/L (137-145)
--- NOTE | 2024-03-09 13:39 | P.PN ---
Subjective Progress Note Date: 03/09/24 (delayed charting seen at 0845) 33-year-old patient with known alcohol use disorder, cirrhosis requiring twice weekly paracentesis, and GERD who presented to the emergency department with abdominal pain. Initially on admission there was concerns for impending alcohol withdrawal due to recent binge drinking pattern as well as abdominal pain. On the day prior to admission patient had undergone paracentesis. There was concerns for possible SBP and he was started on Rocephin. He was confirmed to have constipation on x-ray as well as reports of no bowel movements. Was given 1 suppository in addition to lactulose and had multiple bowel movements. Patient seen and examined at bedside. Continues to feel distended and gassy. Had 1 large bowel movement after the suppository and 1 small 1. Reports continued feelings of constipation and distention. Denies any nausea or vomiting. Again asking for pain meds. We had a very charlette discussion about how opiate pain medications will increase the risk of further constipation. We talked about options for constipation management and he elected for enema. Vital signs reviewed General: Nontoxic, no distress, appears at stated age Cardiovascular: S1S2 reg, no murmur Lungs: CTA bilateral, no rhonchi, no rales, no accessory muscle use Abdominal: Soft, nontender to palpation, no guarding, distention without fluid shift, + bowel sounds Ext: No gross muscle atrophy, no edema b/l lower extremities, no contractures Neuro: CN II-XI grossly intact, no focal neuro deficits Psych: Alert, oriented, appropriate affect Assessment/Plan: Constipation -Enema x 1 now -Continue with lactulose 30 mg 3 times daily -Attempt to limit narcotic agents Alcoholic cirrhosis Alcohol dependency with possible impending withdrawal -Assess need for repeat Para in AM -Continue CIWA protocol with Ativan per CIWA score -Folic acid 1 g daily, thiamine 100 mg daily -Lasix 40 mg IV push x 1, continue with oral Lasix 40 mg twice daily and spironolactone 25 mg daily Hyponatremia -Likely secondary to fluid overload state. Stable - diuretics as above. -Repeat sodium in a.m. Hypokalemia -Replace and recheck in AM. Lactic acidosis, resolved Imaging: None new Data Review: Labs reviewed from today include CBC and basic metabolic profile which are remarkable for hemoglobin 11.4, sodium 128, potassium 3.3 DVT prophylaxis: Lovenox Anticipated discharge date: Home in a.m. This dictation was prepared using [employer] voice recognition software. Though every attempt is made to correct errors during dictation some may still exist. Objective - Vital Signs Vital signs: Vital Signs Temp 97.9 F 03/09/24 06:55 Pulse 68 03/09/24 13:00 Resp 17 03/09/24 06:55 BP 105/72 03/09/24 13:00 Pulse Ox 98 03/09/24 06:55 FiO2 Intake & Output 03/08/24 03/09/24 03/09/24 18:59 06:59 18:59 Intake Total 560 Balance 560 Weight 63.503 kg Intake: Oral 560 Other: # Voids 3 # Bowel Movements 1 - Labs CBC & Chem 7: 03/09/24 12:11 03/09/24 12:11 Labs: Abnormal Lab Results - Last 24 Hours (Table) 03/09/24 03/09/24 Range/Units 12:11 12:11 RBC 3.63 L (4.30-5.90) m/uL Hgb 11.1 L (13.0-17.5) gm/dL Hct 35.2 L (39.0-53.0) % Sodium 128 L (137-145) mmol/L Potassium 3.3 L (3.5-5.1) mmol/L BUN 6 L (9-20) mg/dL Creatinine 0.54 L (0.66-1.25) mg/dL Glucose 142 H (74-99) mg/dL Calcium 7.4 L (8.4-10.2) mg/dL
[2024-03-09] MEDS: POTASSIUM CHLORIDE ER 20 MEQ TAB.ER PO STA (15:35)
[2024-03-09] MEDS: ALPRAZolam 0.25 MG TAB PO PRN (20:27)
[2024-03-10 07:26] VITALS: RESP 16; TEMP 98.4
[2024-03-10 08:38] LABS: HCT 32.2 % (39.6-50.0); HGB 10.7 g/dL (13.0-17.0); MCH 31.7 pg (27.0-32.0); MCHC 33.2 g/dL (32.0-37.0); MCV 95.3 FL (80.0-97.0); Mean Platelet Volume 9.7 FL (9.5-12.2); NRBC Per 100 WBC 0 X 10*3/uL (0.00-0.01); Platelet Count 130 X 10*3/uL (140-440); RBC 3.38 X 10*6/uL (4.40-5.60); RDW 13.4 % (11.5-14.5); WBC 4.57 X 10*3/uL (4.50-10.00)
[2024-03-10 08:51] LABS: ALT 15 U/L (10-49); AST 27 U/L (14-35); Albumin 2.4 g/dL (3.8-4.9); Alkaline Phosphatase 135 U/L (41-126); Blood Urea Nitrogen 6.3 mg/dL (9.0-27.0); Calcium 7.4 mg/dL (8.7-10.3); Carbon Dioxide 23.7 mmol/L (21.6-31.8); Chloride 101 mmol/L (96-109); Glucose 191 mg/dL (70-110); Potassium 3.7 mmol/L (3.5-5.5); Sodium 133 mmol/L (135-145); Total Bilirubin 0.5 mg/dL (0.3-1.2); Total Protein 4.4 g/dL (6.2-8.2)
--- NOTE | 2024-03-10 10:34 | P.DS ---
Providers Date of admission: 03/08/24 06:38 Expected date of discharge: 03/10/24 Attending physician: Melody Nath MD Primary care physician: Luzma Gordon [facility] Hospital Course: Discharge Diagnosis: Constipation Alcoholic cirrhosis Alcohol dependency Hypovolemic hyponatremia Hypokalemia Hospital Course: 33-year-old patient with known alcohol use disorder, cirrhosis requiring twice weekly paracentesis, and GERD who presented to the emergency department with abdominal pain. Initially on admission there was concerns for impending alcohol withdrawal due to recent binge drinking pattern as well as abdominal pain. On the day prior to admission patient had undergone paracentesis. There was concerns for possible SBP and he was started on Rocephin. He was confirmed to have constipation on x-ray as well as reports of no bowel movements. Was given 1 suppository in addition to lactulose and had multiple bowel movements. Low suspicion for SBP. Patient stable at the time of discharge. Follow-up outpatient with his GI physician at [facility]. He will also follow-up with PCP. He will get paracentesis prior to discharge. Patient seen and examined at bedside. Vital signs reviewed and stable. General: Nontoxic, no distress, appears at stated age Derm: Warm, dry Head: Atraumatic, normocephalic, symmetric Eyes: EOMI, no lid lag, anicteric sclera Mouth: No lip lesion, mucus membranes moist Cardiovascular: S1S2 reg, no murmur Lungs: CTA bilateral, no rhonchi, no rales, no accessory muscle use Abdominal: Soft, distended, nontender to palpation, no guarding, no appreciable organomegaly Ext: No gross muscle atrophy, no edema, no contractures Neuro: CN II-XI grossly intact, no focal neuro deficits Psych: Alert, oriented, appropriate affect A total of 33 minutes of time were spent preparing this complex discharge summary. Patient was discharged on 03/10/2024 at 1012. Patient Condition at Discharge: Stable Plan - Discharge Summary Discharge Rx Participant: No New Discharge Prescriptions: New Thiamine [Vitamin B-1] 100 mg PO DAILY #90 tab Continue Rifaximin [Xifaxan] 550 mg PO Q12H Furosemide [Lasix] 20 mg PO BID Omeprazole [PriLOSEC] 20 mg PO BID levETIRAcetam [Keppra] 500 mg PO Q12HR Acamprosate Calcium [Campral] 666 mg PO TID diphenhydrAMINE & Zinc Cream [Benadryl Cream] 1 applic TOPICAL TID PRN PRN Reason: Skin Irritation Albuterol Sulfate [Albuterol Sulfate Hfa] 2 puff INHALATION RT-Q6H PRN PRN Reason: Shortness Of Breath Buprenorphine HCl/Naloxone HCl [Suboxone 2 mg-0.5 mg Sl Film] 1 film SL DAILY PRN PRN Reason: Pain methocarbamoL [Robaxin-750] 750 mg PO Q8H PRN PRN Reason: Muscle Spasm ALPRAZolam [Xanax] 0.25 mg PO DAILY PRN PRN Reason: Anxiety Midodrine [ProAmatine] 5 mg PO TID Spironolactone [Aldactone] 25 mg PO DAILY 30 Days #30 tab Ondansetron [Zofran] 4 mg PO DAILY PRN PRN Reason: Nausea Lactulose 30 gm PO Q8H hydrOXYzine HCL [Atarax] 25 mg PO Q6H PRN PRN Reason: Anxiety Mirtazapine 7.5 mg PO HS Pregabalin [Lyrica] 50 mg PO BID Discharge Medication List Acamprosate Calcium [Campral] 666 mg PO TID 09/17/23 [History] Furosemide [Lasix] 20 mg PO BID 09/17/23 [History] Lactulose 30 gm PO Q8H 09/17/23 [History] Omeprazole [PriLOSEC] 20 mg PO BID 09/17/23 [History] Ondansetron [Zofran] 4 mg PO DAILY PRN 09/17/23 [History] Rifaximin [Xifaxan] 550 mg PO Q12H 09/17/23 [History] levETIRAcetam [Keppra] 500 mg PO Q12HR 09/17/23 [History] ALPRAZolam [Xanax] 0.25 mg PO DAILY PRN 02/10/24 [History] Albuterol Sulfate [Albuterol Sulfate Hfa] 2 puff INHALATION RT-Q6H PRN 02/10/24 [History] Buprenorphine HCl/Naloxone HCl [Suboxone 2 mg-0.5 mg Sl Film] 1 film SL DAILY PRN 02/10/24 [History] Midodrine [ProAmatine] 5 mg PO TID 02/10/24 [History] Mirtazapine 7.5 mg PO HS 02/10/24 [History] diphenhydrAMINE & Zinc Cream [Benadryl Cream] 1 applic TOPICAL TID PRN 02/10/24 [History] hydrOXYzine HCL [Atarax] 25 mg PO Q6H PRN 02/10/24 [History] methocarbamoL [Robaxin-750] 750 mg PO Q8H PRN 02/10/24 [History] Pregabalin [Lyrica] 50 mg PO BID 02/18/24 [History] Spironolactone [Aldactone] 25 mg PO DAILY 30 Days #30 tab 02/26/24 [Rx] Thiamine [Vitamin B-1] 100 mg PO DAILY #90 tab 03/10/24 [Rx] Follow up Appointment(s)/Referral(s): Luzma Jaime, FRAN [STAFF PHYSICIAN] - 1-2 days Patient Instructions/Handouts: Constipation (DC), Cirrhosis (DC) Activity/Diet/Wound Care/Special Instructions: Please see your PCP. Discharge/Stand Alone Forms: AA Meetings [facility] - [facility], AA Meetings [place], Community Resources, Outpatient Counseling, Inp Substance Abuse Facilities
--- NOTE | 2024-03-10 12:47 | US ---
EXAMINATION TYPE: US paracentesis abd w/image DATE OF EXAM: 03/10/2024 11:27 AM COMPARISON: prior paracentesis. CLINICAL INDICATION:Male, 33 years old with history of ascites; , ascites ATTENDING: Dr. Lemuel Vanegas PROCEDURE: Informed consent was obtained. The risks of the procedure were extensively explained incl uding risk of damage to surrounding bowel with perforation and need for additional procedures. Proced ure was performed in the ultrasound procedure suite. Ultrasound imaging of the abdomen demonstrate as citic fluid. An appropriate access site was localized to the right lower abdomen. Timeout was taken p er protocol. The skin was prepped and draped in the usual sterile fashion and then locally anesthetiz ed with 1% lidocaine. The peritoneal cavity was then accessed via a 5-[place] one-step needle/cathete r. Approximately 5800 mL of clear straw-colored fluid was obtained. Postprocedural imaging of the ab domen demonstrate a minimal amount of abdominal fluid. Patient tolerated procedure well without immediate complication. Hemostasis at the procedural site w as obtained with a sterile bandage placed. The patient was monitored in the holding area following th e procedure and was subsequently discharged in stable condition. IMPRESSION: Ultrasound guided paracentesis, with approximately 5800 mL of clear straw-colored fluid drained. No immediate complications were evident. [facility], , 03/10/2024 12:45 PM
[2024-03-10] MEDS: ALBUMIN HUMAN 25% 50 ML in EMPTY BAG 1 BAG IVPB SCH (13:14)
[2024-03-10 13:46] VITALS: BP 100/65; PULSE 82
== END 2024-03-10 14:45 | disposition home or self-care (01) ==
LOC: EC 20:17 → 6NMEDSUR 03-08 06:38
PROVIDERS: ADMIT Internal Medicine; ATTEND Internal Medicine
DX: K70.31 Alcoholic cirrhosis of liver with ascites (principal); K59.00 Constipation, unspecified; F10.20 Alcohol dependence, uncomplicated; E87.6 Hypokalemia; E87.20 Acidosis, unspecified; E87.1 Hypo-osmolality and hyponatremia; E86.1 Hypovolemia; K21.9 Gastro-esophageal reflux disease without esophagitis; F17.200 Nicotine dependence, unspecified, uncomplicated; Z79.899 Other long term (current) drug therapy
CPT/HCPCS: 96366 ×2; 96375 ×2; 96376; 96365; 99285; 36415 ×2; 80053 ×2; 80048; 82150; 83605 ×2; 83690; 85025; 85027 ×2; 86140; 81001; 87040; 74019; 49083; G0378 ×3; J1940; J2405; J0696 ×3; P9047; J1171 ×2

== ENCOUNTER 2024-03-13 13:35 | Day surgery (SDC) | payer OTHER ==
[2024-03-13 13:49] LABS: Mean Platelet Volume 7.3; Platelet Count 205 k/uL (150-450)
[2024-03-13 13:58] LABS: INR 1.3 (<1.2)
[2024-03-13 14:06] LABS: African American GFR (CKD) >90 (>60 ml/min/1.73 sqM); Non-African American GFR(CKD) >90 (>60 ml/min/1.73 sqM)
[2024-03-13 14:24] VITALS: RESP 18; TEMP 98.6
[2024-03-13] MEDS: ALBUMIN HUMAN 25% 50 ML in EMPTY BAG 1 BAG IVPB SCH (15:00)
[2024-03-13 15:36] VITALS: BP 101/62; PULSE 77
== END 2024-03-13 15:45 | disposition home or self-care (01) ==
LOC: RADPROMAIN 13:35
PROVIDERS: ATTEND Internal Medicine
DX: R18.8 Other ascites (principal)
CPT/HCPCS: 82565; 85049; 85610; 36415; P9047

== ENCOUNTER 2024-03-17 13:01 | Day surgery (SDC) | payer OTHER ==
[2024-03-17 13:25] VITALS: RESP 12
[2024-03-17 13:31] LABS: Mean Platelet Volume 7.1; Platelet Count 287 k/uL (150-450)
[2024-03-17 13:37] VITALS: TEMP 98.8
[2024-03-17 13:43] LABS: INR 1.5 (<1.2); Prothrombin Time 15.3 sec (10.0-12.5)
[2024-03-17 13:44] LABS: African American GFR (CKD) >90 (>60 ml/min/1.73 sqM); Non-African American GFR(CKD) >90 (>60 ml/min/1.73 sqM)
[2024-03-17] MEDS: ALBUMIN HUMAN 25% 50 ML in EMPTY BAG 1 BAG IVPB SCH (14:01)
[2024-03-17 14:34] VITALS: BP 103/67; PULSE 89
--- NOTE | 2024-03-17 15:28 | US ---
EXAMINATION TYPE: US paracentesis abd w/image DATE OF EXAM: 03/17/2024 2:06 PM COMPARISON: prior paracentesis. CLINICAL INDICATION:Male, 33 years old with history of ascities; , ascites ATTENDING: Dr. Lemuel Vanegas PROCEDURE: Informed consent was obtained. The risks of the procedure were extensively explained incl uding risk of damage to surrounding bowel with perforation and need for additional procedures. Proced ure was performed in the ultrasound procedure suite. Ultrasound imaging of the abdomen demonstrate as citic fluid. An appropriate access site was localized to the right lower abdomen. Timeout was taken p er protocol. The skin was prepped and draped in the usual sterile fashion and then locally anesthetiz ed with 1% lidocaine. The peritoneal cavity was then accessed via a 5-[place]iquais one-step needle/cathete r. Approximately 5500 mL of clear straw-colored fluid was obtained. Postprocedural imaging of the ab domen demonstrate a minimal amount of abdominal fluid. Patient tolerated procedure well without immediate complication. Hemostasis at the procedural site w as obtained with a sterile bandage placed. The patient was monitored in the holding area following th e procedure and was subsequently discharged in stable condition. IMPRESSION: Ultrasound guided paracentesis, with approximately 5500 mL of clear straw-colored fluid drained. No immediate complications were evident. [facility], , 03/17/2024 3:25 PM
== END 2024-03-17 14:45 | disposition home or self-care (01) ==
LOC: RADPROMAIN 13:01
PROVIDERS: ATTEND Internal Medicine
DX: R18.8 Other ascites (principal)
CPT/HCPCS: 82565; 85049; 85610; 36415; 49083; P9047

== ENCOUNTER 2024-03-24 13:14 | Day surgery (SDC) | payer OTHER ==
[~2024-03-24 13:14] MED LIST changes: -ALBUMIN HUMAN 25% (12.5gm) 50 ML VIAL ONE; +ALBUMIN HUMAN 25% 50 ML in EMPTY BAG 1 BAG IVPB SCH; -ALPRAZolam 0.5 MG TAB ONE
[2024-03-24 14:15] VITALS: BP 103/70; PULSE 86; RESP 16; TEMP 97.9
--- NOTE | 2024-03-24 15:36 | US ---
EXAMINATION TYPE: US discontinued paracentesis DATE OF EXAM: 03/24/2024 2:32 PM COMPARISON: prior paracentesis. CLINICAL INDICATION:Male, 33 years old with history of R18.8; , ascites ATTENDING: Dr. Lemuel Vanegas PROCEDURE: Informed consent was obtained. The risks of the procedure were extensively explained incl uding risk of damage to surrounding bowel with perforation and need for additional procedures. Prepro cedure imaging was obtained. Small moderate amount of fluid is identified. Patient elected to reasses s in 3 days. IMPRESSION: Canceled paracentesis patient to return in 3 days for reevaluation. [facility], , 03/24/2024 3:34 PM
== END 2024-03-24 14:18 | disposition home or self-care (01) ==
LOC: RADPROMAIN 13:14
PROVIDERS: ATTEND Internal Medicine
DX: Z53.8 Procedure and treatment not carried out for other reasons (principal); R18.8 Other ascites
CPT/HCPCS: 76705

== ENCOUNTER → 2024-03-24 | Outpatient (CLI) | payer OTHER ==
--- NOTE | 2024-03-24 15:17 | US ---
EXAMINATION TYPE: US liver DATE OF EXAM: 03/24/2024 COMPARISON: CT CLINICAL INDICATION: Male, 33 years old with history of K70.31 ALCOHOLIC CIRRHOSIS OF LIVER WITH ASCI YARON; Cirrhosis TECHNIQUE: Grayscale and color Doppler imaging of the right upper quadrant was performed. FINDINGS: EXAM MEASUREMENTS: Liver Length: 13.0 cm Gallbladder Wall: 0.4 cm CBD: 0.3 cm Right Kidney: 11.0 x 4.3 x 5.9 cm Pancreas: Obscured by bowel gas Liver: Right lobe small in size, TIPS visualized and patent Gallbladder: Contracted as visualized on prior CT's Evidence for sonographic Rosales's sign: No CBD: wnl Right Kidney: No evidence of hydro, lower pole gassed out Known ascites IMPRESSION: 1. Small to moderate ascites. Patient deferred paracentesis today. We will return in 3 days. 2. Tip is present and patent. 3. [facility], , 03/24/2024 3:15 PM
== END | disposition home or self-care (01) ==
LOC: RADUSWWP 14:16
PROVIDERS: ATTEND Hospitalist
DX: K70.31 Alcoholic cirrhosis of liver with ascites (principal)
CPT/HCPCS: 76705

== ENCOUNTER 2024-03-27 13:09 | Inpatient (IN) | payer OTHER ==
[2024-03-27 13:25] LABS: Glucose,Whole Blood 43 mg/dL (70-110)
[2024-03-27] MEDS: DEXTROSE 50% SYRINGE 50 ML IVP STA (13:52)
[2024-03-27] MEDS: DEXTROSE 5%-0.9% NACL 1,000 ML IV SCH (13:54)
[2024-03-27 13:59] LABS: Basophils % (A) 0 %; Eosinophils % (A) 0 %; HGB 12.7 gm/dL (13.0-17.5); Hypochromasia Slight; Lymphocytes % (A) 15 %; MCH 31.3 pg (25.0-35.0); MCHC 32.4 g/dL (31.0-37.0); MCV 96.4 fL (80.0-100.0); Mean Platelet Volume 8.2; Monocytes # (A) 0.4 k/uL (0-1.0); Monocytes % (A) 7 %; Neutrophils # (A) 5.1 k/uL (1.3-7.7); Neutrophils % (A) 77 %; Platelet Count 168 k/uL (150-450); RBC 4.05 m/uL (4.30-5.90); RDW 14.4 % (11.5-15.5); WBC 6.7 k/uL (3.8-10.6)
--- NOTE | 2024-03-27 14:01 | ED ---
Altered Mental Status HPI - General Chief Complaint: Altered Mental Status Stated Complaint: hypothermia Time Seen by Provider: 03/27/24 13:14 Source: EMS Mode of arrival: EMS Limitations: altered mental status - History of Present Illness Initial Comments: 33-year-old male with past medical history of alcohol abuse in need of a liver transplant, biweekly paracenteses, recent TIPS procedure on the , who presents to the emergency department with altered mental status. Patient was found in his apartment which is unkempt. The patient was found down on the ground. He was wearing several layers of clothing and it did not appear that the house had heat. The patient is a known alcoholic with advanced liver disease. He was supposed to have a liver transplant but cannot abstain from drinking. He requires twice weekly paracenteses. Patient did have a TIPS procedure on the . He had an ultrasound performed on the which the patient did not require paracentesis as he did not have enough fluid. He was to follow-up in 3 days. Family went to the house today and found him in his current state. He would moan however did not answer questions appropriately. EMS found him to have a glucose of 60 and did provide him with dextrose. Patient cannot provide any history. He does have several bruises in different stages. HPI is limited because of this - Related Data Home Medications Medication Instructions Recorded Confirmed Acamprosate Calcium [Campral] 666 mg PO TID 09/17/23 03/27/24 Furosemide [Lasix] 20 mg PO BID 09/17/23 03/27/24 Lactulose 30 gm PO Q8H 09/17/23 03/27/24 Omeprazole [PriLOSEC] 20 mg PO BID 09/17/23 03/27/24 Ondansetron [Zofran] 4 mg PO DAILY PRN 09/17/23 03/27/24 Rifaximin [Xifaxan] 550 mg PO Q12H 09/17/23 03/27/24 levETIRAcetam [Keppra] 500 mg PO Q12HR 09/17/23 03/27/24 ALPRAZolam [Xanax] 0.25 mg PO DAILY PRN 02/10/24 03/27/24 Albuterol Sulfate [Albuterol 2 puff INHALATION RT-Q6H PRN 02/10/24 03/27/24 Sulfate Hfa] Buprenorphine HCl/Naloxone HCl 1 film SL DAILY PRN 02/10/24 03/27/24 [Suboxone 2 mg-0.5 mg Sl Film] Midodrine [ProAmatine] 5 mg PO TID 02/10/24 03/27/24 Mirtazapine 7.5 mg PO HS 02/10/24 03/27/24 diphenhydrAMINE & Zinc Cream 1 applic TOPICAL TID PRN 02/10/24 03/27/24 [Benadryl Cream] hydrOXYzine HCL [Atarax] 25 mg PO Q6H PRN 02/10/24 03/27/24 methocarbamoL [Robaxin-750] 750 mg PO Q8H PRN 02/10/24 03/27/24 Pregabalin [Lyrica] 50 mg PO BID 02/18/24 03/27/24 Ciprofloxacin HCl [Cipro] 500 mg PO DAILY 03/27/24 03/27/24 Spironolactone [Aldactone] 25 mg PO BID 03/27/24 03/27/24 Previous Rx's Medication Instructions Recorded Thiamine [Vitamin B-1] 100 mg PO DAILY #90 tab 03/10/24 Allergies Allergy/AdvReac Type Severity Reaction Status Date / Time No Known Allergies Allergy Verified 03/27/24 15:44 Review of Systems ROS Statement: Those systems with pertinent positive or pertinent negative responses have been documented in the HPI. ROS Other: All systems not noted in ROS Statement are negative. Past Medical History Past Medical History: GERD/Reflux, Liver Disease Additional Past Medical History / Comment(s): Pancreatitis, ETOH abuse, subtance abuse, large volume paracentesis, chirrhosis History of Any Multi-Drug Resistant Organisms: None Reported Additional Past Surgical History / Comment(s): ERCP stent placement, scheduled for TIPS 03/20/24 Past Anesthesia/Blood Transfusion Reactions: Unable to Obtain Past Psychological History: Anxiety, Depression Smoking Status: Current every day smoker Past Alcohol Use History: Abuse Past Drug Use History: Marijuana - Past Family History Father Family Medical History: Hypertension Additional Family Medical History / Comment(s): Parkinson's Disease Mother Additional Family Medical History / Comment(s): mental illness General Exam Limitations: altered mental status General appearance: obtunded Head exam: Present: atraumatic Pupils: Present: mydriatic (5 mm) ENT exam: Present: mucous membranes dry Neck exam: Present: normal inspection. Absent: tenderness, meningismus, lymphadenopathy Respiratory exam: Present: normal lung sounds bilaterally Cardiovascular Exam: Present: regular rate, normal rhythm, normal heart sounds. Absent: systolic murmur, diastolic murmur, rubs, gallop, clicks GI/Abdominal exam: Present: soft, distended Neurological exam: Present: altered Psychiatric exam: Present: agitated Skin exam: Present: mottled, other (Ecchymosis to the right shoulder) Course Vital Signs 03/27/24 03/27/24 03/27/24 13:17 14:02 14:26 Temperature 91.1 F L 91.8 F L 92.5 F L Pulse Rate 83 80 Pulse Rate [ Bilateral Dorsalis Pedis] Pulse Rate [ Activity Coordinator ] Respiratory 18 18 Rate Blood Pressure 94/67 90/69 Blood Pressure [Right Arm Supine] O2 Sat by Pulse 99 100 Oximetry 03/27/24 03/27/24 03/27/24 15:02 16:18 18:44 Temperature 93.6 F L Pulse Rate 79 92 99 Pulse Rate [ Bilateral Dorsalis Pedis] Pulse Rate [ Activity Coordinator ] Respiratory 14 16 16 Rate Blood Pressure 95/62 98/61 110/63 Blood Pressure [Right Arm Supine] O2 Sat by Pulse 100 100 100 Oximetry 03/27/24 03/27/24 03/27/24 19:00 19:05 19:30 Temperature 96.9 F L 97.0 F L 96.8 F L Pulse Rate 100 102 H 106 H Pulse Rate [ Bilateral Dorsalis Pedis] Pulse Rate [ Activity Coordinator ] Respiratory 10 L 18 15 Rate Blood Pressure 105/53 109/57 103/64 Blood Pressure [Right Arm Supine] O2 Sat by Pulse 98 100 99 Oximetry 03/27/24 03/27/24 03/27/24 20:00 21:00 22:00 Temperature 96.2 F L 96.3 F L 96.4 F L Pulse Rate 100 105 H 107 H Pulse Rate [ Bilateral Dorsalis Pedis] Pulse Rate [ Activity Coordinator ] Respiratory 21 14 13 Rate Blood Pressure 112/65 106/69 108/70 Blood Pressure [Right Arm Supine] O2 Sat by Pulse 99 97 98 Oximetry 03/27/24 03/28/24 03/28/24 23:00 00:00 01:00 Temperature 96.3 F L 95.9 F L Pulse Rate 118 H 102 H Pulse Rate [ Bilateral Dorsalis Pedis] Pulse Rate [ 107 H Activity Coordinator ] Respiratory 27 H 16 12 Rate Blood Pressure 103/60 111/79 Blood Pressure 110/68 [Right Arm Supine] O2 Sat by Pulse 97 100 100 Oximetry 03/28/24 03/28/24 03/28/24 02:00 03:00 04:00 Temperature 100.2 F H Pulse Rate Pulse Rate [ Bilateral Dorsalis Pedis] Pulse Rate [ 105 H 116 H 128 H Activity Coordinator ] Respiratory 12 17 21 Rate Blood Pressure Blood Pressure 104/68 109/60 115/61 [Right Arm Supine] O2 Sat by Pulse 99 91 L 90 L Oximetry 03/28/24 03/28/24 03/28/24 05:00 06:00 07:00 Temperature Pulse Rate 115 H 112 H Pulse Rate [ Bilateral Dorsalis Pedis] Pulse Rate [ 124 H Activity Coordinator ] Respiratory 18 17 14 Rate Blood Pressure 114/62 109/59 Blood Pressure 114/62 [Right Arm Supine] O2 Sat by Pulse 95 96 100 Oximetry 03/28/24 03/28/24 03/28/24 08:00 09:00 10:11 Temperature 95.0 F L Pulse Rate 112 H 101 H 97 Pulse Rate [ Bilateral Dorsalis Pedis] Pulse Rate [ Activity Coordinator ] Respiratory 18 18 18 Rate Blood Pressure 112/72 104/57 105/65 Blood Pressure [Right Arm Supine] O2 Sat by Pulse 100 100 99 Oximetry 03/28/24 03/28/24 03/28/24 10:25 11:40 11:44 Temperature 96.6 F L 99.5 F Pulse Rate 98 112 H Pulse Rate [ 113 H Bilateral Dorsalis Pedis] Pulse Rate [ 112 H Activity Coordinator ] Respiratory 18 16 18 Rate Blood Pressure 107/56 Blood Pressure [Right Arm Supine] O2 Sat by Pulse 98 96 Oximetry 03/28/24 03/28/24 03/28/24 12:00 13:00 14:00 Temperature 98.1 F 97.5 F L 36.4 F L Pulse Rate 109 H 105 H 107 H Pulse Rate [ Bilateral Dorsalis Pedis] Pulse Rate [ Activity Coordinator ] Respiratory 18 18 18 Rate Blood Pressure 116/59 110/61 108/68 Blood Pressure [Right Arm Supine] O2 Sat by Pulse 97 99 97 Oximetry 03/28/24 03/28/24 03/28/24 15:15 16:00 17:35 Temperature 97.3 F L 97.5 F L 97.0 F L Pulse Rate 97 112 H 105 H Pulse Rate [ Bilateral Dorsalis Pedis] Pulse Rate [ Activity Coordinator ] Respiratory 18 18 18 Rate Blood Pressure 102/64 103/56 101/61 Blood Pressure [Right Arm Supine] O2 Sat by Pulse 99 99 99 Oximetry 03/28/24 17:52 Temperature 97.5 F L Pulse Rate 95 Pulse Rate [ Bilateral Dorsalis Pedis] Pulse Rate [ Activity Coordinator ] Respiratory 18 Rate Blood Pressure 102/59 Blood Pressure [Right Arm Supine] O2 Sat by Pulse 98 Oximetry Medical Decision Making - Medical Decision Making Was pt. sent in by a medical professional or institution (Dr. PA, MECHANICAL DEVELOPMENT ENGINEER, urgent care, hospital, or halfway...) When possible be specific @ -No Did you speak to anyone other than the patient for history (EMS, parent, family, police, friend...)? What history was obtained from this source @ -Spoke with EMS and sister for history Did you review nursing and triage notes (agree or disagree)? Why? @ -I reviewed and agree with nursing and triage notes Were old charts reviewed (outside hosp., previous admission, EMS record, old EKG, old radiological studies, urgent care reports/EKG's, halfway records)? Report findings @ -I reviewed ultrasound report from the where patient did not need paracentesis Differential Diagnosis (chest pain, altered mental status, abdominal pain women, abdominal pain men, vaginal bleeding, weakness, fever, dyspnea, syncope, headache, dizziness, GI bleed, back pain, seizure, CVA, palpatations, mental health, musculoskeletal)? @ -Differential Altered Mental Status: Hypoglycemia, DKA, hypercapnia, ETOH, overdose, CO poisoning, trauma, myxedema coma, HTN encephalopathy, infection, encephalitis, psychosis, intercranial hemorrhage, hepatic encephalopathy, meningitis, CVA, this is not meant to be an all-inclusive list EKG interpreted by me (3pts min.). @ -yes and demonstrates sinus rhythm with rate of 84. FL interval 131. QRS 86. QTc of 418. No acute ST segment elevations or depressions X-rays interpreted by me (1pt min.). @ -Yes and no acute process identified CT interpreted by me (1pt min.). @ -Yes and no acute process identified U/S interpreted by me (1pt. min.). @ -None done What testing was considered but not performed or refused? (CT, X-rays, U/S, labs)? Why? @ -None What meds were considered but not given or refused? Why? @ -None Did you discuss the management of the patient with other professionals (professionals i.e. Dr., PA, MECHANICAL DEVELOPMENT ENGINEER, lab, RT, psych nurse, psychotherapist social worker, manager administrative, teacher, client sales and service officer, nurse case management)? Give summary @ -Spoke with Dr. Kwong for admission. Spoke with Dr. Ovalles for the ICU admission Was smoking cessation discussed for >3mins.? @ -No Was critical care preformed (if so, how long)? @ -Yes, 35 minutes for management of hepatic encephalopathy Were there social determinants of health that impacted care today? How? (Homelessness, low income, unemployed, alcoholism, drug addiction, transportation, low edu. Level, literacy, decrease access to med. care, shelter, rehab)? @ -Alcohol abuse Was there de-escalation of care discussed even if they declined (Discuss DNR or withdrawal of care, Hospice)? DNR status @ -No What co-morbidities impacted this encounter? (DM, HTN, Smoking, COPD, CAD, Cancer, CVA, ARF, Chemo, Hep., AIDS, mental health diagnosis, sleep apnea, morbid obesity)? @ -Alcohol abuse Was patient admitted / discharged? Hospital course, mention meds given and route, prescriptions, significant lab abnormalities, going to OR and other per tinent info. @ -Upon arrival patient seen and evaluated in room 1. Thorough history and physical exam was performed. IV was established. Laboratory studies are conducted. Ammonia significantly elevated. NG tube was placed and lactulose is initiated. Patient dextrose 5% due to hypoglycemia. Patient requires admission to the ICU. Spoke with Dr. Ovalles and Dr. Kwong. Undiagnosed new problem with uncertain prognosis? @ -No Drug Therapy requiring intensive monitoring for toxicity (Heparin, Nitro, Insulin, Cardizem)? @ -No Were any procedures done? @ -NG tube placement Diagnosis/symptom? @ -Acute metabolic encephalopathy, hepatic encephalopathy, recurrent hypoglycemia, history of alcohol abuse, found down Acute, or Chronic, or Acute on Chronic? @ -Acute on chronic Uncomplicated (without systemic symptoms) or Complicated (systemic symptoms)? @ -Complicated Side effects of treatment? @ -No Exacerbation, Progression, or Severe Exacerbation? @ -No Poses a threat to life or bodily function? How? (Chest pain, [place], GA, pneumonia, PE, COPD, DKA, ARF, appy, cholecystitis, CVA, Diverticulitis, Homicidal, Suicidal, threat to staff... and all critical care pts) @ -Yes has patient has advanced liver failure - Lab Data Result diagrams: 03/31/24 06:24 03/31/24 06:24 Lab Results 03/27/24 03/27/24 03/27/24 Range/Units 13:24 13:48 13:48 WBC 6.7 (3.8-10.6) k/uL RBC 4.05 L (4.30-5.90) m/uL Hgb 12.7 L (13.0-17.5) gm/dL Hct 39.0 (39.0-53.0) % MCV 96.4 (80.0-100.0) fL MCH 31.3 (25.0-35.0) pg MCHC 32.4 (31.0-37.0) g/dL RDW 14.4 (11.5-15.5) % Plt Count 168 (150-450) k/uL MPV 8.2 Neutrophils % 77 % Lymphocytes % 15 % Monocytes % 7 % Eosinophils % 0 % Basophils % 0 % Neutrophils # 5.1 (1.3-7.7) k/uL Lymphocytes # 1.0 (1.0-4.8) k/uL Monocytes # 0.4 (0-1.0) k/uL Eosinophils # 0.0 (0-0.7) k/uL Basophils # 0.0 (0-0.2) k/uL Hypochromasia Slight PT 17.1 H (10.0-12.5) sec INR 1.7 H (<1.2) APTT 35.1 H (22.0-30.0) sec Sodium (137-145) mmol/L Potassium (3.5-5.1) mmol/L Chloride (98-107) mmol/L Carbon Dioxide (22-30) mmol/L Anion Gap mmol/L BUN (9-20) mg/dL Creatinine (0.66-1.25) mg/dL Est GFR (CKD-EPI)AfAm (>60 ml/min/1.73 sqM) Est GFR (CKD-EPI)NonAf (>60 ml/min/1.73 sqM) Glucose (74-99) mg/dL POC Glucose (mg/dL) 43 L* (70-110) mg/dL POC Glu Milling Planer Operator ID Enmanuel Fatima Lactic Ac Sepsis Rflx Plasma Lactic Acid Armando (0.7-2.0) mmol/L Calcium (8.4-10.2) mg/dL Total Bilirubin (0.2-1.3) mg/dL AST (17-59) U/L ALT (4-49) U/L Alkaline Phosphatase (38-126) U/L Ammonia (<30) umol/L Creatine Kinase (55-170) U/L Troponin I (0.000-0.034) ng/mL Total Protein (6.3-8.2) g/dL Albumin (3.5-5.0) g/dL Urine Color Urine Appearance (Clear) Urine pH (5.0-8.0) Ur Specific [place] (1.001-1.035) Urine Protein (Negative) Urine Glucose (UA) (Negative) Urine Ketones (Negative) Urine Blood (Negative) Urine Nitrite (Negative) Urine Bilirubin (Negative) Urine Urobilinogen (<2.0) mg/dL Ur Leukocyte Esterase (Negative) Urine RBC (0-5) /hpf Urine WBC (0-5) /hpf Ur Squamous Epith Cells (0-4) /hpf Urine Mucus (None) /hpf Urine Opiates Screen (NotDetected) Ur Oxycodone Screen (NotDetected) Urine Methadone Screen (NotDetected) Ur Barbiturates Screen (NotDetected) U Tricyclic Antidepress (NotDetected) Ur Phencyclidine Scrn (NotDetected) Ur Amphetamines Screen (NotDetected) U Methamphetamines Scrn (NotDetected) U Benzodiazepines Scrn (NotDetected) Urine Cocaine Screen (NotDetected) U Marijuana (THC) Screen (NotDetected) Serum Alcohol mg/dL 03/27/24 03/27/24 03/27/24 Range/Units 13:48 13:48 13:48 WBC (3.8-10.6) k/uL RBC (4.30-5.90) m/uL Hgb (13.0-17.5) gm/dL Hct (39.0-53.0) % MCV (80.0-100.0) fL MCH (25.0-35.0) pg MCHC (31.0-37.0) g/dL RDW (11.5-15.5) % Plt Count (150-450) k/uL MPV Neutrophils % % Lymphocytes % % Monocytes % % Eosinophils % % Basophils % % Neutrophils # (1.3-7.7) k/uL Lymphocytes # (1.0-4.8) k/uL Monocytes # (0-1.0) k/uL Eosinophils # (0-0.7) k/uL Basophils # (0-0.2) k/uL Hypochromasia PT (10.0-12.5) sec INR (<1.2) APTT (22.0-30.0) sec Sodium 132 L (137-145) mmol/L Potassium 4.2 (3.5-5.1) mmol/L Chloride 105 (98-107) mmol/L Carbon Dioxide 15 L (22-30) mmol/L Anion Gap 12 mmol/L BUN 12 (9-20) mg/dL Creatinine 0.45 L (0.66-1.25) mg/dL Est GFR (CKD-EPI)AfAm >90 (>60 ml/min/1.73 sqM) Est GFR (CKD-EPI)NonAf >90 (>60 ml/min/1.73 sqM) Glucose 272 H (74-99) mg/dL POC Glucose (mg/dL) (70-110) mg/dL POC Glu Milling Planer Operator ID Lactic Ac Sepsis Rflx Plasma Lactic Acid Armando 3.3 H* (0.7-2.0) mmol/L Calcium 7.5 L (8.4-10.2) mg/dL Total Bilirubin 2.9 H (0.2-1.3) mg/dL AST 109 H (17-59) U/L ALT 26 (4-49) U/L Alkaline Phosphatase 127 H (38-126) U/L Ammonia 130 H (<30) umol/L Creatine Kinase 893 H (55-170) U/L Troponin I (0.000-0.034) ng/mL Total Protein 5.2 L (6.3-8.2) g/dL Albumin 2.4 L (3.5-5.0) g/dL Urine Color Urine Appearance (Clear) Urine pH (5.0-8.0) Ur Specific [place] (1.001-1.035) Urine Protein (Negative) Urine Glucose (UA) (Negative) Urine Ketones (Negative) Urine Blood (Negative) Urine Nitrite (Negative) Urine Bilirubin (Negative) Urine Urobilinogen (<2.0) mg/dL Ur Leukocyte Esterase (Negative) Urine RBC (0-5) /hpf Urine WBC (0-5) /hpf Ur Squamous Epith Cells (0-4) /hpf Urine Mucus (None) /hpf Urine Opiates Screen Not Detected (NotDetected) Ur Oxycodone Screen Not Detected (NotDetected) Urine Methadone Screen Not Detected (NotDetected) Ur Barbiturates Screen Not Detected (NotDetected) U Tricyclic Antidepress Not Detected (NotDetected) Ur Phencyclidine Scrn Not Detected (NotDetected) Ur Amphetamines Screen Not Detected (NotDetected) U Methamphetamines Scrn Not Detected (NotDetected) U Benzodiazepines Scrn Detected H (NotDetected) Urine Cocaine Screen Not Detected (NotDetected) U Marijuana (THC) Screen Detected H (NotDetected) Serum Alcohol <10 mg/dL 03/27/24 03/27/24 03/27/24 Range/Units 13:48 13:48 14:21 WBC (3.8-10.6) k/uL RBC (4.30-5.90) m/uL Hgb (13.0-17.5) gm/dL Hct (39.0-53.0) % MCV (80.0-100.0) fL MCH (25.0-35.0) pg MCHC (31.0-37.0) g/dL RDW (11.5-15.5) % Plt Count (150-450) k/uL MPV Neutrophils % % Lymphocytes % % Monocytes % % Eosinophils % % Basophils % % Neutrophils # (1.3-7.7) k/uL Lymphocytes # (1.0-4.8) k/uL Monocytes # (0-1.0) k/uL Eosinophils # (0-0.7) k/uL Basophils # (0-0.2) k/uL Hypochromasia PT (10.0-12.5) sec INR (<1.2) APTT (22.0-30.0) sec Sodium (137-145) mmol/L Potassium (3.5-5.1) mmol/L Chloride (98-107) mmol/L Carbon Dioxide (22-30) mmol/L Anion Gap mmol/L BUN (9-20) mg/dL Creatinine (0.66-1.25) mg/dL Est GFR (CKD-EPI)AfAm (>60 ml/min/1.73 sqM) Est GFR (CKD-EPI)NonAf (>60 ml/min/1.73 sqM) Glucose (74-99) mg/dL POC Glucose (mg/dL) (70-110) mg/dL POC Glu Milling Planer Operator ID Lactic Ac Sepsis Rflx Y Plasma Lactic Acid Armando (0.7-2.0) mmol/L Calcium (8.4-10.2) mg/dL Total Bilirubin (0.2-1.3) mg/dL AST (17-59) U/L ALT (4-49) U/L Alkaline Phosphatase (38-126) U/L Ammonia (<30) umol/L Creatine Kinase (55-170) U/L Troponin I 0.048 H* (0.000-0.034) ng/mL Total Protein (6.3-8.2) g/dL Albumin (3.5-5.0) g/dL Urine Color Dark Brown Urine Appearance Cloudy (Clear) Urine pH 6.0 (5.0-8.0) Ur Specific [place] 1.039 H (1.001-1.035) Urine Protein 1+ H (Negative) Urine Glucose (UA) Negative (Negative) Urine Ketones 1+ H (Negative) Urine Blood Negative (Negative) Urine Nitrite Negative (Negative) Urine Bilirubin Negative (Negative) Urine Urobilinogen 3.0 (<2.0) mg/dL Ur Leukocyte Esterase Negative (Negative) Urine RBC 1 (0-5) /hpf Urine WBC 6 H (0-5) /hpf Ur Squamous Epith Cells 4 (0-4) /hpf Urine Mucus Few H (None) /hpf Urine Opiates Screen (NotDetected) Ur Oxycodone Screen (NotDetected) Urine Methadone Screen (NotDetected) Ur Barbiturates Screen (NotDetected) U Tricyclic Antidepress (NotDetected) Ur Phencyclidine Scrn (NotDetected) Ur Amphetamines Screen (NotDetected) U Methamphetamines Scrn (NotDetected) U Benzodiazepines Scrn (NotDetected) Urine Cocaine Screen (NotDetected) U Marijuana (THC) Screen (NotDetected) Serum Alcohol mg/dL 03/27/24 Range/Units 14:41 WBC (3.8-10.6) k/uL RBC (4.30-5.90) m/uL Hgb (13.0-17.5) gm/dL Hct (39.0-53.0) % MCV (80.0-100.0) fL MCH (25.0-35.0) pg MCHC (31.0-37.0) g/dL RDW (11.5-15.5) % Plt Count (150-450) k/uL MPV Neutrophils % % Lymphocytes % % Monocytes % % Eosinophils % % Basophils % % Neutrophils # (1.3-7.7) k/uL Lymphocytes # (1.0-4.8) k/uL Monocytes # (0-1.0) k/uL Eosinophils # (0-0.7) k/uL Basophils # (0-0.2) k/uL Hypochromasia PT (10.0-12.5) sec INR (<1.2) APTT (22.0-30.0) sec Sodium (137-145) mmol/L Potassium (3.5-5.1) mmol/L Chloride (98-107) mmol/L Carbon Dioxide (22-30) mmol/L Anion Gap mmol/L BUN (9-20) mg/dL Creatinine (0.66-1.25) mg/dL Est GFR (CKD-EPI)AfAm (>60 ml/min/1.73 sqM) Est GFR (CKD-EPI)NonAf (>60 ml/min/1.73 sqM) Glucose (74-99) mg/dL POC Glucose (mg/dL) 90 (70-110) mg/dL POC Glu Milling Planer Operator ID Mindy Mary Lou Lactic Ac Sepsis Rflx Plasma Lactic Acid Armando (0.7-2.0) mmol/L Calcium (8.4-10.2) mg/dL Total Bilirubin (0.2-1.3) mg/dL AST (17-59) U/L ALT (4-49) U/L Alkaline Phosphatase (38-126) U/L Ammonia (<30) umol/L Creatine Kinase (55-170) U/L Troponin I (0.000-0.034) ng/mL Total Protein (6.3-8.2) g/dL Albumin (3.5-5.0) g/dL Urine Color Urine Appearance (Clear) Urine pH (5.0-8.0) Ur Specific [place] (1.001-1.035) Urine Protein (Negative) Urine Glucose (UA) (Negative) Urine Ketones (Negative) Urine Blood (Negative) Urine Nitrite (Negative) Urine Bilirubin (Negative) Urine Urobilinogen (<2.0) mg/dL Ur Leukocyte Esterase (Negative) Urine RBC (0-5) /hpf Urine WBC (0-5) /hpf Ur Squamous Epith Cells (0-4) /hpf Urine Mucus (None) /hpf Urine Opiates Screen (NotDetected) Ur Oxycodone Screen (NotDetected) Urine Methadone Screen (NotDetected) Ur Barbiturates Screen (NotDetected) U Tricyclic Antidepress (NotDetected) Ur Phencyclidine Scrn (NotDetected) Ur Amphetamines Screen (NotDetected) U Methamphetamines Scrn (NotDetected) U Benzodiazepines Scrn (NotDetected) Urine Cocaine Screen (NotDetected) U Marijuana (THC) Screen (NotDetected) Serum Alcohol mg/dL Disposition Clinical Impression: Hepatic encephalopathy, Hypoglycemia, Liver failure Disposition: ADMITTED IP TO THIS HOSP Condition: Serious Is patient prescribed a controlled substance at d/c from ED?: No Time of Disposition: 15:35 Decision to Admit Reason: Admit from EC Decision Date: 03/27/24 Decision Time: 15:35
[2024-03-27 14:18] LABS: ALT 26 U/L (4-49); African American GFR (CKD) >90 (>60 ml/min/1.73 sqM); Albumin 2.4 g/dL (3.5-5.0); Alcohol <10 mg/dL; Anion Gap 12 mmol/L; Blood Urea Nitrogen 12 mg/dL (9-20); Calcium 7.5 mg/dL (8.4-10.2); Carbon Dioxide 15 mmol/L (22-30); Chloride 105 mmol/L (98-107); Creatine Kinase 893 U/L (55-170); Glucose 272 mg/dL (74-99); Non-African American GFR(CKD) >90 (>60 ml/min/1.73 sqM); Sodium 132 mmol/L (137-145); Total Bilirubin 2.9 mg/dL (0.2-1.3); Total Protein 5.2 g/dL (6.3-8.2)
[2024-03-27 14:20] LABS: AST 109 U/L (17-59); Alkaline Phosphatase 127 U/L (38-126); Potassium 4.2 mmol/L (3.5-5.1)
[2024-03-27 14:21] LABS: Lactic Acid, Venous 3.3 mmol/L (0.7-2.0)
[2024-03-27 14:24] LABS: Appearance,Urine Cloudy (Clear); Bilirubin,Urine Negative (Negative); Blood,Urine Negative (Negative); Color,Urine Dark Brown; Glucose,Urine (UA) Negative (Negative); Ketones,Urine 1+ (Negative); Leukocyte Esterase,Urine Negative (Negative); Mucus,Urine Few /hpf; Nitrite,Urine Negative (Negative); Protein,Urine 1+ (Negative); RBC,Urine 1 /hpf (0-5); Specific Gravity,Urine 1.039 (1.001-1.035); Squamous Epithelial Cell,Urine 4 /hpf (0-4); WBC,Urine 6 /hpf (0-5)
[2024-03-27 14:29] LABS: Amphetamine Screen,Urine Not Detected (NotDetected); Barbiturate Screen,Urine Not Detected (NotDetected); Benzodiazepines Screen,Urine Detected (NotDetected); Cocaine Screen,Urine Not Detected (NotDetected); Methadone Screen, Urine Not Detected (NotDetected); Opiate Screen,Urine Not Detected (NotDetected); Oxycodone Screen, Urine Not Detected (NotDetected); Phencyclidine Screen,Urine Not Detected (NotDetected); Tricyclic Antidepressant,Urine Not Detected (NotDetected); Urn Cannabinoid Scrn Detected (NotDetected)
--- NOTE | 2024-03-27 14:36 | CT ---
EXAMINATION TYPE: CT brain wo con CT DLP: 1194.4 mGycm, Automated exposure control for dose reduction was used. DATE OF EXAM: 03/27/2024 2:26 PM COMPARISON: None. CLINICAL INDICATION:Male, 33 years old with history of Altered mental status, AMS TECHNIQUE: Brain: Multiple axial CT images of the brain were obtained without IV contrast. . Coronal and sagitta l reformats reviewed. FINDINGS: Brain: Extra-axial spaces: No abnormal extra-axial fluid collections. Ventricular system: Within normal limits Cerebral parenchyma: No acute intraparenchymal hemorrhage or mass effect. The wadsworth-white junction is well differentiated. Scattered hypoattenuating areas are seen within the periventricular white matte r. Cerebellum: Unremarkable. Mass effect: No evidence of midline shift. Intracranial vasculature: unremarkable Soft tissues: Normal. Calvarium/osseous structures: No depressed skull fracture. Paranasal sinuses and mastoid air cells: The mastoid air cells are clear. Mild mucosal thickening of the bilateral sphenoid sinuses. Remaining paranasal sinuses are clear. Visualized orbits: Orbital contents are intact. IMPRESSION: 1. No acute intracranial process. 2. Mild nonspecific white matter changes, possibly secondary to chronic small vessel ischemic disease versus other etiologies. [facility], , 03/27/2024 2:34 PM
--- NOTE | 2024-03-27 14:37 | XR ---
EXAMINATION TYPE: XR chest 1V DATE OF EXAM: 03/27/2024 2:24 PM COMPARISON: Chest radiographs from02/09/2024 CLINICAL INDICATION: Male, 33 years old with history of altered mental status; TECHNIQUE: XR chest 1V Frontal view of the chest. FINDINGS: Lungs/Pleura: Low lung volumes are present. There is no evidence of pleural effusion, focal consolida tion, or pneumothorax. Pulmonary vascularity: Unremarkable. Heart/mediastinum: Cardiomediastinal silhouette is unremarkable. Musculoskeletal: No acute osseous pathology. IMPRESSION: Low lung volumes with a generalized hazy appearance which could represent atelectasis versus pulmonar y edema. [facility], Workstation: [facility], 03/27/2024 2:35 PM
[2024-03-27 14:43] LABS: Glucose,Whole Blood 90 mg/dL (70-110)
[2024-03-27 14:51] LABS: INR 1.7 (<1.2); Partial Thromboplastin Time 35.1 sec (22.0-30.0); Prothrombin Time 17.1 sec (10.0-12.5)
[2024-03-27] MEDS ORDERED: Magnesium Replacement Protocol 1 EACH MISC MISCELLANE PRN (16:05)
[2024-03-27] MEDS ORDERED: NALOXONE 0.4 MG/ML 1 ML VIAL IV PRN (16:05)
--- NOTE | 2024-03-27 16:16 | P.HPIM ---
History of Present Illness H&P Date: 03/27/24 Patient is obtunded and majority of information is obtained from discussion with Dr. Graham. 33 year old M with PMH of alcoholic liver cirrhosis, anxiety and depression, seizure disorder? presents to the ED for altered mentation. Apparently patient got the TIPS procedure done on the 03/20. He was last seen on 03/25 and appeared to be normal. When a family member went to check up on him today, he was found down in his basement with multiple layers of clothing. It appears he did not have heat in his house. In the ED he underwent extensive evaluation. BP 94/67, HR 83, T 91.1F, RR 18, 99% on RA. CBC, Coag panel, CMP signifcant for RBC 4.05, Hg 12.7, PT 17.1, INR 1.7, APTT 35.1, Na 132, bicarb 15, Cr 0.45, glu 43, Ca 7.5, T. Bili 2.9, AST 109, alk phos 127, alb 2.4. Lactic acid 3.3. Troponin 0.048. CPK 893. UA 1+ ketones, 1+ protein, neg LE/nitrite. UDS + benzo + THC. EtOH < 10. EKG sinus r hythm with Q waves V1-4. CT brain nonspecific white matter changes. EKG low lung volumes likely atelectasis. Patient is admitted to ICU for fruther workup and management. General: ill appearing, obtunded Derm: warm, dry Head: atraumatic, normocephalic, symmetric Eyes: EOMI, no lid lag, icteric sclera Mouth: no lip lesion, mucus membranes moist Cardiovascular: S1S2 reg, no murmur Lungs: Decreased BS bilateral, no rhonchi, no rales , no accessory muscle use Abdominal: soft, nontender to palpation, no guarding, distended Ext: no gross muscle atrophy, no edema, no contractures Neuro: Unable to perform. Psych: Obtunded Based on my assessment of this patient, this patient meets a high complexity level of care. Acute hepatic encephalopathy: Worsened due to hypothermia and hypoglycemia. Keep NPO for now until more alert. Lactulose 30g PO TID. Rifaximin 550 mg PO BID. Lasix 20 mg PO BID. Aldactone 25 mg PO QD. Order abdominal US. Empirically start Rocephin 1g IV QD for treatment of SBP. GI consult. Hypothermia: Possibly environmental. He does not meet sepsis criteria. Jaspreet hugger in place. Hypotension: Likely due to underlying cirrhosis and dehydration. Start D5 NS at 100 cc/hr. Midodrine 5 mg PO TID. He does not meet sepsis criteria. Telemetry monitoring. Hypoglycemia: Likely due to advanced cirrhosis. D5 NS as above. Accuchecks Q6H. Hypoglycemic precautions. Troponin elevation: Trend Trop/EKG to rule out ACS. Obtain Echo. Lactic acidosis: Likely due to advanced cirrhosis. IV hydration as above. Trend until negative. Supratherapeutic INR: Likely due to advanced cirrhosis. Elevated CPK: Likely due to prolonged time down. Monitor renal function. IV hydration as above. Repeat CPK tomorrow. EtOH abuse: Does not appear to be in withdrawal. Monitor. Seizure disorder: Keppra 500 mg PO BID. CODE STATUS: FULL CODE DVT Prophylaxis: Lovenox SQ GI Prophylaxis: Protonix IV Designated medical POA if patient is not able to make medical decisions for themselves: I have reviewed the following bath design sales consultant notes: ER note. I have reviewed the results of the following tests: As above. I have ordered the following tests: As above. I have discussed the care of this patient with the following independent historian: I have independently interpreted the following test below: I have discussed the management of this patient with the following physician: Dr. Graham. Past Medical History Past Medical History: GERD/Reflux, Liver Disease Additional Past Medical History / Comment(s): Pancreatitis, ETOH abuse, subtance abuse, large volume paracentesis, chirrhosis History of Any Multi-Drug Resistant Organisms: None Reported Additional Past Surgical History / Comment(s): ERCP stent placement, scheduled for TIPS 03/20/24 Past Anesthesia/Blood Transfusion Reactions: Unable to Obtain Past Psychological History: Anxiety, Depression Smoking Status: Current every day smoker Past Alcohol Use History: Abuse Past Drug Use History: Marijuana - Past Family History Father Family Medical History: Hypertension Additional Family Medical History / Comment(s): Parkinson's Disease Mother Additional Family Medical History / Comment(s): mental illness Medications and Allergies Home Medications Medication Instructions Recorded Confirmed Type Acamprosate Calcium [Campral] 666 mg PO TID 09/17/23 03/27/24 History Furosemide [Lasix] 20 mg PO BID 09/17/23 03/27/24 History Lactulose 30 gm PO Q8H 09/17/23 03/27/24 History Omeprazole [PriLOSEC] 20 mg PO BID 09/17/23 03/27/24 History Ondansetron [Zofran] 4 mg PO DAILY PRN 09/17/23 03/27/24 History Rifaximin [Xifaxan] 550 mg PO Q12H 09/17/23 03/27/24 History levETIRAcetam [Keppra] 500 mg PO Q12HR 09/17/23 03/27/24 History ALPRAZolam [Xanax] 0.25 mg PO DAILY PRN 02/10/24 03/27/24 History Albuterol Sulfate [Albuterol 2 puff INHALATION RT-Q6H PRN 02/10/24 03/27/24 History Sulfate Hfa] Buprenorphine HCl/Naloxone HCl 1 film SL DAILY PRN 02/10/24 03/27/24 History [Suboxone 2 mg-0.5 mg Sl Film] Midodrine [ProAmatine] 5 mg PO TID 02/10/24 03/27/24 History Mirtazapine 7.5 mg PO HS 02/10/24 03/27/24 History diphenhydrAMINE & Zinc Cream 1 applic TOPICAL TID PRN 02/10/24 03/27/24 History [Benadryl Cream] hydrOXYzine HCL [Atarax] 25 mg PO Q6H PRN 02/10/24 03/27/24 History methocarbamoL [Robaxin-750] 750 mg PO Q8H PRN 02/10/24 03/27/24 History Pregabalin [Lyrica] 50 mg PO BID 02/18/24 03/27/24 History Thiamine [Vitamin B-1] 100 mg PO DAILY #90 tab 03/10/24 03/27/24 Rx Ciprofloxacin HCl [Cipro] 500 mg PO DAILY 03/27/24 03/27/24 History Spironolactone [Aldactone] 25 mg PO BID 03/27/24 03/27/24 History Allergies Allergy/AdvReac Type Severity Reaction Status Date / Time No Known Allergies Allergy Verified 03/27/24 15:44 Physical Exam Vitals: Vital Signs Temp Pulse Resp BP Pulse Ox 12/19/24 15:02 93.6 F L 79 14 95/62 100 03/27/24 14:26 92.5 F L 03/27/24 14:02 91.8 F L 80 18 90/69 100 03/27/24 13:17 91.1 F L 83 18 94/67 99 Intake and Output 03/27/24 03/27/24 03/27/24 06:59 14:59 22:59 Other: Weight 68.039 kg Results CBC & Chem 7: 03/27/24 13:48 03/27/24 13:48 Labs: Abnormal Lab Results - Last 24 Hours (Table) 03/27/24 03/27/24 03/27/24 Range/Units 13:24 13:48 13:48 RBC 4.05 L (4.30-5.90) m/uL Hgb 12.7 L (13.0-17.5) gm/dL PT 17.1 H (10.0-12.5) sec INR 1.7 H (<1.2) APTT 35.1 H (22.0-30.0) sec Sodium (137-145) mmol/L Carbon Dioxide (22-30) mmol/L Creatinine (0.66-1.25) mg/dL Glucose (74-99) mg/dL POC Glucose (mg/dL) 43 L* (70-110) mg/dL Plasma Lactic Acid Armando (0.7-2.0) mmol/L Calcium (8.4-10.2) mg/dL Total Bilirubin (0.2-1.3) mg/dL AST (17-59) U/L Alkaline Phosphatase (38-126) U/L Ammonia (<30) umol/L Creatine Kinase (55-170) U/L Troponin I (0.000-0.034) ng/mL Total Protein (6.3-8.2) g/dL Albumin (3.5-5.0) g/dL Ur Specific [place] (1.001-1.035) Urine Protein (Negative) Urine Ketones (Negative) Urine WBC (0-5) /hpf Urine Mucus (None) /hpf U Benzodiazepines Scrn (NotDetected) U Marijuana (THC) Screen (NotDetected) 03/27/24 03/27/24 03/27/24 Range/Units 13:48 13:48 13:48 RBC (4.30-5.90) m/uL Hgb (13.0-17.5) gm/dL PT (10.0-12.5) sec INR (<1.2) APTT (22.0-30.0) sec Sodium 132 L (137-145) mmol/L Carbon Dioxide 15 L (22-30) mmol/L Creatinine 0.45 L (0.66-1.25) mg/dL Glucose 272 H (74-99) mg/dL POC Glucose (mg/dL) (70-110) mg/dL Plasma Lactic Acid Armando 3.3 H* (0.7-2.0) mmol/L Calcium 7.5 L (8.4-10.2) mg/dL Total Bilirubin 2.9 H (0.2-1.3) mg/dL AST 109 H (17-59) U/L Alkaline Phosphatase 127 H (38-126) U/L Ammonia 130 H (<30) umol/L Creatine Kinase 893 H (55-170) U/L Troponin I (0.000-0.034) ng/mL Total Protein 5.2 L (6.3-8.2) g/dL Albumin 2.4 L (3.5-5.0) g/dL Ur Specific [place] (1.001-1.035) Urine Protein (Negative) Urine Ketones (Negative) Urine WBC (0-5) /hpf Urine Mucus (None) /hpf U Benzodiazepines Scrn Detected H (NotDetected) U Marijuana (THC) Screen Detected H (NotDetected) 03/27/24 03/27/24 Range/Units 13:48 13:48 RBC (4.30-5.90) m/uL Hgb (13.0-17.5) gm/dL PT (10.0-12.5) sec INR (<1.2) APTT (22.0-30.0) sec Sodium (137-145) mmol/L Carbon Dioxide (22-30) mmol/L Creatinine (0.66-1.25) mg/dL Glucose (74-99) mg/dL POC Glucose (mg/dL) (70-110) mg/dL Plasma Lactic Acid Armando (0.7-2.0) mmol/L Calcium (8.4-10.2) mg/dL Total Bilirubin (0.2-1.3) mg/dL AST (17-59) U/L Alkaline Phosphatase (38-126) U/L Ammonia (<30) umol/L Creatine Kinase (55-170) U/L Troponin I 0.048 H* (0.000-0.034) ng/mL Total Protein (6.3-8.2) g/dL Albumin (3.5-5.0) g/dL Ur Specific [place] 1.039 H (1.001-1.035) Urine Protein 1+ H (Negative) Urine Ketones 1+ H (Negative) Urine WBC 6 H (0-5) /hpf Urine Mucus Few H (None) /hpf U Benzodiazepines Scrn (NotDetected) U Marijuana (THC) Screen (NotDetected)
[2024-03-27] MEDS ORDERED: LORazepam 2 MG/ML INJ IV PRN (17:21)
[2024-03-27] MEDS: LORazepam 2 MG/ML INJ IV PRN ×2 (17:31→23:58)
--- NOTE | 2024-03-27 17:32 | XR ---
EXAMINATION TYPE: XR KUB portable DATE OF EXAM: 03/27/2024 5:03 PM COMPARISON: None. CLINICAL INDICATION: Male, 33 years old with history of Confirm NG placement, TECHNIQUE: Single view of the abdomen. FINDINGS: Small bowel demonstrates no evidence for dilatation or air fluid levels. The tip of the NG tube is w ithin the stomach. I do not visualize the port. Gas and fecal material is seen in non-distended colon. No convincing evidence for pneumoperitoneum. No unusual calcifications. The lung bases are clear. The osseous structures are intact. IMPRESSION: 1. Overall nonobstructive bowel gas pattern. [facility], , 03/27/2024 5:30 PM
--- NOTE | 2024-03-27 17:48 | US ---
EXAMINATION TYPE: US abdomen limited DATE OF EXAM: 03/27/2024 COMPARISON: 03/24/2024, prior paracentesis CLINICAL INDICATION: Male, 33 years old with history of ascites, h/o cirrhosis; TECHNIQUE: Grayscale imaging of the abdomen for ascites. FINDINGS: Anechoic fluid in all 4 quadrants similar to prior . IMPRESSION: Similar small amount of ascites throughout the abdomen compared to 03/24/2024 [facility], , 03/27/2024 5:45 PM
[2024-03-27] MEDS ORDERED: LACTULOSE 200 GM/300 ML (FROM 1/2 GAL JUG) RECTAL SCH (18:00)
--- NOTE | 2024-03-27 18:16 | P.CNPUL ---
History of Present Illness Consult date: 03/27/24 Chief complaint: Altered mentation History of present illness: This is a 33-year-old male patient, history of alcoholism with alcoholic liver cirrhosis status post TIPS procedure and known history of chronic ascites requiring biweekly paracentesis, presented to the emergency department because of altered mentation. The patient was found in an apartment with diminished level of consciousness he was found on the ground. He was wearing several layers of clothing and he had no heat in his house. He has not found to be a candidate for liver cancer because of his ongoing alcohol consumption. Based on this, the patient was brought in to the emergency department. His initial blood sugar was 60. He was hypothermic with a temperature of 91.1. Blood pressure was 94/67. Pulse ox was 100% on room air oxygen. Blood work was done in the em ergency and the patient was found to have a white cell count of 6.7 with a hemoglobin 12.7 and a platelet count of 168, coagulopathic with an INR of 1.7 and a PTT of 35. He did have a bicarb level of 15 without an elevated anion gap and sodium levels at 132. BUN is 12 with a creatinine 0.4. Blood sugar was low at 43 treated and his subsequent blood sugars at 90. Lactic acidosis 3.3. AST is 109, ALT is 26, alkaline phosphatase 127, CPK is 893, troponin 0.04, UA is showing +1 ketones and +1 protein, urine drug screen is positive for marijuana and benzodiazepine, alcohol level was negative. CAT scan of the brain was done in the emergency and it showed no acute process and the patient had nonspecific white matter changes and chronic ischemic changes. Chest x-ray was done in the emergency showed smaller lung volumes and generalized hazy appearance/atelectasis and the ultrasound of the abdomen showed small amount of ascites and a KUB showed a nonspecific bowel gas pattern. The patient is currently receiving external warming. Started on IV Rocephin as empiric antibiotic coverage. He is also on Xifaxan 550 mg p.o. twice daily and his diuretics are in the form of Lasix and Aldactone. He is also maintained on Keppra for seizures. His serum ammonia level was 130. Review of Systems ROS unobtainable: due to mental status Past Medical History Past Medical History: GERD/Reflux, Liver Disease Additional Past Medical History / Comment(s): Pancreatitis, ETOH abuse, subtance abuse, large volume paracentesis, chirrhosis History of Any Multi-Drug Resistant Organisms: None Reported Additional Past Surgical History / Comment(s): ERCP stent placement, scheduled for TIPS 03/20/24 Past Anesthesia/Blood Transfusion Reactions: Unable to Obtain Past Psychological History: Anxiety, Depression Smoking Status: Current every day smoker Past Alcohol Use History: Abuse Past Drug Use History: Marijuana - Past Family History Father Family Medical History: Hypertension Additional Family Medical History / Comment(s): Parkinson's Disease Mother Additional Family Medical History / Comment(s): mental illness Medications and Allergies Home Medications Medication Instructions Recorded Confirmed Type Acamprosate Calcium [Campral] 666 mg PO TID 09/17/23 03/27/24 History Furosemide [Lasix] 20 mg PO BID 09/17/23 03/27/24 History Lactulose 30 gm PO Q8H 09/17/23 03/27/24 History Omeprazole [PriLOSEC] 20 mg PO BID 09/17/23 03/27/24 History Ondansetron [Zofran] 4 mg PO DAILY PRN 09/17/23 03/27/24 History Rifaximin [Xifaxan] 550 mg PO Q12H 09/17/23 03/27/24 History levETIRAcetam [Keppra] 500 mg PO Q12HR 09/17/23 03/27/24 History ALPRAZolam [Xanax] 0.25 mg PO DAILY PRN 02/10/24 03/27/24 History Albuterol Sulfate [Albuterol 2 puff INHALATION RT-Q6H PRN 02/10/24 03/27/24 History Sulfate Hfa] Buprenorphine HCl/Naloxone HCl 1 film SL DAILY PRN 02/10/24 03/27/24 History [Suboxone 2 mg-0.5 mg Sl Film] Midodrine [ProAmatine] 5 mg PO TID 02/10/24 03/27/24 History Mirtazapine 7.5 mg PO HS 02/10/24 03/27/24 History diphenhydrAMINE & Zinc Cream 1 applic TOPICAL TID PRN 02/10/24 03/27/24 History [Benadryl Cream] hydrOXYzine HCL [Atarax] 25 mg PO Q6H PRN 02/10/24 03/27/24 History methocarbamoL [Robaxin-750] 750 mg PO Q8H PRN 02/10/24 03/27/24 History Pregabalin [Lyrica] 50 mg PO BID 02/18/24 03/27/24 History Thiamine [Vitamin B-1] 100 mg PO DAILY #90 tab 03/10/24 03/27/24 Rx Ciprofloxacin HCl [Cipro] 500 mg PO DAILY 03/27/24 03/27/24 History Spironolactone [Aldactone] 25 mg PO BID 03/27/24 03/27/24 History Allergies Allergy/AdvReac Type Severity Reaction Status Date / Time No Known Allergies Allergy Verified 03/27/24 15:44 Physical Exam Vitals: Vital Signs Temp Pulse Resp BP Pulse Ox 03/27/24 16:18 92 16 98/61 100 03/27/24 15:02 93.6 F L 79 14 95/62 100 03/27/24 14:26 92.5 F L 03/27/24 14:02 91.8 F L 80 18 90/69 100 03/27/24 13:17 91.1 F L 83 18 94/67 99 Intake and Output 03/27/24 03/27/24 03/27/24 06:59 14:59 22:59 Other: Weight 68.039 kg The patient appeared sick looking, altered mentation, diminished level of consciousness, withdraws to painful stimulation, no apparent respiratory distress Head exam is unremarkable. No scleral icterus or corneal arcus noted. Neck is without jugular venous distension, thyromegaly, or carotid bruits. Carotid upstrokes are brisk bilaterally. Lungs are clear to auscultation and percussion. Cardiac exam reveals the PMI to be normally sized and situated. Rhythm is regula r. First and second heart sounds normal. No murmurs, rubs or gallops. Abdominal exam reveals normal bowel sounds, no masses, no organomegaly and no aortic enlargement. No significant ascites noted Extremities are nonedematous and both femoral and pedal pulses are normal. Examination of the skin revealed no evidence of significant rashes, suspicious appearing nevi or other concerning lesions. Neurologically, the patient is encephalopathic, nonfocal neurologic exam. Results - Laboratory Findings CBC and BMP: 03/27/24 13:48 03/27/24 13:48 PT/INR, D-dimer PT 17.1 sec (10.0-12.5) H 03/27/24 13:48 INR 1.7 (<1.2) H 03/27/24 13:48 Abnormal lab findings: Abnormal Labs 03/27/24 03/27/24 03/27/24 13:24 13:48 13:48 RBC 4.05 L Hgb 12.7 L PT 17.1 H INR 1.7 H APTT 35.1 H Sodium Carbon Dioxide Creatinine Glucose POC Glucose (mg/dL) 43 L* Plasma Lactic Acid Armando Calcium Total Bilirubin AST Alkaline Phosphatase Ammonia Creatine Kinase Troponin I Total Protein Albumin Ur Specific [place] Urine Protein Urine Ketones Urine WBC Urine Mucus U Benzodiazepines Scrn U Marijuana (THC) Screen 03/27/24 03/27/24 03/27/24 13:48 13:48 13:48 RBC Hgb PT INR APTT Sodium 132 L Carbon Dioxide 15 L Creatinine 0.45 L Glucose 272 H POC Glucose (mg/dL) Plasma Lactic Acid Armando 3.3 H* Calcium 7.5 L Total Bilirubin 2.9 H AST 109 H Alkaline Phosphatase 127 H Ammonia 130 H Creatine Kinase 893 H Troponin I Total Protein 5.2 L Albumin 2.4 L Ur Specific [place] Urine Protein Urine Ketones Urine WBC Urine Mucus U Benzodiazepines Scrn Detected H U Marijuana (THC) Screen Detected H 03/27/24 03/27/24 03/27/24 13:48 13:48 16:44 RBC Hgb PT INR APTT Sodium Carbon Dioxide Creatinine Glucose POC Glucose (mg/dL) Plasma Lactic Acid Armando Calcium Total Bilirubin AST Alkaline Phosphatase Ammonia Creatine Kinase Troponin I 0.048 H* 0.045 H* Total Protein Albumin Ur Specific [place] 1.039 H Urine Protein 1+ H Urine Ketones 1+ H Urine WBC 6 H Urine Mucus Few H U Benzodiazepines Scrn U Marijuana (THC) Screen 03/27/24 16:44 RBC Hgb PT INR APTT Sodium Carbon Dioxide Creatinine Glucose POC Glucose (mg/dL) Plasma Lactic Acid Armando 3.2 H* Calcium Total Bilirubin AST Alkaline Phosphatase Ammonia Creatine Kinase Troponin I Total Protein Albumin Ur Specific [place] Urine Protein Urine Ketones Urine WBC Urine Mucus U Benzodiazepines Scrn U Marijuana (THC) Screen Assessment and Plan Plan: Altered mentation, multifactorial, as the patient was found to be in hepatic encephalopathy in the same time the patient was quite hypothermic with a temperature of 91 at the time of admission. Acute hypothermia Mild rhabdomyolysis Non-anion gap metabolic acidosis Mild lactic acidosis Liver cirrhosis, maintained on a combination of lactulose and rifaximin for hepatic encephalopathy. He serum ammonia level is quite elevated. The patient also has history of recurrent ascites and the patient is status post TIPS procedure. Maintained on a combination of Lasix and Aldactone on outpatient basis. 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 Plan After external warming and warm saline Monitor temperature Monitor CPK D5 normal saline at rate of 100 cc an hour Start the patient on midodrine 5 mg p.o. 3 times daily Empiric antibiotic coverage with IV Rocephin Patient is altered. The patient's ammonia level is elevated. Recommend NG tube insertion and restarting the combination of lactulose and rifaximin Watch for any signs of delirium tremens at a later stage Monitor lactic acid level Monitor blood sugars Aspiration precautions Resume Keppra Will continue to follow
[2024-03-27] MEDS: LACTULOSE 20 GM/30 ML CUP PO SCH (18:45)
[2024-03-27] MEDS: MIDODRINE 5 MG TAB PO SCH (18:46)
[2024-03-27] MEDS: RIFAXIMIN 550 MG TABLET PO SCH (18:52)
[2024-03-27 19:10] LABS: Glucose,Whole Blood 79 mg/dL (70-110)
[2024-03-27] MEDS: FUROSEMIDE 20 MG TAB PO SCH (20:48)
[2024-03-27] MEDS: levETIRAcetam 500 MG TAB PO SCH (20:48)
[2024-03-27] MEDS: MIRTAZAPINE 15 MG TAB PO SCH (20:49)
--- NOTE | 2024-03-27 23:19 | XR ---
EXAMINATION TYPE: XR chest 1V confirm line [facility] DATE OF EXAM: 03/27/2024 CLINICAL HISTORY: OG tube placement progress study. TECHNIQUE: Single AP portable upright view of the chest is obtained. COMPARISON: Chest x-ray from earlier today FINDINGS: Oral gastric tube projects into the right lung base down the right lung bronchus. There is small left pleural effusion with left basilar opacity. There is patchy right basilar opacity. Cardia c silhouette size appears within normal limits. Osseous structures are intact. IMPRESSION: 1. Orogastric tube is in the right lung base and needs to be replaced. 2. Small left pleural effusion. There is left greater than right bibasilar acute infiltrate and/or at electasis noted. Results communicated to patient's nurse by applied technologist at time of dictation. [facility], , 03/27/2024 11:16 PM
--- NOTE | 2024-03-28 00:02 | XR ---
EXAMINATION TYPE: XR chest 1V portable DATE OF EXAM: 03/27/2024 11:50 PM CLINICAL INDICATION:Male, 33 years old with history of NG tube placement; [facility] COMPARISON: CT abdomen 02/11/2024. KUB portable x-ray from the same day. Chest x-ray from the same day . TECHNIQUE: XR chest 1V portable Frontal view of the chest. FINDINGS: Lungs/Pleura: Similar left pleural effusion is seen. Cystic lesion of the stomach is appreciated in t he left lower hemithorax. The right lung is overall clear.. Pulmonary vascularity: Unremarkable. Heart/mediastinum: Cardiac silhouette is partially obscured but stable. Musculoskeletal: No acute osseous pathology. Other findings: None Lines/Tubes: Nasogastric tube is now seen with its distal tip under the diaphragm and projecting over the gastric lumen. The side-port is not clearly visualized. IMPRESSION: 1. Nasogastric tube distal tip is seen terminating within the lumen of the stomach however the side-p ort is not well delineated on exam. 2. Left pleural effusion is redemonstrated. [facility], , 03/28/2024 12:00 AM
[2024-03-28 00:06] LABS: Glucose,Whole Blood 99 mg/dL (70-110)
[2024-03-28] MEDS: FUROSEMIDE 10 MG/ML 4 ML VIAL IV STA (04:44)
[2024-03-28 07:14] LABS: Glucose,Whole Blood 144 mg/dL (70-110)
[2024-03-28 07:34] LABS: ALT 30 U/L (4-49); African American GFR (CKD) >90 (>60 ml/min/1.73 sqM); Albumin 1.9 g/dL (3.5-5.0); Anion Gap 7 mmol/L; Blood Urea Nitrogen 14 mg/dL (9-20); Calcium 7.3 mg/dL (8.4-10.2); Carbon Dioxide 22 mmol/L (22-30); Chloride 105 mmol/L (98-107); Glucose 120 mg/dL (74-99); Non-African American GFR(CKD) >90 (>60 ml/min/1.73 sqM); Sodium 134 mmol/L (137-145); Total Bilirubin 2.1 mg/dL (0.2-1.3); Total Protein 4.5 g/dL (6.3-8.2)
[2024-03-28 07:36] LABS: AST 124 U/L (17-59); Alkaline Phosphatase 102 U/L (38-126); Magnesium 1.6 mg/dL (1.6-2.3); Potassium 3.3 mmol/L (3.5-5.1)
[2024-03-28 07:41] LABS: Basophils % (A) 0 %; Eosinophils # (A) 0.1 k/uL (0-0.7); Eosinophils % (A) 1 %; HCT 33.1 % (39.0-53.0); HGB 10.7 gm/dL (13.0-17.5); Hypochromasia Slight; Lymphocytes # (A) 1.6 k/uL (1.0-4.8); Lymphocytes % (A) 18 %; MCH 31.4 pg (25.0-35.0); MCHC 32.5 g/dL (31.0-37.0); MCV 96.7 fL (80.0-100.0); Monocytes # (A) 1.2 k/uL (0-1.0); Monocytes % (A) 14 %; Neutrophils % (A) 67 %; Platelet Count 181 k/uL (150-450); RBC 3.42 m/uL (4.30-5.90); RDW 14.5 % (11.5-15.5); WBC 8.9 k/uL (3.8-10.6)
--- NOTE | 2024-03-28 08:26 | CA ---
Transthoracic Echo Report Name: Marcial Arnett Age: 33 Gender: M : 1990 Exam Date: 03/27/2024 17:02 Exam Location: [facility] Ht (in): 68 Wt (lb): 150 Ordering Physician: Dinorah Downing MD Attending/Referring Phys: Quality Supervisor Elly Elder RDCS Procedure CPT: Indications: trop Cardiac Hx: cirrhosis of the liver Technical Quality: Fair Contrast 1: Total Dose (mL): Contrast 2: Total Dose (mL): MEASUREMENTS (Male / Female) Normal Values 2D ECHO LV Diastolic Diameter PLAX 4.6 cm 4.2 - 5.9 / 3.9 - 5.3 cm LV Systolic Diameter PLAX 2.9 cm IVS Diastolic Thickness 0.8 cm 0.6 - 1.0 / 0.6 - 0.9 cm LVPW Diastolic Thickness 0.9 cm 0.6 - 1.0 / 0.6 - 0.9 cm LV Relative Wall Thickness 0.4 LA Systolic Diameter LX 2.8 cm 3.0 - 4.0 / 2.7 - 3.8 cm LA Volume 28.3 cm??? 18 - 58 / 22 - 52 cm??? LA Volume Index 15.7 cm???/m??? 16 - 28 cm???/m??? M-MODE Aortic Root Diameter MM 3.3 cm DOPPLER TR Peak Velocity 230.2 cm/s TR Peak Gradient 21.2 mmHg Right Ventricular Systolic Press 26.2 mmHg FINDINGS Left Ventricle Left ventricular ejection fraction is estimated at 55-60 %. Left ventricular cavity size normal. Left ventricular wall thickness normal. Normal left ventricular wall motion. Right Ventricle Normal right ventricular size and function. Right ventricular systolic pressure within normal limits. Right Atrium Normal right atrial size. No right atrial thrombus or mass seen. Left Atrium Normal left atrial size. No left atrial thrombus or mass present. Mitral Valve Structurally normal mitral valve. No mitral stenosis, regurgitation or prolapse. Aortic Valve Trileaflet aortic valve. No aortic valve stenosis or regurgitation. Tricuspid Valve Structurally normal tricuspid valve. Mild tricuspid regurgitation. Pulmonic Valve Pulmonic valve not well visualized. Pericardium No pericardial effusion. Aorta Normal size aortic root and proximal ascending aorta. CONCLUSIONS Normal LV function Previewed by: Dr. Alvin Baum MD (Electronically Signed) Final Date: 28 March 2024 08:25
--- NOTE | 2024-03-28 09:11 | P.CONS ---
History of Present Illness - Reason for Consult Consult date: 03/28/24 Hepatic encephalopathy Requesting physician: Blanca Graham - Chief Complaint Altered mental status changes - History of Present Illness History is obtained from chart and patient's mother was called. This is a 33-year-old male seen in the emergency department waiting for an ICU bed. Apparently patient has a history of decompensated alcoholic liver cirrhosis who follows with an advanced ramp attendant Dr. Paris out of [facility]. Patient's mother states he was diagnosed with cirrhosis of the liver about a year ago. He has a 10-year history of heavy alcoholism. He is also being followed for pancreatic cyst and had a recent CAT scan done on Sunday. He had a recent TIPS procedure done on 03/19/2024 at [facility]. Reportedly patient was found unresponsive at home his basement on the floor by his sister. They are unsure how long he had been down. He reportedly is possibly requiring a liver transfer plant however he continues to drink therefore does not qualify. Patient was admitted for hepatic encephalopathy with ammonia level as high as 130 and rhabdomyolysis with creatinine kinase 893. He was positive for benzodiazepines and THC. Patient currently is obtunded, he does arouse to stimuli. He has an NG tube in place and nursing reports he had 3 doses of lactulose last 1 being around midnight with no bowel movements. Abdo shubham ultrasound reported small amount of ascites throughout the abdomen. Chart reviewed his last paracentesis was on 03/17/2024 with 5.5 L removed. Admitting labs WBC 6.7 hemoglobin 12.7 hematocrit 39 platelet count 168,000 INR 1.7 sodium 132 potassium 4.2 BUN 12 creatinine 0.4 lactic acid 3.7 total bilirubin 2.9 AST 109 ALT 26 alkaline phosphatase 127 ammonia 130 creatinine kinase 893 troponin 0.053 Review of Systems ROS unobtainable: due to mental status Past Medical History Past Medical History: GERD/Reflux, Liver Disease Additional Past Medical History / Comment(s): Pancreatitis, ETOH abuse, subtance abuse, large volume paracentesis, chirrhosis History of Any Multi-Drug Resistant Organisms: None Reported Additional Past Surgical History / Comment(s): ERCP stent placement, scheduled for TIPS 03/20/24 Past Anesthesia/Blood Transfusion Reactions: Unable to Obtain Past Psychological History: Anxiety, Depression Smoking Status: Current every day smoker Past Alcohol Use History: Abuse Past Drug Use History: Marijuana - Past Family History Father Family Medical History: Hypertension Additional Family Medical History / Comment(s): Parkinson's Disease Mother Additional Family Medical History / Comment(s): mental illness Medications and Allergies Home Medications Medication Instructions Recorded Confirmed Type Acamprosate Calcium [Campral] 666 mg PO TID 09/17/23 03/27/24 History Furosemide [Lasix] 20 mg PO BID 09/17/23 03/27/24 History Lactulose 30 gm PO Q8H 09/17/23 03/27/24 History Omeprazole [PriLOSEC] 20 mg PO BID 09/17/23 03/27/24 History Ondansetron [Zofran] 4 mg PO DAILY PRN 09/17/23 03/27/24 History Rifaximin [Xifaxan] 550 mg PO Q12H 09/17/23 03/27/24 History levETIRAcetam [Keppra] 500 mg PO Q12HR 09/17/23 03/27/24 History ALPRAZolam [Xanax] 0.25 mg PO DAILY PRN 02/10/24 03/27/24 History Albuterol Sulfate [Albuterol 2 puff INHALATION RT-Q6H PRN 02/10/24 03/27/24 History Sulfate Hfa] Buprenorphine HCl/Naloxone HCl 1 film SL DAILY PRN 02/10/24 03/27/24 History [Suboxone 2 mg-0.5 mg Sl Film] Midodrine [ProAmatine] 5 mg PO TID 02/10/24 03/27/24 History Mirtazapine 7.5 mg PO HS 02/10/24 03/27/24 History diphenhydrAMINE & Zinc Cream 1 applic TOPICAL TID PRN 02/10/24 03/27/24 History [Benadryl Cream] hydrOXYzine HCL [Atarax] 25 mg PO Q6H PRN 02/10/24 03/27/24 History methocarbamoL [Robaxin-750] 750 mg PO Q8H PRN 02/10/24 03/27/24 History Pregabalin [Lyrica] 50 mg PO BID 02/18/24 03/27/24 History Thiamine [Vitamin B-1] 100 mg PO DAILY #90 tab 03/10/24 03/27/24 Rx Ciprofloxacin HCl [Cipro] 500 mg PO DAILY 03/27/24 03/27/24 History Spironolactone [Aldactone] 25 mg PO BID 03/27/24 03/27/24 History Allergies Allergy/AdvReac Type Severity Reaction Status Date / Time No Known Allergies Allergy Verified 03/27/24 15:44 Physical Exam Vitals: Vital Signs Temp Pulse Pulse Resp BP BP Pulse Ox 03/28/24 05:00 124 H 18 114/62 95 03/28/24 04:00 100.2 F H 128 H 21 115/61 90 L 03/28/24 03:00 116 H 17 109/60 91 L 03/28/24 02:00 105 H 12 104/68 99 03/28/24 01:00 107 H 12 110/68 100 03/28/24 00:00 95.9 F L 102 H 16 111/79 100 03/27/24 23:00 96.3 F L 118 H 27 H 103/60 97 03/27/24 22:00 96.4 F L 107 H 13 108/70 98 03/27/24 21:00 96.3 F L 105 H 14 106/69 97 03/27/24 20:00 96.2 F L 100 21 112/65 99 03/27/24 19:30 96.8 F L 106 H 15 103/64 99 03/27/24 19:05 97.0 F L 102 H 18 109/57 100 03/27/24 19:00 96.9 F L 100 10 L 105/53 98 03/27/24 18:44 99 16 110/63 100 03/27/24 16:18 92 16 98/61 100 03/27/24 15:02 93.6 F L 79 14 95/62 100 03/27/24 14:26 92.5 F L 03/27/24 14:02 91.8 F L 80 18 90/69 100 03/27/24 13:17 91.1 F L 83 18 94/67 99 Intake and Output 03/27/24 03/27/24 03/28/24 14:59 22:59 06:59 Intake Total 600 Output Total 90 Balance 510 Intake: IV 600 Dextrose 5%-0.9% NaCl 1, 600 000 ml @ 100 mls/hr IV . Q10H [facility] Rx#:[id number] Output: Urine 90 Other: Voiding Method Indwelling Catheter Weight 68.039 kg General appearance: The patient is obtunded. HET: Head is normocephalic and atraumatic. Neck: Supple without lymphadenopathy. Trachea midline. Heart: Regular. Lungs: Equal expansion, normal respiratory effort. Abdomen: Soft, nontender, distended. Skin: No rashes. Jaundice. Extremities: Normal skin color and turgor. No pedal edema. Neurological: Obtunded, arouses to stimuli. Results CBC & Chem 7: 03/28/24 06:07 03/28/24 06:07 Labs: Abnormal Lab Results - Last 24 Hours (Table) 03/27/24 03/27/24 03/27/24 Range/Units 13:24 13:48 13:48 RBC 4.05 L (4.30-5.90) m/uL Hgb 12.7 L (13.0-17.5) gm/dL PT 17.1 H (10.0-12.5) sec INR 1.7 H (<1.2) APTT 35.1 H (22.0-30.0) sec Sodium (137-145) mmol/L Carbon Dioxide (22-30) mmol/L Creatinine (0.66-1.25) mg/dL Glucose (74-99) mg/dL POC Glucose (mg/dL) 43 L* (70-110) mg/dL Plasma Lactic Acid Armando (0.7-2.0) mmol/L Calcium (8.4-10.2) mg/dL Total Bilirubin (0.2-1.3) mg/dL AST (17-59) U/L Alkaline Phosphatase (38-126) U/L Ammonia (<30) umol/L Creatine Kinase (55-170) U/L Troponin I (0.000-0.034) ng/mL Total Protein (6.3-8.2) g/dL Albumin (3.5-5.0) g/dL Ur Specific Alpine (1.001-1.035) Urine Protein (Negative) Urine Ketones (Negative) Urine WBC (0-5) /hpf Urine Mucus (None) /hpf U Benzodiazepines Scrn (NotDetected) U Marijuana (THC) Screen (NotDetected) 1203/27/24 03/27/24 Range/Units 13:48 13:48 13:48 RBC (4.30-5.90) m/uL Hgb (13.0-17.5) gm/dL PT (10.0-12.5) sec INR (<1.2) APTT (22.0-30.0) sec Sodium 132 L (137-145) mmol/L Carbon Dioxide 15 L (22-30) mmol/L Creatinine 0.45 L (0.66-1.25) mg/dL Glucose 272 H (74-99) mg/dL POC Glucose (mg/dL) (70-110) mg/dL Plasma Lactic Acid Armando 3.3 H* (0.7-2.0) mmol/L Calcium 7.5 L (8.4-10.2) mg/dL Total Bilirubin 2.9 H (0.2-1.3) mg/dL AST 109 H (17-59) U/L Alkaline Phosphatase 127 H (38-126) U/L Ammonia 130 H (<30) umol/L Creatine Kinase 893 H (55-170) U/L Troponin I (0.000-0.034) ng/mL Total Protein 5.2 L (6.3-8.2) g/dL Albumin 2.4 L (3.5-5.0) g/dL Ur Specific Alpine (1.001-1.035) Urine Protein (Negative) Urine Ketones (Negative) Urine WBC (0-5) /hpf Urine Mucus (None) /hpf U Benzodiazepines Scrn Detected H (NotDetected) U Marijuana (THC) Screen Detected H (NotDetected) 03/27/24 03/27/24 03/27/24 Range/Units 13:48 13:48 16:44 RBC (4.30-5.90) m/uL Hgb (13.0-17.5) gm/dL PT (10.0-12.5) sec INR (<1.2) APTT (22.0-30.0) sec Sodium (137-145) mmol/L Carbon Dioxide (22-30) mmol/L Creatinine (0.66-1.25) mg/dL Glucose (74-99) mg/dL POC Glucose (mg/dL) (70-110) mg/dL Plasma Lactic Acid Armando (0.7-2.0) mmol/L Calcium (8.4-10.2) mg/dL Total Bilirubin (0.2-1.3) mg/dL AST (17-59) U/L Alkaline Phosphatase (38-126) U/L Ammonia (<30) umol/L Creatine Kinase (55-170) U/L Troponin I 0.048 H* 0.045 H* (0.000-0.034) ng/mL Total Protein (6.3-8.2) g/dL Albumin (3.5-5.0) g/dL Ur Specific Alpine 1.039 H (1.001-1.035) Urine Protein 1+ H (Negative) Urine Ketones 1+ H (Negative) Urine WBC 6 H (0-5) /hpf Urine Mucus Few H (None) /hpf U Benzodiazepines Scrn (NotDetected) U Marijuana (THC) Screen (NotDetected) 03/27/24 03/27/24 03/27/24 Range/Units 16:44 19:12 19:38 RBC (4.30-5.90) m/uL Hgb (13.0-17.5) gm/dL PT (10.0-12.5) sec INR (<1.2) APTT (22.0-30.0) sec Sodium (137-145) mmol/L Carbon Dioxide (22-30) mmol/L Creatinine (0.66-1.25) mg/dL Glucose (74-99) mg/dL POC Glucose (mg/dL) (70-110) mg/dL Plasma Lactic Acid Armando 3.2 H* 3.7 H* (0.7-2.0) mmol/L Calcium (8.4-10.2) mg/dL Total Bilirubin (0.2-1.3) mg/dL AST (17-59) U/L Alkaline Phosphatase (38-126) U/L Ammonia (<30) umol/L Creatine Kinase (55-170) U/L Troponin I 0.053 H* (0.000-0.034) ng/mL Total Protein (6.3-8.2) g/dL Albumin (3.5-5.0) g/dL Ur Specific Alpine (1.001-1.035) Urine Protein (Negative) Urine Ketones (Negative) Urine WBC (0-5) /hpf Urine Mucus (None) /hpf U Benzodiazepines Scrn (NotDetected) U Marijuana (THC) Screen (NotDetected) 03/28/24 Range/Units 01:33 RBC (4.30-5.90) m/uL Hgb (13.0-17.5) gm/dL PT (10.0-12.5) sec INR (<1.2) APTT (22.0-30.0) sec Sodium (137-145) mmol/L Carbon Dioxide (22-30) mmol/L Creatinine (0.66-1.25) mg/dL Glucose (74-99) mg/dL POC Glucose (mg/dL) (70-110) mg/dL Plasma Lactic Acid Armando 2.7 H* (0.7-2.0) mmol/L Calcium (8.4-10.2) mg/dL Total Bilirubin (0.2-1.3) mg/dL AST (17-59) U/L Alkaline Phosphatase (38-126) U/L Ammonia (<30) umol/L Creatine Kinase (55-170) U/L Troponin I (0.000-0.034) ng/mL Total Protein (6.3-8.2) g/dL Albumin (3.5-5.0) g/dL Ur Specific Alpine (1.001-1.035) Urine Protein (Negative) Urine Ketones (Negative) Urine WBC (0-5) /hpf Urine Mucus (None) /hpf U Benzodiazepines Scrn (NotDetected) U Marijuana (THC) Screen (NotDetected) Comments: Brain CT with no acute findings Chest x-ray reports low lung volumes with a generalized hazy appearance which could represent atelectasis versus pulmonary edema Abdominal ultrasound reports similar small amount of ascites throughout the abdomen compared to 03/24/2024 Abdominal x-ray reports overall nonobstructive bowel gas pattern Assessment and Plan (1) Hepatic encephalopathy Narrative/Plan: 33-year-old male with history of decompensated alcohol liver cirrhosis portal hypertension requiring paracentesis about every 1 to 2 weeks. Recently underwent TIPS procedure out of [facility] in [place]. Patient was found unresponsive on the basement floor and had elevated ammonia at 130. Hepatic encephalopathy is secondary to decompensated liver cirrhosis, portal hypertension. Patient also had benzodiazepines and THC in his urine. Continue with Xifaxan 550 mg twice daily and lactulose 30 g 3 times daily however currently will need 3 doses every hour for the next 3 hours. Current Visit: Yes Status: Acute Code(s): K76.82 - HEPATIC ENCEPHALOPATHY SNOMED Code(s): 06726515 (2) Decompensation of cirrhosis of liver Current Visit: Yes Status: Acute Code(s): K72.90 - HEPATIC FAILURE, UNSPECIFIED WITHOUT COMA; K74.60 - UNSPECIFIED CIRRHOSIS OF LIVER SNOMED Co de(s): 112217852 (3) Hypokalemia Current Visit: Yes Status: Acute Code(s): E87.6 - HYPOKALEMIA SNOMED Code(s): 79840100 (4) Ascites Current Visit: No Status: Acute Code(s): R18.8 - OTHER ASCITES SNOMED Code(s): 475080062 Plan: 1. Continue symptomatic and supportive care 2. Give lactulose 30 g per NG tube every hour x 3 starting at 7 AM 3. Continue lactulose 30 g 3 times daily per NG tube 4. Xifaxan 550 mg twice daily 5. Paracentesis as needed 6. Continue home dose Aldactone 25 mg twice daily and Lasix 20 mg twice daily 7. Replace potassium per protocol 8. Alcohol abstinence 9. Rest of medical management per primary medical team Thank you for allowing us to participate in the care of the patient, the GI service will sign off, gastroenterology will not be available at the hospital this weekend and through next week. If further evaluation by gastroenterology is required the patient will need transfer as per the primary team's discretion. Dr. Marta Baum I agree with the dictator's note, documented as a scribe by Liza Mishra.
[2024-03-28] MEDS ORDERED: Potassium Replacement Protocol 1 EACH MISC MISCELLANE PRN ×2 (09:12→19:58)
[2024-03-28] MEDS: PANTOPRAZOLE 40 MG/10 ML VIAL IVP SCH (09:35)
[2024-03-28] MEDS: ENOXAPARIN 40 MG/0.4 ML SYRINGE SQ SCH (09:36)
[2024-03-28] MEDS: SPIRONOLACTONE 25 MG TAB PO SCH (10:57)
[2024-03-28] MEDS: LACTULOSE 20 GM/30 ML CUP PO SCH ×2 (10:57→17:07)
--- NOTE | 2024-03-28 11:11 | XR ---
EXAMINATION TYPE: XR chest 1V confirm line plcmt DATE OF EXAM: 03/28/2024 10:21 AM COMPARISON: Chest radiographs from 03/27/2024 CLINICAL INDICATION: Male, 33 years old with history of NG tube; TECHNIQUE: XR chest 1V confirm line plcmt Frontal view of the chest. FINDINGS: Lungs/Pleura: There is no evidence of pleural effusion, focal consolidation, or pneumothorax. Pulmonary vascularity: Unremarkable. Heart/mediastinum: Cardiomediastinal silhouette is unremarkable. Musculoskeletal: No acute osseous pathology. The gastric tube with side-port projecting over the distal esophagus. IMPRESSION: 1. Nasogastric tube side-port projecting over the distal esophagus and advancement of 9 cm recommend ed for optimal placement. 2. No acute cardiopulmonary disease/process. [facility], , 03/28/2024 11:09 AM
[2024-03-28] MEDS: POTASSIUM CHLORIDE 10 MEQ in WATER FOR INJECTION 1 100ML.BAG IVPB SCH ×2 (11:12→21:31)
[2024-03-28 14:06] LABS: Glucose,Whole Blood 171 mg/dL (70-110)
--- NOTE | 2024-03-28 14:27 | P.PN ---
Subjective Progress Note Date: 03/28/24 This is a 33-year-old male patient, history of alcoholism with alcoholic liver cirrhosis status post TIPS procedure and known history of chronic ascites requiring biweekly paracentesis, presented to the emergency department because of altered mentation. The patient was found in an apartment with diminished level of consciousness he was found on the ground. He was wearing several layers of clothing and he had no heat in his house. He has not found to be a candidate for liver cancer because of his ongoing alcohol consumption. Based on this, the patient was brought in to the emergency department. His initial blood sugar was 60. He was hypothermic with a temperature of 91.1. Blood pressure was 94/67. Pulse ox was 100% on room air oxygen. Blood work was done in the emergency and the patient was found to have a white cell count of 6.7 with a hemoglobin 12.7 and a platelet count of 168, coagulopathic with an INR of 1.7 and a PTT of 35. He did have a bicarb level of 15 without an elevated anion gap and sodium levels at 132. BUN is 12 with a creatinine 0.4. Blood sugar was low at 43 treated and his subsequent blood sugars at 90. Lactic acidosis 3.3. AST is 109, ALT is 26, alkaline phosphatase 127, CPK is 893, troponin 0.04, UA is showing +1 ketones and +1 protein, urine drug screen is positive for marijuana and benzodiazepine, alcohol level was negative. CAT scan of the brain was done in the emergency and it showed no acute process and the patient had nonspecific white matter changes and chronic ischemic changes. Chest x-ray was done in the emergency showed smaller lung volumes and generalized hazy appearance/atelectasis and the ultrasound of the abdomen showed small amount of ascites and a KUB showed a nonspecific bowel gas pattern. The patient is currently receiving external warming. Started on IV Rocephin as empiric antibiotic coverage. He is also on Xifaxan 550 mg p.o. twice daily and his diuretics are in the form of Lasix and Aldactone. He is also maintained on Keppra for seizures. His serum ammonia level was 130. On 03/28/2024, patient is being seen for a follow-up. The mother is at the bedside. NG tube was given and the patient is currently receiving lactulose and rifaximin. Noted the patient's ammonia level was considerably elevated and the patient has not produced any significant bowel movement activity yet. Seems to be more awake and less compared to yesterday. After some improvement in his temperature, he became again hypothermic and he was placed back on Jaspreet hugger's and current temperature is 97.5. Tachycardia is improving. He remains on 3 L of oxygen nasal cannula. Pulse ox 97% room air oxygen. No reported aspiration. Blood pressure is stable. The patient remains on IV fluids and is receiving normal citrate of 100 cc an hour. Remains on a combination of Lasix and Aldactone. Remains on empiric antibiotic coverage with IV Rocephin. Remains on Keppra. The blood work from today shows a white cell count of 8.9 with a hemoglobin of 10.7 and a platelet count of 181. Sodium levels at 134, potassium is at 3.3, BUN is 40 with a creatinine of 0.7. Lactic acid level is at 2.7 and this has dropped compared to yesterday. At the same time, LFTs are nonelevated. Albumin is at 1.9. Objective - Vital Signs Vital signs: Vital Signs Temp 96.6 F L 03/28/24 10:25 Pulse 98 03/28/24 10:25 Resp 18 03/28/24 10:25 BP 105/65 03/28/24 10:11 Pulse Ox 98 03/28/24 10:25 FiO2 Intake & Output 03/27/24 03/28/24 03/28/24 18:59 06:59 18:59 Intake Total 700 100 Output Total 230 535 Balance 470 -435 Weight 68.039 kg Intake: IV 700 100 Dextrose 5%-0.9% NaCl 1, 700 100 000 ml @ 100 mls/hr IV . [facility] Rx#:[id number] Output: Urine 230 535 Uretheral (Carnes) 400 Other: Voiding Method Indwelling Catheter - Exam The patient appeared sick looking, more alert compared to yesterday. Still encephalopathic however. NG tube in place. Head exam is unremarkable. No scleral icterus or corneal arcus noted. Neck is without jugular venous distension, thyromegaly, or carotid bruits. Carotid upstrokes are brisk bilaterally. Lungs are clear to auscultation and percussion. Cardiac exam reveals the PMI to be normally sized and situated. Rhythm is regular. First and second heart sounds normal. No murmurs, rubs or gallops. Abdominal exam reveals normal bowel sounds, no masses, no organomegaly and no aortic enlargement. No significant ascites noted Extremities are nonedematous and both femoral and pedal pulses are normal. Examination of the skin revealed no evidence of significant rashes, suspicious appearing nevi or other concerning lesions. Neurologically, the patient is encephalopathic, nonfocal neurologic exam. - Labs CBC & Chem 7: 03/28/24 06:07 03/28/24 06:07 Labs: Abnormal Lab Results - Last 24 Hours (Table) 03/27/24 03/27/24 03/27/24 Range/Units 13:24 13:48 13:48 RBC 4.05 L (4.30-5.90) m/uL Hgb 12.7 L (13.0-17.5) gm/dL Hct (39.0-53.0) % Monocytes # (0-1.0) k/uL PT 17.1 H (10.0-12.5) sec INR 1.7 H (<1.2) APTT 35.1 H (22.0-30.0) sec Sodium (137-145) mmol/L Potassium (3.5-5.1) mmol/L Carbon Dioxide (22-30) mmol/L Creatinine (0.66-1.25) mg/dL Glucose (74-99) mg/dL POC Glucose (mg/dL) 43 L* (70-110) mg/dL Plasma Lactic Acid Armando (0.7-2.0) mmol/L Calcium (8.4-10.2) mg/dL Total Bilirubin (0.2-1.3) mg/dL AST (17-59) U/L Alkaline Phosphatase (38-126) U/L Ammonia (<30) umol/L Creatine Kinase (55-170) U/L Troponin I (0.000-0.034) ng/mL Total Protein (6.3-8.2) g/dL Albumin (3.5-5.0) g/dL Ur Specific [place] (1.001-1.035) Urine Protein (Negative) Urine Ketones (Negative) Urine WBC (0-5) /hpf Urine Mucus (None) /hpf U Benzodiazepines Scrn (NotDetected) U Marijuana (THC) Screen (NotDetected) 03/27/24 03/27/24 03/27/24 Range/Units 13:48 13:48 13:48 RBC (4.30-5.90) m/uL Hgb (13.0-17.5) gm/dL Hct (39.0-53.0) % Monocytes # (0-1.0) k/uL PT (10.0-12.5) sec INR (<1.2) APTT (22.0-30.0) sec Sodium 132 L (137-145) mmol/L Potassium (3.5-5.1) mmol/L Carbon Dioxide 15 L (22-30) mmol/L Creatinine 0.45 L (0.66-1.25) mg/dL Glucose 272 H (74-99) mg/dL POC Glucose (mg/dL) (70-110) mg/dL Plasma Lactic Acid Armando 3.3 H* (0.7-2.0) mmol/L Calcium 7.5 L (8.4-10.2) mg/dL Total Bilirubin 2.9 H (0.2-1.3) mg/dL AST 109 H (17-59) U/L Alkaline Phosphatase 127 H (38-126) U/L Ammonia 130 H (<30) umol/L Creatine Kinase 893 H (55-170) U/L Troponin I (0.000-0.034) ng/mL Total Protein 5.2 L (6.3-8.2) g/dL Albumin 2.4 L (3.5-5.0) g/dL Ur Specific [place] (1.001-1.035) Urine Protein (Negative) Urine Ketones (Negative) Urine WBC (0-5) /hpf Urine Mucus (None) /hpf U Benzodiazepines Scrn Detected H (NotDetected) U Marijuana (THC) Screen Detected H (NotDetected) 03/27/24 03/27/24 03/27/24 Range/Units 13:48 13:48 16:44 RBC (4.30-5.90) m/uL Hgb (13.0-17.5) gm/dL Hct (39.0-53.0) % Monocytes # (0-1.0) k/uL PT (10.0-12.5) sec INR (<1.2) APTT (22.0-30.0) sec Sodium (137-145) mmol/L Potassium (3.5-5.1) mmol/L Carbon Dioxide (22-30) mmol/L Creatinine (0.66-1.25) mg/dL Glucose (74-99) mg/dL POC Glucose (mg/dL) (70-110) mg/dL Plasma Lactic Acid Armando (0.7-2.0) mmol/L Calcium (8.4-10.2) mg/dL Total Bilirubin (0.2-1.3) mg/dL AST (17-59) U/L Alkaline Phosphatase (38-126) U/L Ammonia (<30) umol/L Creatine Kinase (55-170) U/L Troponin I 0.048 H* 0.045 H* (0.000-0.034) ng/mL Total Protein (6.3-8.2) g/dL Albumin (3.5-5.0) g/dL Ur Specific [place] 1.039 H (1.001-1.035) Urine Protein 1+ H (Negative) Urine Ketones 1+ H (Negative) Urine WBC 6 H (0-5) /hpf Urine Mucus Few H (None) /hpf U Benzodiazepines Scrn (NotDetected) U Marijuana (THC) Screen (NotDetected) 03/27/24 03/27/24 03/27/24 Range/Units 16:44 19:12 19:38 RBC (4.30-5.90) m/uL Hgb (13.0-17.5) gm/dL Hct (39.0-53.0) % Monocytes # (0-1.0) k/uL PT (10.0-12.5) sec INR (<1.2) APTT (22.0-30.0) sec Sodium (137-145) mmol/L Potassium (3.5-5.1) mmol/L Carbon Dioxide (22-30) mmol/L Creatinine (0.66-1.25) mg/dL Glucose (74-99) mg/dL POC Glucose (mg/dL) (70-110) mg/dL Plasma Lactic Acid Armando 3.2 H* 3.7 H* (0.7-2.0) mmol/L Calcium (8.4-10.2) mg/dL Total Bilirubin (0.2-1.3) mg/dL AST (17-59) U/L Alkaline Phosphatase (38-126) U/L Ammonia (<30) umol/L Creatine Kinase (55-170) U/L Troponin I 0.053 H* (0.000-0.034) ng/mL Total Protein (6.3-8.2) g/dL Albumin (3.5-5.0) g/dL Ur Specific [place] (1.001-1.035) Urine Protein (Negative) Urine Ketones (Negative) Urine WBC (0-5) /hpf Urine Mucus (None) /hpf U Benzodiazepines Scrn (NotDetected) U Marijuana (THC) Screen (NotDetected) 03/28/24 03/28/24 03/28/24 Range/Units 01:33 06:07 06:07 RBC 3.42 L (4.30-5.90) m/uL Hgb 10.7 L (13.0-17.5) gm/dL Hct 33.1 L (39.0-53.0) % Monocytes # 1.2 H (0-1.0) k/uL PT (10.0-12.5) sec INR (<1.2) APTT (22.0-30.0) sec Sodium 134 L (137-145) mmol/L Potassium 3.3 L (3.5-5.1) mmol/L Carbon Dioxide (22-30) mmol/L Creatinine (0.66-1.25) mg/dL Glucose 120 H (74-99) mg/dL POC Glucose (mg/dL) (70-110) mg/dL Plasma Lactic Acid Armando 2.7 H* (0.7-2.0) mmol/L Calcium 7.3 L (8.4-10.2) mg/dL Total Bilirubin 2.1 H (0.2-1.3) mg/dL AST 124 H (17-59) U/L Alkaline Phosphatase (38-126) U/L Ammonia (<30) umol/L Creatine Kinase (55-170) U/L Troponin I (0.000-0.034) ng/mL Total Protein 4.5 L (6.3-8.2) g/dL Albumin 1.9 L (3.5-5.0) g/dL Ur Specific [place] (1.001-1.035) Urine Protein (Negative) Urine Ketones (Negative) Urine WBC (0-5) /hpf Urine Mucus (None) /hpf U Benzodiazepines Scrn (NotDetected) U Marijuana (THC) Screen (NotDetected) 03/28/24 Range/Units 07:13 RBC (4.30-5.90) m/uL Hgb (13.0-17.5) gm/dL Hct (39.0-53.0) % Monocytes # (0-1.0) k/uL PT (10.0-12.5) sec INR (<1.2) APTT (22.0-30.0) sec Sodium (137-145) mmol/L Potassium (3.5-5.1) mmol/L Carbon Dioxide (22-30) mmol/L Creatinine (0.66-1.25) mg/dL Glucose (74-99) mg/dL POC Glucose (mg/dL) 144 H (70-110) mg/dL Plasma Lactic Acid Armando (0.7-2.0) mmol/L Calcium (8.4-10.2) mg/dL Total Bilirubin (0.2-1.3) mg/dL AST (17-59) U/L Alkaline Phosphatase (38-126) U/L Ammonia (<30) umol/L Creatine Kinase (55-170) U/L Troponin I (0.000-0.034) ng/mL Total Protein (6.3-8.2) g/dL Albumin (3.5-5.0) g/dL Ur Specific [place] (1.001-1.035) Urine Protein (Negative) Urine Ketones (Negative) Urine WBC (0-5) /hpf Urine Mucus (None) /hpf U Benzodiazepines Scrn (NotDetected) U Marijuana (THC) Screen (NotDetected) Assessment and Plan Plan: Altered mentation, multifactorial, as the patient was found to be in hepatic encephalopathy in the same time the patient was quite hypothermic with a temperature of 91 at the time of admission. The temperature is improved and the patient seems to be normothermic at this point in time. External warming has been applied. The patient also has hepatic encephalopathy, and the combination of rifaximin mean and lactulose. Acute hypothermia, improved Mild rhabdomyolysis Non-anion gap metabolic acidosis, improved Mild lactic acidosis, improved Liver cirrhosis, maintained on a combination of lactulose and rifaximin for hepatic encephalopathy. He serum ammonia level is quite elevated. The patient also has history of recurrent ascites and the patient is status post TIPS procedure. Maintained on a combination of Lasix and Aldactone on outpatient basis. 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 Plan Keep NG tube in place Continue rifaximin and lactulose combination Awaiting a soft bowel movement external warming Monitor temperature Monitor CPK D5 normal saline at rate of 100 cc an hour Continue midodrine 5 mg p.o. 3 times daily Empiric antibiotic coverage with IV Rocephin Patient is altered and encephalopathic. Monitor the ammonia level Watch for any signs of delirium tremens at a later stage Resume Keppra Will continue to follow The patient will be downgraded to telemetry unit.
--- NOTE | 2024-03-28 16:38 | P.PN ---
Subjective Progress Note Date: 03/28/24 Patient is obtunded and majority of information is obtained from discussion with Dr. Graham. 33 year old M with PMH of alcoholic liver cirrhosis, anxiety and depression, seizure disorder? presents to the ED for altered mentation. Apparently patient got the TIPS procedure done on the 03/20. He was last seen on 03/25 and appeared to be normal. When a family member went to check up on him today, he was found down in his basement with multiple layers of clothing. It appears he did not have heat in his house. In the ED he underwent extensive evaluation. BP 94/67, HR 83, T 91.1F, RR 18, 99% on RA. CBC, Coag panel, CMP signifcant for RBC 4.05, Hg 12.7, PT 17.1, INR 1.7, APTT 35.1, Na 132, bicarb 15, Cr 0.45, glu 43, Ca 7.5, T. Bili 2.9, AST 109, alk phos 127, alb 2.4. Lactic acid 3.3. Troponin 0.048. CPK 893. UA 1+ ketones, 1+ protein, neg LE/nitrite. UDS + benzo + THC. EtOH < 10. EKG sinus rhythm with Q waves V1-4. CT brain nonspecific white matter changes. EKG low lung volumes likely atelectasis. Patient is admitted to ICU for fruther workup and management. NG tube inserted and started on Lactulose. 03/28 Patient was seen and examined. Mentation slightly improved but still quite lethargic. Falling asleep easily during the encounter. He did have a bowel movement. CBC and CMP significant for RBC 3.42, Hg 10.7, Hct 33.1, Na 134, K 3.3, glu 120, Ca 7.3, t. Bili 2.1, AST 124, alb 1.9. Lactic acid 2.7. Abd US showed small amount of ascites. Echo shows normal LV function. Troponin 0.045, 0 .053. CXR done today shows NG tube over the esophagus. General: ill appearing, lethargic Derm: warm, dry Head: atraumatic, normocephalic, symmetric, NGT in place Eyes: EOMI, no lid lag, icteric sclera Mouth: no lip lesion, mucus membranes moist Cardiovascular: S1S2 reg, no murmur Lungs: Decreased BS bilateral, no rhonchi, no rales , no accessory muscle use Abdominal: soft, nontender to palpation, no guarding, distended Ext: no gross muscle atrophy, no edema, no contractures Neuro: Unable to perform. Psych: Lethargic but arrousable. Based on my assessment of this patient, this patient meets a high complexity level of care. Acute hepatic encephalopathy: Worsened due to hypothermia and hypoglycemia. Keep NPO for now until more alert. Lactulose 30g per NGT TID. Rifaximin 550 mg PO BID. Lasix 20 mg PO BID. Aldactone 25 mg PO QD. Abd US as above. Rocephin 1g IV QD (D2) for treatment of SBP. GI consult. Hypothermia: Possibly environmental. He does not meet sepsis criteria. Jaspreet hugger in place. Hypotension: Likely due to underlying cirrhosis and dehydration. Continue D5 NS at 100 cc/hr. Midodrine 5 mg PO TID. He does not meet sepsis criteria. Telemetry monitoring. Hypoglycemia: Likely due to advanced cirrhosis. D5 NS as above. Accuchecks Q6H. Hypoglycemic precautions. Troponin elevation: Troponins flat, ACS ruled out. Echo with normal LV function and no regional wall motion abnormalities. Lactic acidosis: Likely due to advanced cirrhosis. IV hydration as above. Trend until negative. Supratherapeutic INR: Likely due to advanced cirrhosis. Elevated CPK: Likely due to prolonged time down. Monitor renal function. IV hydration as above. Repeat CPK tomorrow. EtOH abuse: CIWA protocol with Ativan PRN. Seizure disorder: Keppra 500 mg PO BID. CODE STATUS: FULL CODE DVT Prophylaxis: Lovenox SQ GI Prophylaxis: Protonix IV Designated medical POA if patient is not able to make medical decisions for themselves: I have reviewed the following railroad design consultant notes: GI, Pulmonary note. I have reviewed the results of the following tests: CBC, CMP, Echo, Trop x 2, Lactic acid, Abd US. I have ordered the following tests: CBC, BMP in the AM. I have discussed the care of this patient with the following independent historian: I have independently interpreted the following test below: CXR. I have discussed the management of this patient with the following physician: Objective - Vital Signs Vital signs: Vital Signs Temp 97.5 F L 03/28/24 16:00 Pulse 112 H 03/28/24 16:00 Resp 18 03/28/24 16:00 BP 103/56 03/28/24 16:00 Pulse Ox 99 03/28/24 16:00 FiO2 Intake & Output 03/27/24 03/28/24 03/28/24 18:59 06:59 18:59 Intake Total 700 100 Output Total 230 535 Balance 470 -435 Weight 68.039 kg Intake: IV 700 100 Dextrose 5%-0.9% NaCl 1, 700 100 000 ml @ 100 mls/hr IV . [facility]H [facility] Rx#:[id number] Output: Urine 230 535 Uretheral (Carnes) 400 Other: Voiding Method Indwelling Catheter Indwelling Catheter - Labs CBC & Chem 7: 03/28/24 06:07 03/28/24 06:07 Labs: Abnormal Lab Results - Last 24 Hours (Table) 03/27/24 03/27/24 03/27/24 Range/Units 16:44 16:44 19:12 RBC (4.30-5.90) m/uL Hgb (13.0-17.5) gm/dL Hct (39.0-53.0) % Monocytes # (0-1.0) k/uL Sodium (137-145) mmol/L Potassium (3.5-5.1) mmol/L Glucose (74-99) mg/dL POC Glucose (mg/dL) (70-110) mg/dL Plasma Lactic Acid Armando 3.2 H* (0.7-2.0) mmol/L Calcium (8.4-10.2) mg/dL Total Bilirubin (0.2-1.3) mg/dL AST (17-59) U/L Troponin I 0.045 H* 0.053 H* (0.000-0.034) ng/mL Total Protein (6.3-8.2) g/dL Albumin (3.5-5.0) g/dL 03/27/24 03/28/24 03/28/24 Range/Units 19:38 01:33 06:07 RBC 3.42 L (4.30-5.90) m/uL Hgb 10.7 L (13.0-17.5) gm/dL Hct 33.1 L (39.0-53.0) % Monocytes # 1.2 H (0-1.0) k/uL Sodium (137-145) mmol/L Potassium (3.5-5.1) mmol/L Glucose (74-99) mg/dL POC Glucose (mg/dL) (70-110) mg/dL Plasma Lactic Acid Armando 3.7 H* 2.7 H* (0.7-2.0) mmol/L Calcium (8.4-10.2) mg/dL Total Bilirubin (0.2-1.3) mg/dL AST (17-59) U/L Troponin I (0.000-0.034) ng/mL Total Protein (6.3-8.2) g/dL Albumin (3.5-5.0) g/dL 03/28/24 03/28/24 03/28/24 Range/Units 06:07 07:13 14:05 RBC (4.30-5.90) m/uL Hgb (13.0-17.5) gm/dL Hct (39.0-53.0) % Monocytes # (0-1.0) k/uL Sodium 134 L (137-145) mmol/L Potassium 3.3 L (3.5-5.1) mmol/L Glucose 120 H (74-99) mg/dL POC Glucose (mg/dL) 144 H 171 H (70-110) mg/dL Plasma Lactic Acid Armando (0.7-2.0) mmol/L Calcium 7.3 L (8.4-10.2) mg/dL Total Bilirubin 2.1 H (0.2-1.3) mg/dL AST 124 H (17-59) U/L Troponin I (0.000-0.034) ng/mL Total Protein 4.5 L (6.3-8.2) g/dL Albumin 1.9 L (3.5-5.0) g/dL
[2024-03-28 18:59] LABS: Glucose,Whole Blood 140 mg/dL (70-110)
[2024-03-28 20:36] LABS: Glucose,Whole Blood 134 mg/dL (70-110)
[2024-03-29 00:34] LABS: Glucose,Whole Blood 137 mg/dL (70-110)
[2024-03-29 06:13] LABS: Glucose,Whole Blood 146 mg/dL (70-110)
[2024-03-29 07:23] LABS: Carbon Dioxide 21 mmol/L (22-30); Chloride 115 mmol/L (98-107); Glucose 132 mg/dL (74-99); Potassium 2.9 mmol/L (3.5-5.1); Sodium 137 mmol/L (137-145)
[2024-03-29 07:24] LABS: African American GFR (CKD) >90 (>60 ml/min/1.73 sqM); Anion Gap 1 mmol/L; Blood Urea Nitrogen 8 mg/dL (9-20); Calcium 7.2 mg/dL (8.4-10.2); Non-African American GFR(CKD) >90 (>60 ml/min/1.73 sqM)
[2024-03-29 07:31] LABS: HCT 31.3 % (39.0-53.0); HGB 9.6 gm/dL (13.0-17.5); Hypochromasia Moderate; MCH 30.4 pg (25.0-35.0); MCHC 30.7 g/dL (31.0-37.0); Mean Platelet Volume 7.3; Platelet Count 154 k/uL (150-450); RBC 3.16 m/uL (4.30-5.90); RDW 14.5 % (11.5-15.5); WBC 5.7 k/uL (3.8-10.6)
[2024-03-29] MEDS: POTASSIUM CHLORIDE ER 20 MEQ TAB.ER PO STA ×3 (08:00→13:20)
--- NOTE | 2024-03-29 08:40 | XR ---
EXAMINATION TYPE: XR chest 1V portable DATE OF EXAM: 03/29/2024 8:34 AM COMPARISON: Chest radiographs same day CLINICAL INDICATION: Male, 33 years old with history of NG tube placement; [facility] TECHNIQUE: XR chest 1V portable Frontal view of the chest. FINDINGS: Lungs/Pleura: Basilar airspace opacities on the right There is no evidence of pleural effusion, focal consolidation, or pneumothorax. Pulmonary vascularity: Unremarkable. Heart/mediastinum: Cardiomediastinal silhouette is unremarkable. Musculoskeletal: No acute osseous pathology. Other findings: None Lines/Tubes: Nasogastric tube with side-port projecting over the distal esophagus. IMPRESSION: Nasogastric tube and side-port in the distal esophagus and advancement of 12 cm recommended for optim al placement. Basilar airspace opacities most pronounced on the right. [facility], , 03/29/2024 8:38 AM
[2024-03-29] MEDS: POTASSIUM CHLORIDE ER 20 MEQ TAB.ER PO ONE (09:55)
[2024-03-29] MEDS: THIAMINE 100 MG in SODIUM CHLORIDE 0.9% 50 ML IVPB SCH (09:59)
[2024-03-29] MEDS: LACTULOSE 20 GM/30 ML CUP PO SCH (10:00)
--- NOTE | 2024-03-29 11:50 | XR ---
EXAMINATION TYPE: XR chest 1V portable DATE OF EXAM: 03/29/2024 10:57 AM COMPARISON: Chest radiographs same day CLINICAL INDICATION: Male, 33 years old with history of checking placement of NG post advancement; [facility] TECHNIQUE: XR chest 1V portable Frontal view of the chest. FINDINGS: Lungs/Pleura: Basilar airspace opacities on the right There is no evidence of pleural effusion, focal consolidation, or pneumothorax. Pulmonary vascularity: Unremarkable. Heart/mediastinum: Cardiomediastinal silhouette is unremarkable. Musculoskeletal: No acute osseous pathology. Other findings: None Lines/Tubes: Nasogastric tube with side-port projecting over the distal esophagus. IMPRESSION: Nasogastric tube and side-port in the distal esophagus and advancement of 9 cm recommended for optima l placement. Basilar airspace opacities most pronounced on the right. [facility], , 03/29/2024 11:48 AM
--- NOTE | 2024-03-29 12:01 | P.PN ---
Subjective Progress Note Date: 03/29/24 Patient is obtunded and majority of information is obtained from discussion with Dr. Graham. 33 year old M with PMH of alcoholic liver cirrhosis, anxiety and depression, seizure disorder? presents to the ED for altered mentation. Apparently patient got the TIPS procedure done on the 03/20. He was last seen on 03/25 and appeared to be normal. When a family member went to check up on him today, he was found down in his basement with multiple layers of clothing. It appears he did not have heat in his house. In the ED he underwent extensive evaluation. BP 94/67, HR 83, T 91.1F, RR 18, 99% on RA. CBC, Coag panel, CMP signifcant for RBC 4.05, Hg 12.7, PT 17.1, INR 1.7, APTT 35.1, Na 132, bicarb 15, Cr 0.45, glu 43, Ca 7.5, T. Bili 2.9, AST 109, alk phos 127, alb 2.4. Lactic acid 3.3. Troponin 0.048. CPK 893. UA 1+ ketones, 1+ protein, neg LE/nitrite. UDS + benzo + THC. EtOH < 10. EKG sinus rhythm with Q waves V1-4. CT brain nonspecific white matter changes. EKG low lung volumes likely atelectasis. Patient is admitted to ICU for fruther workup and management. NG tube inserted and started on Lactulose. Abd US showed small amount of ascites. Echo showed normal LV function. Troponin 0.045, 0.053. 03/29 Patient was seen and examined. Mentation slightly improved but still quite lethargic. Audible rattle. CBC and BMP significant for RBC 3.16, Hg 9.6, Hct 31.3, K 2.9, Cl 115, bicarb 21, BUN 8, Cr 0.52, glu 132, Ca 7.2. Ammonia 42. CXR done today shows NGT needing advancement and also new infiltrate on the right. General: ill appearing, lethargic Derm: warm, dry Head: atraumatic, normocephalic, symmetric, NGT in place Eyes: EOMI, no lid lag, icteric sclera Mouth: no lip lesion, mucus membranes moist Cardiovascular: S1S2 reg, no murmur Lungs: Decreased BS bilateral, no rhonchi, no rales , no accessory muscle use Abdominal: soft, nontender to palpation, no guarding, distended Ext: no gross muscle atrophy, no edema, no contractures Neuro: Unable to perform. Psych: Lethargic but arrousable. Based on my assessment of this patient, this patient meets a high complexity level of care. Acute hepatic encephalopathy: Worsened due to hypothermia and hypoglycemia. Keep NPO for now until more alert. Lactulose decreased to 30g per NGT BID. Rifaximin 550 mg PO BID. Lasix 20 mg PO BID. Aldactone 25 mg PO QD. Abd US as above. Status post 3 days for empiric treatment of SBP. GI on board. Possible aspiration PNA: New right sided infiltrate on CXR. Switch Rocephin to Unasyn 3g IV Q6H. He does meet sepsis criteria with tachycardia, hypothermia and + source of infection. Obtain Sputum and BCx. IV hydration as below. Telemetry monitoring. Hypothermia: Possibly environmental. Improved. Hypotension: Likely due to underlying cirrhosis and dehydration. Continue D5 NS at 100 cc/hr. Midodrine 5 mg PO TID. Telemetry monitoring. Hypokalemia: KCl 60 meq PO x 1. Troponin elevation: Troponins flat, ACS ruled out. Echo with normal LV function and no regional wall motion abnormalities. Lactic acidosis: Likely due to advanced cirrhosis. IV hydration as above. Trend until negative. Supratherapeutic INR: Likely due to advanced cirrhosis. Elevated CPK: Likely due to prolonged time down. Monitor renal function. IV hydration as above. EtOH abuse: CIWA protocol with Ativan PRN. Seizure disorder: Keppra 500 mg PO BID. Resolved: Hypoglycemia CODE STATUS: FULL CODE DVT Prophylaxis: Lovenox SQ GI Prophylaxis: Protonix IV Designated medical POA if patient is not able to make medical decisions for themselves: I have reviewed the following interventional sale consultant notes: I have reviewed the results of the following tests: CBC, BMP, Ammonia. I have ordered the following tests: CBC, BMP in the AM. CXR ordered this morning to check NGT placement. I have discussed the care of this patient with the following independent historian: DEYVI. I have independently interpreted the following test below: CXR I have discussed the management of this patient with the following physician: Objective - Vital Signs Vital signs: Vital Signs Temp 97.6 F 03/29/24 08:00 Pulse 95 03/29/24 08:00 Resp 18 03/29/24 08:00 BP 97/64 03/29/24 08:00 Pulse Ox 100 03/29/24 08:00 FiO2 Intake & Output 03/28/24 03/29/24 03/29/24 18:59 06:59 18:59 Intake Total 100 Output Total 535 1025 Balance -435 -1025 Weight 67 kg Intake: IV 100 Dextrose 5%-0.9% NaCl 1, 100 000 ml @ 100 mls/hr IV . Q10H [facility] Rx#:[id number] Output: Urine 535 1025 Uretheral (Carnes) 400 800 Other: Voiding Method Indwelling Catheter Indwelling Catheter - Labs CBC & Chem 7: 03/29/24 06:57 03/29/24 06:57 Labs: Abnormal Lab Results - Last 24 Hours (Table) 03/28/24 03/28/24 03/28/24 Range/Units 14:05 18:10 18:57 RBC (4.30-5.90) m/uL Hgb (13.0-17.5) gm/dL Hct (39.0-53.0) % MCHC (31.0-37.0) g/dL Potassium (3.5-5.1) mmol/L Chloride (98-107) mmol/L Carbon Dioxide (22-30) mmol/L BUN (9-20) mg/dL Creatinine (0.66-1.25) mg/dL Glucose (74-99) mg/dL POC Glucose (mg/dL) 171 H 140 H (70-110) mg/dL Calcium (8.4-10.2) mg/dL Ammonia 56 H (<30) umol/L 03/28/24 03/28/24 03/29/24 Range/Units 18:58 20:35 00:31 RBC (4.30-5.90) m/uL Hgb (13.0-17.5) gm/dL Hct (39.0-53.0) % MCHC (31.0-37.0) g/dL Potassium 3.2 L (3.5-5.1) mmol/L Chloride (98-107) mmol/L Carbon Dioxide (22-30) mmol/L BUN (9-20) mg/dL Creatinine (0.66-1.25) mg/dL Glucose (74-99) mg/dL POC Glucose (mg/dL) 134 H 137 H (70-110) mg/dL Calcium (8.4-10.2) mg/dL Ammonia (<30) umol/L 03/29/24 03/29/24 03/29/24 Range/Units 06:11 06:57 06:57 RBC 3.16 L (4.30-5.90) m/uL Hgb 9.6 L (13.0-17.5) gm/dL Hct 31.3 L (39.0-53.0) % MCHC 30.7 L (31.0-37.0) g/dL Potassium (3.5-5.1) mmol/L Chloride (98-107) mmol/L Carbon Dioxide (22-30) mmol/L BUN (9-20) mg/dL Creatinine (0.66-1.25) mg/dL Glucose (74-99) mg/dL POC Glucose (mg/dL) 146 H (70-110) mg/dL Calcium (8.4-10.2) mg/dL Ammonia 42 H (<30) umol/L 03/29/24 Range/Units 06:57 RBC (4.30-5.90) m/uL Hgb (13.0-17.5) gm/dL Hct (39.0-53.0) % MCHC (31.0-37.0) g/dL Potassium 2.9 L (3.5-5.1) mmol/L Chloride 115 H (98-107) mmol/L Carbon Dioxide 21 L (22-30) mmol/L BUN 8 L (9-20) mg/dL Creatinine 0.52 L (0.66-1.25) mg/dL Glucose 132 H (74-99) mg/dL POC Glucose (mg/dL) (70-110) mg/dL Calcium 7.2 L (8.4-10.2) mg/dL Ammonia (<30) umol/L
[2024-03-29 12:05] LABS: Glucose,Whole Blood 119 mg/dL (70-110)
[2024-03-29] MEDS: AMPICILLIN-SULBACTAM 3 GM in SODIUM CHLORIDE 0.9% 100 ML IVPB SCH (12:36)
--- NOTE | 2024-03-29 12:55 | P.PN ---
Subjective Progress Note Date: 03/29/24 This is a 33-year-old male patient, history of alcoholism with alcoholic liver cirrhosis status post TIPS procedure and known history of chronic ascites requiring biweekly paracentesis, presented to the emergency department because of altered mentation. The patient was found in an apartment with diminished level of consciousness he was found on the ground. He was wearing several layers of clothing and he had no heat in his house. He has not found to be a candidate for liver cancer because of his ongoing alcohol consumption. Based on this, the patient was brought in to the emergency department. His initial blood sugar was 60. He was hypothermic with a temperature of 91.1. Blood pressure was 94/67. Pulse ox was 100% on room air oxygen. Blood work was done in the emergency and the patient was found to have a white cell count of 6.7 with a hemoglobin 12.7 and a platelet count of 168, coagulopathic with an INR of 1.7 and a PTT of 35. He did have a bicarb level of 15 without an elevated anion gap and sodium levels at 132. BUN is 12 with a creatinine 0.4. Blood sugar was low at 43 treated and his subsequent blood sugars at 90. Lactic acidosis 3.3. AST is 109, ALT is 26, alkaline phosphatase 127, CPK is 893, troponin 0.04, UA is showing +1 ketones and +1 protein, urine drug screen is positive for marijuana and benzodiazepine, alcohol level was negative. CAT scan of the brain was done in the emergency and it showed no acute process and the patient had nonspecific white matter changes and chronic ischemic changes. Chest x-ray was done in the emergency showed smaller lung volumes and generalized hazy appearance/atelectasis and the ultrasound of the abdomen showed small amount of ascites and a KUB showed a nonspecific bowel gas pattern. The patient is currently receiving external warming. Started on IV Rocephin as empiric antibiotic coverage. He is also on Xifaxan 550 mg p.o. twice daily and his diuretics are in the form of Lasix and Aldactone. He is also maintained on Keppra for seizures. His serum ammonia level was 130. On 03/28/2024, patient is being seen for a follow-up. The mother is at the bedside. NG tube was given and the patient is currently receiving lactulose and rifaximin. Noted the patient's ammonia level was considerably elevated and the patient has not produced any significant bowel movement activity yet. Seems to be more awake and less compared to yesterday. After some improvement in his temperature, he became again hypothermic and he was placed back on Jaspreet hugger's and current temperature is 97.5. Tachycardia is improving. He remains on 3 L of oxygen nasal cannula. Pulse ox 97% room air oxygen. No reported aspiration. Blood pressure is stable. The patient remains on IV fluids and is receiving normal citrate of 100 cc an hour. Remains on a combination of Lasix and Aldactone. Remains on empiric antibiotic coverage with IV Rocephin. Remains on Keppra. The blood work from today shows a white cell count of 8.9 with a hemoglobin of 10.7 and a platelet count of 181. Sodium levels at 134, potassium is at 3.3, BUN is 40 with a creatinine of 0.7. Lactic acid level is at 2.7 and this has dropped compared to yesterday. At the same time, LFTs are nonelevated. Albumin is at 1.9. On 03/29/2024, the patient is gradually recovering his mentation. He still lethargic and encephalopathic although much more arousable compared to yesterday. He is able to communicate and say few sentences. NG tube is in place. The patient continues to be on a combination of rifaximin and lactulose. He is having bowel movement activity. No other new complaints otherwise for now. No agitation. Sitter is at the bedside. No fever. He is currently on IV Unasyn. The white cell count is at 5.7 with a hemoglobin 8.6 and a platelet count of 154. BUN is 8 with a creatinine of 0.52. Serum ammonia level is down to 42 and a potassium level is at 2.9 and a sodium levels at 137. Rest of the medications remain unchanged. Objective - Vital Signs Vital signs: Vital Signs Temp 97.6 F 03/29/24 08:00 Pulse 95 03/29/24 08:00 Resp 18 03/29/24 08:00 BP 97/64 03/29/24 08:00 Pulse Ox 100 03/29/24 08:00 FiO2 Intake & Output 03/28/24 03/29/24 03/29/24 18:59 06:59 18:59 Intake Total 100 Output Total 535 1025 Balance -435 -1025 Weight 67 kg Intake: IV 100 Dextrose 5%-0.9% NaCl 1, 100 000 ml @ 100 mls/hr IV . Q10H [facility] Rx#:[id number] Output: Urine 535 1025 Uretheral (Carnes) 400 800 Other: Voiding Method Indwelling Catheter Indwelling Catheter - Exam The patient appeared sick looking, encephalopathy is improving NG tube in place. Head exam is unremarkable. No scleral icterus or corneal arcus noted. Neck is without jugular venous distension, thyromegaly, or carotid bruits. Carotid upstrokes are brisk bilaterally. Lungs are clear to auscultation and percussion. Cardiac exam reveals the PMI to be normally sized and situated. Rhythm is regular. First and second heart sounds normal. No murmurs, rubs or gallops. Abdominal exam reveals normal bowel sounds, no masses, no organomegaly and no aortic enlargement. No significant ascites noted Extremities are nonedematous and both femoral and pedal pulses are normal. Examination of the skin revealed no evidence of significant rashes, suspicious appearing nevi or other concerning lesions. Neurologically, the patient is encephalopathic, nonfocal neurologic exam. - Labs CBC & Chem 7: 03/29/24 06:57 03/29/24 06:57 Labs: Abnormal Lab Results - Last 24 Hours (Table) 03/28/24 03/28/24 03/28/24 Range/Units 14:05 18:10 18:57 RBC (4.30-5.90) m/uL Hgb (13.0-17.5) gm/dL Hct (39.0-53.0) % MCHC (31.0-37.0) g/dL Potassium (3.5-5.1) mmol/L Chloride (98-107) mmol/L Carbon Dioxide (22-30) mmol/L BUN (9-20) mg/dL Creatinine (0.66-1.25) mg/dL Glucose (74-99) mg/dL POC Glucose (mg/dL) 171 H 140 H (70-110) mg/dL Calcium (8.4-10.2) mg/dL Ammonia 56 H (<30) umol/L 03/28/24 03/28/24 03/29/24 Range/Units 18:58 20:35 00:31 RBC (4.30-5.90) m/uL Hgb (13.0-17.5) gm/dL Hct (39.0-53.0) % MCHC (31.0-37.0) g/dL Potassium 3.2 L (3.5-5.1) mmol/L Chloride (98-107) mmol/L Carbon Dioxide (22-30) mmol/L BUN (9-20) mg/dL Creatinine (0.66-1.25) mg/dL Glucose (74-99) mg/dL POC Glucose (mg/dL) 134 H 137 H (70-110) mg/dL Calcium (8.4-10.2) mg/dL Ammonia (<30) umol/L 03/29/24 03/29/24 03/29/24 Range/Units 06:11 06:57 06:57 RBC 3.16 L (4.30-5.90) m/uL Hgb 9.6 L (13.0-17.5) gm/dL Hct 31.3 L (39.0-53.0) % MCHC 30.7 L (31.0-37.0) g/dL Potassium (3.5-5.1) mmol/L Chloride (98-107) mmol/L Carbon Dioxide (22-30) mmol/L BUN (9-20) mg/dL Creatinine (0.66-1.25) mg/dL Glucose (74-99) mg/dL POC Glucose (mg/dL) 146 H (70-110) mg/dL Calcium (8.4-10.2) mg/dL Ammonia 42 H (<30) umol/L 03/29/24 Range/Units 06:57 RBC (4.30-5.90) m/uL Hgb (13.0-17.5) gm/dL Hct (39.0-53.0) % MCHC (31.0-37.0) g/dL Potassium 2.9 L (3.5-5.1) mmol/L Chloride 115 H (98-107) mmol/L Carbon Dioxide 21 L (22-30) mmol/L BUN 8 L (9-20) mg/dL Creatinine 0.52 L (0.66-1.25) mg/dL Glucose 132 H (74-99) mg/dL POC Glucose (mg/dL) (70-110) mg/dL Calcium 7.2 L (8.4-10.2) mg/dL Ammonia (<30) umol/L Assessment and Plan Plan: Altered mentation, multifactorial, as the patient was found to be in hepatic encephalopathy in the same time the patient was quite hypothermic with a temperature of 91 at the time of admission. Hepatic encephalopathy, improving on a combination of lactulose and rifaximin and ammonia level is dropping Acute hypothermia, improved Mild rhabdomyolysis Non-anion gap metabolic acidosis, improved Mild lactic acidosis, improved Liver cirrhosis, maintained on a combination of lactulose and rifaximin for hepatic encephalopathy. He serum ammonia level is quite elevated. The patient also has history of recurrent ascites and the patient is status post TIPS procedure. Maintained on a combination of Lasix and Aldactone on outpatient basis. 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 Plan Mental status continues to improve Keep NG tube in place Continue rifaximin and lactulose combination, reduce the lactulose dose to twice a day Awaiting a soft bowel movement external warming Monitor temperature Monitor CPK D5 normal saline at rate of 50 cc an hour Continue midodrine 5 mg p.o. 3 times daily Empiric antibiotic coverage with IV Unasyn Patient is altered and encephalopathic and is improving and her ammonia level is declining Watch for any signs of delirium tremens at a later stage Resume Enrrique Will continue to follow
[2024-03-29 18:00] LABS: Glucose,Whole Blood 141 mg/dL (70-110)
[2024-03-29 21:19] LABS: African American GFR (CKD) >90 (>60 ml/min/1.73 sqM); Anion Gap 1 mmol/L; Blood Urea Nitrogen 6 mg/dL (9-20); Calcium 7.3 mg/dL (8.4-10.2); Carbon Dioxide 22 mmol/L (22-30); Chloride 116 mmol/L (98-107); Glucose 114 mg/dL (74-99); Non-African American GFR(CKD) >90 (>60 ml/min/1.73 sqM); Potassium 3.1 mmol/L (3.5-5.1); Sodium 139 mmol/L (137-145)
[2024-03-29] MEDS: POTASSIUM CHLORIDE 10 MEQ in WATER FOR INJECTION 1 100ML.BAG IVPB SCH (22:22)
[2024-03-30 00:06] LABS: Glucose,Whole Blood 149 mg/dL (70-110)
[2024-03-30 06:12] LABS: Glucose,Whole Blood 107 mg/dL (70-110)
[2024-03-30 07:59] LABS: ALT 44 U/L (4-49); AST 121 U/L (17-59); African American GFR (CKD) >90 (>60 ml/min/1.73 sqM); Albumin 1.6 g/dL (3.5-5.0); Alkaline Phosphatase 101 U/L (38-126); Anion Gap 4 mmol/L; Basophils % (A) 1 %; Blood Urea Nitrogen 5 mg/dL (9-20); Calcium 7.2 mg/dL (8.4-10.2); Carbon Dioxide 23 mmol/L (22-30); Chloride 114 mmol/L (98-107); Eosinophils # (A) 0.1 k/uL (0-0.7); Eosinophils % (A) 2 %; Glucose 101 mg/dL (74-99); HCT 33.1 % (39.0-53.0); HGB 10.2 gm/dL (13.0-17.5); Hypochromasia Moderate; Lymphocytes # (A) 1.1 k/uL (1.0-4.8); Lymphocytes % (A) 32 %; MCH 30.3 pg (25.0-35.0); MCHC 30.7 g/dL (31.0-37.0); MCV 98.7 fL (80.0-100.0); Mean Platelet Volume 7.7; Monocytes # (A) 0.6 k/uL (0-1.0); Monocytes % (A) 18 %; Neutrophils # (A) 1.4 k/uL (1.3-7.7); Neutrophils % (A) 43 %; Non-African American GFR(CKD) >90 (>60 ml/min/1.73 sqM); Platelet Count 151 k/uL (150-450); RBC 3.35 m/uL (4.30-5.90); RDW 14.3 % (11.5-15.5); Sodium 141 mmol/L (137-145); Total Bilirubin 1.7 mg/dL (0.2-1.3); Total Protein 4.3 g/dL (6.3-8.2); WBC 3.3 k/uL (3.8-10.6)
--- NOTE | 2024-03-30 11:43 | P.PN ---
Subjective Progress Note Date: 03/30/24 This is a 33-year-old male patient, history of alcoholism with alcoholic liver cirrhosis status post TIPS procedure and known history of chronic ascites requiring biweekly paracentesis, presented to the emergency department because of altered mentation. The patient was found in an apartment with diminished level of consciousness he was found on the ground. He was wearing several layers of clothing and he had no heat in his house. He has not found to be a candidate for liver cancer because of his ongoing alcohol consumption. Based on this, the patient was brought in to the emergency department. His initial blood sugar was 60. He was hypothermic with a temperature of 91.1. Blood pressure was 94/67. Pulse ox was 100% on room air oxygen. Blood work was done in the emergency and the patient was found to have a white cell count of 6.7 with a hemoglobin 12.7 and a platelet count of 168, coagulopathic with an INR of 1.7 and a PTT of 35. He did have a bicarb level of 15 without an elevated anion gap and sodium levels at 132. BUN is 12 with a creatinine 0.4. Blood sugar was low at 43 treated and his subsequent blood sugars at 90. Lactic acidosis 3.3. AST is 109, ALT is 26, alkaline phosphatase 127, CPK is 893, troponin 0.04, UA is showing +1 ketones and +1 protein, urine drug screen is positive for marijuana and benzodiazepine, alcohol level was negative. CAT scan of the brain was done in the emergency and it showed no acute process and the patient had nonspecific white matter changes and chronic ischemic changes. Chest x-ray was done in the emergency showed smaller lung volumes and generalized hazy appearance/atelectasis and the ultrasound of the abdomen showed small amount of ascites and a KUB showed a nonspecific bowel gas pattern. The patient is currently receiving external warming. Started on IV Rocephin as empiric antibiotic coverage. He is also on Xifaxan 550 mg p.o. twice daily and his diuretics are in the form of Lasix and Aldactone. He is also maintained on Keppra for seizures. His serum ammonia level was 130. On 03/28/2024, patient is being seen for a follow-up. The mother is at the bedside. NG tube was given and the patient is currently receiving lactulose and rifaximin. Noted the patient's ammonia level was considerably elevated and the patient has not produced any significant bowel movement activity yet. Seems to be more awake and less compared to yesterday. After some improvement in his temperature, he became again hypothermic and he was placed back on Jaspreet hugger's and current temperature is 97.5. Tachycardia is improving. He remains on 3 L of oxygen nasal cannula. Pulse ox 97% room air oxygen. No reported aspiration. Blood pressure is stable. The patient remains on IV fluids and is receiving normal citrate of 100 cc an hour. Remains on a combination of Lasix and Aldactone. Remains on empiric antibiotic coverage with IV Rocephin. Remains on Keppra. The blood work from today shows a white cell count of 8.9 with a hemoglobin of 10.7 and a platelet count of 181. Sodium levels at 134, potassium is at 3.3, BUN is 40 with a creatinine of 0.7. Lactic acid level is at 2.7 and this has dropped compared to yesterday. At the same time, LFTs are nonelevated. Albumin is at 1.9. On 03/29/2024, the patient is gradually recovering his mentation. He still lethargic and encephalopathic although much more arousable compared to yesterday. He is able to communicate and say few sentences. NG tube is in place. The patient continues to be on a combination of rifaximin and lactulose. He is having bowel movement activity. No other new complaints otherwise for now. No agitation. Sitter is at the bedside. No fever. He is currently on IV Unasyn. The white cell count is at 5.7 with a hemoglobin 8.6 and a platelet count of 154. BUN is 8 with a creatinine of 0.52. Serum ammonia level is down to 42 and a potassium level is at 2.9 and a sodium levels at 137. Rest of the medications remain unchanged. On 03/30/2024, the patient is more awake. NG tube has been removed and the patient is receiving oral lactulose twice a day. He is also on rifaximin. Serum ammonia level is dropped down to 37. He is still lethargic yet arousable. LFTs are unchanged. Electrolytes are all stable with a sodium level of 141, bicarb of 23, BUN of 5 and a creatinine of 0.5. Sodium level is at 141. The white cell count of 3.3 with a hemoglobin 10.2 and a platelet count of 151. The patient is on room air oxygen. Communicating. No focal neurological deficit. Profoundly weak. Objective - Vital Signs Vital signs: Vital Signs Temp 97.8 F 03/30/24 07:58 Pulse 83 03/30/24 07:58 Resp 16 03/30/24 07:58 BP 98/60 03/30/24 07:58 Pulse Ox 96 03/30/24 07:58 FiO2 Intake & Output 03/29/24 03/30/24 03/30/24 18:59 06:59 18:59 Intake Total 300 400 Output Total 800 450 Balance -500 -50 Weight 70 kg Intake: Intake, IV Titration 400 Amount Ampicillin-Sulbactam 3 gm 100 In Sodium Chloride 0.9% 100 ml @ 200 mls/hr IVPB Q6HR [facility] Rx#:[id number] Dextrose 5%-0.9% NaCl 1, 250 000 ml @ 50 mls/hr IV . Q20H [facility] Rx#:[id number] Thiamine 100 mg In Sodium 50 Chloride 0.9% 50 ml @ 100 mls/hr IVPB Q12HR [facility] Rx#:[id number] Oral 300 Output: Urine 800 450 Other: Voiding Method Indwelling Catheter Indwelling Catheter # Bowel Movements 1 1 - Exam The patient appeared sick looking, encephalopathy is improving, NG tube has been removed Head exam is unremarkable. No scleral icterus or corneal arcus noted. Neck is without jugular venous distension, thyromegaly, or carotid bruits. Carotid upstrokes are brisk bilaterally. Lungs are clear to auscultation and percussion. Cardiac exam reveals the PMI to be normally sized and situated. Rhythm is r egular. First and second heart sounds normal. No murmurs, rubs or gallops. Abdominal exam reveals normal bowel sounds, no masses, no organomegaly and no aortic enlargement. No significant ascites noted Extremities are nonedematous and both femoral and pedal pulses are normal. Examination of the skin revealed no evidence of significant rashes, suspicious appearing nevi or other concerning lesions. Neurologically, the patient is encephalopathic, nonfocal neurologic exam. - Labs CBC & Chem 7: 03/30/24 07:27 03/30/24 07:27 Labs: Abnormal Lab Results - Last 24 Hours (Table) 03/29/24 03/29/24 03/29/24 Range/Units 12:02 17:58 20:34 WBC (3.8-10.6) k/uL RBC (4.30-5.90) m/uL Hgb (13.0-17.5) gm/dL Hct (39.0-53.0) % MCHC (31.0-37.0) g/dL Potassium 3.1 L (3.5-5.1) mmol/L Chloride 116 H (98-107) mmol/L BUN 6 L (9-20) mg/dL Creatinine 0.51 L (0.66-1.25) mg/dL Glucose 114 H (74-99) mg/dL POC Glucose (mg/dL) 119 H 141 H (70-110) mg/dL Calcium 7.3 L (8.4-10.2) mg/dL Total Bilirubin (0.2-1.3) mg/dL AST (17-59) U/L Ammonia (<30) umol/L Total Protein (6.3-8.2) g/dL Albumin (3.5-5.0) g/dL 03/30/24 03/30/24 03/30/24 Range/Units 00:04 07:27 07:27 WBC 3.3 L (3.8-10.6) k/uL RBC 3.35 L (4.30-5.90) m/uL Hgb 10.2 L (13.0-17.5) gm/dL Hct 33.1 L (39.0-53.0) % MCHC 30.7 L (31.0-37.0) g/dL Potassium (3.5-5.1) mmol/L Chloride (98-107) mmol/L BUN (9-20) mg/dL Creatinine (0.66-1.25) mg/dL Glucose (74-99) mg/dL POC Glucose (mg/dL) 149 H (70-110) mg/dL Calcium (8.4-10.2) mg/dL Total Bilirubin (0.2-1.3) mg/dL AST (17-59) U/L Ammonia 37 H (<30) umol/L Total Protein (6.3-8.2) g/dL Albumin (3.5-5.0) g/dL 03/30/24 Range/Units 07:27 WBC (3.8-10.6) k/uL RBC (4.30-5.90) m/uL Hgb (13.0-17.5) gm/dL Hct (39.0-53.0) % MCHC (31.0-37.0) g/dL Potassium 3.0 L (3.5-5.1) mmol/L Chloride 114 H (98-107) mmol/L BUN 5 L (9-20) mg/dL Creatinine 0.51 L (0.66-1.25) mg/dL Glucose 101 H (74-99) mg/dL POC Glucose (mg/dL) (70-110) mg/dL Calcium 7.2 L (8.4-10.2) mg/dL Total Bilirubin 1.7 H (0.2-1.3) mg/dL AST 121 H (17-59) U/L Ammonia (<30) umol/L Total Protein 4.3 L (6.3-8.2) g/dL Albumin 1.6 L (3.5-5.0) g/dL Assessment and Plan Plan: Altered mentation, multifactorial, as the patient was found to be in hepatic encephalopathy in the same time the patient was quite hypothermic with a temperature of 91 at the time of admission, clinically improving although there is some ongoing residual encephalopathy. Serum ammonia level is down to 37 Hepatic encephalopathy, improving on a combination of lactulose and rifaximin and ammonia level is dropping Acute hypothermia, improved Mild rhabdomyolysis Non-anion gap metabolic acidosis, improved Mild lactic acidosis, improved Liver cirrhosis, maintained on a combination of lactulose and rifaximin for hepatic encephalopathy. He serum ammonia level is quite elevated. The patient also has history of recurrent ascites and the patient is status post TIPS procedure. Maintained on a combination of Lasix and Aldactone on outpatient basis. 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 Plan Mental status continues to improve NG tube has been removed Continue rifaximin and lactulose combination, reduce the lactulose dose to twice a day D5 normal saline at rate of 50 cc an hour Continue midodrine 5 mg p.o. 3 times daily Empiric antibiotic coverage with IV Unasyn Patient is altered and encephalopathic and is improving and her ammonia level is declining Watch for any signs of delirium tremens at a later stage Resume [facility] Pulmonary critical care services will sign off the case.
[2024-03-30 12:26] LABS: Glucose,Whole Blood 135 mg/dL (70-110)
--- NOTE | 2024-03-30 12:27 | P.PN ---
Subjective Progress Note Date: 03/30/24 Patient is obtunded and majority of information is obtained from discussion with Dr. Graham. 33 year old M with PMH of alcoholic liver cirrhosis, anxiety and depression, seizure disorder? presents to the ED for altered mentation. Apparently patient got the TIPS procedure done on the 03/20. He was last seen on 03/25 and appeared to be normal. When a family member went to check up on him today, he was found down in his basement with multiple layers of clothing. It appears he did not have heat in his house. In the ED he underwent extensive evaluation. BP 94/67, HR 83, T 91.1F, RR 18, 99% on RA. CBC, Coag panel, CMP signifcant for RBC 4.05, Hg 12.7, PT 17.1, INR 1.7, APTT 35.1, Na 132, bicarb 15, Cr 0.45, glu 43, Ca 7.5, T. Bili 2.9, AST 109, alk phos 127, alb 2.4. Lactic acid 3.3. Troponin 0.048. CPK 893. UA 1+ ketones, 1+ protein, neg LE/nitrite. UDS + benzo + THC. EtOH < 10. EKG sinus rhythm with Q waves V1-4. CT brain nonspecific white matter changes. EKG low lung volumes likely atelectasis. Patient is admitted to ICU for fruther workup and management. NG tube inserted and started on Lactulose. Abd US showed small amount of ascites. Echo showed normal LV function. Troponin 0.045, 0.053. 03/30 Patient was seen and examined. He is more awake but extremely confused. Sitter at bedside. CBC and CMP significant for WBC 3.3, RBC 3.35, Hg 10.2, Hct 33.1, K 3, Cl 114, BUN 5, Cr 0.51, glu 101, Ca 7.2, T. Bili 1.7, AST 121, alb 1.6. Mag 1.6. Ammonia 37. Antibiotics include Unasyn 3g IV Q6H (D2). General: ill appearing, confused Derm: warm, dry Head: atraumatic, normocephalic, symmetric, NGT in place Eyes: EOMI, no lid lag, icteric sclera Mouth: no lip lesion, mucus membranes moist Cardiovascular: S1S2 reg, no murmur Lungs: Decreased BS bilateral, no rhonchi, no rales , no accessory muscle use Abdominal: soft, nontender to palpation, no guarding, distended Ext: no gross muscle atrophy, no edema, no contractures Neuro: Moving all extremities Psych: Confused Based on my assessment of this patient, this patient meets a high complexity level of care. Acute hepatic encephalopathy: Worsened due to hypothermia and hypoglycemia. Keep NPO for now until more alert. Lactulose 30g per NGT BID. Rifaximin 550 mg PO BID. Lasix 20 mg PO BID. Aldactone 25 mg PO QD. Abd US as above. Status post 3 days for empiric treatment of SBP. GI on board. Possible aspiration PNA: New right sided infiltrate on CXR. Unasyn 3g IV Q6H (D2). He does meet sepsis criteria with tachycardia, hypothermia and + source of infection. Follow Sputum and BCx. IV hydration as below. Telemetry monitoring. Hypothermia: Possibly environmental. Improved. Hypotension: Likely due to underlying cirrhosis and dehydration. Continue D5 NS at 100 cc/hr. Midodrine 5 mg PO TID. Telemetry monitoring. Hypokalemia: KCl 60 meq PO x 1. Mag sulfate 2g IV x 1. Troponin elevation: Troponins flat, ACS ruled out. Echo with normal LV function and no regional wall motion abnormalities. Lactic acidosis: Persistently elevated likely due to advanced cirrhosis. Supratherapeutic INR: Likely due to advanced cirrhosis. Elevated CPK: Likely due to prolonged time down. Monitor renal function. IV hydration as above. EtOH abuse: CIWA protocol with Ativan PRN. Seizure disorder: Keppra 500 mg PO BID. Resolved: Hypoglycemia CODE STATUS: FULL CODE DVT Prophylaxis: Lovenox SQ GI Prophylaxis: Protonix IV Designated medical POA if patient is not able to make medical decisions for themselves: I have reviewed the following information services consultant notes: Pulmonary. I have reviewed the results of the following tests: CBC, CMP, Mag, Ammonia. I have ordered the following tests: CBC, BMP, Mag in the AM. I have discussed the care of this patient with the following independent historian: DEYVI. I have independently interpreted the following test below: I have discussed the management of this patient with the following physician: Objective - Vital Signs Vital signs: Vital Signs Temp 97.5 F L 03/30/24 11:31 Pulse 83 03/30/24 11:31 Resp 16 03/30/24 11:31 BP 102/69 03/30/24 11:31 Pulse Ox 97 03/30/24 11:31 FiO2 Intake & Output 03/29/24 03/30/24 03/30/24 18:59 06:59 18:59 Intake Total 300 400 Output Total 800 450 Balance -500 -50 Weight 70 kg Intake: Intake, IV Titration 400 Amount Ampicillin-Sulbactam 3 gm 100 In Sodium Chloride 0.9% 100 ml @ 200 mls/hr IVPB Q6HR [facility] Rx#:[id number] Dextrose 5%-0.9% NaCl 1, 250 000 ml @ 50 mls/hr IV . Q20H [facility] Rx#:[id number] Thiamine 100 mg In Sodium 50 Chloride 0.9% 50 ml @ 100 mls/hr IVPB Q12HR [facility] Rx#:[id number] Oral 300 Output: Urine 800 450 Other: Voiding Method Indwelling Catheter Indwelling Catheter Indwelling Catheter # Bowel Movements 1 1 1 - Labs CBC & Chem 7: 03/30/24 07:27 03/30/24 07:27 Labs: Abnormal Lab Results - Last 24 Hours (Table) 03/29/24 03/29/24 03/30/24 Range/Units 17:58 20:34 00:04 WBC (3.8-10.6) k/uL RBC (4.30-5.90) m/uL Hgb (13.0-17.5) gm/dL Hct (39.0-53.0) % MCHC (31.0-37.0) g/dL Potassium 3.1 L (3.5-5.1) mmol/L Chloride 116 H (98-107) mmol/L BUN 6 L (9-20) mg/dL Creatinine 0.51 L (0.66-1.25) mg/dL Glucose 114 H (74-99) mg/dL POC Glucose (mg/dL) 141 H 149 H (70-110) mg/dL Calcium 7.3 L (8.4-10.2) mg/dL Total Bilirubin (0.2-1.3) mg/dL AST (17-59) U/L Ammonia (<30) umol/L Total Protein (6.3-8.2) g/dL Albumin (3.5-5.0) g/dL 03/30/24 03/30/24 03/30/24 Range/Units 07:27 07:27 07:27 WBC 3.3 L (3.8-10.6) k/uL RBC 3.35 L (4.30-5.90) m/uL Hgb 10.2 L (13.0-17.5) gm/dL Hct 33.1 L (39.0-53.0) % MCHC 30.7 L (31.0-37.0) g/dL Potassium 3.0 L (3.5-5.1) mmol/L Chloride 114 H (98-107) mmol/L BUN 5 L (9-20) mg/dL Creatinine 0.51 L (0.66-1.25) mg/dL Glucose 101 H (74-99) mg/dL POC Glucose (mg/dL) (70-110) mg/dL Calcium 7.2 L (8.4-10.2) mg/dL Total Bilirubin 1.7 H (0.2-1.3) mg/dL AST 121 H (17-59) U/L Ammonia 37 H (<30) umol/L Total Protein 4.3 L (6.3-8.2) g/dL Albumin 1.6 L (3.5-5.0) g/dL
[2024-03-30] MEDS: POTASSIUM CHLORIDE ER 20 MEQ TAB.ER PO STA ×2 (12:29)
[2024-03-30] MEDS: MAGNESIUM SULFATE-D5W PMX 1 GM in DEXTROSE/WATER 1 100ML.BAG IVPB SCH (15:11)
[2024-03-30 19:11] LABS: Glucose,Whole Blood 144 mg/dL (70-110)
[2024-03-31 05:39] LABS: Glucose,Whole Blood 99 mg/dL (70-110)
[2024-03-31 05:47] LABS: T4, Free (Free Thyroxine) 1.65 ng/dL (0.78-2.19)
--- NOTE | 2024-03-31 06:39 | P.PN ---
Subjective Progress Note Date: 03/31/24 Patient is obtunded and majority of information is obtained from discussion with Dr. Graham. 33 year old M with PMH of alcoholic liver cirrhosis, anxiety and depression, seizure disorder? presents to the ED for altered mentation. Apparently patient got the TIPS procedure done on the 03/20. He was last seen on 03/25 and appeared to be normal. When a family member went to check up on him today, he was found down in his basement with multiple layers of clothing. It appears he did not have heat in his house. In the ED he underwent extensive evaluation. BP 94/67, HR 83, T 91.1F, RR 18, 99% on RA. CBC, Coag panel, CMP signifcant for RBC 4.05, Hg 12.7, PT 17.1, INR 1.7, APTT 35.1, Na 132, bicarb 15, Cr 0.45, glu 43, Ca 7.5, T. Bili 2.9, AST 109, alk phos 127, alb 2.4. Lactic acid 3.3. Troponin 0.048. CPK 893. UA 1+ ketones, 1+ protein, neg LE/nitrite. UDS + benzo + THC. EtOH < 10. EKG sinus rhythm with Q waves V1-4. CT brain nonspecific white matter changes. EKG low lung volumes likely atelectasis. Patient is admitted to ICU for fruther workup and management. NG tube inserted and started on Lactulose. Abd US showed small amount of ascites. Echo showed normal LV function. Troponin trended 0.045, 0.053 and ACS was ruled out. His ammonia levels trended down with Lactulose. He remains confused requiring a sitter, CXR showing concerns of new right sided infiltrate, Rocephin switched to Unasyn 3g IV Q6H. 03/31 Patient was seen and examined. Much more alert today. Still slightly confused. Does not remember the events leading up to hospitalization. Thinks he is in the Psyc morrow. Wanting something to drink. Sitter at bedside. Pro-umang 0.08. TSH 5.34, FT4 1.65. CBC, CMP, Mag, Ammonia pending this morning. Antibiotics include Unasyn 3g IV Q6H (D3). General: ill appearing Derm: warm, dry Head: atraumatic, normocephalic, symmetric Eyes: EOMI, no lid lag, icteric sclera Mouth: no lip lesion, mucus membranes moist Cardiovascular: S1S2 tachy, no murmur Lungs: Decreased BS bilateral, no rhonchi, no rales , no accessory muscle use Abdominal: soft, nontender to palpation, no guarding, distended Ext: no gross muscle atrophy, no edema, no contractures Neuro: Moving all extremities Psych: Alert and oriented x 2 Based on my assessment of this patient, this patient meets a high complexity l evel of care. Acute hepatic encephalopathy: Worsened due to hypothermia and hypoglycemia. Keep NPO for now until more alert. Lactulose 30g per NGT BID. Rifaximin 550 mg PO BID. Lasix 20 mg PO BID. Aldactone 25 mg PO QD. Abd US as above. Status post 3 days of Rocephin for empiric treatment of SBP. Thiamine [address] consulted for swallow eval. PT and OT consulted. GI on board. Possible aspiration PNA: New right sided infiltrate on CXR. Unasyn 3g IV Q6H (D3). He does meet sepsis criteria with tachycardia, hypothermia and + source of infection. Pro-umang negative at 0.08. Follow Sputum and BCx. IV hydration as below. Telemetry monitoring. Hypothermia: Likely environmental. Improved. Monitor temp. Hypotension: Likely due to underlying cirrhosis and dehydration. Continue D5 NS at 50 cc/hr. Midodrine 5 mg PO TID. Telemetry monitoring. Hypokalemia: CMP and Mag pending this morning. Troponin elevation: Troponins flat, ACS ruled out. Echo with normal LV function and no regional wall motion abnormalities. Lactic acidosis: Persistently elevated likely due to advanced cirrhosis. Subclinical hypothyroidism: Repeat TSH/FT4 in 6 weeks. Supratherapeutic INR: Likely due to advanced cirrhosis. Elevated CPK: Likely due to prolonged time down. Monitor renal function. IV hydration as above. EtOH abuse: CIWA protocol with Ativan PRN. Seizure disorder: Keppra 500 mg PO BID. Resolved: Hypoglycemia CODE STATUS: FULL CODE DVT Prophylaxis: Lovenox SQ GI Prophylaxis: Protonix IV Designated medical POA if patient is not able to make medical decisions for themselves: I have reviewed the following provider relations consultant notes: Pulmonary. I have reviewed the results of the following tests: Pro-umang. TSH. FT4. I have ordered the following tests: CBC, CMP, Mag, Ammonia pending. I have discussed the care of this patient with the following independent historian: I have independently interpreted the following test below: I have discussed the management of this patient with the following physician: Objective - Vital Signs Vital signs: Vital Signs Temp 97.7 F 03/31/24 00:29 Pulse 96 03/31/24 02:00 Resp 15 03/31/24 02:00 BP 106/73 03/31/24 00:29 Pulse Ox 96 03/31/24 00:29 FiO2 Intake & Output 03/30/24 03/30/24 03/31/24 06:59 18:59 06:59 Intake Total 400 Output Total 450 600 Balance -50 -600 Weight 70 kg 69.5 kg Intake: Intake, IV Titration 400 Amount Ampicillin-Sulbactam 3 gm 100 In Sodium Chloride 0.9% 100 ml @ 200 mls/hr IVPB Q6HR [facility] Rx#:[id number] Dextrose 5%-0.9% NaCl 1, 250 000 ml @ 50 mls/hr IV . Q20H [facility] Rx#:[id number] Thiamine 100 mg In Sodium 50 Chloride 0.9% 50 ml @ 100 mls/hr IVPB Q12HR [facility] Rx#:[id number] Output: Urine 450 600 Other: Voiding Method Indwelling Catheter Indwelling Catheter Indwelling Catheter # Bowel Movements 1 1 - Labs CBC & Chem 7: 03/30/24 07:27 03/30/24 07:27 Labs: Abnormal Lab Results - Last 24 Hours (Table) 03/30/24 03/30/24 03/30/24 Range/Units 07:27 07:27 07:27 WBC 3.3 L (3.8-10.6) k/uL RBC 3.35 L (4.30-5.90) m/uL Hgb 10.2 L (13.0-17.5) gm/dL Hct 33.1 L (39.0-53.0) % MCHC 30.7 L (31.0-37.0) g/dL Potassium 3.0 L (3.5-5.1) mmol/L Chloride 114 H (98-107) mmol/L BUN 5 L (9-20) mg/dL Creatinine 0.51 L (0.66-1.25) mg/dL Glucose 101 H (74-99) mg/dL POC Glucose (mg/dL) (70-110) mg/dL Calcium 7.2 L (8.4-10.2) mg/dL Total Bilirubin 1.7 H (0.2-1.3) mg/dL AST 121 H (17-59) U/L Ammonia 37 H (<30) umol/L Total Protein 4.3 L (6.3-8.2) g/dL Albumin 1.6 L (3.5-5.0) g/dL TSH (0.465-4.680) mIU/L 03/30/24 03/30/24 03/30/24 Range/Units 07:27 12:24 19:09 WBC (3.8-10.6) k/uL RBC (4.30-5.90) m/uL Hgb (13.0-17.5) gm/dL Hct (39.0-53.0) % MCHC (31.0-37.0) g/dL Potassium (3.5-5.1) mmol/L Chloride (98-107) mmol/L BUN (9-20) mg/dL Creatinine (0.66-1.25) mg/dL Glucose (74-99) mg/dL POC Glucose (mg/dL) 135 H 144 H (70-110) mg/dL Calcium (8.4-10.2) mg/dL Total Bilirubin (0.2-1.3) mg/dL AST (17-59) U/L Ammonia (<30) umol/L Total Protein (6.3-8.2) g/dL Albumin (3.5-5.0) g/dL TSH 5.340 H (0.465-4.680) mIU/L Microbiology - Last 24 Hours (Table) 03/29/24 13:07 Blood Culture - Preliminary Blood
[2024-03-31 06:55] LABS: HCT 35.3 % (39.0-53.0); HGB 10.9 gm/dL (13.0-17.5); Hypochromasia Moderate; MCH 30.6 pg (25.0-35.0); MCHC 30.9 g/dL (31.0-37.0); MCV 98.9 fL (80.0-100.0); Mean Platelet Volume 8.5; Platelet Count 126 k/uL (150-450); RBC 3.57 m/uL (4.30-5.90); RDW 14.6 % (11.5-15.5); WBC 3.2 k/uL (3.8-10.6)
[2024-03-31 06:56] LABS: ALT 51 U/L (4-49); AST 115 U/L (17-59); African American GFR (CKD) >90 (>60 ml/min/1.73 sqM); Albumin 1.8 g/dL (3.5-5.0); Albumin/Globulin Ratio 0.6; Alkaline Phosphatase 106 U/L (38-126); Anion Gap 4 mmol/L; Blood Urea Nitrogen 2 mg/dL (9-20); Calcium 7.4 mg/dL (8.4-10.2); Carbon Dioxide 25 mmol/L (22-30); Chloride 114 mmol/L (98-107); Globulin 2.8 g/dL; Glucose 106 mg/dL (74-99); Non-African American GFR(CKD) >90 (>60 ml/min/1.73 sqM); Potassium 3.5 mmol/L (3.5-5.1); Sodium 143 mmol/L (137-145); Total Bilirubin 1.9 mg/dL (0.2-1.3); Total Protein 4.6 g/dL (6.3-8.2)
[2024-03-31 11:39] LABS: Glucose,Whole Blood 143 mg/dL (70-110)
--- NOTE | 2024-03-31 12:42 | CDI ---
Documentation Clarification Form Date: 03/31/2024 12:15:32 PM From: Berna Watkins RN CCDS Phone: [phone] Admit Date: 03/27/2024 04:10:00 PM Patient Name: Marcial Arnett Visit Number: [id number] Discharge Date: ATTENTION: The Clinical Documentation Specialists (CDI) and [facility] Coding Staff appreciate your assistance in clarifying documentation. Please respond to the clarification below the line at the bottom and electronically sign. The CDI & [facility] Coding staff will review the response and follow-up if needed. Please note: Queries are made part of the Legal Health Record. If you have any questions, please contact the author of this message via ITS. Doctor: Dinorah Downing Sepsis is documented 03/29, Medicine progress note. For each diagnosis, documentation must be clear to determine if the condition was present at the time of the patients inpatient admission or developed during the hospital stay. Additional clarification regarding Sepsis is requested. History/Risk Factors: 33 year old male presents to the ED after being found down in his basement with multiple layers of clothing, it appears he did not have heat in his house. Medical history: Clinical Indicators: Medicine note, 03/29: Possible aspiration PNA: New right sided infiltrate on CXR.Switch Rocephin to Unasyn 3g IV Q6H. He does meet sepsis criteria with tachycardia, hypothermia and + source of infection. VSS: 03/27, B/P 94/67 HR 83 Temp 91.1F Rectal RR 18; SpO2 99% RA LABS: Wbc 6.7, Neutrophils 5.1, Plasma lactic acid 3.3 CXR 03/27: Low lung volumes with generalized hazy appearance which could represent atelectasis versus pulmonary edema. CXR 03/29: Basilar airspace opacities most pronounced on the right. Treatment: 03/27 03/29 Ceftriaxone IVPB Daily; 03/29 Ampicillin IVPB Q6H, Definition of Present on Admission (POA): A diagnosis present at the time the order for admission to inpatient status was written. Please clarify if the Sepsis was POA [ ] Y = Yes, the condition was present at the time of the order for inpatient admission. [ x ] N = No, the condition was not present at the time of the order for inpatient admission. [ ] W = Clinically undetermined if the condition was present at the time of the order for inpatient admission. (Template Last Revised: June 2020) MTDD
[2024-03-31 16:31] LABS: Glucose,Whole Blood 147 mg/dL (70-110)
[2024-04-01 00:24] LABS: Glucose,Whole Blood 162 mg/dL (70-110)
[2024-04-01 06:24] LABS: Glucose,Whole Blood 230 mg/dL (70-110)
[2024-04-01 11:41] LABS: Glucose,Whole Blood 139 mg/dL (70-110)
--- NOTE | 2024-04-01 14:23 | P.PN ---
Subjective Progress Note Date: 04/01/24 Hospital Course: A 33-year-old male with past medical history of alcoholic liver cirrhosis, anx iety, depression, seizure disorder, who presented to the ED with AMS, he had TIPS done on 03/20/2024 and was last seen normal on 03/25. He then was found by a family member in his basement with multiple layers of clothing on and it appears that he did not have heat on in his cells. In the ED patient's blood pressure was borderline 94/67, he was hypothermic 91.1, satting well on room air, hit lactic acid level was increased to 3.3, CPK elevated at 893, UDS positive for benzos sent THC, negative ethanol, CT brain showed nonspecific white matter changes, patient was admitted to the ICU for further workup and management, NG tube inserted and patient was started on lactulose, abdominal ultrasound showed small amount of ascites, echo normal LV function, troponin trended 0.0 45, 0.0 53, ACS ruled out. He is initially elevated ammonia level trended down with lactulose, patient remained confused and required sitter, chest x-ray showed concern for right-sided infiltrate and Rocephin was switched to Unasyn. Patient does not have recollection of the events leading up to the hospitalization. Patient was seen by SPECIAL INVESTIGATION UNIT INVESTIGATOR for dysphagia, his diet was advanced to level 3. PT OT following. Repeat abdominal ultrasound ordered to evaluate status of ascites, patient reportedly gets paracentesis twice a day. Subjective: Patient complains of confusion, otherwise no concerns today Pertinent positives and negatives as discussed above, a complete review of systems was performed and all other systems are negative. Vitals Signs Reviewed. General ill-appearing Derm: [warm], [dry] Head: [atraumatic], [normocephalic], [symmetric] Eyes: [EOMI], [no lid lag], [anicteric sclera] Mouth: [no lip lesion], [mucus membranes moist] Cardiovascular: [S1S2 reg], [no murmur] Lungs: [CTA bilateral], [no rhonchi, no rales] , [no accessory muscle use] Abdominal: Generalized tenderness, distended, fluid wave, hepatomegaly Ext: [no gross muscle atrophy], [no edema], [no contractures] Neuro: [ CN II-XI grossly intact], [no focal neuro deficits] Psych: Slowed, alert and oriented to self and place, time Data Reviewed Today: Pertinent Labs: Blood sugars well-controlled Assessment and Plan: Acute hepatic encephalopathy Liver cirrhosis dysphagia generalized weakness -Continue lactulose, rifaximin, Lasix, Aldactone -Repeat abdominal ultrasound, evaluate for need of paracentesis -Continue thiamine -SPECIAL INVESTIGATION UNIT INVESTIGATOR, PT OT following Possible aspiration pneumonia -Continue Unasyn, follow-up on blood and sputum cultures Hypothermia, likely environmental, resolved Hypotension, continue midodrine Troponin elevation, ACS ruled out, no regional wall motion abnormalities on TTE Lactic acidosis: Persistently elevated likely due to advanced cirrhosis. Subclinical hypothyroidism: Repeat TSH/FT4 in 6 weeks. Supratherapeutic INR: Likely due to advanced cirrhosis. Elevated CPK: Likely due to prolonged time down. Monitor renal function. IV hydration as above. EtOH abuse: CIWA protocol with Ativan PRN. Seizure disorder: Keppra 500 mg PO BID. Resolved: Hypoglycemia \ DVT ppx: Lovenox Anticipated discharge place: 24-48 Anticipated discharge time: [facility] vs home Objective - Vital Signs Vital signs: Vital Signs Temp 98.3 F 04/01/24 07:49 Pulse 71 04/01/24 13:22 Resp 18 04/01/24 13:22 BP 94/63 04/01/24 13:16 Pulse Ox 97 04/01/24 13:22 FiO2 Intake & Output 03/31/24 04/01/24 04/01/24 18:59 06:59 18:59 Output Total 510 300 Balance -510 -300 Weight 69.8 kg Output: Urine 510 300 Other: Voiding Method Indwelling Catheter Indwelling Catheter Indwelling Catheter # Voids 1 # Bowel Movements 1 - Labs CBC & Chem 7: 03/31/24 06:24 03/31/24 06:24 Labs: Abnormal Lab Results - Last 24 Hours (Table) 03/31/24 04/01/24 04/01/24 Range/Units 16:29 00:22 06:23 POC Glucose (mg/dL) 147 H 162 H 230 H (70-110) mg/dL 04/01/24 Range/Units 11:39 POC Glucose (mg/dL) 139 H (70-110) mg/dL Microbiology - Last 24 Hours (Table) 03/29/24 13:07 Blood Culture - Preliminary Blood
--- NOTE | 2024-04-01 15:09 | US ---
EXAMINATION TYPE: US abdomen limited DATE OF EXAM: 04/01/2024 COMPARISON: Multiple, most recent 03/27/2024 CLINICAL INDICATION: Male, 33 years old with history of eval ascites size; Per sister, TIPS procedur e 2 weeks ago; Patient not alert for exam TECHNIQUE: Grayscale imaging of the abdomen for ascites. FINDINGS: Fluid seen all four abdominal quadrents IMPRESSION: Minimal abdominal ascites. [facility], , 04/01/2024 3:07 PM
[2024-04-01 16:28] LABS: Glucose,Whole Blood 154 mg/dL (70-110)
[2024-04-01 21:06] LABS: Glucose,Whole Blood 134 mg/dL (70-110)
[2024-04-02 00:20] LABS: Glucose,Whole Blood 138 mg/dL (70-110)
[2024-04-02 06:22] LABS: Glucose,Whole Blood 141 mg/dL (70-110)
[2024-04-02 08:57] LABS: Glucose,Whole Blood 216 mg/dL (70-110)
[2024-04-02 09:32] LABS: HCT 28.3 % (39.6-50.0); HGB 9.3 g/dL (13.0-17.0); MCH 31.1 pg (27.0-32.0); MCHC 32.9 g/dL (32.0-37.0); MCV 94.6 FL (80.0-97.0); Mean Platelet Volume 10.5 FL (9.5-12.2); NRBC Per 100 WBC 0 X 10*3/uL (0.00-0.01); Platelet Count 88 X 10*3/uL (140-440); RBC 2.99 X 10*6/uL (4.40-5.60); RDW 14.5 % (11.5-14.5); WBC 4.45 X 10*3/uL (4.50-10.00)
[2024-04-02 09:33] LABS: ALT 39 U/L (10-49); AST 67 U/L (14-35); Albumin 1.8 g/dL (3.8-4.9); Albumin/Globulin Ratio 0.86 Ratio (1.60-3.17); Alkaline Phosphatase 103 U/L (41-126); BUN/Creat Ratio <8.75 Ratio (12.00-20.00); Blood Urea Nitrogen <3.5 mg/dL (9.0-27.0); Calcium 6.8 mg/dL (8.7-10.3); Carbon Dioxide 23.6 mmol/L (21.6-31.8); Chloride 109 mmol/L (96-109); Globulin 2.1 g/dL (1.6-3.3); Glucose 146 mg/dL (70-110); Potassium 3.3 mmol/L (3.5-5.5); Sodium 138 mmol/L (135-145); Total Bilirubin 1.1 mg/dL (0.3-1.2); Total Protein 3.9 g/dL (6.2-8.2)
--- NOTE | 2024-04-02 11:15 | P.PN ---
Subjective Progress Note Date: 04/02/24 Hospital course: Patient is a 33-year-old male with a past medical history of alcoholic liver cirrhosis, anxiety, depression, and seizure disorder. He presented to the emergency department on 03/27/2024 secondary to altered mental status. Patient is status post a TIPS procedure on 03/20/2024 and was reportedly last known normal on 03/25/2024 prior to family finding him in his basement and multiple layers of close with no heat in his house. Upon arrival to our facility, patient underwent evaluation in the emergency department. Vital signs upon arrival show blood pressure 94/61, heart rate 83, respiratory rate 18, and a rectal core temp of 91.1 F with SpO2 of 99% on room air. EKG was completed showing sinus mechanism at 84 bpm. Chest x-ray was completed showing low lung volumes with generalized hazy appearance representing atelectasis versus pulm onary edema. CT brain was completed negative for acute intracranial process revealing mild nonspecific white matter changes likely secondary to chronic small vessel ischemic disease. Labs were completed and reviewed. CBC showing normocytic anemia with hemoglobin of 12.7. Coagulation profile revealed an elevated PT of 17.1, INR of 1.7, and PTT of 35.1. BMP revealed hyponatremia with sodium of 132 and high anion gap metabolic acidosis with chloride of 105, bicarb of 15, and anion gap of 12. Blood glucose was 272. Lactic acid initially 3.3 elevating up to 3.7. Liver profile showing total bili of 2.9, AST of 109, ALT of 26, and alkaline phosphatase of 127. Ammonia level was elevated at 130. Creatinine kinase was 893. Troponin was elevated at 0.048 trending up to 0.053. Urinalysis was positive for protein, ketones but negative for blood or infection. Urine drug screen was positive for benzodiazepines and marijuana. Serum alcohol level was negative at less than 10. Patient was admitted to the intensive care unit for therapeutic warming and further management. Echocardiogram was completed showing a preserved EF of 55 to 60% with no significant valvular or structural abnormalities reported. Patient was started on lactulose, rifaximin, Lasix, and Aldactone for treatment of his hyperammonemia. He was placed on Unasyn for concerns of possible aspiration pneumonia. Physical exam: Patient alert and oriented to person, place, time, and situation this morning. He reports he does not feel like he is back to himself yet and has a big gap in memory of what led to him being "stuck in the hospital". He denies having any pain or complaints at this time. Patient reports just being discouraged that he is in the hospital for [place]. Patient updated on plan for rehab placement, states he does not even remember having this conversation with his sister or human services case manager but also in agreement with plan. Vital signs reviewed and stable. General: Nontoxic, no distress and appears stated age. Derm: Skin warm and dry, normal coloration for ethnicity. Head: Atraumatic, normocephalic and symmetric. Eyes: EOM's intact, no lid lag, and anicteric sclera Mouth: no lip lesions, mucus membranes moist Cardiovascular: regular rate and rhythm with normal S1S2, no murmur, positive posterior tibial pulses bilaterally, and cap refill < 2 seconds. Lungs: Respirations even, regular, and unlabored on room air. Lungs CTA bilaterally, no rhonchi, no rales, no wheezing, and no accessory muscle usage. Abdominal: soft, nontender to palpation, no guarding, no appreciable organomegaly Ext: ROM intact. No gross muscle atrophy, no edema, no contractures Neuro: Speech clear, face symmetrical and CN II-XII grossly intact with no noted focal neuro deficits Psych: Alert and oriented to person, place, time, and situation. Appropriate and pleasant affect. Assessment and Plan of Care: Acute hepatic encephalopathy Liver cirrhosis Dysphagia Generalized weakness Pancytopenia, secondary to liver cirrhosis and longstanding alcohol abuse -Continue lactulose 30 mg twice daily, rifaximin 550 mg every 12 hours, Lasix 20 mg twice daily, and Aldactone 25 mg daily. -Repeat abdominal ultrasound completed 03/28/2024 showing fluid in all 4 abdominal quadrants but reporting minimal abdominal ascites. -Continue thiamine 100 mg IVPB every 12 hours. -GINNER HELPER, PT OT following. Plan is for discharge to rehab. Possible aspiration pneumonia -Continue Unasyn 3 g every 6 hours IVPB, day 5 of antibiotics. -Blood cultures showing no growth to date. Sputum culture pending. Hypothermia, likely environmental, resolved Hypotension, continue midodrine Troponin elevation, ACS ruled out, no regional wall motion abnormalities on TTE Lactic acidosis: Persistently elevated likely due to advanced cirrhosis. Subclinical hypothyroidism: Repeat TSH/FT4 in 6 weeks. Supratherapeutic INR: Likely due to advanced cirrhosis. Elevated CPK: Likely due to prolonged time down. Monitor renal function. IV hydration as above. EtOH abuse: CIWA protocol with Ativan PRN. Seizure disorder: Keppra 500 mg PO BID. Hypoglycemia.. Resolved Data and imaging reviewed: Labs reviewed. CBC showing pancytopenia with WBC count of 4.45, hemoglobin of 9.3, and platelet count of 88. Potassium low at 3.3 and replaced with K-Dur 40 mill equivalents p.o. x 1 dose. Blood glucose 146. Calcium 6.8 with albumin of 1.8 showing a corrected calcium of 8.6. Magnesium 1.6 and order placed for mag sulfate 2 g IVPB. Liver profile showing elevated AST of 67 and low albumin of 1.8. Vital signs reviewed. Blood pressure 102/51, heart rate 85, respiratory rate 14, temp 98.7 F, and SpO2 of 93% on room air. CODE STATUS: Full code DVT prophylaxis: Lovenox Anticipated discharge date: Pending clinical course likely in the next 24 to [address]: nursing home facility Patient was seen independently by Nurse Pracitioner. This document was prepared using relocality dictation software. Please allow for errors in cemetery laborer, while rare they do occur. Michael Grande NP rendered care for this patient independently, reviewed the findings and plan as documented in the note above and agree with plan. I did not physically speak with or examine the patient on this date. Objective - Vital Signs Vital signs: Vital Signs Temp 98.7 F 04/02/24 07:14 Pulse 85 04/02/24 07:14 Resp 14 04/02/24 07:14 BP 102/51 04/02/24 07:14 Pulse Ox 93 L 04/02/24 07:14 FiO2 Intake & Output 04/01/24 04/02/24 04/02/24 18:59 06:59 18:59 Output Total 100 Balance -100 Output: Urine 100 Straight 100 Other: Voiding Method Indwelling Catheter Incontinent # Voids 1 # Bowel Movements 1 - Labs CBC & Chem 7: 04/02/24 04:52 04/02/24 04:52 Labs: Abnormal Lab Results - Last 24 Hours (Table) 04/01/24 04/01/24 04/01/24 Range/Units 11:39 16:26 21:04 POC Glucose (mg/dL) 139 H 154 H 134 H (70-110) mg/dL 04/02/24 04/02/24 04/02/24 Range/Units 00:19 06:21 08:55 POC Glucose (mg/dL) 138 H 141 H 216 H (70-110) mg/dL Microbiology - Last 24 Hours (Table) 03/29/24 13:07 Blood Culture - Preliminary Blood
[2024-04-02 11:55] LABS: Glucose,Whole Blood 170 mg/dL (70-110)
[2024-04-02] MEDS: MAGNESIUM SULFATE-D5W PMX 1 GM in DEXTROSE/WATER 1 100ML.BAG IVPB SCH (11:58)
[2024-04-02] MEDS: POTASSIUM CHLORIDE ER 20 MEQ TAB.ER PO STA (11:58)
[2024-04-02 16:46] LABS: Glucose,Whole Blood 119 mg/dL (70-110)
[2024-04-02] MEDS: CALCIUM CARBONATE 500 MG CHEWABLE PO PRN (18:17)
[2024-04-03 00:19] LABS: Glucose,Whole Blood 124 mg/dL (70-110)
[2024-04-03 04:33] LABS: HCT 32.5 % (39.0-53.0); Hypochromasia Marked; MCH 30.5 pg (25.0-35.0); MCHC 30.7 g/dL (31.0-37.0); MCV 99.5 fL (80.0-100.0); Mean Platelet Volume 8.2; Platelet Count 100 k/uL (150-450); RBC 3.27 m/uL (4.30-5.90); RDW 14.1 % (11.5-15.5); WBC 4.7 k/uL (3.8-10.6)
[2024-04-03 05:20] LABS: Crenated RBC Present; Tear Drop Cells Present
[2024-04-03 06:21] LABS: Glucose,Whole Blood 126 mg/dL (70-110)
[2024-04-03 12:18] LABS: Glucose,Whole Blood 117 mg/dL (70-110)
[2024-04-03 13:33] VITALS: BMI 24.5
--- NOTE | 2024-04-03 14:25 | P.PN ---
Subjective Progress Note Date: 04/03/24 Hospital Course: A 33-year-old male with past medical history of alcoholic liver cirrhosis, anx iety, depression, seizure disorder, who presented to the ED with AMS, he had TIPS done on 03/20/2024 and was last seen normal on 03/25. He then was found by a family member in his basement with multiple layers of clothing on and it appears that he did not have heat on in his cells. In the ED patient's blood pressure was borderline 94/67, he was hypothermic 91.1, satting well on room air, hit lactic acid level was increased to 3.3, CPK elevated at 893, UDS positive for benzos sent THC, negative ethanol, CT brain showed nonspecific white matter changes, patient was admitted to the ICU for further workup and management, NG tube inserted and patient was started on lactulose, abdominal ultrasound showed small amount of ascites, echo normal LV function, troponin trended 0.0 45, 0.0 53, ACS ruled out. He is initially elevated ammonia level trended down with lactulose, patient remained confused and required sitter, chest x-ray showed concern for right-sided infiltrate and Rocephin was switched to Unasyn and eventually to Augmentin to complete 7 days of treatment for presumed aspiration pneumonia.. Patient does not have recollection of the events leading up to the hospitalization. Patient was seen by SIZE WORKER for dysphagia, his diet was advanced to level 3. PT OT following. Recommends rehab, currently pending placement, insurance denied 2 facilities Pertinent Imaging: Repeat abdominal ultrasound completed 03/28/2024 showing fluid in all 4 abdominal quadrants but reporting minimal abdominal ascites Subjective: She was seen and examined at bedside, he is sleepy, alert and oriented, complains of fatigue and feeling cold Pertinent positives and negatives as discussed above, a complete review of systems was performed and all other systems are negative. Vitals Signs Reviewed. General ill-appearing Derm: [warm], [dry] Head: [atraumatic], [normocephalic], [symmetric] Eyes: [EOMI], [no lid lag], [anicteric sclera] Mouth: [no lip lesion], [mucus membranes moist] Cardiovascular: [S1S2 reg], [no murmur] Lungs: [CTA bilateral], [no rhonchi, no rales] , [no accessory muscle use] Abdominal: Generalized tenderness, distended, fluid wave, hepatomegaly Ext: [no gross muscle atrophy], [no edema], [no contractures] Neuro: [ CN II-XI grossly intact], [no focal neuro deficits] Psych: Slowed, alert and oriented to self and place, time Data Reviewed Today: Pertinent Labs: WBC is normal today, hemoglobin stable at 10, platelets stable 100 Assessment and Plan: Acute hepatic encephalopathy Liver cirrhosis dysphagia generalized weakness Pancytopenia secondary to liver cirrhosis -Continue lactulose, rifaximin, Lasix, Aldactone -Repeat abdominal ultrasound, evaluate for need of paracentesis -Continue thiamine -SIZE WORKER, PT OT following -Repeat abdominal ultrasound completed 03/28/2024 showing fluid in all 4 abdominal quadrants but reporting minimal abdominal ascites Possible aspiration pneumonia -switch to augmentin for 2 more days to complete 7 days of abx Hypothermia, likely environmental, resolved Hypotension, continue midodrine Troponin elevation, ACS ruled out, no regional wall motion abnormalities on TTE Lactic acidosis: Persistently elevated likely due to advanced cirrhosis. Subclinical hypothyroidism: Repeat TSH/FT4 in 6 weeks. Supratherapeutic INR: Likely due to advanced cirrhosis. Elevated CPK: Likely due to prolonged time down. Monitor renal function. IV hydration as above. EtOH abuse: CIWA protocol with Ativan PRN. Seizure disorder: Keppra 500 mg PO BID. Resolved: Hypoglycemia DVT ppx: Lovenox Anticipated discharge place: ready for d/c, pending insurance auth Anticipated discharge time: rehab Objective - Vital Signs Vital signs: Vital Signs Temp 98.4 F 04/03/24 07:07 Pulse 90 04/03/24 07:07 Resp 18 04/03/24 07:07 BP 99/63 04/03/24 07:07 Pulse Ox 94 L 04/03/24 07:07 FiO2 Intake & Output 04/02/24 04/03/24 04/03/24 18:59 06:59 18:59 Output Total 300 Balance -300 Weight 73 kg 73 kg Output: Urine 300 Other: Voiding Method Bedside Commode Urinal Urinal # Voids 1 # Bowel Movements 1 1 - Labs CBC & Chem 7: 04/03/24 03:33 04/02/24 04:52 Labs: Abnormal Lab Results - Last 24 Hours (Table) 04/02/24 04/03/24 04/03/24 Range/Units 16:44 00:18 03:33 RBC 3.27 L (4.30-5.90) m/uL Hgb 10.0 L (13.0-17.5) gm/dL Hct 32.5 L (39.0-53.0) % MCHC 30.7 L (31.0-37.0) g/dL Plt Count 100 L (150-450) k/uL POC Glucose (mg/dL) 119 H 124 H (70-110) mg/dL 04/03/24 04/03/24 Range/Units 06:19 12:16 RBC (4.30-5.90) m/uL Hgb (13.0-17.5) gm/dL Hct (39.0-53.0) % MCHC (31.0-37.0) g/dL Plt Count (150-450) k/uL POC Glucose (mg/dL) 126 H 117 H (70-110) mg/dL
[2024-04-03] MEDS: AMOXIC-POT CLAV 875-125MG 1 EACH TAB PO SCH (14:27)
[2024-04-03] MEDS: THIAMINE 100 MG TAB PO SCH (14:27)
[2024-04-03 16:52] LABS: Glucose,Whole Blood 154 mg/dL (70-110)
[2024-04-03] MEDS ORDERED: LORazepam 0.5 MG TAB PO PRN (22:37)
[2024-04-03] MEDS ORDERED: LORazepam 1 MG TAB PO PRN ×2 (22:37)
[2024-04-03] MEDS: LORazepam 1 MG TAB PO PRN (23:17)
[2024-04-03] MEDS: MELATONIN 1 MG TAB PO SCH (23:17)
[2024-04-04 00:06] LABS: Glucose,Whole Blood 128 mg/dL (70-110)
[2024-04-04 07:06] LABS: Glucose,Whole Blood 108 mg/dL (70-110)
[2024-04-04 08:40] LABS: HCT 30.3 % (39.6-50.0); HGB 9.8 g/dL (13.0-17.0); MCH 30.2 pg (27.0-32.0); MCHC 32.3 g/dL (32.0-37.0); MCV 93.5 FL (80.0-97.0); Mean Platelet Volume 11.2 FL (9.5-12.2); NRBC Per 100 WBC 0 X 10*3/uL (0.00-0.01); Platelet Count 96 X 10*3/uL (140-440); RBC 3.24 X 10*6/uL (4.40-5.60); RDW 14.3 % (11.5-14.5); WBC 4.98 X 10*3/uL (4.50-10.00)
--- NOTE | 2024-04-04 09:09 | XR ---
EXAMINATION TYPE: XR chest 1V portable DATE OF EXAM: 04/04/2024 COMPARISON: NONE CLINICAL INDICATION: Male, 33 years old with history of hypoxia; , TECHNIQUE: XR chest 1V portable views of the chest. FINDINGS: Bilateral consolidation and small effusion. No pneumothorax. Heart size stable. Osseous structures st able. NG tube has been removed. IMPRESSION: 1. Lateral consolidation and small effusion correlate for CHF otherwise consider pneumonia.. [facility], , 04/04/2024 9:07 AM
[2024-04-04] MEDS: PANTOPRAZOLE 40 MG TABLET PO SCH (09:12)
[2024-04-04 10:01] LABS: Basophils % (A) 0 %; Eosinophils # (A) 0.3 k/uL (0-0.7); Eosinophils % (A) 4 %; HCT 31.7 % (39.0-53.0); HGB 10.2 gm/dL (13.0-17.5); Hypochromasia Slight; Lymphocytes # (A) 1.2 k/uL (1.0-4.8); Lymphocytes % (A) 18 %; MCH 30.7 pg (25.0-35.0); MCHC 32.3 g/dL (31.0-37.0); Mean Platelet Volume 8.2; Monocytes # (A) 0.7 k/uL (0-1.0); Monocytes % (A) 11 %; Neutrophils # (A) 4.2 k/uL (1.3-7.7); Neutrophils % (A) 64 %; Platelet Count 109 k/uL (150-450); RBC 3.33 m/uL (4.30-5.90); RDW 14.3 % (11.5-15.5); WBC 6.6 k/uL (3.8-10.6)
[2024-04-04 10:28] LABS: ALT 40 U/L (4-49); AST 61 U/L (17-59); African American GFR (CKD) >90 (>60 ml/min/1.73 sqM); Albumin 1.7 g/dL (3.5-5.0); Albumin/Globulin Ratio 0.6; Alkaline Phosphatase 196 U/L (38-126); Anion Gap 4 mmol/L; Blood Urea Nitrogen 3 mg/dL (9-20); Calcium 7.1 mg/dL (8.4-10.2); Carbon Dioxide 22 mmol/L (22-30); Chloride 103 mmol/L (98-107); Glucose 122 mg/dL (74-99); Non-African American GFR(CKD) >90 (>60 ml/min/1.73 sqM); Potassium 4.4 mmol/L (3.5-5.1); Sodium 129 mmol/L (137-145); Total Bilirubin 1.4 mg/dL (0.2-1.3); Total Protein 4.7 g/dL (6.3-8.2)
[2024-04-04] MEDS ORDERED: ALBUTEROL NEBULIZED 2.5 MG/3 ML INHALATION PRN (10:41)
[2024-04-04 11:27] LABS: Glucose,Whole Blood 122 mg/dL (70-110)
--- NOTE | 2024-04-04 11:30 | US ---
EXAMINATION TYPE: US abdomen limited DATE OF EXAM: 04/04/2024 COMPARISON: NONE CLINICAL INDICATION: Male, 33 years old with history of assess for posibility of paracethesis; TECHNIQUE: Grayscale imaging of the abdomen for ascites. FINDINGS: A moderate amount of ascites. IMPRESSION: Ascites. [facility], , 04/04/2024 11:28 AM
--- NOTE | 2024-04-04 13:19 | P.CON ---
Consult Note - . Consult date: 04/04/24 Assessment/Plan:: wound care consultation: Reason for consultation: Ulcers, back. History chief complaint: This is a 33-year-old male who suffers from complications of chronic alcoholic cirrhosis. We have been asked to see him for some ulcers on the left side of his back posteriorly. On this admission he was admitted somewhat obtunded and weak.he has had a recent TIPS procedure. Relevant physical examination. The patient appears to have ascites. He has rather severe edema which is mainly dependent on his trunk posteriorly. He has several areas lined up in a linear fashion of what appears to be stage II pressure ulceration. Recommendation: The main portion of his treatment would involve a voiding pressure in these areas with it recommended that he rotate side to side and sit up rather than placing pressure directly on his back. I would simply code these ulcerations with triad. Foam can be placed over this to keep it in place.
--- NOTE | 2024-04-04 13:22 | P.PN ---
Subjective Progress Note Date: 04/04/24 Hospital Course: A 33-year-old male with past medical history of alcoholic liver cirrhosis, anx iety, depression, seizure disorder, who presented to the ED with AMS, he had TIPS done on 03/20/2024 and was last seen normal on 03/25. He then was found by a family member in his basement with multiple layers of clothing on and it appears that he did not have heat on in his cells. In the ED patient's blood pressure was borderline 94/67, he was hypothermic 91.1, satting well on room air, hit lactic acid level was increased to 3.3, CPK elevated at 893, UDS positive for benzos sent THC, negative ethanol, CT brain showed nonspecific white matter changes, patient was admitted to the ICU for further workup and management, NG tube inserted and patient was started on lactulose, abdominal ultrasound showed small amount of ascites, echo normal LV function, troponin trended 0.0 45, 0.0 53, ACS ruled out. He is initially elevated ammonia level trended down with lactulose, patient remained confused and required sitter, chest x-ray showed concern for right-sided infiltrate and Rocephin was switched to Unasyn and eventually to Augmentin to complete 7 days of treatment for presumed aspiration pneumonia.. Patient does not have recollection of the events leading up to the hospitalization. Patient was seen by EXHIBIT BUILDER for dysphagia, his diet was advanced to level 3. PT OT following. Recommends rehab, currently pending placement, insurance denied 2 facilities Repeat abdominal ultrasound completed 03/28/2024 showing fluid in all 4 abdominal quadrants but reporting minimal abdominal ascites. Repeat ultrasound done on 04/04 for increasing abdominal distention, showed moderate amount of ascites, IR consulted, body fluid labs ordered. Patient now has acute hyponatremia likely from pleural fluid overload, 1 dose of Lasix ordered on top of his oral regimen. Patient was complaining of shortness of breath, chest x- ray showed lateral consolidation and small effusion correlate for CHF or pneu monia, patient continued on Augmentin. Patient's ammonia increased again, lactulose increased to 3 times daily, patient now has 3 BMs a day, goal of 4. Pertinent positives and negatives as discussed above, a complete review of systems was performed and all other systems are negative. Vitals Signs Reviewed. General: [nontoxic], [no distress], [appears at stated age] Derm: [warm], [dry], jaundiced Head: [atraumatic], [normocephalic], [symmetric] Eyes: [EOMI], [no lid lag], [anicteric sclera] Mouth: [no lip lesion], [mucus membranes moist] Cardiovascular: [S1S2 reg], [no murmur] Lungs: [CTA bilateral], [no rhonchi, no rales] , [no accessory muscle use] Abdominal abdominal is tender, distended, fluid wave present Ext: [no gross muscle atrophy], [no edema], [no contractures] Neuro: [ CN II-XI grossly intact], [no focal neuro deficits] Psych: [Alert], [oriented], [appropriate affect] Data Reviewed Today: Pertinent Labs: Normal WBCs, hemoglobin stable at 10, platelet count 109, sodium 129, creatinine normal, glucose is controlled, ammonia up to 108 Assessment and Plan:Acute hepatic encephalopathy Liver cirrhosis dysphagia generalized weakness Anemia, thrombocytopenia secondary to liver cirrhosis Leukopenia resolved -Continue lactulose, increased to 30 3 times daily, rifaximin, Lasix, Aldactone -Repeat abdominal ultrasound 04/04 showed moderate ascites, IR consulted for paracentesis, labs ordered -Continue thiamine -EXHIBIT BUILDER, PT OT following Possible aspiration pneumonia Shortness of breath, chest x-ray with findings of pulmonary vascular congestion in the settings of liver cirrhosis -switch to augmentin to complete 7 days of abx -1 dose of Lasix IV 20 once, continue oral Lasix and spironolactone Hypothermia, likely environmental, resolved Hypotension, continue midodrine Troponin elevation, ACS ruled out, no regional wall motion abnormalities on TTE Lactic acidosis: Persistently elevated likely due to advanced cirrhosis. Subclinical hypothyroidism: Repeat TSH/FT4 in 6 weeks. Supratherapeutic INR: Likely due to advanced cirrhosis. Elevated CPK: Likely due to prolonged time down. Monitor renal function. IV hydration as above. EtOH abuse: CIWA protocol with Ativan PRN. Seizure disorder: Keppra 500 mg PO BID. Resolved: Hypoglycemia DVT ppx: Lovenox Anticipated discharge place: ready for d/c, pending insurance auth Anticipated discharge time: rehab Objective - Vital Signs Vital signs: Vital Signs Temp 98.4 F 04/04/24 07:30 Pulse 80 04/04/24 07:30 Resp 17 04/04/24 07:30 BP 110/72 04/04/24 07:30 Pulse Ox 96 04/04/24 07:30 FiO2 Intake & Output 04/03/24 04/04/24 04/04/24 18:59 06:59 18:59 Intake Total 1080 Output Total 600 Balance 480 Weight 73 kg 82.5 kg Intake: Oral 1080 Output: Urine 600 Other: Voiding Method Urinal Urinal Urinal # Voids 3 4 # Bowel Movements 1 - Labs CBC & Chem 7: 04/04/24 09:42 04/04/24 09:42 Labs: Abnormal Lab Results - Last 24 Hours (Table) 04/03/24 04/04/24 04/04/24 Range/Units 16:50 00:04 03:32 RBC 3.24 L (4.40-5.60) X 10*6/uL Hgb 9.8 L (13.0-17.0) g/dL Hct 30.3 L (39.6-50.0) % Plt Count 96 L (140-440) X 10*3/uL Sodium (137-145) mmol/L BUN (9-20) mg/dL Creatinine (0.66-1.25) mg/dL Glucose (74-99) mg/dL POC Glucose (mg/dL) 154 H 128 H (70-110) mg/dL Calcium (8.4-10.2) mg/dL Total Bilirubin (0.2-1.3) mg/dL AST (17-59) U/L Alkaline Phosphatase (38-126) U/L Ammonia (<30) umol/L Total Protein (6.3-8.2) g/dL Albumin (3.5-5.0) g/dL 04/04/24 04/04/24 04/04/24 Range/Units 09:42 09:42 09:42 RBC 3.33 L (4.40-5.60) X 10*6/uL Hgb 10.2 L (13.0-17.0) g/dL Hct 31.7 L (39.6-50.0) % Plt Count 109 L (140-440) X 10*3/uL Sodium 129 L (137-145) mmol/L BUN 3 L (9-20) mg/dL Creatinine 0.48 L (0.66-1.25) mg/dL Glucose 122 H (74-99) mg/dL POC Glucose (mg/dL) (70-110) mg/dL Calcium 7.1 L (8.4-10.2) mg/dL Total Bilirubin 1.4 H (0.2-1.3) mg/dL AST 61 H (17-59) U/L Alkaline Phosphatase 196 H (38-126) U/L Ammonia 108 H (<30) umol/L Total Protein 4.7 L (6.3-8.2) g/dL Albumin 1.7 L (3.5-5.0) g/dL 04/04/24 Range/Units 11:25 RBC (4.40-5.60) X 10*6/uL Hgb (13.0-17.0) g/dL Hct (39.6-50.0) % Plt Count (140-440) X 10*3/uL Sodium (137-145) mmol/L BUN (9-20) mg/dL Creatinine (0.66-1.25) mg/dL Glucose (74-99) mg/dL POC Glucose (mg/dL) 122 H (70-110) mg/dL Calcium (8.4-10.2) mg/dL Total Bilirubin (0.2-1.3) mg/dL AST (17-59) U/L Alkaline Phosphatase (38-126) U/L Ammonia (<30) umol/L Total Protein (6.3-8.2) g/dL Albumin (3.5-5.0) g/dL Microbiology - Last 24 Hours (Table) 03/29/24 13:07 Blood Culture - Final Blood
[2024-04-04] MEDS: ALPRAZolam 0.25 MG TAB PO STA (14:05)
[2024-04-04 14:20] LABS: INR 2.1 (<1.2); Prothrombin Time 21.3 sec (10.0-12.5)
[2024-04-04] MEDS: FUROSEMIDE 10 MG/ML 2 ML VIAL IV ONE (16:26)
[2024-04-04] MEDS: LACTULOSE 20 GM/30 ML CUP PO SCH (16:26)
[2024-04-04] MEDS: HYDROmorphone 0.5 MG/0.5 ML SYRINGE IVP STA (16:29)
[2024-04-04 16:38] LABS: Glucose,Whole Blood 144 mg/dL (70-110)
[2024-04-04] MEDS: MORPHINE SULFATE 2 MG/ML SYRINGE IVP PRN (17:46)
[2024-04-04] MEDS: ONDANSETRON 4 MG TAB PO PRN (21:16)
[2024-04-05 00:02] LABS: Glucose,Whole Blood 106 mg/dL (70-110)
[2024-04-05] MEDS: HYDROcodone/APAP 5-325MG 1 EACH TAB PO PRN (01:41)
[2024-04-05 06:23] LABS: Glucose,Whole Blood 132 mg/dL (70-110)
[2024-04-05 08:14] LABS: ALT 34 U/L (4-49); AST 47 U/L (17-59); African American GFR (CKD) >90 (>60 ml/min/1.73 sqM); Albumin 1.5 g/dL (3.5-5.0); Albumin/Globulin Ratio 0.5; Alkaline Phosphatase 171 U/L (38-126); Anion Gap 1 mmol/L; Blood Urea Nitrogen 3 mg/dL (9-20); Calcium 7.2 mg/dL (8.4-10.2); Carbon Dioxide 25 mmol/L (22-30); Chloride 104 mmol/L (98-107); Globulin 2.8 g/dL; Glucose 112 mg/dL (74-99); Non-African American GFR(CKD) >90 (>60 ml/min/1.73 sqM); Potassium 4.1 mmol/L (3.5-5.1); Sodium 130 mmol/L (137-145); Total Bilirubin 1.1 mg/dL (0.2-1.3); Total Protein 4.3 g/dL (6.3-8.2)
[2024-04-05 11:50] LABS: Glucose,Whole Blood 139 mg/dL (70-110)
--- NOTE | 2024-04-05 12:42 | P.PN ---
Subjective Progress Note Date: 04/05/24 Hospital Course: A 33-year-old male with past medical history of alcoholic liver cirrhosis, anx iety, depression, seizure disorder, who presented to the ED with AMS, he had TIPS done on 03/20/2024 and was last seen normal on 03/25. He then was found by a family member in his basement with multiple layers of clothing on and it appears that he did not have heat on in his cells. In the ED patient's blood pressure was borderline 94/67, he was hypothermic 91.1, satting well on room air, hit lactic acid level was increased to 3.3, CPK elevated at 893, UDS positive for benzos sent THC, negative ethanol, CT brain showed nonspecific white matter changes, patient was admitted to the ICU for further workup and management, NG tube inserted and patient was started on lactulose, abdominal ultrasound showed small amount of ascites, echo normal LV function, troponin trended 0.0 45, 0.0 53, ACS ruled out. He is initially elevated ammonia level trended down with lactulose, patient remained confused and required sitter, chest x-ray showed concern for right-sided infiltrate and Rocephin was switched to Unasyn and eventually to Augmentin to complete 7 days of treatment for presumed aspiration pneumonia.. Patient does not have recollection of the events leading up to the hospitalization. Patient was seen by BREAD WRAPPER for dysphagia, his diet was advanced to level 3. PT OT following. Recommends rehab, currently pending placement, insurance denied 2 facilities Repeat abdominal ultrasound completed 03/28/2024 showing fluid in all 4 abdominal quadrants but reporting minimal abdominal ascites. Repeat ultrasound done on 04/04 for increasing abdominal distention, showed moderate amount of ascites, IR consulted, body fluid labs ordered. Patient now has acute hyponatremia likely from pleural fluid overload, 1 dose of Lasix ordered on top of his oral regimen. Patient was complaining of shortness of breath, chest x- ray showed lateral consolidation and small effusion correlate for CHF or pneu monia, patient continued on Augmentin. Patient's ammonia increased again, lactulose increased to 3 times daily, patient now has 3 BMs a day. Subjective: Patient seen and examined at bedside. No acute events overnight. Pertinent positives and negatives as discussed above, a complete review of systems was performed and all other systems are negative. Vitals Signs Reviewed. General: Nontoxic, no distress, appears at stated age Derm: Warm, dry, Head: Atraumatic, normocephalic, symmetric Eyes: EOMI, no lid lag, anicteric sclera Mouth: No lip lesion, mucus membranes moist Cardiovascular: S1S2 reg, no murmur Lungs: CTA bilateral, no rhonchi, no rales, no accessory muscle use Abdominal: Soft, distended, nontender to palpation, no guarding, no appreciable organomegaly Ext: No gross muscle atrophy, trace peripheral edema, no contractures Neuro: CN II-XI grossly intact, no focal neuro deficits Psych: Alert, oriented, appropriate affect Data Reviewed Today: Pertinent Labs: Sodium 130, creatinine 0.52, total bili 1.1, ammonia 95, blood sugars range between 10 6-1 39 Imaging: No new imaging Assessment and Plan: Active: Acute hepatic encephalopathy, resolved Alcoholic liver cirrhosis status post recent TIPS Anemia and thrombocytopenia secondary to above Hypervolemic hyponatremia Hyperammonemia Supratherapeutic INR Type B lactic acidosis, secondary to cirrhosis Hypoglycemia, resolved -Discontinue D5 normal saline -Continue Accu-Cheks every 6 hours Continue lactulose 30 g 3 times daily -Continue Lasix 20 twice daily, spironolactone 25 daily -Paracentesis by IR likely Sunday -Continue midodrine 5 oral 3 times daily -Limit the use of narcotics given cirrhosis, currently on IV morphine as needed, monitor for sedation -Hyperammonemia likely in the setting of recent TIPS Suspected aspiration pneumonia -No further complaints, antibiotics have been discontinued as of yesterday -Continue to monitor Subclinical hypothyroidism -Repeat TSH in 4 to 6 weeks Elevated CK -Had a prolonged downtime Resolved: Hypoglycemia Chronic: Seizure disorder DVT ppx: Not indicated given elevated INR Code status: Full code Anticipated discharge place: Subacute rehab Anticipated discharge time: Pending authorization Objective - Vital Signs Vital signs: Vital Signs Temp 98.5 F 04/05/24 07:26 Pulse 68 04/05/24 08:33 Resp 17 04/05/24 08:33 BP 102/61 04/05/24 07:26 Pulse Ox 94 L 04/05/24 07:26 FiO2 Intake & Output 04/04/24 04/05/24 04/05/24 18:59 06:59 18:59 Intake Total 540 Output Total 425 Balance 115 Weight 85.5 kg Intake: Oral 540 Output: Urine 425 Other: Voiding Method Urinal Urinal Toilet Urinal # Voids 3 # Bowel Movements 2 1 - Labs CBC & Chem 7: 04/04/24 09:42 04/05/24 07:06 Labs: Abnormal Lab Results - Last 24 Hours (Table) 04/04/24 04/04/24 04/05/24 Range/Units 13:45 16:36 06:22 PT 21.3 H (10.0-12.5) sec INR 2.1 H (<1.2) Sodium (137-145) mmol/L BUN (9-20) mg/dL Creatinine (0.66-1.25) mg/dL Glucose (74-99) mg/dL POC Glucose (mg/dL) 144 H 132 H (70-110) mg/dL Calcium (8.4-10.2) mg/dL Alkaline Phosphatase (38-126) U/L Ammonia (<30) umol/L Total Protein (6.3-8.2) g/dL Albumin (3.5-5.0) g/dL 04/05/24 04/05/24 04/05/24 Range/Units 07:06 08:10 11:46 PT (10.0-12.5) sec INR (<1.2) Sodium 130 L (137-145) mmol/L BUN 3 L (9-20) mg/dL Creatinine 0.52 L (0.66-1.25) mg/dL Glucose 112 H (74-99) mg/dL POC Glucose (mg/dL) 139 H (70-110) mg/dL Calcium 7.2 L (8.4-10.2) mg/dL Alkaline Phosphatase 171 H (38-126) U/L Ammonia 95 H (<30) umol/L Total Protein 4.3 L (6.3-8.2) g/dL Albumin 1.5 L (3.5-5.0) g/dL
[2024-04-05 18:13] LABS: Glucose,Whole Blood 216 mg/dL (70-110)
[2024-04-06 01:49] LABS: Glucose,Whole Blood 122 mg/dL (70-110)
[2024-04-06 06:46] LABS: Glucose,Whole Blood 113 mg/dL (70-110)
[2024-04-06 09:50] LABS: Basophils # (A) 0.07 X 10*3/uL (0.00-0.10); Basophils % (A) 1.3 %; Eosinophils % (A) 1.8 %; HCT 28.5 % (39.6-50.0); HGB 9.3 g/dL (13.0-17.0); Lymphocytes # (A) 1.26 X 10*3/uL (0.90-5.00); Lymphocytes % (A) 23.2 %; MCH 30.1 pg (27.0-32.0); MCHC 32.6 g/dL (32.0-37.0); MCV 92.2 FL (80.0-97.0); Mean Platelet Volume 10.6 FL (9.5-12.2); Monocytes # (A) 1.04 X 10*3/uL (0.20-1.00); Monocytes % (A) 19.2 %; NRBC Per 100 WBC 0 X 10*3/uL (0.00-0.01); Neutrophils # (A) 2.94 X 10*3/uL (1.80-7.70); Neutrophils % (A) 54.3 %; Platelet Count 94 X 10*3/uL (140-440); RBC 3.09 X 10*6/uL (4.40-5.60); RDW 14.6 % (11.5-14.5); WBC 5.42 X 10*3/uL (4.50-10.00)
[2024-04-06 09:59] LABS: Magnesium 1.6 mg/dL (1.5-2.4)
[2024-04-06 10:34] LABS: ALT 34 U/L (10-49); AST 42 U/L (14-35); Albumin 1.9 g/dL (3.8-4.9); Albumin/Globulin Ratio 0.73 Ratio (1.60-3.17); Alkaline Phosphatase 144 U/L (41-126); Blood Urea Nitrogen 5.4 mg/dL (9.0-27.0); Carbon Dioxide 22.8 mmol/L (21.6-31.8); Chloride 104 mmol/L (96-109); Globulin 2.6 g/dL (1.6-3.3); Glucose 139 mg/dL (70-110); Potassium 4.2 mmol/L (3.5-5.5); Sodium 132 mmol/L (135-145); Total Bilirubin 1.3 mg/dL (0.3-1.2); Total Protein 4.5 g/dL (6.2-8.2)
[2024-04-06 11:33] LABS: Glucose,Whole Blood 193 mg/dL (70-110)
--- NOTE | 2024-04-06 12:40 | P.PN ---
Subjective Progress Note Date: 04/06/24 Hospital Course: A 33-year-old male with past medical history of alcoholic liver cirrhosis, anx iety, depression, seizure disorder, who presented to the ED with AMS, he had TIPS done on 03/20/2024 and was last seen normal on 03/25. He then was found by a family member in his basement with multiple layers of clothing on and it appears that he did not have heat on in his cells. In the ED patient's blood pressure was borderline 94/67, he was hypothermic 91.1, satting well on room air, hit lactic acid level was increased to 3.3, CPK elevated at 893, UDS positive for benzos sent THC, negative ethanol, CT brain showed nonspecific white matter changes, patient was admitted to the ICU for further workup and management, NG tube inserted and patient was started on lactulose, abdominal ultrasound showed small amount of ascites, echo normal LV function, troponin trended 0.0 45, 0.0 53, ACS ruled out. He is initially elevated ammonia level trended down with lactulose, patient remained confused and required sitter, chest x-ray showed concern for right-sided infiltrate and Rocephin was switched to Unasyn and eventually to Augmentin to complete 7 days of treatment for presumed aspiration pneumonia.. Patient does not have recollection of the events leading up to the hospitalization. Patient was seen by DIRECTIONAL BORE OPERATOR for dysphagia, his diet was advanced to level 3. PT OT following. Recommends rehab, currently pending placement, insurance denied 2 facilities Repeat abdominal ultrasound completed 03/28/2024 showing fluid in all 4 abdominal quadrants but reporting minimal abdominal ascites. Repeat ultrasound done on 04/04 for increasing abdominal distention, showed moderate amount of ascites, IR consulted, body fluid labs ordered. Patient now has acute hyponatremia likely from pleural fluid overload, 1 dose of Lasix ordered on top of his oral regimen. Patient was complaining of shortness of breath, chest x- ray showed lateral consolidation and small effusion correlate for CHF or pneu monia, patient continued on Augmentin. Patient's ammonia increased again, lactulose increased to 3 times daily, patient now has 3 BMs a day. Subjective: Patient seen and examined at bedside. No acute events overnight. Pertinent positives and negatives as discussed above, a complete review of systems was performed and all other systems are negative. Vitals Signs Reviewed. General: Nontoxic, no distress, appears at stated age Derm: Warm, dry, Head: Atraumatic, normocephalic, symmetric Eyes: EOMI, no lid lag, anicteric sclera Mouth: No lip lesion, mucus membranes moist Cardiovascular: S1S2 reg, no murmur Lungs: CTA bilateral, no rhonchi, no rales, no accessory muscle use Abdominal: Soft, distended, nontender to palpation, no guarding, no appreciable organomegaly Ext: No gross muscle atrophy, trace peripheral edema, no contractures Neuro: CN II-XI grossly intact, no focal neuro deficits Psych: Alert, oriented, appropriate affect Data Reviewed Today: Pertinent Labs: WBC 5.42, hemoglobin 9.3, platelet 94, sodium 132, creatinine 0.5, blood sugars range between 1 13-1 93, total bili 1.3 Imaging: No new imaging Assessment and Plan: Active: Acute hepatic encephalopathy, resolved Alcoholic liver cirrhosis status post recent TIPS Anemia and thrombocytopenia secondary to above Hypervolemic hyponatremia Hyperammonemia Supratherapeutic INR Type B lactic acidosis, secondary to cirrhosis Hypoglycemia, resolved -Continue Accu-Cheks every 6 hours Continue lactulose 30 g 3 times daily -Continue Lasix 20 twice daily, spironolactone 25 daily -Paracentesis by IR likely Sunday -Continue midodrine 5 oral 3 times daily -Limit the use of narcotics given cirrhosis, currently on IV morphine as needed, monitor for sedation -Hyperammonemia likely in the setting of recent TIPS Suspected aspiration pneumonia -No further complaints, antibiotics have been discontinued as of yesterday -Continue to monitor Subclinical hypothyroidism -Repeat TSH in 4 to 6 weeks Elevated CK -Had a prolonged downtime Resolved: Hypoglycemia Chronic: Seizure disorder DVT ppx: Not indicated given elevated INR Code status: Full code Anticipated discharge place: Subacute rehab Anticipated discharge time: Pending authorization Objective - Vital Signs Vital signs: Vital Signs Temp 98.1 F 04/06/24 07:51 Pulse 70 04/06/24 08:27 Resp 16 04/06/24 08:27 BP 96/61 04/06/24 07:51 Pulse Ox 94 L 04/06/24 07:51 FiO2 Intake & Output 04/05/24 04/06/24 04/06/24 18:59 06:59 18:59 Intake Total 3580 Output Total 530 Balance -530 3580 Intake: Oral 3580 Output: Urine 530 Other: Voiding Method Toilet Toilet Toilet Urinal Urinal Urinal # Voids 4 # Bowel Movements 1 - Labs CBC & Chem 7: 04/06/24 04:13 04/06/24 04:13 Labs: Abnormal Lab Results - Last 24 Hours (Table) 04/05/24 04/06/24 04/06/24 Range/Units 18:08 01:46 04:13 RBC 3.09 L (4.40-5.60) X 10*6/uL Hgb 9.3 L (13.0-17.0) g/dL Hct 28.5 L (39.6-50.0) % RDW 14.6 H (11.5-14.5) % Plt Count 94 L (140-440) X 10*3/uL Monocytes # 1.04 H (0.20-1.00) X 10*3/uL Sodium (135-145) mmol/L BUN (9.0-27.0) mg/dL Creatinine (0.6-1.5) mg/dL BUN/Creatinine Ratio (12.00-20.00) Ratio Glucose (70-110) mg/dL POC Glucose (mg/dL) 216 H 122 H (70-110) mg/dL Calcium (8.7-10.3) mg/dL Total Bilirubin (0.3-1.2) mg/dL AST (14-35) U/L Alkaline Phosphatase (41-126) U/L Total Protein (6.2-8.2) g/dL Albumin (3.8-4.9) g/dL Albumin/Globulin Ratio (1.60-3.17) Ratio 04/06/24 04/06/24 04/06/24 Range/Units 04:13 06:45 11:31 RBC (4.40-5.60) X 10*6/uL Hgb (13.0-17.0) g/dL Hct (39.6-50.0) % RDW (11.5-14.5) % Plt Count (140-440) X 10*3/uL Monocytes # (0.20-1.00) X 10*3/uL Sodium 132 L (135-145) mmol/L BUN 5.4 L (9.0-27.0) mg/dL Creatinine 0.5 L (0.6-1.5) mg/dL BUN/Creatinine Ratio 10.80 L (12.00-20.00) Ratio Glucose 139 H (70-110) mg/dL POC Glucose (mg/dL) 113 H 193 H (70-110) mg/dL Calcium 7.0 L (8.7-10.3) mg/dL Total Bilirubin 1.3 H (0.3-1.2) mg/dL AST 42 H (14-35) U/L Alkaline Phosphatase 144 H (41-126) U/L Total Protein 4.5 L (6.2-8.2) g/dL Albumin 1.9 L (3.8-4.9) g/dL Albumin/Globulin Ratio 0.73 L (1.60-3.17) Ratio
[2024-04-06] MEDS: LORazepam 2 MG/ML INJ IV STA (17:11)
[2024-04-06] MEDS: HALOPERIDOL LACTATE 5 MG/ML 1 ML VIAL IM STA (17:52)
[2024-04-07] MEDS: LACTULOSE 200 GM/300 ML (FROM 1/2 GAL JUG) RECTAL SCH ×2 (00:01→00:22)
[2024-04-07] MEDS: ONDANSETRON 4 MG/2 ML VIAL IVP PRN (00:19)
[2024-04-07] MEDS: levETIRAcetam IV 500 MG/5 ML VIAL IVP SCH (00:23)
[2024-04-07] MEDS: RIFAXIMIN 550 MG TABLET PO SCH (00:24)
[2024-04-07] MEDS ORDERED: ZINC OXIDE PASTE (Z-GUARD) 1 APPLIC TOPICAL PRN (00:33)
[2024-04-07 06:08] LABS: Glucose,Whole Blood 67 mg/dL (70-110)
[2024-04-07] MEDS ORDERED: DEXTROSE 50% SYRINGE 50 ML IVP PRN (06:27)
[2024-04-07] MEDS: DEXTROSE 50% SYRINGE 50 ML IVP PRN (06:34)
[2024-04-07 07:03] LABS: Glucose,Whole Blood 98 mg/dL (70-110)
[2024-04-07 07:40] LABS: Glucose,Whole Blood 78 mg/dL (70-110)
[2024-04-07 07:50] LABS: INR 2.1 (<1.2); Prothrombin Time 20.9 sec (10.0-12.5)
[2024-04-07 08:07] VITALS: RESP 16
[2024-04-07 10:24] LABS: Basophils # (A) 0.08 X 10*3/uL (0.00-0.10); Basophils % (A) 1.1 %; Eosinophils # (A) 0.04 X 10*3/uL (0.04-0.35); Eosinophils % (A) 0.6 %; HCT 35.3 % (39.6-50.0); HGB 11.2 g/dL (13.0-17.0); Lymphocytes # (A) 1.29 X 10*3/uL (0.90-5.00); MCH 29.5 pg (27.0-32.0); MCHC 31.7 g/dL (32.0-37.0); MCV 92.9 FL (80.0-97.0); Mean Platelet Volume 10.9 FL (9.5-12.2); Monocytes # (A) 0.92 X 10*3/uL (0.20-1.00); Monocytes % (A) 12.9 %; NRBC Per 100 WBC 0 X 10*3/uL (0.00-0.01); Neutrophils % (A) 67.1 %; Platelet Count 117 X 10*3/uL (140-440); RDW 15.1 % (11.5-14.5); WBC 7.15 X 10*3/uL (4.50-10.00)
[2024-04-07 10:38] LABS: ALT 38 U/L (10-49); AST 50 U/L (14-35); Albumin 2.2 g/dL (3.8-4.9); Albumin/Globulin Ratio 0.71 Ratio (1.60-3.17); Alkaline Phosphatase 146 U/L (41-126); Calcium 7.8 mg/dL (8.7-10.3); Carbon Dioxide 21.2 mmol/L (21.6-31.8); Chloride 108 mmol/L (96-109); Globulin 3.1 g/dL (1.6-3.3); Glucose 103 mg/dL (70-110); Potassium 3.9 mmol/L (3.5-5.5); Sodium 139 mmol/L (135-145); Total Bilirubin 2.7 mg/dL (0.3-1.2); Total Protein 5.3 g/dL (6.2-8.2)
[2024-04-07 11:44] LABS: Glucose,Whole Blood 161 mg/dL (70-110)
--- NOTE | 2024-04-07 12:56 | P.PN ---
Subjective Progress Note Date: 04/07/24 Hospital Course: A 33-year-old male with past medical history of alcoholic liver cirrhosis, anx iety, depression, seizure disorder, who presented to the ED with AMS, he had TIPS done on 03/20/2024 and was last seen normal on 03/25. He then was found by a family member in his basement with multiple layers of clothing on and it appears that he did not have heat on in his cells. In the ED patient's blood pressure was borderline 94/67, he was hypothermic 91.1, satting well on room air, hit lactic acid level was increased to 3.3, CPK elevated at 893, UDS positive for benzos sent THC, negative ethanol, CT brain showed nonspecific white matter changes, patient was admitted to the ICU for further workup and management, NG tube inserted and patient was started on lactulose, abdominal ultrasound showed small amount of ascites, echo normal LV function, troponin trended 0.0 45, 0.0 53, ACS ruled out. He is initially elevated ammonia level trended down with lactulose, patient remained confused and required sitter, chest x-ray showed concern for right-sided infiltrate and Rocephin was switched to Unasyn and eventually to Augmentin to complete 7 days of treatment for presumed aspiration pneumonia.. Patient does not have recollection of the events leading up to the hospitalization. Patient was seen by CHIEF INVESTIGATOR for dysphagia, his diet was advanced to level 3. PT OT following. Recommends rehab, currently pending placement, insurance denied 2 facilities Repeat abdominal ultrasound completed 03/28/2024 showing fluid in all 4 abdominal quadrants but reporting minimal abdominal ascites. Repeat ultrasound done on 04/04 for increasing abdominal distention, showed moderate amount of ascites, IR consulted, body fluid labs ordered. Patient now has acute hyponatremia likely from pleural fluid overload, 1 dose of Lasix ordered on top of his oral regimen. Patient was complaining of shortness of breath, chest x- ray showed lateral consolidation and small effusion correlate for CHF or pneu monia, patient continued on Augmentin. Patient started to become encephalopathic again. Required lactulose enema. Will be transferred to [facility] where he received his TIPS, for possible reduction in shunt diameter or other types of TIPSl. Patient accepted by Dr. Spenser Elliott. Subjective: Patient seen and examined at bedside. Continue to remain encephalopathic, combative, requiring 2 point restraints. Had multiple bowel movements with lactulose enema Pertinent positives and negatives as discussed above, a complete review of systems was performed and all other systems are negative. Vitals Signs Reviewed. General: Nontoxic, no distress, appears at stated age Derm: Warm, dry, Head: Atraumatic, normocephalic, symmetric Eyes: EOMI, no lid lag, anicteric sclera Mouth: No lip lesion, mucus membranes moist Cardiovascular: S1S2 reg, no murmur Lungs: CTA bilateral, no rhonchi, no rales, no accessory muscle use Abdominal: Soft, distended, nontender to palpation, no guarding, no appreciable organomegaly Ext: No gross muscle atrophy, trace peripheral edema, no contractures Neuro: CN II-XI grossly intact, no focal neuro deficits Psych: Somnolent, oriented x 0, appropriate affect Data Reviewed Today: Pertinent Labs: WBC 7.15, hemoglobin 11.2, platelet 117, INR 2.1, creatinine 0.5, total bili 2.7, AST 50, ALT 38, ALP 146, blood sugars range between 98-1 61 Imaging: No new imaging Assessment and Plan: Active: Acute hepatic encephalopathy Alcoholic liver cirrhosis status post recent TIPS Anemia and thrombocytopenia secondary to above Hypervolemic hyponatremia resolved Hyperammonemia Supratherapeutic INR Type B lactic acidosis, secondary to cirrhosis Hypoglycemia -Continue Accu-Cheks every 6 hours Continue lactulose 200 g rectal every 4 hours, also on rifaximin 550 -Continue Lasix 20 twice daily, spironolactone 25 daily if patient tolerating -Patient being transferred to outside facility for right dorsal versus adjustment of TIPS -Continue midodrine 5 oral 3 times daily -Limit the use of narcotics given cirrhosis, currently on IV morphine as needed, monitor for sedation Suspected aspiration pneumonia -No further complaints, antibiotics have been discontinued as of yesterday -Continue to monitor Subclinical hypothyroidism -Repeat TSH in 4 to 6 weeks Elevated CK -Had a prolonged downtime Resolved: Hypoglycemia Chronic: Seizure disorder-Keppra changed to 500 IV every 12 hours DVT ppx: Not indicated given elevated INR Code status: Full code Anticipated discharge place: [facility] Anticipated discharge time: Pending transfer Objective - Vital Signs Vital signs: Vital Signs Temp 97.6 F 04/07/24 07:29 Pulse 65 04/07/24 08:00 Resp 16 04/07/24 08:00 BP 94/64 04/07/24 07:29 Pulse Ox 94 L 04/07/24 07:29 FiO2 Intake & Output 04/06/24 04/07/24 04/07/24 18:59 06:59 18:59 Weight 86 kg Other: Voiding Method Toilet Diaper Diaper Urinal # Voids 2 4 # Bowel Movements 5 - Labs CBC & Chem 7: 04/07/24 07:25 04/07/24 07:25 Labs: Abnormal Lab Results - Last 24 Hours (Table) 04/06/24 04/07/24 04/07/24 Range/Units 22:30 06:06 07:25 RBC (4.40-5.60) X 10*6/uL Hgb (13.0-17.0) g/dL Hct (39.6-50.0) % MCHC (32.0-37.0) g/dL RDW (11.5-14.5) % Plt Count (140-440) X 10*3/uL PT 20.9 H (10.0-12.5) sec INR 2.1 H (<1.2) Carbon Dioxide (21.6-31.8) mmol/L BUN (9.0-27.0) mg/dL Creatinine (0.6-1.5) mg/dL POC Glucose (mg/dL) 67 L (70-110) mg/dL Calcium (8.7-10.3) mg/dL Total Bilirubin (0.3-1.2) mg/dL AST (14-35) U/L Alkaline Phosphatase (41-126) U/L Ammonia 200 H (<30) umol/L Total Protein (6.2-8.2) g/dL Albumin (3.8-4.9) g/dL Albumin/Globulin Ratio (1.60-3.17) Ratio 04/07/24 04/07/24 04/07/24 Range/Units 07:25 07:25 07:25 RBC 3.80 L (4.40-5.60) X 10*6/uL Hgb 11.2 L (13.0-17.0) g/dL Hct 35.3 L (39.6-50.0) % MCHC 31.7 L (32.0-37.0) g/dL RDW 15.1 H (11.5-14.5) % Plt Count 117 L (140-440) X 10*3/uL PT (10.0-12.5) sec INR (<1.2) Carbon Dioxide 21.2 L (21.6-31.8) mmol/L BUN 6.0 L (9.0-27.0) mg/dL Creatinine 0.5 L (0.6-1.5) mg/dL POC Glucose (mg/dL) (70-110) mg/dL Calcium 7.8 L (8.7-10.3) mg/dL Total Bilirubin 2.7 H (0.3-1.2) mg/dL AST 50 H (14-35) U/L Alkaline Phosphatase 146 H (41-126) U/L Ammonia 81 H (<30) umol/L Total Protein 5.3 L (6.2-8.2) g/dL Albumin 2.2 L (3.8-4.9) g/dL Albumin/Globulin Ratio 0.71 L (1.60-3.17) Ratio 12//24 Range/Units 11:43 RBC (4.40-5.60) X 10*6/uL Hgb (13.0-17.0) g/dL Hct (39.6-50.0) % MCHC (32.0-37.0) g/dL RDW (11.5-14.5) % Plt Count (140-440) X 10*3/uL PT (10.0-12.5) sec INR (<1.2) Carbon Dioxide (21.6-31.8) mmol/L BUN (9.0-27.0) mg/dL Creatinine (0.6-1.5) mg/dL POC Glucose (mg/dL) 161 H (70-110) mg/dL Calcium (8.7-10.3) mg/dL Total Bilirubin (0.3-1.2) mg/dL AST (14-35) U/L Alkaline Phosphatase (41-126) U/L Ammonia (<30) umol/L Total Protein (6.2-8.2) g/dL Albumin (3.8-4.9) g/dL Albumin/Globulin Ratio (1.60-3.17) Ratio
[2024-04-07 14:41] VITALS: BP 102/70; PULSE 84; TEMP 97.9
[2024-04-07 17:00] LABS: Glucose,Whole Blood 180 mg/dL (70-110)
--- NOTE | 2024-04-08 07:32 | P.DS ---
Providers Date of admission: 03/27/24 16:10 Expected date of discharge: 04/07/24 Attending physician: Deonte Kwong Consults: 03/27/24 16:05 Consult Physician Stat Consulting Provider: Wiliam Alicia Consult Reason/Comments: hepatic encephalopathy Do you want consulting provider notified?: Yes Consult Physician Urgent Consulting Provider: Chiquita Baum Consult Reason/Comments: hepatic encephalopathy Do you want consulting provider notified?: Yes Primary care physician: Lilian Bishop MD Hospital Course: Discharge Diagnosis: Acute hepatic encephalopathy Alcoholic liver cirrhosis status post recent TIPS Anemia and thrombocytopenia secondary to above Hypervolemic hyponatremia resolved Hyperammonemia Supratherapeutic INR Type B lactic acidosis, secondary to cirrhosis Hypoglycemia Suspected aspiration pneumonia Subclinical hypothyroidism Elevated CK Hospital Course: A 33-year-old male with past medical history of alcoholic liver cirrhosis, anx iety, depression, seizure disorder, who presented to the ED with AMS, he had TIPS done on 03/20/2024 and was last seen normal on 03/25. He then was found by a family member in his basement with multiple layers of clothing on and it appears that he did not have heat on in his cells. In the ED patient's blood pressure was borderline 94/67, he was hypothermic 91.1, satting well on room air, hit lactic acid level was increased to 3.3, CPK elevated at 893, UDS positive for benzos sent THC, negative ethanol, CT brain showed nonspecific white matter changes, patient was admitted to the ICU for further workup and management, NG tube inserted and patient was started on lactulose, abdominal ultrasound showed small amount of ascites, echo normal LV function, troponin trended 0.0 45, 0.0 53, ACS ruled out. He is initially elevated ammonia level trended down with lactulose, patient remained confused and required sitter, chest x-ray showed concern for right-sided infiltrate and Rocephin was switched to Unasyn and eventually to Augmentin to complete 7 days of treatment for presumed aspiration pneumonia.. Patient does not have recollection of the events leading up to the hospitalization. Patient was seen by BROADCAST SUPERVISOR for dysphagia, his diet was advanced to level 3. PT OT following. Recommends rehab, currently pending placement, insurance denied 2 facilities Repeat abdominal ultrasound completed 03/28/2024 showing fluid in all 4 abdominal quadrants but reporting minimal abdominal ascites. Repeat ultrasound done on 04/04 for increasing abdominal distention, showed moderate amount of ascites, IR consulted, body fluid labs ordered. Patient now has acute hyponatremia likely from pleural fluid overload, 1 dose of Lasix ordered on top of his oral regimen. Patient was complaining of shortness of breath, chest x- ray showed lateral consolidation and small effusion correlate for CHF or pneumonia, patient continued on Augmentin. Patient started to become encephalopathic again. Required lactulose enema. Will be transferred to [facility] where he received his TIPS, for possible reduction in shunt diameter or other types of TIPS intervention. Patient accepted by Dr. Spenser Elliott. Patient transfered on 04/07/24. Patient Condition at Discharge: Serious Plan - Discharge Summary Discharge Rx Participant: No New Discharge Prescriptions: No Action Rifaximin [Xifaxan] 550 mg PO Q12H Furosemide [Lasix] 20 mg PO BID Omeprazole [PriLOSEC] 20 mg PO BID levETIRAcetam [Keppra] 500 mg PO Q12HR Acamprosate Calcium [Campral] 666 mg PO TID diphenhydrAMINE & Zinc Cream [Benadryl Cream] 1 applic TOPICAL TID PRN PRN Reason: Skin Irritation Albuterol Sulfate [Albuterol Sulfate Hfa] 2 puff INHALATION RT-Q6H PRN PRN Reason: Shortness Of Breath Buprenorphine HCl/Naloxone HCl [Suboxone 2 mg-0.5 mg Sl Film] 1 film SL DAILY PRN PRN Reason: Pain methocarbamoL [Robaxin-750] 750 mg PO Q8H PRN PRN Reason: Muscle Spasm ALPRAZolam [Xanax] 0.25 mg PO DAILY PRN PRN Reason: Anxiety Midodrine [ProAmatine] 5 mg PO TID Ciprofloxacin HCl [Cipro] 500 mg PO DAILY Ondansetron [Zofran] 4 mg PO DAILY PRN PRN Reason: Nausea Lactulose 30 gm PO Q8H hydrOXYzine HCL [Atarax] 25 mg PO Q6H PRN PRN Reason: Anxiety Mirtazapine 7.5 mg PO HS Pregabalin [Lyrica] 50 mg PO BID Thiamine [Vitamin B-1] 100 mg PO DAILY #90 tab Spironolactone [Aldactone] 25 mg PO BID Discharge Medication List Acamprosate Calcium [Campral] 666 mg PO TID 09/17/23 [History] Furosemide [Lasix] 20 mg PO BID 09/17/23 [History] Lactulose 30 gm PO Q8H 09/17/23 [History] Omeprazole [PriLOSEC] 20 mg PO BID 09/17/23 [History] Ondansetron [Zofran] 4 mg PO DAILY PRN 09/17/23 [History] Rifaximin [Xifaxan] 550 mg PO Q12H 09/17/23 [History] levETIRAcetam [Keppra] 500 mg PO Q12HR 09/17/23 [History] ALPRAZolam [Xanax] 0.25 mg PO DAILY PRN 02/10/24 [History] Albuterol Sulfate [Albuterol Sulfate Hfa] 2 puff INHALATION RT-Q6H PRN 02/10/24 [History] Buprenorphine HCl/Naloxone HCl [Suboxone 2 mg-0.5 mg Sl Film] 1 film SL DAILY PRN 02/10/24 [History] Midodrine [ProAmatine] 5 mg PO TID 02/10/24 [History] Mirtazapine 7.5 mg PO HS 02/10/24 [History] diphenhydrAMINE & Zinc Cream [Benadryl Cream] 1 applic TOPICAL TID PRN 02/10/24 [History] hydrOXYzine HCL [Atarax] 25 mg PO Q6H PRN 02/10/24 [History] methocarbamoL [Robaxin-750] 750 mg PO Q8H PRN 02/10/24 [History] Pregabalin [Lyrica] 50 mg PO BID 02/18/24 [History] Thiamine [Vitamin B-1] 100 mg PO DAILY #90 tab 03/10/24 [Rx] Ciprofloxacin HCl [Cipro] 500 mg PO DAILY 03/27/24 [History] Spironolactone [Aldactone] 25 mg PO BID 03/27/24 [History] Follow up Appointment(s)/Referral(s): Lilian Bishop MD [Primary Care Provider] - 1-2 days Discharge Disposition: OTHER INSTITUTION NOT DEFINED
== END 2024-04-07 17:43 | disposition short-term general hospital (02) | DRG 280 ==
LOC: SUPCPDRO 13:09 → EC 13:09 → 2SICU 16:10 → 3SCARD 03-28 15:16 → 4SSUR 03-30 22:31
PROVIDERS: ADMIT Student in an Organized Health Care Education/Training Program; ATTEND Student in an Organized Health Care Education/Training Program
PROC: 0D9670Z Drainage of Stomach with Drainage Device, Via Natural or Artificial Opening (ICD-10-PCS; 2024-03-27)
PROC: 05H933Z Insertion of Infusion Device into Right Brachial Vein, Percutaneous Approach (ICD-10-PCS; principal; 2024-04-07 15:20)
DX: K76.82 Hepatic encephalopathy (principal); K70.40 Alcoholic hepatic failure without coma; J69.0 Pneumonitis due to inhalation of food and vomit; A41.9 Sepsis, unspecified organism; T68.XXXA Hypothermia, initial encounter; D61.818 Other pancytopenia; I95.9 Hypotension, unspecified; K86.2 Cyst of pancreas; E87.20 Acidosis, unspecified; F10.20 Alcohol dependence, uncomplicated; K76.6 Portal hypertension; F32.A Depression, unspecified; K70.31 Alcoholic cirrhosis of liver with ascites; L89.142 Pressure ulcer of left lower back, stage 2; G40.909 Epilepsy, unspecified, not intractable, without status epilepticus; D68.9 Coagulation defect, unspecified; E16.1 Other hypoglycemia; M62.82 Rhabdomyolysis; E87.1 Hypo-osmolality and hyponatremia; D69.59 Other secondary thrombocytopenia; E03.8 Other specified hypothyroidism; E87.70 Fluid overload, unspecified; J98.11 Atelectasis; R13.10 Dysphagia, unspecified; E86.0 Dehydration; E87.6 Hypokalemia; K21.9 Gastro-esophageal reflux disease without esophagitis; F17.200 Nicotine dependence, unspecified, uncomplicated; F41.9 Anxiety disorder, unspecified; Y90.0 Blood alcohol level of less than 20 mg/100 ml; Z79.2 Long term (current) use of antibiotics; Z79.899 Other long term (current) drug therapy; Z96.89 Presence of other specified functional implants; Z71.6 Tobacco abuse counseling
CPT/HCPCS: 36410; 36415; 70450; 71045; 74018; 76705; 76937; 80048; 80053; 80306; 80320; 81001; 82140; 82550; 82607; 82746; 83036; 83605; 83735; 84132; 84145; 84439; 84443; 84484; 85025; 85027; 85610; 85730; 87040; 93005; 93306; 96365; 96366; 96368; 96372; 96375; 96376; 99291

== ENCOUNTER 2024-05-05 13:02 | Day surgery (SDC) | payer OTHER ==
[2024-05-05 13:38] LABS: Platelet Count 125 k/uL (150-450)
[2024-05-05 13:42] VITALS: TEMP 98.1
[2024-05-05 13:47] LABS: Prothrombin Time 20.2 sec (10.0-12.5)
[2024-05-05 13:50] LABS: African American GFR (CKD) >90 (>60 ml/min/1.73 sqM); Non-African American GFR(CKD) >90 (>60 ml/min/1.73 sqM)
[2024-05-05] MEDS: ALBUMIN HUMAN 25% 50 ML in EMPTY BAG 1 BAG IVPB SCH (14:20)
[2024-05-05 14:22] VITALS: RESP 15
[2024-05-05 15:22] VITALS: PULSE 79
[2024-05-05 15:24] VITALS: BP 91/61
--- NOTE | 2024-05-05 15:29 | US ---
EXAMINATION TYPE: US paracentesis abd w/image DATE OF EXAM: 05/05/2024 2:21 PM COMPARISON: prior paracentesis. CLINICAL INDICATION:Male, 33 years old with history of ascities; , ascites ATTENDING: Dr. Lemuel Vanegas PROCEDURE: Informed consent was obtained. The risks of the procedure were extensively explained incl uding risk of damage to surrounding bowel with perforation and need for additional procedures. Proced ure was performed in the ultrasound procedure suite. Ultrasound imaging of the abdomen demonstrate as citic fluid. An appropriate access site was localized to the right lower abdomen. Timeout was taken p er protocol. The skin was prepped and draped in the usual sterile fashion and then locally anesthetiz ed with 1% lidocaine. The peritoneal cavity was then accessed via a 5-Monegasque one-step needle/cathete r. Approximately 9500 mL of clear straw-colored fluid was obtained. Postprocedural imaging of the ab domen demonstrate a minimal amount of abdominal fluid. Patient tolerated procedure well without immediate complication. Hemostasis at the procedural site w as obtained with a sterile bandage placed. The patient was monitored in the holding area following th e procedure and was subsequently discharged in stable condition. IMPRESSION: Ultrasound guided paracentesis, with approximately 9500 mL of clear straw-colored fluid drained. No i mmediate complications were evident. [facility], , 05/05/2024 3:27 PM
== END 2024-05-05 15:28 | disposition home or self-care (01) ==
LOC: RADPROMAIN 13:02
PROVIDERS: ATTEND Internal Medicine
DX: R18.8 Other ascites (principal)
CPT/HCPCS: 82565; 85049; 85610; 36415; 49083; P9047

== ENCOUNTER 2024-05-18 00:14 | Inpatient (IN) | payer OTHER ==
[2024-05-18] MEDS: HYDROmorphone 0.5 MG/0.5 ML SYRINGE IVP STA ×2 (01:18→05:24)
[2024-05-18] MEDS: ONDANSETRON 4 MG/2 ML VIAL IVP STA ×2 (01:29→21:30)
[2024-05-18 01:30] LABS: Basophils % (A) 0 %; Eosinophils # (A) 0.1 k/uL (0-0.7); Eosinophils % (A) 1 %; HCT 28.3 % (39.0-53.0); HGB 9.5 gm/dL (13.0-17.5); Lymphocytes % (A) 14 %; MCH 32.8 pg (25.0-35.0); MCHC 33.6 g/dL (31.0-37.0); MCV 97.6 fL (80.0-100.0); Mean Platelet Volume 7.6; Monocytes # (A) 0.9 k/uL (0-1.0); Monocytes % (A) 13 %; Neutrophils # (A) 4.9 k/uL (1.3-7.7); Neutrophils % (A) 70 %; Platelet Count 244 k/uL (150-450); RDW 14.2 % (11.5-15.5); WBC 7.1 k/uL (3.8-10.6)
[2024-05-18 01:43] LABS: ALT 16 U/L (4-49); AST 27 U/L (17-59); African American GFR (CKD) >90 (>60 ml/min/1.73 sqM); Albumin 2.7 g/dL (3.5-5.0); Alcohol <10 mg/dL; Alkaline Phosphatase 187 U/L (38-126); Amylase 47 U/L (30-110); Anion Gap 11 mmol/L; Blood Urea Nitrogen 26 mg/dL (9-20); Calcium 7.9 mg/dL (8.4-10.2); Carbon Dioxide 19 mmol/L (22-30); Chloride 90 mmol/L (98-107); Glucose 145 mg/dL (74-99); Lipase 27 U/L (23-300); Non-African American GFR(CKD) >90 (>60 ml/min/1.73 sqM); Potassium 4.8 mmol/L (3.5-5.1); Sodium 120 mmol/L (137-145); Total Bilirubin 1.9 mg/dL (0.2-1.3); Total Protein 6.7 g/dL (6.3-8.2)
[2024-05-18 01:44] LABS: INR 1.4 (<1.2); Partial Thromboplastin Time 32.2 sec (22.0-30.0); Prothrombin Time 14.3 sec (10.0-12.5)
[2024-05-18 01:46] LABS: Lactic Acid, Venous 2.5 mmol/L (0.7-2.0)
[2024-05-18] MEDS: LACTULOSE 20 GM/30 ML CUP PO ONE (02:35)
[2024-05-18 02:45] LABS: Appearance,Urine Clear (Clear); Bilirubin,Urine Negative (Negative); Blood,Urine Negative (Negative); Color,Urine Yellow; Glucose,Urine (UA) Negative (Negative); Ketones,Urine Negative (Negative); Leukocyte Esterase,Urine Negative (Negative); Nitrite,Urine Negative (Negative); PH, Urine 5.5 (5.0-8.0); Protein,Urine Negative (Negative); Specific Gravity,Urine 1.021 (1.001-1.035); Urobilinogen,Urine <2.0 mg/dL (<2.0)
[2024-05-18] MEDS: LIDOCAINE 1% INJ 10MG/ML (10 ML MDV) SQ STA (05:24)
[2024-05-18] MEDS: TOPICAL SKIN ADHESIVE 1 EACH AMP TOPICAL ONE (06:16)
--- NOTE | 2024-05-18 06:18 | P.HPIM ---
History of Present Illness H&P Date: 05/18/24 Patient is a 33-year-old male with a PMH of alcoholic cirrhosis, seizure disorder, depression, and anxiety, who presents to the emergency room with complaints of abdominal discomfort. The patient has recently undergone a TIPS procedure on 03/20/2024. Of note, he was recently admitted on 03/27 for altered mental status and discharged on 08/06 after hospitalization for hepatic encephalopathy and hyponatremia. Patient now reports that over the past few days he has been experiencing severe abdominal discomfort, rated at a 10 out of 10. Notes that the pain is diffuse and constant and worsened with movement. He reports his last paracentesis was on 05/12/2024. He also reports feeling more fatigued and subjective chills. Denied noticing hematochezia or melena. Also denied hematemesis or coffee-ground emesis. In the emergency room, laboratory evaluation was remarkable for lactic acidosis of 2.5, sodium 120, chloride 90, ammonia 71, alk phos 187, T. bili 1.9, CO2 19, BUN 26, creatinine 1.06, hemoglobin 9.5. UA was unremarkable with serum alcohol level less than 10. ED documentation reviewed and case discussed with ED provider. Review of systems: Pertinent positives and negatives as discussed in HPI, a complete review of systems was performed and all other systems are negative. Physical examination: Vital signs reviewed General: Cachectic ill-appearing male, appears significantly older than stated age Derm: no unusual rashes/lesions, warm Head: atraumatic, normocephalic, symmetric Eyes: EOMI, no lid lag, anicteric sclera, pupils equal round reactive to light ENT: Nose and ears atraumatic Neck: No cervical lymphadenopathy, trachea midline, supple Mouth: no lip lesion, mucus membranes moist Cardiovascular: S1S2 reg, no murmur, positive dorsalis pedis pulse bilateral, no edema Lungs: CTA bilateral, no rhonchi, no rales, no accessory muscle use Abdominal: Severely distended with diffuse tenderness with some guarding Ext: muscle strength 3 out of 5 in all 4 extremities grossly, no gross muscle atrophy, no contractures, Neuro: CN II-XI grossly intact, no gross focal neuro deficits Psych: Alert, oriented to person, place, and time Assessment: Abdominal pain, rule out spontaneous bacterial peritonitis Alcoholic cirrhosis Lactic acidosis, likely due to cirrhosis Hypochloremic hyponatremia Hyperammonemia Normocytic anemia, similar to baseline Imaging: None performed Data Review: Laboratory evaluation was remarkable for lactic acidosis of 2.5, sodium 120, chloride 90, ammonia 71, alk phos 187, T. bili 1.9, CO2 19, BUN 26, creatinine 1.06, hemoglobin 9.5. UA was unremarkable with serum alcohol level less than 10. Plan: Patient to undergo paracentesis in the ED to evaluate for SBP Start empiric antibiotic coverage with ceftriaxone 2 g daily Follow-up cultures Resume home medications once reconciled Monitor lactic acid levels DVT prophylaxis: IPCDs The patient is admitted with an anticipated greater than 2 midnight stay for evaluation of SBP CODE STATUS: Full Code Discussed with: Patient Anticipated discharge place: Home Past Medical History Past Medical History: GERD/Reflux, Liver Disease Additional Past Medical History / Comment(s): Pancreatitis, ETOH abuse, subtance abuse, large volume paracentesis, chirrhosis History of Any Multi-Drug Resistant Organisms: None Reported Additional Past Surgical History / Comment(s): ERCP stent placement, TIPS procedure Past Anesthesia/Blood Transfusion Reactions: Unable to Obtain Past Psychological History: Anxiety, Depression Smoking Status: Unknown if ever smoked Past Alcohol Use History: None Reported, Abuse - Past Family History Father Family Medical History: Hypertension Additional Family Medical History / Comment(s): Parkinson's Disease Mother Additional Family Medical History / Comment(s): mental illness Medications and Allergies Home Medications Medication Instructions Recorded Confirmed Type Acamprosate Calcium [Campral] 666 mg PO TID 09/17/23 05/12/24 History Furosemide [Lasix] 20 mg PO BID 09/17/23 05/12/24 History Lactulose 30 gm PO Q8H 09/17/23 05/12/24 History Omeprazole [PriLOSEC] 20 mg PO BID 09/17/23 05/12/24 History Ondansetron [Zofran] 4 mg PO DAILY PRN 09/17/23 05/12/24 History Rifaximin [Xifaxan] 550 mg PO Q12H 09/17/23 05/12/24 History levETIRAcetam [Keppra] 500 mg PO Q12HR 09/17/23 05/12/24 History ALPRAZolam [Xanax] 0.25 mg PO DAILY PRN 02/10/24 05/12/24 History Albuterol Sulfate [Albuterol 2 puff INHALATION RT-Q6H PRN 02/10/24 05/12/24 History Sulfate Hfa] Buprenorphine HCl/Naloxone HCl 1 film SL DAILY PRN 02/10/24 05/12/24 History [Suboxone 2 mg-0.5 mg Sl Film] Midodrine [ProAmatine] 5 mg PO TID 02/10/24 05/12/24 History Mirtazapine 7.5 mg PO HS 02/10/24 05/12/24 History diphenhydrAMINE & Zinc Cream 1 applic TOPICAL TID PRN 02/10/24 05/12/24 History [Benadryl Cream] hydrOXYzine HCL [Atarax] 25 mg PO Q6H PRN 02/10/24 05/12/24 History methocarbamoL [Robaxin-750] 750 mg PO Q8H PRN 02/10/24 05/12/24 History Pregabalin [Lyrica] 50 mg PO BID 02/18/24 05/12/24 History Thiamine [Vitamin B-1] 100 mg PO DAILY #90 tab 03/10/24 05/12/24 Rx Ciprofloxacin HCl [Cipro] 500 mg PO DAILY 03/27/24 05/12/24 History Spironolactone [Aldactone] 25 mg PO BID 03/27/24 05/12/24 History Allergies Allergy/AdvReac Type Severity Reaction Status Date / Time No Known Allergies Allergy Verified 05/18/24 00:28 Physical Exam Vitals: Vital Signs Temp Pulse Resp BP Pulse Ox 05/18/24 03:27 80 16 111/87 97 05/18/24 02:08 74 18 109/80 96 05/18/24 01:54 80 20 139/80 96 05/18/24 00:16 98.3 F 80 16 118/72 96 Intake and Output 05/17/24 05/17/24 05/18/24 14:59 22:59 06:59 Other: Weight 63.503 kg Results CBC & Chem 7: 05/18/24 00:22 05/18/24 00:22 Labs: Abnormal Lab Results - Last 24 Hours (Table) 05/18/24 05/18/24 05/18/24 Range/Units 00:22 00:22 00:22 RBC 2.90 L (4.30-5.90) m/uL Hgb 9.5 L (13.0-17.5) gm/dL Hct 28.3 L (39.0-53.0) % PT (10.0-12.5) sec INR (<1.2) APTT (22.0-30.0) sec Sodium 120 L (137-145) mmol/L Chloride 90 L (98-107) mmol/L Carbon Dioxide 19 L (22-30) mmol/L BUN 26 H (9-20) mg/dL Glucose 145 H (74-99) mg/dL Plasma Lactic Acid Armando 2.5 H* (0.7-2.0) mmol/L Calcium 7.9 L (8.4-10.2) mg/dL Total Bilirubin 1.9 H (0.2-1.3) mg/dL Alkaline Phosphatase 187 H (38-126) U/L Ammonia 71 H (<30) umol/L Albumin 2.7 L (3.5-5.0) g/dL 05/18/24 Range/Units 00:22 RBC (4.30-5.90) m/uL Hgb (13.0-17.5) gm/dL Hct (39.0-53.0) % PT 14.3 H (10.0-12.5) sec INR 1.4 H (<1.2) APTT 32.2 H (22.0-30.0) sec Sodium (137-145) mmol/L Chloride (98-107) mmol/L Carbon Dioxide (22-30) mmol/L BUN (9-20) mg/dL Glucose (74-99) mg/dL Plasma Lactic Acid Armando (0.7-2.0) mmol/L Calcium (8.4-10.2) mg/dL Total Bilirubin (0.2-1.3) mg/dL Alkaline Phosphatase (38-126) U/L Ammonia (<30) umol/L Albumin (3.5-5.0) g/dL
[2024-05-18] MEDS ORDERED: NALOXONE 0.4 MG/ML 1 ML VIAL IV PRN (06:31)
[2024-05-18] MEDS: HYDROmorphone 1 MG/ML 1 ML SYRINGE IVP STA (06:36)
--- NOTE | 2024-05-18 06:37 | ED ---
Abdominal Pain HPI - General Chief Complaint: Abdominal Pain Stated Complaint: abd pain Time Seen by Provider: 05/18/24 00:46 Source: patient, EMS Mode of arrival: EMS Limitations: no limitations - History of Present Illness Initial Comments: Patient is 33-year-old man with history of alcoholic cirrhosis, who is presenting to have evaluation for diffuse abdominal pain. The patient describes the pain as having a number of features it feels like a fullness and bloating there is burning and aching. Patient also was having nausea and vomiting. The symptoms getting worse over the past 1 to 2 days. He has not noted fever. He has not seen any hematemesis or bloody or tarry stools. Patient has not had change in urination. He did have a paracentesis with removal of 10.5 L of ascites on May 12. The patient did have TIPS procedure performed in March. MD Complaint: abdominal pain -: days(s) Location: diffuse Radiation: none Migration to: no migration Severity: severe Quality: aching, fullness Consistency: constant Improves With: nothing Worsens With: nothing Associated Symptoms: nausea, vomiting - Related Data Home Medications Medication Instructions Recorded Confirmed Acamprosate Calcium [Campral] 666 mg PO TID 09/17/23 06/05/24 Lactulose 30 gm PO Q8H 09/17/23 06/05/24 Omeprazole [PriLOSEC] 20 mg PO BID 09/17/23 06/05/24 Ondansetron [Zofran] 4 mg PO DAILY PRN 09/17/23 06/05/24 Rifaximin [Xifaxan] 550 mg PO Q12H 09/17/23 06/05/24 levETIRAcetam [Keppra] 500 mg PO Q12HR 09/17/23 06/05/24 ALPRAZolam [Xanax] 0.25 mg PO DAILY PRN 02/10/24 06/05/24 Albuterol Sulfate [Albuterol 2 puff INHALATION RT-Q6H PRN 02/10/24 06/05/24 Sulfate Hfa] Midodrine [ProAmatine] 5 mg PO TID 02/10/24 06/05/24 Mirtazapine 7.5 mg PO HS 02/10/24 06/05/24 diphenhydrAMINE & Zinc Cream 1 applic TOPICAL TID PRN 02/10/24 06/05/24 [Benadryl Cream] hydrOXYzine HCL [Atarax] 25 mg PO Q6H PRN 02/10/24 06/05/24 methocarbamoL [Robaxin-750] 750 mg PO Q8H PRN 02/10/24 06/05/24 Pregabalin [Lyrica] 50 mg PO BID 02/18/24 06/05/24 Ondansetron [Ondansetron ODT] 4 mg PO BID PRN 05/18/24 06/05/24 traZODone HCL [Desyrel] 50 mg PO HS 05/18/24 06/05/24 Previous Rx's Medication Instructions Recorded Thiamine [Vitamin B-1] 100 mg PO DAILY #90 tab 03/10/24 Buprenorphine HCl/Naloxone HCl 1 film SL DAILY PRN #30 film 05/27/24 [Suboxone 2 mg-0.5 mg Sl Film] Furosemide [Lasix] 40 mg PO BID #120 tab 05/27/24 Allergies Allergy/AdvReac Type Severity Reaction Status Date / Time No Known Allergies Allergy Verified 06/05/24 10:20 Review of Systems ROS Statement: Those systems with pertinent positive or pertinent negative responses have been documented in the HPI. ROS Other: All systems not noted in ROS Statement are negative. Constitutional: Reports: weakness. Denies: fever, chills Respiratory: Reports: dyspnea. Denies: cough, stridor Cardiovascular: Reports: edema. Denies: chest pain, palpitations, syncope Gastrointestinal: Reports: abdominal pain, nausea, vomiting. Denies: diarrhea, hematemesis, melena, hematochezia Genitourinary: Denies: dysuria, hematuria, testicular pain Musculoskeletal: Reports: back pain (Chronic) Skin: Denies: rash Neurological: Denies: headache, weakness Past Medical History Past Medical History: GERD/Reflux, Liver Disease Additional Past Medical History / Comment(s): Pancreatitis, ETOH abuse, subtance abuse, large volume paracentesis, chirrhosis History of Any Multi-Drug Resistant Organisms: None Reported Additional Past Surgical History / Comment(s): ERCP stent placement, TIPS procedure Past Anesthesia/Blood Transfusion Reactions: Unable to Obtain Past Psychological History: Anxiety, Depression Smoking Status: Unknown if ever smoked Past Alcohol Use History: None Reported, Abuse - Past Family History Father Family Medical History: Hypertension Additional Family Medical History / Comment(s): Parkinson's Disease Mother Additional Family Medical History / Comment(s): mental illness General Exam Limitations: no limitations General appearance: alert, in no apparent distress Head exam: Present: atraumatic, normocephalic Eye exam: Present: normal appearance. Absent: scleral icterus, conjunctival injection ENT exam: Present: mucous membranes dry Neck exam: Present: normal inspection Respiratory exam: Present: normal lung sounds bilaterally. Absent: respiratory distress, wheezes, rales, rhonchi, stridor, accessory muscle use Cardiovascular Exam: Present: regular rate, normal rhythm, normal heart sounds. Absent: systolic murmur, diastolic murmur, rubs, gallop GI/Abdominal exam: Present: distended, tenderness, other (Ascites). Absent: guarding, rebound, rigid, mass Extremities exam: Present: normal inspection, normal capillary refill. Absent: pedal edema, calf tenderness Back exam: Present: normal inspection. Absent: CVA tenderness (R), CVA tenderness (L) Neurological exam: Present: alert Skin exam: Present: warm, dry, intact, normal color. Absent: rash Course Vital Signs 05/18/24 05/18/24 05/18/24 00:16 01:54 02:08 Temperature 98.3 F Pulse Rate 80 80 74 Pulse Rate [ Pulse Oximetery ] Respiratory 16 20 18 Rate Blood Pressure 118/72 139/80 109/80 O2 Sat by Pulse 96 96 96 Oximetry 05/18/24 05/18/24 05/18/24 03:27 05:57 07:00 Temperature Pulse Rate 80 79 80 Pulse Rate [ Pulse Oximetery ] Respiratory 16 19 18 Rate Blood Pressure 111/87 119/82 101/38 O2 Sat by Pulse 97 96 95 Oximetry 05/18/24 05/18/24 08:45 08:52 Temperature 97.7 F Pulse Rate 78 Pulse Rate [ 70 Pulse Oximetery ] Respiratory 16 18 Rate Blood Pressure 101/69 O2 Sat by Pulse 100 Oximetry Procedures - Paracentesis Consent Obtained: written consent Indication: possible spontaneous bacterial peritonitis Procedure: diagnostic paracentesis Location: RLQ Local Anesthetic Used: Lidocaine 1% Bed Used: yes, Ascites confirmed and location marked Preparation: 11 blade used to make no in skin Fluid: cloudy Post Procedure Exam: awake, alert, normal BP, normal HR, normal SpO2 Patient Tolerated Procedure: well, no complications Complications: none Medical Decision Making - Medical Decision Making Was pt. sent in by a medical professional or institution ([facility], [facility], urgent care, hospital, or intermediate...) When possible be specific @ -[No] Did you speak to anyone other than the patient for history (EMS, parent, family, police, friend...)? What history was obtained from this source @ -[No] Did you review nursing and triage notes (agree or disagree)? Why? @ -[I reviewed and agree with nursing and triage notes] Were old charts reviewed (outside hosp., previous admission, EMS record, old EKG, old radiological studies, urgent care reports/EKG's, intermediate records)? Report findings @ -[Yes, old charts were reviewed] Differential Diagnosis (chest pain, altered mental status, abdominal pain women, abdominal pain men, vaginal bleeding, weakness, fever, dyspnea, syncope, headache, dizziness, GI bleed, back pain, seizure, CVA, palpatations, mental health, musculoskeletal)? @ -[Differential Abdominal Pain Men: Appendicitis, cholecystitis, diverticulosis, ischemic bowel, pancreatitis, hepatitis, UTI, gastroenteritis, AAA, incarcerated hernia, bowel obstruction, constipation, inflammatory bowel, hepatitis, peptic ulcer disease, splenic infarction, perforated viscus, testicular torsion, this is not meant to be an all-inclusive list EKG interpreted by me (3pts min.). @ -[I interpreted as above] X-rays interpreted by me (1pt min.). @ -[None done] CT interpreted by me (1pt min.). @ -[None done] U/S interpreted by me (1pt. min.). @ -[None done] What testing was considered but not performed or refused? (CT, X-rays, U/S, labs)? Why? @ -[None] What meds were considered but not given or refused? Why? @ -[None] Did you discuss the management of the patient with other professionals (professionals i.e. [facility], [facility], lab, RT, psych nurse, social media designer, unemployment benefits claims taker, teacher, military police officer, cyanide case hardener)? Give summary @ -[Case discussed with admitting physician and treatment recommendations incorporated Was smoking cessation discussed for >3mins.? @ -[No] Was critical care preformed (if so, how long)? @ -[No] Were there social determinants of health that impacted care today? How? (Homelessness, low income, unemployed, alcoholism, drug addiction, transportation, low edu. Level, literacy, decrease access to med. care, halfway, rehab)? @ -[No] Was there de-escalation of care discussed even if they declined (Discuss DNR or withdrawal of care, Hospice)? DNR status @ -[No] What co-morbidities impacted this encounter? (DM, HTN, Smoking, COPD, CAD, Cancer, CVA, ARF, Chemo, Hep., AIDS, mental health diagnosis, sleep apnea, morbid obesity)? @ -[Alcoholic cirrhosis. Was patient admitted / discharged? Hospital course, mention meds given and route, prescriptions, significant lab abnormalities, going to OR and other pertinent info. @ -[This patient is a 33-year-old man with history of alcoholic cirrhosis and ascites, recurrent, who presents with exacerbation of abdominal pain. He did have some tenderness and therefore diagnostic paracentesis is performed to rule out spontaneous bacterial peritonitis. The patient is admitted pending results of the paracentesis. Undiagnosed new problem with uncertain prognosis? @ -[No] Drug Therapy requiring intensive monitoring for toxicity (Heparin, Nitro, Insulin, Cardizem)? @ -[No] Were any procedures done? @ -[Diagnostic and therapeutic paracentesis Diagnosis/symptom? @ -[Acute abdominal pain Hyponatremia Alcoholic cirrhosis Ascites Acute, or Chronic, or Acute on Chronic? @ -[Acute on chronic Uncomplicated (without systemic symptoms) or Complicated (systemic symptoms)? @ -[Uncomplicated Side effects of treatment? @ -[No] Exacerbation, Progression, or Severe Exacerbation? @ -[No] Poses a threat to life or bodily function? How? (Chest pain, [place], NH, pneumonia, PE, COPD, DKA, ARF, appy, cholecystitis, CVA, Diverticulitis, Homicidal, Suicidal, threat to staff... and all critical care pts) @ -[Yes All treatments are based on ideal body weight as in ED triage - Lab Data Result diagrams: 05/27/24 10:46 05/27/24 10:46 Lab Results 05/18/24 05/18/24 05/18/24 Range/Units 00:22 00:22 00:22 WBC 7.1 (3.8-10.6) k/uL RBC 2.90 L (4.30-5.90) m/uL Hgb 9.5 L (13.0-17.5) gm/dL Hct 28.3 L (39.0-53.0) % MCV 97.6 (80.0-100.0) fL MCH 32.8 (25.0-35.0) pg MCHC 33.6 (31.0-37.0) g/dL RDW 14.2 (11.5-15.5) % Plt Count 244 (150-450) k/uL MPV 7.6 Neutrophils % 70 % Lymphocytes % 14 % Monocytes % 13 % Eosinophils % 1 % Basophils % 0 % Neutrophils # 4.9 (1.3-7.7) k/uL Lymphocytes # 1.0 (1.0-4.8) k/uL Monocytes # 0.9 (0-1.0) k/uL Eosinophils # 0.1 (0-0.7) k/uL Basophils # 0.0 (0-0.2) k/uL PT (10.0-12.5) sec INR (<1.2) APTT (22.0-30.0) sec Sodium 120 L (137-145) mmol/L Potassium 4.8 (3.5-5.1) mmol/L Chloride 90 L (98-107) mmol/L Carbon Dioxide 19 L (22-30) mmol/L Anion Gap 11 mmol/L BUN 26 H (9-20) mg/dL Creatinine 1.06 (0.66-1.25) mg/dL Est GFR (CKD-EPI)AfAm >90 (>60 ml/min/1.73 sqM) Est GFR (CKD-EPI)NonAf >90 (>60 ml/min/1.73 sqM) Glucose 145 H (74-99) mg/dL Lactic Ac Sepsis Rflx Plasma Lactic Acid Armando 2.5 H* (0.7-2.0) mmol/L Calcium 7.9 L (8.4-10.2) mg/dL Total Bilirubin 1.9 H (0.2-1.3) mg/dL AST 27 (17-59) U/L ALT 16 (4-49) U/L Alkaline Phosphatase 187 H (38-126) U/L Ammonia 71 H (<30) umol/L Total Protein 6.7 (6.3-8.2) g/dL Albumin 2.7 L (3.5-5.0) g/dL Amylase 47 (30-110) U/L Lipase 27 (23-300) U/L Urine Color Urine Appearance (Clear) Urine pH (5.0-8.0) Ur Specific Conway (1.001-1.035) Urine Protein (Negative) Urine Glucose (UA) (Negative) Urine Ketones (Negative) Urine Blood (Negative) Urine Nitrite (Negative) Urine Bilirubin (Negative) Urine Urobilinogen (<2.0) mg/dL Ur Leukocyte Esterase (Negative) Serum Alcohol <10 mg/dL 05/18/24 05/18/24 05/18/24 Range/Units 00:22 01:46 02:28 WBC (3.8-10.6) k/uL RBC (4.30-5.90) m/uL Hgb (13.0-17.5) gm/dL Hct (39.0-53.0) % MCV (80.0-100.0) fL MCH (25.0-35.0) pg MCHC (31.0-37.0) g/dL RDW (11.5-15.5) % Plt Count (150-450) k/uL MPV Neutrophils % % Lymphocytes % % Monocytes % % Eosinophils % % Basophils % % Neutrophils # (1.3-7.7) k/uL Lymphocytes # (1.0-4.8) k/uL Monocytes # (0-1.0) k/uL Eosinophils # (0-0.7) k/uL Basophils # (0-0.2) k/uL PT 14.3 H (10.0-12.5) sec INR 1.4 H (<1.2) APTT 32.2 H (22.0-30.0) sec Sodium (137-145) mmol/L Potassium (3.5-5.1) mmol/L Chloride (98-107) mmol/L Carbon Dioxide (22-30) mmol/L Anion Gap mmol/L BUN (9-20) mg/dL Creatinine (0.66-1.25) mg/dL Est GFR (CKD-EPI)AfAm (>60 ml/min/1.73 sqM) Est GFR (CKD-EPI)NonAf (>60 ml/min/1.73 sqM) Glucose (74-99) mg/dL Lactic Ac Sepsis Rflx Y Plasma Lactic Acid Armando (0.7-2.0) mmol/L Calcium (8.4-10.2) mg/dL Total Bilirubin (0.2-1.3) mg/dL AST (17-59) U/L ALT (4-49) U/L Alkaline Phosphatase (38-126) U/L Ammonia (<30) umol/L Total Protein (6.3-8.2) g/dL Albumin (3.5-5.0) g/dL Amylase (30-110) U/L Lipase (23-300) U/L Urine Color Yellow Urine Appearance Clear (Clear) Urine pH 5.5 (5.0-8.0) Ur Specific Conway 1.021 (1.001-1.035) Urine Protein Negative (Negative) Urine Glucose (UA) Negative (Negative) Urine Ketones Negative (Negative) Urine Blood Negative (Negative) Urine Nitrite Negative (Negative) Urine Bilirubin Negative (Negative) Urine Urobilinogen <2.0 (<2.0) mg/dL Ur Leukocyte Esterase Negative (Negative) Serum Alcohol mg/dL Disposition Clinical Impression: Abdominal pain, Hyponatremia, Decompensation of cirrhosis of liver, Ascites Disposition: ADMITTED IP TO THIS HOSP Condition: Undetermined Is patient prescribed a controlled substance at d/c from ED?: No
--- NOTE | 2024-05-18 06:47 | P.PCN ---
Date of Procedure: 05/18/24 Preoperative Diagnosis: Paracentesis Postoperative Diagnosis: Paracentesis Pathology: other (Cell count and differential, Gram stain and culture, LDH) Indications for Procedure: I directly supervised this procedure which was performed to Rule out spontaneous bacterial peritonitis Description of Procedure: Paracentesis Procedure Note INDICATION: Ascites PROCEDURE VP AD [employer] AND PLANNING: Dr. Vel Kwong and Dr. Abel ATTENDING PHYSICIAN: In Attendance (Y) Dr. Abel Ultrasound used to amilcar location: Y CONSENT: During the informed consent discussion regarding the procedure, or treatment, I explained the following to the patient/designee: a. Nature of the procedure or treatment and who will perform the procedure or treatment. b. Necessity for procedure and the possible benefits. c. Risks and complications (most common and serious). d. Alternative treatments and the risks, benefits and side effects of each (including no treatment). e. Likelihood of the patient achieving his/her goals without this procedure and surgery treatment. f. Problems that might occur during the recuperation. g. Conflicts of interest, if any PROCEDURE SUMMARY: A time-out was performed. My hands were washed immediately prior to the procedure. I wore a surgical cap, mask with protective eyewear, sterile gown and sterile gloves throughout the procedure. The area was cleansed and draped in usual sterile fashion using chlorhexidine scrub. Anesthesia was achieved with 1% lidocaine. The right lower quadrant of the abdomen was prepped and draped in a sterile fashion using chlorhexidine scrub. 1% lidocaine was used to numb the skin, soft tissue and peritoneum. The paracentesis catheter was inserted and advanced with negative pressure until Straw or light yellow colored fluid was aspirated. Approximately 1000 mL of ascitic fluid was collected and sent for laboratory analysis. The catheter was then connected to the vaccutainer and 5000 mL of additional ascitic fluid were drained. In total 6000 ml of the fluid was drained. The catheter was removed and minimal leaking was noted. A bandaid was placed over the puncture wound. The patient tolerated the procedure well without any immediate complications. Estimated blood loss was 0 ml.
[2024-05-18] MEDS: SODIUM CHLORIDE 0.9% 1,000 ML IV SCH (06:51)
[2024-05-18] MEDS: ALBUMIN HUMAN 25% 50 ML in EMPTY BAG 1 BAG IVPB SCH (08:10)
[2024-05-18] MEDS: HYDROmorphone 0.5 MG/0.5 ML SYRINGE IVP PRN (11:49)
[2024-05-18 12:38] LABS: Appearance,BF Slightly Cloudy (Clear)
[2024-05-18 18:45] LABS: Glucose, BF Source Ascites; Glucose, Body Fluid 118 mg/dL; T. Protein, Body Fluid Source Ascites; Total Protein, Body Fluid 586 mg/dL
[2024-05-19] MEDS: ONDANSETRON 4 MG/2 ML VIAL IVP STA ×2 (05:00→20:53)
[2024-05-19 11:08] LABS: HCT 22.9 % (39.0-53.0); MCH 32.2 pg (25.0-35.0); MCHC 33.5 g/dL (31.0-37.0); MCV 96.2 fL (80.0-100.0); Mean Platelet Volume 7.8; Platelet Count 145 k/uL (150-450); RBC 2.38 m/uL (4.30-5.90); RDW 14.7 % (11.5-15.5); WBC 17.4 k/uL (3.8-10.6)
[2024-05-19 11:29] LABS: HGB 7.7 gm/dL (13.0-17.5)
[2024-05-19 11:31] LABS: ALT 13 U/L (4-49); AST 23 U/L (17-59); African American GFR (CKD) >90 (>60 ml/min/1.73 sqM); Albumin 2.2 g/dL (3.5-5.0); Albumin/Globulin Ratio 0.7; Alkaline Phosphatase 148 U/L (38-126); Blood Urea Nitrogen 24 mg/dL (9-20); Calcium 7.4 mg/dL (8.4-10.2); Carbon Dioxide 19 mmol/L (22-30); Globulin 3.3 g/dL; Glucose 113 mg/dL (74-99); Non-African American GFR(CKD) >90 (>60 ml/min/1.73 sqM); Potassium 4.8 mmol/L (3.5-5.1); Sodium 120 mmol/L (137-145); Total Bilirubin 0.9 mg/dL (0.2-1.3); Total Protein 5.5 g/dL (6.3-8.2)
[2024-05-19 11:46] LABS: Anion Gap 9 mmol/L; Chloride 92 mmol/L (98-107)
--- NOTE | 2024-05-19 13:11 | P.PN ---
Subjective Progress Note Date: 05/19/24 Patient is a 33-year-old male with a PMH of alcoholic cirrhosis, seizure disorder, depression, and anxiety, who presents to the emergency room with complaints of abdominal discomfort. The patient has recently undergone a TIPS procedure on 03/20/2024. Of note, he was recently admitted on 03/27 for altered mental status and discharged on 08/06 after hospitalization for hepatic encephalopathy and hyponatremia. Patient now reports that over the past few days he has been experiencing severe abdominal discomfort, rated at a 10 out of 10. Notes that the pain is diffuse and constant and worsened with movement. He reports his last paracentesis was on 05/12/2024. He also reports feeling more fatigued and subjective chills. Denied noticing hematochezia or melena. Also denied hematemesis or coffee-ground emesis. In the emergency room, laboratory evaluation was remarkable for lactic acidosis of 2.5, sodium 120, chloride 90, ammonia 71, alk phos 187, T. bili 1.9, CO2 19, BUN 26, creatinine 1.06, hemoglobin 9.5. UA was unremarkable with serum alcohol level less than 10. Underwent paracentesis with 6L removed in the ED. Started on Rocephin for concerns of SBP. 05/19 Patient was seen and examined. He is more lethargic this morning. CBC and CMP significant for WBC 17.4, RBC 2.38, Hg 7.7, Hct 22.9, Plt 145, Na 120, Cl 92, bicarb 19, BUN 24, glu 113, Ca 7.4, alk phos 148, alb 2.2. General: non toxic, no distress, lethargic but easily arousable Derm: warm, dry Head: atraumatic, normocephalic, symmetric Eyes: EOMI, no lid lag, anicteric sclera Mouth: no lip lesion, mucus membranes moist Cardiovascular: Normal S1 S2. No murmurs, rubs or gallops. Lungs: Clear to auscultation bilaterally, no accessory muscle use Abd: Distended. TTP in all 4 quadrants without rebound Ext: no gross muscle atrophy, no edema, no contractures Neuro: no focal neuro deficits Psych: Alert, oriented, appropriate affect Based on my assessment of this patient, this patient meets a high complexity level of care. Sepsis: Leukocytosis, tachycardic. Rocephin 2g IV QD. Follow peritoneal fluid cultures. UA neg. Obtain BCx and CXR. Telemetry monitoring. Increase NS to 75 cc/hr. Abdominal pain, rule out spontaneous bacterial peritonitis: Rocephin as above. Acute metabolic encephalopathy and Lethargy: Ammonia 71. Restart Lactulose 30g PO TID and Rifaximin 550 mg PO BID. Repeat Ammonia level now. Alcoholic cirrhosis Lactic acidosis: Persistent. Likely due to cirrhosis Hyponatremia: Likely due to cirrhosis. 1.5L fluid restriction. Normocytic anemia: No signs of obvious bleeding. Monitor CBC. Transfuse if Hg < 7. CODE STATUS: FULL CODE DVT Prophylaxis: SCD GI Prophylaxis: Protonix Designated medical POA if patient is not able to make medical decisions for themselves: I have reviewed the following exchange consultant notes: I have reviewed the results of the following tests: CBC, CMP. I have ordered the following tests: BCx. CXR. Ammonia. Repeat CBC and CMP in the AM. I have discussed the care of this patient with the following independent historian: DEYVI. I have independently interpreted the following test below: I have discussed the management of this patient with the following physician: Objective - Vital Signs Vital signs: Vital Signs Temp 98.3 F 05/19/24 07:54 Pulse 87 05/19/24 07:54 Resp 17 05/19/24 07:54 BP 100/63 05/19/24 07:54 Pulse Ox 99 05/19/24 07:54 FiO2 Intake & Output 05/18/24 05/19/24 05/19/24 18:59 06:59 18:59 Intake Total 442 930 Output Total 600 200 Balance -158 730 Weight 63.503 kg Intake: Intake, IV Titration 290 Amount Sodium Chloride 0.9% 1, 240 000 ml @ 20 mls/hr IV . Q24H ALEISHA Rx#:[id number] cefTRIAXone 2 gm In 50 Sodium Chloride 0.9% 50 ml @ 100 mls/hr IVPB Q24H ALEISHA Rx#:[id number] Oral 442 640 Output: Urine 600 200 Other: Voiding Method Diaper Toilet Incontinent Urinal Diaper # Voids 1 3 # Bowel Movements 1 - Labs CBC & Chem 7: 05/19/24 10:47 05/19/24 10:47 Labs: Abnormal Lab Results - Last 24 Hours (Table) 05/18/24 05/19/24 05/19/24 Range/Units 14:56 10:47 10:47 WBC 17.4 H (3.8-10.6) k/uL RBC 2.38 L (4.30-5.90) m/uL Hgb 7.7 L D (13.0-17.5) gm/dL Hct 22.9 L (39.0-53.0) % Plt Count 145 L (150-450) k/uL Sodium 120 L (137-145) mmol/L Chloride 92 L (98-107) mmol/L Carbon Dioxide 19 L (22-30) mmol/L BUN 24 H (9-20) mg/dL Glucose 113 H (74-99) mg/dL Plasma Lactic Acid Armando 2.6 H* (0.7-2.0) mmol/L Calcium 7.4 L (8.4-10.2) mg/dL Alkaline Phosphatase 148 H (38-126) U/L Total Protein 5.5 L (6.3-8.2) g/dL Albumin 2.2 L (3.5-5.0) g/dL Microbiology - Last 24 Hours (Table) 05/18/24 06:55 Gram Stain - Preliminary Ascites Fluid Body Fluid Culture - Preliminary
--- NOTE | 2024-05-19 14:02 | XR ---
EXAMINATION TYPE: XR chest 1V portable DATE OF EXAM: 05/19/2024 CLINICAL HISTORY: Difficulty breathing progress study. Sepsis. TECHNIQUE: Single AP portable upright view of the chest is obtained. COMPARISON: Chest x-ray from 04/04/2024. FINDINGS: There are bibasilar opacities on current study. Cardiac silhouette size stable and within normal limits. Osseous structures are intact. IMPRESSION: Bibasilar acute infiltrates and/or atelectasis seen currently. [facility], , 05/19/2024 1:59 PM
[2024-05-19] MEDS: LACTULOSE 20 GM/30 ML CUP PO SCH (14:09)
[2024-05-19] MEDS: RIFAXIMIN 550 MG TAB (PTS OWN) PO SCH (14:11)
[2024-05-19] MEDS: MIDODRINE 5 MG TAB PO SCH (17:14)
[2024-05-19] MEDS: levETIRAcetam 500 MG TAB PO SCH (20:21)
[2024-05-19] MEDS: MIRTAZAPINE 15 MG TAB PO SCH (20:21)
[2024-05-19] MEDS: HYDROmorphone 0.5 MG/0.5 ML SYRINGE IVP PRN ×2 (20:33→23:16)
[2024-05-20] MEDS: CALCIUM CARBONATE 500 MG CHEWABLE PO PRN (05:39)
[2024-05-20] MEDS: HYDROmorphone 0.5 MG/0.5 ML SYRINGE IVP PRN (05:39)
[2024-05-20 06:19] LABS: HCT 26.8 % (39.0-53.0); HGB 8.6 gm/dL (13.0-17.5); MCH 31.8 pg (25.0-35.0); MCV 99.3 fL (80.0-100.0); Mean Platelet Volume 7.3; Platelet Count 182 k/uL (150-450); RBC 2.69 m/uL (4.30-5.90); RDW 14.4 % (11.5-15.5); WBC 9.7 k/uL (3.8-10.6)
[2024-05-20] MEDS: PANTOPRAZOLE 40 MG TABLET PO SCH (06:19)
[2024-05-20 06:37] LABS: ALT 14 U/L (4-49); AST 26 U/L (17-59); African American GFR (CKD) >90 (>60 ml/min/1.73 sqM); Albumin 2.5 g/dL (3.5-5.0); Albumin/Globulin Ratio 0.7; Alkaline Phosphatase 173 U/L (38-126); Anion Gap 10 mmol/L; Blood Urea Nitrogen 22 mg/dL (9-20); Calcium 7.7 mg/dL (8.4-10.2); Carbon Dioxide 19 mmol/L (22-30); Chloride 95 mmol/L (98-107); Globulin 3.5 g/dL; Glucose 120 mg/dL (74-99); Non-African American GFR(CKD) >90 (>60 ml/min/1.73 sqM); Potassium 4.5 mmol/L (3.5-5.1); Sodium 124 mmol/L (137-145); Total Bilirubin 0.9 mg/dL (0.2-1.3)
--- NOTE | 2024-05-20 12:15 | P.PN ---
Subjective Progress Note Date: 05/20/24 Patient is a 33-year-old male with a PMH of alcoholic cirrhosis, seizure disorder, depression, and anxiety, who presents to the emergency room with complaints of abdominal discomfort. The patient has recently undergone a TIPS procedure on 03/20/2024. Of note, he was recently admitted on 03/27 for altered mental status and discharged on 08/06 after hospitalization for hepatic encephalopathy and hyponatremia. Patient now reports that over the past few days he has been experiencing severe abdominal discomfort, rated at a 10 out of 10. Notes that the pain is diffuse and constant and worsened with movement. He reports his last paracentesis was on 05/12/2024. He also reports feeling more fatigued and subjective chills. Denied noticing hematochezia or melena. Also denied hematemesis or coffee-ground emesis. In the emergency room, laboratory evaluation was remarkable for lactic acidosis of 2.5, sodium 120, chloride 90, ammonia 71, alk phos 187, T. bili 1.9, CO2 19, BUN 26, creatinine 1.06, hemoglobin 9.5. UA was unremarkable with serum alcohol level less than 10. Underwent paracentesis with 6L removed in the ED. Started on Rocephin for concerns of SBP. 05/19 Patient was seen and examined. He is more lethargic this morning. CBC and CMP significant for WBC 17.4, RBC 2.38, Hg 7.7, Hct 22.9, Plt 145, Na 120, Cl 92, bicarb 19, BUN 24, glu 113, Ca 7.4, alk phos 148, alb 2.2. 05/20 Patient was seen and examined. More awake today. Complains of generalized pain and weakness. Appears debilitated. CBC and CMP significant for RBC 2.69, Hg 8.6, Hct 26.8, Na 124, Cl 95, bicarb 19, BUN 22, glu 120, Ca 7.7, alk phos 173, alb 2.5. Ascites fluid growing no organisms so far. CXR bibasilar atelectasis. BP 124/77, HR 95, RR 16, T 98.7F, 99% on RA. General: non toxic, no distress, lethargic but easily arousable Derm: warm, dry Head: atraumatic, normocephalic, symmetric Eyes: EOMI, no lid lag, anicteric sclera Mouth: no lip lesion, mucus membranes moist Cardiovascular: Normal S1 S2. No murmurs, rubs or gallops. Lungs: Clear to auscultation bilaterally, no accessory muscle use Abd: Distended. TTP in all 4 quadrants without rebound Ext: no gross muscle atrophy, no edema, no contractures Neuro: no focal neuro deficits Psych: Alert, oriented, appropriate affect Based on my assessment of this patient, this patient meets a high complexity level of care. Sepsis versus SIRS: Leukocytosis, tachycardic. Rocephin 2g IV QD. Peritoneal fluid cultures, UA, CXR neg so far. Follow BCx. Telemetry monitoring. Increase NS to 75 cc/hr. Abdominal pain, rule out spontaneous bacterial peritonitis: Rocephin as above. Acute metabolic encephalopathy and Lethargy: Ammonia 71. Lactulose 30g PO TID and Rifaximin 550 mg PO BID. Alcoholic cirrhosis: Restart Lasix 20 mg PO BID and Aldactone 25 mg PO BID. Lactic acidosis: Persistent. Likely due to cirrhosis Hyponatremia: Likely due to cirrhosis. 1.5L fluid restriction. Normocytic anemia: No signs of obvious bleeding. Monitor CBC. Transfuse if Hg < 7. Patient appears extremely debilitated. PT and OT consulted. Case management on board. CODE STATUS: FULL CODE DVT Prophylaxis: SCD GI Prophylaxis: Protonix Designated medical POA if patient is not able to make medical decisions for themselves: I have reviewed the following validation consultant notes: I have reviewed the results of the following tests: CBC, CMP, Peritoneal fluid Cx I have ordered the following tests: Repeat CBC and CMP in the AM. I have discussed the care of this patient with the following independent historian: RN. Case management Michael. I have independently interpreted the following test below: CXR I have discussed the management of this patient with the following physician: Objective - Vital Signs Vital signs: Vital Signs Temp 98.7 F 05/20/24 11:30 Pulse 95 05/20/24 11:30 Resp 16 05/20/24 11:30 BP 124/77 05/20/24 11:30 Pulse Ox 99 05/20/24 11:30 FiO2 Intake & Output 05/19/24 05/20/24 05/20/24 18:59 06:59 18:59 Intake Total 800 1378 240 Output Total 250 Balance 800 1128 240 Intake: Intake, IV Titration 700 Amount Sodium Chloride 0.9% 1, 700 000 ml @ 75 mls/hr IV . [id number] [facility] Rx#:[id number] Oral 800 167 240 Output: Urine 250 Other: Voiding Method Toilet Urinal Diaper # Voids 2 1 # Bowel Movements 1 - Labs CBC & Chem 7: 05/20/24 05:50 05/20/24 05:50 Labs: Abnormal Lab Results - Last 24 Hours (Table) 05/19/24 05/20/24 05/20/24 Range/Units 13:58 05:50 05:50 RBC 2.69 L (4.30-5.90) m/uL Hgb 8.6 L (13.0-17.5) gm/dL Hct 26.8 L (39.0-53.0) % Sodium 124 L (137-145) mmol/L Chloride 95 L (98-107) mmol/L Carbon Dioxide 19 L (22-30) mmol/L BUN 22 H (9-20) mg/dL Glucose 120 H (74-99) mg/dL Calcium 7.7 L (8.4-10.2) mg/dL Alkaline Phosphatase 173 H (38-126) U/L Ammonia 71 H (<30) umol/L Total Protein 6.0 L (6.3-8.2) g/dL Albumin 2.5 L (3.5-5.0) g/dL Microbiology - Last 24 Hours (Table) 05/18/24 06:55 Gram Stain - Preliminary Ascites Fluid Body Fluid Culture - Preliminary
[2024-05-20] MEDS: CALCIUM CARBONATE 500 MG CHEWABLE PO SCH (12:44)
[2024-05-20] MEDS: HYDROmorphone 1 MG/ML 1 ML SYRINGE IVP PRN (12:44)
[2024-05-20] MEDS: RIFAXIMIN 550 MG TAB (PTS OWN) PO SCH (18:10)
[2024-05-20] MEDS: FUROSEMIDE 20 MG TAB PO SCH (20:38)
[2024-05-20] MEDS: SPIRONOLACTONE 25 MG TAB PO SCH (20:39)
[2024-05-21] MEDS: IPRATROPIUM-ALBUTEROL 3 ML NEB INHALATION PRN (00:38)
[2024-05-21] MEDS: CALCIUM CARBONATE 500 MG CHEWABLE PO STA (05:44)
[2024-05-21 11:06] LABS: HCT 27.4 % (39.0-53.0); HGB 8.8 gm/dL (13.0-17.5); MCH 31.9 pg (25.0-35.0); MCHC 32.1 g/dL (31.0-37.0); MCV 99.4 fL (80.0-100.0); Mean Platelet Volume 7.2; Platelet Count 158 k/uL (150-450); RBC 2.75 m/uL (4.30-5.90); RDW 14.3 % (11.5-15.5); WBC 11.2 k/uL (3.8-10.6)
[2024-05-21 12:27] LABS: ALT 15 U/L (4-49); AST 29 U/L (17-59); African American GFR (CKD) >90 (>60 ml/min/1.73 sqM); Albumin 2.5 g/dL (3.5-5.0); Albumin/Globulin Ratio 0.7; Alkaline Phosphatase 165 U/L (38-126); Anion Gap 8 mmol/L; Blood Urea Nitrogen 23 mg/dL (9-20); Carbon Dioxide 19 mmol/L (22-30); Chloride 93 mmol/L (98-107); Globulin 3.7 g/dL; Glucose 101 mg/dL (74-99); Non-African American GFR(CKD) >90 (>60 ml/min/1.73 sqM); Potassium 5.4 mmol/L (3.5-5.1); Sodium 120 mmol/L (137-145); Total Bilirubin 1.3 mg/dL (0.2-1.3); Total Protein 6.2 g/dL (6.3-8.2)
--- NOTE | 2024-05-21 14:24 | P.PN ---
Subjective Progress Note Date: 05/21/24 Patient is a 33-year-old male with a PMH of alcoholic cirrhosis, seizure disorder, depression, and anxiety, who presents to the emergency room with complaints of abdominal discomfort. The patient has recently undergone a TIPS procedure on 03/20/2024. Of note, he was recently admitted on 03/27 for altered mental status and discharged on 08/06 after hospitalization for hepatic encephalopathy and hyponatremia. Patient now reports that over the past few days he has been experiencing severe abdominal discomfort, rated at a 10 out of 10. Notes that the pain is diffuse and constant and worsened with movement. He reports his last paracentesis was on 05/12/2024. He also reports feeling more fatigued and subjective chills. Denied noticing hematochezia or melena. Also denied hematemesis or coffee-ground emesis. In the emergency room, laboratory evaluation was remarkable for lactic acidosis of 2.5, sodium 120, chloride 90, ammonia 71, alk phos 187, T. bili 1.9, CO2 19, BUN 26, creatinine 1.06, hemoglobin 9.5. UA was unremarkable with serum alcohol level less than 10. Underwent paracentesis with 6L removed in the ED. Started on Rocephin for concerns of SBP. 05/19 Patient was seen and examined. He is more lethargic this morning. CBC and CMP significant for WBC 17.4, RBC 2.38, Hg 7.7, Hct 22.9, Plt 145, Na 120, Cl 92, bicarb 19, BUN 24, glu 113, Ca 7.4, alk phos 148, alb 2.2. 05/20 Patient was seen and examined. More awake today. Complains of generalized pain and weakness. Appears debilitated. CBC and CMP significant for RBC 2.69, Hg 8.6, Hct 26.8, Na 124, Cl 95, bicarb 19, BUN 22, glu 120, Ca 7.7, alk phos 173, alb 2.5. Ascites fluid growing no organisms so far. CXR bibasilar atelectasis. 05/21 Patient was seen and examined. Pain well controlled with Dilaudid PRN. Reports abdomen is filling up again. Had an episode of confusion this morning and stuttering of his words. CBC and CMP significant for WBC 11.2, RBC 2.75, Hg 8.8, Hct 27.4, Na 120, K 5.4, Cl 93, bcarb 19, BUN 23, glu 101, Ca 8, alk phos 165, alb 2.5. BP 105/71, HR 85, RR 14, T 98.6F, 100% on RA. General: non toxic, no distress Derm: warm, dry Head: atraumatic, normocephalic, symmetric Eyes: EOMI, no lid lag, anicteric sclera Mouth: no lip lesion, mucus membranes moist Cardiovascular: Normal S1 S2. No murmurs, rubs or gallops. Lungs: Clear to auscultation bilaterally, no accessory muscle use Abd: Distended. TTP in all 4 quadrants without rebound Ext: no gross muscle atrophy, no edema, no contractures Neuro: no focal neuro deficits Psych: Alert, oriented, appropriate affect Based on my assessment of this patient, this patient meets a high complexity level of care. Sepsis versus SIRS: Leukocytosis, tachycardic. Rocephin 2g IV QD. Peritoneal fluid cultures, UA, CXR neg so far. Follow BCx. Telemetry monitoring. DC IVF and encourage hydration by mouth. Abdominal pain, rule out spontaneous bacterial peritonitis: Rocephin as above. Acute metabolic encephalopathy and Lethargy: Ammonia 71-37. Lactulose 30g PO TID and Rifaximin 550 mg PO BID. Alcoholic cirrhosis: Lasix 20 mg PO BID and Aldactone 25 mg PO BID. Lactic acidosis: Persistent. Likely due to cirrhosis Hyponatremia: Likely due to cirrhosis. 1.5L fluid restriction. Normocytic anemia: No signs of obvious bleeding. Monitor CBC. Transfuse if Hg < 7. History of seizure disorder: Keppra 500 mg PO BID. Patient appears extremely debilitated. PT and OT consulted. Case management on board. Plans for SNF when available. CODE STATUS: FULL CODE DVT Prophylaxis: SCD GI Prophylaxis: Protonix Designated medical POA if patient is not able to make medical decisions for themselves: I have reviewed the following consumer experience consultant notes: I have reviewed the results of the following tests: CBC, CMP. I have ordered the following tests: Repeat CBC and CMP in the AM. I have discussed the care of this patient with the following independent historian: I have independently interpreted the following test below: I have discussed the management of this patient with the following physician: Objective - Vital Signs Vital signs: Vital Signs Temp 98.6 F 05/21/24 11:42 Pulse 118 H 05/21/24 11:46 Resp 14 05/21/24 11:42 BP 105/71 05/21/24 11:42 Pulse Ox 100 05/21/24 11:42 FiO2 Intake & Output 05/20/24 05/21/24 05/21/24 18:59 06:59 18:59 Intake Total 1598 Output Total 100 50 Balance 1498 -50 Intake: Oral 1598 Output: Urine 100 50 Other: Voiding Method Toilet Toilet Urinal Diaper # Voids 5 2 # Bowel Movements 3 - Labs CBC & Chem 7: 05/21/24 10:48 05/21/24 11:50 Labs: Abnormal Lab Results - Last 24 Hours (Table) 05/21/24 05/21/24 05/21/24 Range/Units 10:48 10:48 11:50 WBC 11.2 H (3.8-10.6) k/uL RBC 2.75 L (4.30-5.90) m/uL Hgb 8.8 L (13.0-17.5) gm/dL Hct 27.4 L (39.0-53.0) % Sodium 120 L (137-145) mmol/L Potassium 5.4 H (3.5-5.1) mmol/L Chloride 93 L (98-107) mmol/L Carbon Dioxide 19 L (22-30) mmol/L BUN 23 H (9-20) mg/dL Glucose 101 H (74-99) mg/dL Calcium 8.0 L (8.4-10.2) mg/dL Alkaline Phosphatase 165 H (38-126) U/L Ammonia 37 H (<30) umol/L Total Protein 6.2 L (6.3-8.2) g/dL Albumin 2.5 L (3.5-5.0) g/dL Microbiology - Last 24 Hours (Table) 05/18/24 06:55 Gram Stain - Preliminary Ascites Fluid Body Fluid Culture - Preliminary 05/19/24 13:08 Blood Culture - Preliminary Blood
[2024-05-21 15:07] VITALS: BMI 19.5
--- NOTE | 2024-05-21 18:45 | CDI ---
Documentation Clarification Form Date: 05/21/2024 06:35:13 PM From: Berna Watkins RN CCDS Phone: [phone] Admit Date: 05/18/2024 06:33:00 AM Patient Name: Marcial Arnett Visit Number: [id number] Discharge Date: ATTENTION: The Clinical Documentation Specialists (CDI) and [facility] Coding Staff appreciate your assistance in clarifying documentation. Please respond to the clarification below the line at the bottom and electronically sign. The CDI & [facility] Coding staff will review the response and follow-up if needed. Please note: Queries are made part of the Legal Health Record. If you have any questions, please contact the author of this message via ITS. Doctor: Natalia Mack MD A Stage 2 Coccyx pressure ulcer documented in the nursing pressure injury assessment, 05/20,. Based on this information and the findings below, is there an additional diagnosis that is clinically appropriate for this patient? History/Risk Factors: 33 year old male presents to the ED for abdominal discomfort. Medical history: Alcoholic cirrhosis, Seizure disorder, Depression and anxiety. Clinical Indicators: Location: Coccyx Wound description: length 0.2cm width 0.2cm depth 0.1cm Lorelei wound color Erythema Treatment: Foam with border, Turn Q2H, educating patient on shifting weight turning Q2 and pillows to pad, absorbent pad check for moisture Q1H Is there an additional diagnosis that is clinically appropriate for this patient? [ x ] Coccyx Pressure Ulcer Stage 2 [ ] Other condition, please specify [ ] Unable to determine Clinical Definitions: Stage 1 Pressure Ulcer: intact skin, non-blanching redness of local area Stage 2 Pressure Ulcer: Partial thickness, loss of dermis, pink wound bed Stage 3 Pressure Ulcer: Full thickness tissue loss Stage 4 Pressure Ulcer: Full thickness tissue loss with exposed bone, tendon, or muscle. Unstageable pressure ulcer: Full thickness tissue loss in which the base of the ulcer is covered by slough (yellow, bridges, wadsworth, green or brown) and/or eschar (bridges, brown or black) in the wound bed. (Template Last Revised: June 2020) MTDD
--- NOTE | 2024-05-21 19:17 | CDI ---
Documentation Clarification Form Date: 05/21/2024 06:47:49 PM From: Berna Watkins RN CCDS Phone: [phone] Admit Date: 05/18/2024 06:33:00 AM Patient Name: Marcial Arnett Visit Number: [id number] Discharge Date: ATTENTION: The Clinical Documentation Specialists (CDI) and [facility] Coding Staff appreciate your assistance in clarifying documentation. Please respond to the clarification below the line at the bottom and electronically sign. The CDI & [facility] Coding staff will review the response and follow-up if needed. Please note: Queries are made part of the Legal Health Record. If you have any questions, please contact the author of this message via ITS. Doctor: Natalia Mack MD Severe chronic Malnutrition is documented 05/21, Dietitian Nutritional Assessment. Additional clarification regarding the severity of malnutrition is requested. History/Risk Factors: 33 year old male presents to the ED for abdominal discomfort. Medical history: Alcoholic cirrhosis, Liver failure, Stage 2 pressure wound, Seizure disorder, Depression and anxiety. 05/21, Nutritional assessment. Clinical Indicators: RD Consult Assessment Current BMI:19.5. Hgt 5ft 11inch Wgt 63.503kg Calculated ideal body weight 78kg, % [place] body weight: 81%, reason weight change fluid retention/ascites. Nutritional Assessment: Intake fair, 50-75% consumed, And concerns: abdominal distention with ascites. Appetite fair, Gi complication epigastric pain. Physical Findings: Emaciated, Hyper metabolism wounds: on tail bone almost healed. Estimated Nutritional needs Kcals: energy formula 30-35 Kcals/Kg. Energy needs 2300- 2700. Estimated Protein range 90-110, estimated protein 1.2- 1.5 needs grams /day, Adjust protein for cirrhosis. Estimated fluid needs: 1500ml/day FR. Ascites present. Nutritional Diagnosis: Inadequate energy intake Inadequate oral intake Severe chronic Malnutrition related to: ascites 2 cirrhosis; orbial , buccal , temporal fat/muscle hollow Appearance. Evidenced by bmi 19.5, intake avg 50% stage 2 pressure ulcer, Hypoalbuminemia. Goals: meeting 75% of estimated nutritional needs, improved skin Integrity. : Treatment: Sodium restriction and FR 1500ml , Monitor po intake, Monitor fluids Supplements: Oral supplement declined. Please clarify the severity of malnutrition, if known: [ x ] Severe Protein-Calorie Malnutrition [ ] Other condition, please specify [ ] Unable to Determine (Template Last Revised: October 2022) MTDD
[2024-05-21] MEDS: hydrOXYzine HCL 25 MG TAB PO PRN (22:52)
[2024-05-21] MEDS: ALPRAZolam 0.25 MG TAB PO PRN (23:51)
[2024-05-22 11:25] LABS: HGB 9.7 gm/dL (13.0-17.5); Hypochromasia Slight; MCH 32.7 pg (25.0-35.0); MCHC 32.3 g/dL (31.0-37.0); MCV 101.4 fL (80.0-100.0); Macrocytosis Slight; Mean Platelet Volume 7.9; Platelet Count 136 k/uL (150-450); RBC 2.96 m/uL (4.30-5.90); RDW 14.2 % (11.5-15.5); WBC 9.2 k/uL (3.8-10.6)
[2024-05-22 11:42] LABS: ALT 17 U/L (4-49); AST 35 U/L (17-59); African American GFR (CKD) 85 (>60 ml/min/1.73 sqM); Albumin 3.4 g/dL (3.5-5.0); Albumin/Globulin Ratio 0.8; Alkaline Phosphatase 192 U/L (38-126); Anion Gap 15 mmol/L; Blood Urea Nitrogen 25 mg/dL (9-20); Calcium 8.4 mg/dL (8.4-10.2); Carbon Dioxide 16 mmol/L (22-30); Chloride 90 mmol/L (98-107); Globulin 4.4 g/dL; Glucose 108 mg/dL (74-99); Non-African American GFR(CKD) 73 (>60 ml/min/1.73 sqM); Potassium 5.6 mmol/L (3.5-5.1); Sodium 121 mmol/L (137-145); Total Bilirubin 1.5 mg/dL (0.2-1.3); Total Protein 7.8 g/dL (6.3-8.2)
[2024-05-22] MEDS: SODIUM POLYSTYRENE SULFONATE 15 GM/60 ML BOTTLE PO ONE (13:34)
[2024-05-22] MEDS: FUROSEMIDE 10 MG/ML 4 ML VIAL IV STA (13:35)
--- NOTE | 2024-05-22 15:48 | US ---
EXAMINATION TYPE: US paracentesis abd w/image DATE OF EXAM: 05/22/2024 CLINICAL HISTORY: 33-year-old inpatient male with chronic liver disease, distention and ascites. Ref erred for paracentesis. The procedure was discussed with the patient. The risks, complications, benefits, and alternatives we re discussed and any questions were answered. Informed consent was obtained. The patient was placed s upine on the ultrasound table and prepped and draped in the usual sterile fashion. All elements of maximal barrier technique were utilized. Ultrasound was utilized to determine the precise skin entry site along the right lower quadrant. A 5 Slovak One-Step catheter and trocar technique was utilized to access the ascites collection under direct ultrasound guidance. Approximately 9.6 liters of clear, straw-colored fluid was removed. Catheter was removed, hemostasis obtained, and a dressing placed. The patient was stable throughout the procedure and remained stable upon discharge from Department of Radiology. IMPRESSION: Successful therapeutic paracentesis under ultrasound guidance. 9.6 L of fluid removed. [facility], , 05/22/2024 3:46 PM
[2024-05-22] MEDS: ALBUMIN HUMAN 25% 50 ML in EMPTY BAG 1 BAG IVPB ONE ×4 (16:59→19:47)
--- NOTE | 2024-05-22 17:29 | P.PN ---
Subjective Progress Note Date: 05/22/24 Patient is a 33-year-old male with a PMH of alcoholic cirrhosis, seizure disorder, depression, and anxiety, who presents to the emergency room with complaints of abdominal discomfort. The patient has recently undergone a TIPS procedure on 03/20/2024. Of note, he was recently admitted on 03/27 for altered mental status and discharged on 08/06 after hospitalization for hepatic encephalopathy and hyponatremia. Patient now reports that over the past few days he has been experiencing severe abdominal discomfort, rated at a 10 out of 10. Notes that the pain is diffuse and constant and worsened with movement. He reports his last paracentesis was on 05/12/2024. He also reports feeling more fatigued and subjective chills. Denied noticing hematochezia or melena. Also denied hematemesis or coffee-ground emesis. In the emergency room, laboratory evaluation was remarkable for lactic acidosis of 2.5, sodium 120, chloride 90, ammonia 71, alk phos 187, T. bili 1.9, CO2 19, BUN 26, creatinine 1.06, hemoglobin 9.5. UA was unremarkable with serum alcohol level less than 10. Underwent paracentesis with 6L removed in the ED. Started on Rocephin for concerns of SBP. 05/19 Patient was seen and examined. He is more lethargic this morning. CBC and CMP significant for WBC 17.4, RBC 2.38, Hg 7.7, Hct 22.9, Plt 145, Na 120, Cl 92, bicarb 19, BUN 24, glu 113, Ca 7.4, alk phos 148, alb 2.2. 05/20 Patient was seen and examined. More awake today. Complains of generalized pain and weakness. Appears debilitated. CBC and CMP significant for RBC 2.69, Hg 8.6, Hct 26.8, Na 124, Cl 95, bicarb 19, BUN 22, glu 120, Ca 7.7, alk phos 173, alb 2.5. Ascites fluid growing no organisms so far. CXR bibasilar atelectasis. 05/21 Patient was seen and examined. Pain well controlled with Dilaudid PRN. Reports abdomen is filling up again. Had an episode of confusion this morning and stuttering of his words. CBC and CMP significant for WBC 11.2, RBC 2.75, Hg 8.8, Hct 27.4, Na 120, K 5.4, Cl 93, bcarb 19, BUN 23, glu 101, Ca 8, alk phos 165, alb 2.5. 05/22 Patient was seen and examined. Plans for IR paracentesis today. Pending SNF. CBC and CMP significant for RBC 2.96, Hg 9.7, Hct 30, MCV 101.4, Plt 136, Na 121, K 5.6, Cl 90, bicarb 16, BUN 25, Cr 1.27, glu 108, T. Bili 1.5, alk phos 192, alb 3.4. BP 105/71, HR 85, RR 14, T 98.6F, 100% on RA. General: non toxic, no distress Derm: warm, dry Head: atraumatic, normocephalic, symmetric Eyes: EOMI, no lid lag, anicteric sclera Mouth: no lip lesion, mucus membranes moist Cardiovascular: Normal S1 S2. No murmurs, rubs or gallops. Lungs: Clear to auscultation bilaterally, no accessory muscle use Abd: Distended. TTP in all 4 quadrants without rebound Ext: no gross muscle atrophy, no edema, no contractures Neuro: no focal neuro deficits Psych: Alert, oriented, appropriate affect Based on my assessment of this patient, this patient meets a high complexity le luis manuel of care. Hyperkalemia with metabolic acidosis: K 5.6. Keyexalate 15g PO x 1. Lasix 40 mg IV x 1. DC Aldactone. Sodium bicarb 650 mg PO BID. Recheck tomorrow. Acute kidney injury: Possibly hepatorenal. Start LR at 50 cc/hr. Repeat BMP tomorrow. Sepsis versus SIRS: Leukocytosis, tachycardic. Rocephin 2g IV QD (D5/7). Peritoneal fluid cultures, UA, BCx CXR neg. Telemetry monitoring. Abdominal pain, rule out spontaneous bacterial peritonitis: Rocephin as above. Acute metabolic encephalopathy and Lethargy: Ammonia 71-37. Lactulose 30g PO TID and Rifaximin 550 mg PO BID. Alcoholic cirrhosis: Lasix 20 mg PO BID. Lactic acidosis: Persistent. Likely due to cirrhosis Hyponatremia: Likely due to cirrhosis. 1.5L fluid restriction. Normocytic anemia: No signs of obvious bleeding. Monitor CBC. Transfuse if Hg < 7. History of seizure disorder: Keppra 500 mg PO BID. Patient appears extremely debilitated. PT and OT consulted. Case management on board. Plans for SNF when available. CODE STATUS: FULL CODE DVT Prophylaxis: SCD GI Prophylaxis: Protonix Designated medical POA if patient is not able to make medical decisions for themselves: I have reviewed the following crop consultant notes: I have reviewed the results of the following tests: CBC, CMP. I have ordered the following tests: Repeat CBC and BMP in the AM. I have discussed the care of this patient with the following independent nc storian: DEYVI. I have independently interpreted the following test below: I have discussed the management of this patient with the following physician: Objective - Vital Signs Vital signs: Vital Signs Temp 97.4 F L 05/22/24 16:00 Pulse 95 05/22/24 16:00 Resp 18 05/22/24 16:00 BP 120/72 05/22/24 16:00 Pulse Ox 95 05/22/24 16:00 FiO2 Intake & Output 05/21/24 05/22/24 05/22/24 18:59 06:59 18:59 Intake Total 225 457 Balance 225 457 Weight 63.503 kg Intake: Oral 225 457 Other: Voiding Method Toilet Toilet Toilet Urinal Urinal Diaper Diaper # Voids 3 2 2 - Labs CBC & Chem 7: 05/22/24 10:47 05/22/24 10:47 Labs: Abnormal Lab Results - Last 24 Hours (Table) 05/22/24 05/22/24 Range/Units 10:47 10:47 RBC 2.96 L (4.30-5.90) m/uL Hgb 9.7 L (13.0-17.5) gm/dL Hct 30.0 L (39.0-53.0) % MCV 101.4 H (80.0-100.0) fL Plt Count 136 L (150-450) k/uL Sodium 121 L (137-145) mmol/L Potassium 5.6 H (3.5-5.1) mmol/L Chloride 90 L (98-107) mmol/L Carbon Dioxide 16 L (22-30) mmol/L BUN 25 H (9-20) mg/dL Creatinine 1.27 H (0.66-1.25) mg/dL Glucose 108 H (74-99) mg/dL Total Bilirubin 1.5 H (0.2-1.3) mg/dL Alkaline Phosphatase 192 H (38-126) U/L Albumin 3.4 L (3.5-5.0) g/dL Microbiology - Last 24 Hours (Table) 05/18/24 06:55 Gram Stain - Final Ascites Fluid Body Fluid Culture - Final 05/19/24 13:08 Blood Culture - Preliminary Blood
[2024-05-22] MEDS: LACTATED RINGERS 1,000 ML IV SCH (18:53)
[2024-05-22] MEDS: SODIUM BICARBONATE TAB 650 MG TAB PO SCH (21:09)
[2024-05-23 10:37] LABS: HCT 27.1 % (39.0-53.0); MCH 32.9 pg (25.0-35.0); MCHC 33.3 g/dL (31.0-37.0); MCV 98.8 fL (80.0-100.0); Mean Platelet Volume 7.6; Platelet Count 152 k/uL (150-450); RBC 2.74 m/uL (4.30-5.90); RDW 14.3 % (11.5-15.5); WBC 7.1 k/uL (3.8-10.6)
[2024-05-23 11:26] LABS: African American GFR (CKD) >90 (>60 ml/min/1.73 sqM); Anion Gap 9 mmol/L; Blood Urea Nitrogen 21 mg/dL (9-20); Calcium 7.9 mg/dL (8.4-10.2); Carbon Dioxide 21 mmol/L (22-30); Chloride 94 mmol/L (98-107); Glucose 106 mg/dL (74-99); Non-African American GFR(CKD) >90 (>60 ml/min/1.73 sqM); Sodium 124 mmol/L (137-145)
[2024-05-23 11:36] LABS: Potassium 5.7 mmol/L (3.5-5.1)
--- NOTE | 2024-05-23 17:49 | P.PN ---
Subjective Progress Note Date: 05/23/24 Hospital Course: Patient is a 33-year-old male with a PMH of alcoholic cirrhosis, seizure disor rafaela, depression, and anxiety, who presents to the emergency room with complaints of abdominal discomfort. The patient has recently undergone a TIPS procedure on 03/20/2024. Of note, he was recently admitted on 03/27 for altered mental status and discharged on 08/06 after hospitalization for hepatic encephalopathy and hyponatremia. Patient now reports that over the past few days he has been experiencing severe abdominal discomfort, rated at a 10 out of 10. Notes that the pain is diffuse and constant and worsened with movement. He reports his last paracentesis was on 05/12/2024. He also reports feeling more fatigued and subjective chills. Denied noticing hematochezia or melena. Also denied hematemesis or coffee-ground emesis. In the emergency room, laboratory evaluation was remarkable for lactic acidosis of 2.5, sodium 120, chloride 90, ammonia 71, alk phos 187, T. bili 1.9, CO2 19, BUN 26, creatinine 1.06, hemoglobin 9.5. UA was unremarkable with serum alcohol level less than 10. Ascitis fluid slightly cloudy, WBC 95, following: WBC 2%, lymphocyte 91%, cx negative. Underwent paracentesis with 6L removed in the ED. Started on Rocephin for concerns of SBP. Patient potassium level was elevated on 05/22 and 05/23, Lokelma given, insulin and dextrose given, nephrology consulted due to persistent hyperkalemia, spironolactone discontinued. Plan to discharge to [facility], pending placement. Subjective: Patient was seen and examined at bedside, complains of generalized body pain, fatigue, low appetite Pertinent positives and negatives as discussed above, a complete review of systems was performed and all other systems are negative. Vitals Signs Reviewed. General: Chronically ill-appearing Derm: [warm], [dry] Head: [atraumatic], [normocephalic], [symmetric] Eyes: [EOMI], [no lid lag], [anicteric sclera] Mouth: [no lip lesion], [mucus membranes moist] Cardiovascular: [S1S2 reg], [no murmur] Lungs: Refused Abdominal: refused Ext: [no gross muscle atrophy], [no edema], [no contractures] Neuro: refused Psych: [Alert], [oriented], [appropriate affect] Data Reviewed Today: Pertinent Labs: No leukocytosis, hemoglobin stable 9.0, platelet count 152, sodium 124, potassium elevated 5.7, carbon dioxide 21, creatinine 0.82 Assessment and Plan: Acute hyperkalemia Chronic hyponatremia likely secondary to cirrhosis [place], resolved -Urology consulted -[facility] 05/23, IV insulin and dextrose ordered, recheck potassium ordered -Holding spironolactone -1.5L fluid restriction. Sepsis versus SIRS: Leukocytosis, tachycardic. Rocephin 2g IV QD (D6). Peritoneal fluid cultures, UA, BCx CXR neg. Telemetry monitoring. Abdominal pain, rule out spontaneous bacterial peritonitis: Rocephin as above. Acute metabolic encephalopathy and Lethargy: Ammonia 71-37. Lactulose 30g PO TID and Rifaximin 550 mg PO BID. ordered repeat ammonia for morning Alcoholic cirrhosis: Lasix 20 mg PO BID. Lactic acidosis: Persistent. Likely due to cirrhosis Normocytic anemia: No signs of obvious bleeding. Monitor CBC. Transfuse if Hg < 7. History of seizure disorder: Keppra 500 mg PO BID. Patient appears extremely debilitated. PT and OT consulted. Case management on board. Plans for SNF when available. Overall prognosis appears to be guarded CODE STATUS: FULL CODE DVT Prophylaxis: SCD GI Prophylaxis: Protonix Objective - Vital Signs Vital signs: Vital Signs Temp 97.7 F 05/23/24 11:46 Pulse 80 05/23/24 15:56 Resp 16 05/23/24 11:46 BP 95/61 05/23/24 11:46 Pulse Ox 100 05/23/24 11:46 FiO2 Intake & Output 05/22/24 05/23/24 05/23/24 18:59 06:59 18:59 Intake Total 400 Output Total 600 Balance -600 400 Intake: Oral 400 Output: Urine 600 Other: Voiding Method Toilet Toilet Urinal Urinal Diaper Diaper # Voids 2 - Labs CBC & Chem 7: 05/23/24 10:13 05/23/24 10:13 Labs: Abnormal Lab Results - Last 24 Hours (Table) 05/23/24 05/23/24 Range/Units 10:13 10:13 RBC 2.74 L (4.30-5.90) m/uL Hgb 9.0 L (13.0-17.5) gm/dL Hct 27.1 L (39.0-53.0) % Sodium 124 L (137-145) mmol/L Potassium 5.7 H (3.5-5.1) mmol/L Chloride 94 L (98-107) mmol/L Carbon Dioxide 21 L (22-30) mmol/L BUN 21 H (9-20) mg/dL Glucose 106 H (74-99) mg/dL Calcium 7.9 L (8.4-10.2) mg/dL Microbiology - Last 24 Hours (Table) 05/19/24 13:08 Blood Culture - Preliminary Blood
[2024-05-23] MEDS: SODIUM ZIRCONIUM CYCLOSILICATE 10 GM PACKET PO ONE (18:48)
[2024-05-23] MEDS: DEXTROSE 50% SYRINGE 50 ML IVP ONE (18:48)
[2024-05-23] MEDS: INSULIN REGULAR 100 UNIT/ML VIAL (IV) IV ONE (18:49)
[2024-05-24 05:58] LABS: ALT 13 U/L (4-49); AST 24 U/L (17-59); African American GFR (CKD) >90 (>60 ml/min/1.73 sqM); Albumin 2.5 g/dL (3.5-5.0); Albumin/Globulin Ratio 0.8; Alkaline Phosphatase 162 U/L (38-126); Anion Gap 10 mmol/L; Blood Urea Nitrogen 19 mg/dL (9-20); Calcium 7.7 mg/dL (8.4-10.2); Carbon Dioxide 22 mmol/L (22-30); Chloride 90 mmol/L (98-107); Globulin 3.2 g/dL; Glucose 111 mg/dL (74-99); Non-African American GFR(CKD) >90 (>60 ml/min/1.73 sqM); Potassium 4.8 mmol/L (3.5-5.1); Sodium 122 mmol/L (137-145); Total Bilirubin 0.9 mg/dL (0.2-1.3); Total Protein 5.7 g/dL (6.3-8.2)
[2024-05-24 06:01] LABS: Basophils % (A) 1 %; Eosinophils # (A) 0.1 k/uL (0-0.7); Eosinophils % (A) 2 %; HCT 23.9 % (39.0-53.0); HGB 7.9 gm/dL (13.0-17.5); Lymphocytes # (A) 1.1 k/uL (1.0-4.8); Lymphocytes % (A) 16 %; MCH 31.9 pg (25.0-35.0); MCHC 33.1 g/dL (31.0-37.0); MCV 96.4 fL (80.0-100.0); Mean Platelet Volume 9.1; Monocytes # (A) 0.9 k/uL (0-1.0); Monocytes % (A) 13 %; Neutrophils # (A) 4.3 k/uL (1.3-7.7); Neutrophils % (A) 65 %; Platelet Count 122 k/uL (150-450); RBC 2.48 m/uL (4.30-5.90); RDW 14.2 % (11.5-15.5); WBC 6.6 k/uL (3.8-10.6)
--- NOTE | 2024-05-24 12:26 | P.NPCON ---
History of Present Illness - Reason for Consult hyponatremia - History of Present Illness Patient is a 33-year-old male with history of alcoholic liver disease, seizure disorder, depression and anxiety who was admitted to the hospital with abdominal discomfort. Patient has had paracentesis on multiple occasions. He has also had previous hospitalizations for hepatic encephalopathy and hyponatremia. Serum sodium was 120 on admission and initially improved to 124 and has subsequently been at 1 20-1 24 since admission. Patient was maintained on Ringer lactate which she has refused. He is currently on oral Lasix which was started on 05/20/2024. There is a significant component of noncompliance with patient ordering large amounts of food multiple times per day from outside. He also has multiple cla sses of fluid including smoothies and other drinks. Patient states he significantly decreased salt intake about 1 week ago. He does have swelling of his legs which is apparently improved since admission. Blood pressure is 91 to 106 mmHg for systolic. Patient has refused lactulose Past Medical History Past Medical History: GERD/Reflux, Liver Disease Additional Past Medical History / Comment(s): Pancreatitis, ETOH abuse, subtance abuse, large volume paracentesis, chirrhosis Stage 4 liver Failure History of Any Multi-Drug Resistant Organisms: None Reported Additional Past Surgical History / Comment(s): ERCP stent placement, TIPS procedure Past Anesthesia/Blood Transfusion Reactions: Unable to Obtain Smoking Status: Vaper - Past Family History Father Family Medical History: Hypertension Additional Family Medical History / Comment(s): Parkinson's Disease Mother Additional Family Medical History / Comment(s): mental illness Medications and Allergies Home Medications Medication Instructions Recorded Confirmed Type Acamprosate Calcium [Campral] 666 mg PO TID 09/17/23 05/18/24 History Furosemide [Lasix] 20 mg PO BID 09/17/23 05/18/24 History Lactulose 30 gm PO Q8H 09/17/23 05/18/24 History Omeprazole [PriLOSEC] 20 mg PO BID 09/17/23 05/18/24 History Ondansetron [Zofran] 4 mg PO DAILY PRN 09/17/23 05/18/24 History Rifaximin [Xifaxan] 550 mg PO Q12H 09/17/23 05/18/24 History levETIRAcetam [Keppra] 500 mg PO Q12HR 09/17/23 05/18/24 History ALPRAZolam [Xanax] 0.25 mg PO DAILY PRN 02/10/24 05/18/24 History Albuterol Sulfate [Albuterol 2 puff INHALATION RT-Q6H PRN 02/10/24 05/18/24 History Sulfate Hfa] Buprenorphine HCl/Naloxone HCl 1 film SL DAILY PRN 02/10/24 05/18/24 History [Suboxone 2 mg-0.5 mg Sl Film] Midodrine [ProAmatine] 5 mg PO TID 02/10/24 05/18/24 History Mirtazapine 7.5 mg PO HS 02/10/24 05/18/24 History diphenhydrAMINE & Zinc Cream 1 applic TOPICAL TID PRN 02/10/24 05/18/24 History [Benadryl Cream] hydrOXYzine HCL [Atarax] 25 mg PO Q6H PRN 02/10/24 05/18/24 History methocarbamoL [Robaxin-750] 750 mg PO Q8H PRN 02/10/24 05/18/24 History Pregabalin [Lyrica] 50 mg PO BID 02/18/24 05/18/24 History Thiamine [Vitamin B-1] 100 mg PO DAILY #90 tab 03/10/24 05/18/24 Rx Spironolactone [Aldactone] 25 mg PO BID 03/27/24 05/18/24 History Amoxic-Pot Clav 500-125 mg 1 tab PO BID 05/18/24 05/18/24 History [Augmentin 500-125 mg] Ipratropium-Albuterol Nebulize 3 ml INHALATION RT-Q4H PRN 05/18/24 05/18/24 History [Duoneb 0.5 mg-3 mg/3 ml Soln] Ondansetron [Ondansetron ODT] 4 mg PO BID PRN 05/18/24 05/18/24 History traZODone HCL [Desyrel] 50 mg PO HS 05/18/24 05/18/24 History Allergies Allergy/AdvReac Type Severity Reaction Status Date / Time No Known Allergies Allergy Verified 05/18/24 00:28 Physical Exam Vitals: Vital Signs Temp Pulse Pulse Resp BP Pulse Ox 05/24/24 11:47 80 05/24/24 11:33 84 05/24/24 09:00 89 14 05/24/24 08:29 96 05/24/24 08:20 92 05/24/24 08:14 98.4 F 89 14 101/66 100 05/24/24 01:32 98.0 F 88 18 91/63 99 05/23/24 19:23 98.1 F 87 16 98/65 99 05/23/24 18:50 81 16 05/23/24 18:38 80 18 05/23/24 15:56 80 05/23/24 15:43 82 Intake and Output 05/23/24 05/24/24 05/24/24 22:59 06:59 14:59 Intake Total 1920 240 Output Total 780 Balance 1140 240 Intake: Intake, IV Titration 0 Amount Albumin Human 25% 50 ml 0 In Empty Bag 1 bag @ 50 mls/hr IVPB ONCE ONE Rx#: [id number] Albumin Human 25% 50 ml 0 In Empty Bag 1 bag @ 50 mls/hr IVPB ONCE ONE Rx#: [id number] Albumin Human 25% 50 ml 0 In Empty Bag 1 bag @ 50 mls/hr IVPB ONCE ONE Rx#: [id number] Lactated Ringers 1,000 ml 0 @ 50 mls/hr IV .Q20H [facility] Rx#:[id number] cefTRIAXone 2 gm In 0 Sodium Chloride 0.9% 50 ml @ 100 mls/hr IVPB Q24H [facility] Rx#:[id number] Oral 1920 240 Output: Urine 780 Other: Voiding Method Toilet Toilet Urinal Urinal Diaper Diaper # Voids 5 600 Patient is awake, comfortable, no acute distress Alert oriented x 3 Examination of the heart S1 and S2 Examination of the lungs bilateral breath sounds are heard Abdomen is soft, nontender Examination lower extremity shows edema 1+ bilaterally [employer] exam grossly intact Results - Lab Results Most recent lab results Calcium 7.7 mg/dL (8.4-10.2) L 05/24/24 05:23 05/24/24 05:23 05/24/24 05:23 Assessment and Plan Assessment: 1. Hyponatremia associated with alcoholic liver disease. Currently hypervolemic and maintained on oral Lasix which we can continue. Advised patient regarding maintaining salt and fluid restriction. 2. Alcoholic liver disease with portal hypertension and recurrent paracentesis. 3. Hyperkalemia associated with some degree of acute kidney injury, currently i mproved 4. Acute kidney injury noted on 05/22/2024, creatinine 1.27, with improvement in renal function and serum creatinine decreased to 0.6 mg/dL. Etiology is likely hypotension and hypoperfusion 5. Anemia most likely with underlying component of GI bleed 6. Noncompliance Plan: Patient is advised salt and fluid restriction. Continue with oral Lasix DC Ringer lactate Repeat sodium this evening We may consider 1 dose of Samsca if serum sodium does not improve. Thank you for the consultation. We will continue to follow the patient with you during his hospitalization.
[2024-05-24] MEDS ORDERED: CALCIUM CARBONATE 500 MG CHEWABLE PO PRN (14:27)
--- NOTE | 2024-05-24 14:30 | P.PN ---
Subjective Progress Note Date: 05/24/24 Hospital Course: Patient is a 33-year-old male with a PMH of alcoholic cirrhosis, seizure disor rafaela, depression, and anxiety, who presents to the emergency room with complaints of abdominal discomfort. The patient has recently undergone a TIPS procedure on 03/20/2024. Of note, he was recently admitted on 03/27 for altered mental status and discharged on 08/06 after hospitalization for hepatic encephalopathy and hyponatremia. Patient now reports that over the past few days he has been experiencing severe abdominal discomfort, rated at a 10 out of 10. Notes that the pain is diffuse and constant and worsened with movement. He reports his last paracentesis was on 05/12/2024. He also reports feeling more fatigued and subjective chills. Denied noticing hematochezia or melena. Also denied hematemesis or coffee-ground emesis. In the emergency room, laboratory evaluation was remarkable for lactic acidosis of 2.5, sodium 120, chloride 90, ammonia 71, alk phos 187, T. bili 1.9, CO2 19, BUN 26, creatinine 1.06, hemoglobin 9.5. UA was unremarkable with serum alcohol level less than 10. Ascitis fluid slightly cloudy, WBC 95, following: WBC 2%, lymphocyte 91%, cx negative. Underwent paracentesis with 6L removed in the ED. Started on Rocephin for concerns of SBP. Patient potassium level was elevated on 05/22 and 05/23, Lokelma given, insulin and dextrose given, nephrology consulted due to persistent hyperkalemia, spironolactone discontinued. Nephrology following: Discontinue IV fluids, continue Lasix, salt and fluid restriction, consider 1 dose of Samsca if serum sodium does not improve on repeat blood work this evening Plan to discharge to [facility], pending placement. Subjective: Patient was seen and examined at bedside, complains of generalized body pain, fatigue, low appetite Pertinent positives and negatives as discussed above, a complete review of systems was performed and all other systems are negative. Vitals Signs Reviewed. General: Chronically ill-appearing Derm: [warm], [dry] Head: [atraumatic], [normocephalic], [symmetric] Eyes: [EOMI], [no lid lag], [anicteric sclera] Mouth: [no lip lesion], [mucus membranes moist] Cardiovascular: [S1S2 reg], [no murmur] Lungs: Refused Abdominal: refused Ext: [no gross muscle atrophy], [no edema], [no contractures] Neuro: refused Psych: [Alert], [oriented], [appropriate affect] Data Reviewed Today: Pertinent Labs: No leukocytosis, globin 7.9, platelet count 122, sodium 122, potassium 4.8, glucose is controlled Assessment and Plan: Acute hyperkalemia, resolved Chronic hyponatremia likely secondary to cirrhosis [place], resolved -Nephrology following: Discontinue IV fluids, continue Lasix, salt and fluid restriction, consider 1 dose of Samsca if serum sodium does not improve on repeat blood work this evening -[facility] 05/23, IV insulin and dextrose ordered, recheck potassium ordered -05/24 potassium normalized -Holding spironolactone -1.5L fluid restriction. -Blood work ordered by nephrology and pending, cortisol, TSH, urine sodium and urine osmolality pending EEG ordered as patient reports an episode of confusion on 05/22 when he was stuttering his words, he's concerned he had seizure, no previous hx of seizure. Sepsis versus SIRS: Leukocytosis, tachycardic. Rocephin 2g IV QD (D7/7). Peritoneal fluid cultures, UA, BCx CXR neg. Telemetry monitoring. Abdominal pain, rule out spontaneous bacterial peritonitis: Completed 7 days of broad-spectrum Acute metabolic encephalopathy and Lethargy: Ammonia 71-37. Lactulose 30g PO TID and Rifaximin 550 mg PO BID. ordered repeat ammonia for morning Alcoholic cirrhosis: Lasix 20 mg PO BID. Lactic acidosis: Persistent. Likely due to cirrhosis Normocytic anemia: No signs of obvious bleeding. Monitor CBC. Transfuse if Hg < 7. History of seizure disorder: Keppra 500 mg PO BID. Patient appears extremely debilitated. PT and OT consulted. Case management on board. Plans for SNF when available. Overall prognosis appears to be guarded CODE STATUS: FULL CODE DVT Prophylaxis: SCD GI Prophylaxis: Protonix Objective - Vital Signs Vital signs: Vital Signs Temp 98.4 F 05/24/24 08:14 Pulse 80 05/24/24 11:47 Resp 14 05/24/24 09:00 BP 101/66 05/24/24 08:14 Pulse Ox 100 05/24/24 08:14 FiO2 Intake & Output 05/23/24 05/24/24 05/24/24 18:59 06:59 18:59 Intake Total 2080 240 240 Output Total 780 Balance 1300 240 240 Intake: Intake, IV Titration 0 Amount Albumin Human 25% 50 ml 0 In Empty Bag 1 bag @ 50 mls/hr IVPB ONCE ONE Rx#: [id number] Albumin Human 25% 50 ml 0 In Empty Bag 1 bag @ 50 mls/hr IVPB ONCE ONE Rx#: [id number] Albumin Human 25% 50 ml 0 In Empty Bag 1 bag @ 50 mls/hr IVPB ONCE ONE Rx#: [id number] Lactated Ringers 1,000 ml 0 @ 50 mls/hr IV .Q20H [facility] Rx#:[id number] cefTRIAXone 2 gm In 0 Sodium Chloride 0.9% 50 ml @ 100 mls/hr IVPB Q24H [facility] Rx#:[id number] Oral 2080 240 240 Output: Urine 780 Other: Voiding Method Toilet Toilet Urinal Urinal Diaper Diaper # Voids 5 600 - Labs CBC & Chem 7: 05/24/24 05:23 05/24/24 05:23 Labs: Abnormal Lab Results - Last 24 Hours (Table) 05/24/24 05/24/24 05/24/24 Range/Units 05:23 05:23 05:23 RBC 2.48 L (4.30-5.90) m/uL Hgb 7.9 L (13.0-17.5) gm/dL Hct 23.9 L (39.0-53.0) % Plt Count 122 L (150-450) k/uL Sodium 122 L (137-145) mmol/L Chloride 90 L (98-107) mmol/L Glucose 111 H (74-99) mg/dL Calcium 7.7 L (8.4-10.2) mg/dL Alkaline Phosphatase 162 H (38-126) U/L Ammonia 56 H (<30) umol/L Total Protein 5.7 L (6.3-8.2) g/dL Albumin 2.5 L (3.5-5.0) g/dL
[2024-05-25 10:16] LABS: BUN/Creat Ratio 18.25 Ratio (12.00-20.00); Blood Urea Nitrogen 14.6 mg/dL (9.0-27.0); Glucose 98 mg/dL (70-110)
[2024-05-25 10:17] LABS: ALT 13 U/L (10-49); AST 23 U/L (14-35); Albumin 2.6 g/dL (3.8-4.9); Albumin/Globulin Ratio 0.84 Ratio (1.60-3.17); Alkaline Phosphatase 155 U/L (41-126); Calcium 7.8 mg/dL (8.7-10.3); Carbon Dioxide 22.3 mmol/L (21.6-31.8); Chloride 94 mmol/L (96-109); Globulin 3.1 g/dL (1.6-3.3); Potassium 5.4 mmol/L (3.5-5.5); Sodium 124 mmol/L (135-145); Total Bilirubin 0.8 mg/dL (0.3-1.2); Total Protein 5.7 g/dL (6.2-8.2)
--- NOTE | 2024-05-25 13:51 | P.PN ---
Subjective Progress Note Date: 05/25/24 Hospital Course: Patient is a 33-year-old male with a PMH of alcoholic cirrhosis, seizure disor rafaela, depression, and anxiety, who presents to the emergency room with complaints of abdominal discomfort. The patient has recently undergone a TIPS procedure on 03/20/2024. Of note, he was recently admitted on 03/27 for altered mental status and discharged on 08/06 after hospitalization for hepatic encephalopathy and hyponatremia. Patient now reports that over the past few days he has been experiencing severe abdominal discomfort, rated at a 10 out of 10. Notes that the pain is diffuse and constant and worsened with movement. He reports his last paracentesis was on 05/12/2024. He also reports feeling more fatigued and subjective chills. Denied noticing hematochezia or melena. Also denied hematemesis or coffee-ground emesis. In the emergency room, laboratory evaluation was remarkable for lactic acidosis of 2.5, sodium 120, chloride 90, ammonia 71, alk phos 187, T. bili 1.9, CO2 19, BUN 26, creatinine 1.06, hemoglobin 9.5. UA was unremarkable with serum alcohol level less than 10. Ascitis fluid slightly cloudy, WBC 95, following: WBC 2%, lymphocyte 91%, cx negative. Underwent paracentesis with 6L removed in the ED. Started on Rocephin for concerns of SBP. Patient potassium level was elevated on 05/22 and 05/23, Lokelma given, insulin and dextrose given, nephrology consulted due to persistent hyperkalemia, spironolactone discontinued. Nephrology following: Discontinue IV fluids, continue Lasix, salt and fluid restriction, consider 1 dose of Samsca if serum sodium does not improve on repeat blood work this evening Discussed with RN, patient refuses lactulose, he also states that he knows that he cannot be discharged if his ammonia level is high, he also requests Dilaudid every 3 hours and threatens to contact [place] state if his pain is not controlled, he will also requests Atarax to begin with Dilaudid as he gets itchy after Dilaudid;He is not compliant with fluid restriction, orders multiple meals and drinks, he states been has been dealing with this for years and knows exactly what he is doing. Plan to discharge to [facility], pending placement. Subjective: Patient was seen and examined at bedside, complains of generalized body pain, fatigue, he repeatedly requests to remove his fluid restriction Pertinent positives and negatives as discussed above, a complete review of systems was performed and all other systems are negative. Vitals Signs Reviewed. General: Chronically ill-appearing Derm: [warm], [dry] Head: [atraumatic], [normocephalic], [symmetric] Eyes: [EOMI], [no lid lag], [anicteric sclera] Mouth: [no lip lesion], [mucus membranes moist] Cardiovascular: [S1S2 reg], [no murmur] Lungs: Refused Abdominal: refused Ext: [no gross muscle atrophy], [no edema], [no contractures] Neuro: refused Psych: [Alert], [oriented], [appropriate affect] Data Reviewed Today: Pertinent Labs: Sodium this morning stable 124, potassium 5.4, creatinine normal and stable, ammonia 93 Assessment and Plan: Acute hyperkalemia, resolved Acute on chronic hyponatremia likely secondary to cirrhosis [place], resolved -Nephrology following: Discontinue IV fluids, continue Lasix, salt and fluid restriction, consider 1 dose of Samsca if serum sodium does not improve on repeat blood work this evening -[facility] 05/23, IV insulin and dextrose ordered, recheck potassium ordered -05/24 potassium normalized -Holding spironolactone -2.0 fluid restriction. -Blood work ordered by nephrology, cortisol was collected at 10:42 AM and was 6.6, TSH 5.7, free T4 ordered, urine sodium low less than 20, urine is below 2 412 Medication and diet noncompliance: Provided with multiple indications from multiple team members including nephrology, hospitalist service, nursing staff EEG ordered as patient reports an episode of confusion on 05/22 when he was stuttering his words, he's concerned he had seizure, no previous hx of seizure. Sepsis versus SIRS: Leukocytosis, tachycardic. Rocephin 2g IV QD (D7/7). Peritoneal fluid cultures, UA, BCx CXR neg. Telemetry monitoring discontinued. Abdominal pain, ruled out spontaneous bacterial peritonitis: Completed 7 days of broad-spectrum. IR consulted for paracentesis Acute metabolic encephalopathy and Lethargy resolved: Lactulose 30g PO TID and Rifaximin 550 mg PO BID. patient refuses lactulose despite education on the importance of medication compliance Alcoholic cirrhosis: Lasix 20 mg PO BID. Lactic acidosis: Resolved. Likely due to cirrhosis Normocytic anemia: No signs of obvious bleeding. Monitor CBC. Transfuse if Hg < 7. History of seizure disorder: Keppra 500 mg PO BID. Patient appears extremely debilitated. PT and OT consulted. Case management on board. Plans for SNF when available. Overall prognosis appears to be guarded CODE STATUS: FULL CODE DVT Prophylaxis: SCD GI Prophylaxis: Protonix Objective - Vital Signs Vital signs: Vital Signs Temp 98.2 F 05/25/24 12:01 Pulse 73 05/25/24 12:01 Resp 16 05/25/24 12:01 BP 93/54 05/25/24 12:01 Pulse Ox 98 05/25/24 12:01 FiO2 Intake & Output 05/24/24 05/25/24 05/25/24 18:59 06:59 18:59 Intake Total 1280 1757 1740 Output Total 400 100 Balance 880 1757 1640 Intake: Oral 1280 1757 1740 Output: Urine 400 100 Other: Voiding Method Toilet Toilet Toilet Urinal Urinal Urinal Diaper Diaper # Voids 2 5 # Bowel Movements 1 1 - Labs CBC & Chem 7: 05/24/24 05:23 05/25/24 05:26 Labs: Abnormal Lab Results - Last 24 Hours (Table) 05/24/24 05/24/24 05/24/24 Range/Units 10:42 13:10 14:39 Sodium 123 L (137-145) mmol/L Chloride (96-109) mmol/L Calcium (8.7-10.3) mg/dL Alkaline Phosphatase (41-126) U/L Ammonia (<30) umol/L Total Protein (6.2-8.2) g/dL Albumin (3.8-4.9) g/dL Albumin/Globulin Ratio (1.60-3.17) Ratio TSH 5.740 H (0.350-5.500) UIU/ML Ur Random Sodium <20 L (40-220) mmol/L 05/25/24 05/25/24 Range/Units 05:26 05:26 Sodium 124 L (137-145) mmol/L Chloride 94 L (96-109) mmol/L Calcium 7.8 L (8.7-10.3) mg/dL Alkaline Phosphatase 155 H (41-126) U/L Ammonia 93 H (<30) umol/L Total Protein 5.7 L (6.2-8.2) g/dL Albumin 2.6 L (3.8-4.9) g/dL Albumin/Globulin Ratio 0.84 L (1.60-3.17) Ratio TSH (0.350-5.500) UIU/ML Ur Random Sodium (40-220) mmol/L Microbiology - Last 24 Hours (Table) 05/19/24 13:08 Blood Culture - Final Blood
[2024-05-25] MEDS: FUROSEMIDE 40 MG TAB PO SCH (16:04)
[2024-05-25] MEDS: ZINC OXIDE PASTE (Z-GUARD) 1 APPLIC TOPICAL PRN (17:54)
[2024-05-25] MEDS: ONDANSETRON 4 MG/2 ML VIAL IVP PRN (20:40)
--- NOTE | 2024-05-25 22:15 | P.PN ---
Subjective Patient is seen for follow-up for hyponatremia. Underlying history of EtOH related liver cirrhosis with portal hypertension and ascites. Currently hypervolemic and being diuresed. Noncompliant with fluid restriction. Not particularly following sodium restriction in diet Objective - Vital Signs Vital signs: Vital Signs Temp 98.5 F 05/25/24 17:28 Pulse 87 05/25/24 20:23 Resp 16 05/25/24 17:28 BP 101/70 05/25/24 17:28 Pulse Ox 100 05/25/24 17:28 FiO2 Intake & Output 05/25/24 05/25/24 05/26/24 06:59 18:59 06:59 Intake Total 1757 3300 Output Total 100 Balance 1757 3200 Intake: Oral 1757 3300 Output: Urine 100 Other: Voiding Method Toilet Toilet Urinal Urinal Diaper # Voids 2 5 # Bowel Movements 1 - Exam Patient is awake, comfortable, no acute distress. Examination shows edema 2+ bilateral lower extremities. 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 - Labs CBC & Chem 7: 05/24/24 05:23 05/25/24 05:26 Labs: Abnormal Lab Results - Last 24 Hours (Table) 05/24/24 05/24/24 05/25/24 Range/Units 10:42 13:10 05:26 Sodium 124 L (135-145) mmol/L Chloride 94 L (96-109) mmol/L Calcium 7.8 L (8.7-10.3) mg/dL Alkaline Phosphatase 155 H (41-126) U/L Ammonia (<30) umol/L Total Protein 5.7 L (6.2-8.2) g/dL Albumin 2.6 L (3.8-4.9) g/dL Albumin/Globulin Ratio 0.84 L (1.60-3.17) Ratio TSH 5.740 H (0.350-5.500) UIU/ML Ur Random Sodium <20 L (40-220) mmol/L 05/25/24 Range/Units 05:26 Sodium (135-145) mmol/L Chloride (96-109) mmol/L Calcium (8.7-10.3) mg/dL Alkaline Phosphatase (41-126) U/L Ammonia 93 H (<30) umol/L Total Protein (6.2-8.2) g/dL Albumin (3.8-4.9) g/dL Albumin/Globulin Ratio (1.60-3.17) Ratio TSH (0.350-5.500) UIU/ML Ur Random Sodium (40-220) mmol/L Microbiology - Last 24 Hours (Table) 05/19/24 13:08 Blood Culture - Final Blood Assessment and Plan Assessment: 1. Hyponatremia associated with alcoholic liver disease. Currently hypervolemic and maintained on oral Lasix. Advised patient regarding maintaining salt and fluid restriction. 2. Alcoholic liver disease with portal hypertension and recurrent paracentesis. 3. Hyperkalemia associated with some degree of acute kidney injury, currently improved 4. Acute kidney injury noted on 05/22/2024, creatinine 1.27, with improvement in renal function and serum creatinine decreased to 0.6 mg/dL. Etiology is likely hypotension and hypoperfusion 5. Anemia most likely with underlying component of GI bleed 6. Noncompliance Plan: Patient is advised salt and fluid restriction. Continue with oral Lasix Increase dose to 40 mg twice daily Repeat sodium in a.m.
[2024-05-26 09:02] LABS: Basophils % (A) 1 %; Eosinophils # (A) 0.1 k/uL (0-0.7); Eosinophils % (A) 3 %; HCT 21.4 % (39.0-53.0); HGB 7.1 gm/dL (13.0-17.5); Lymphocytes % (A) 22 %; MCH 32.5 pg (25.0-35.0); MCHC 33.4 g/dL (31.0-37.0); MCV 97.4 fL (80.0-100.0); Mean Platelet Volume 7.6; Monocytes # (A) 0.6 k/uL (0-1.0); Monocytes % (A) 14 %; Neutrophils # (A) 2.6 k/uL (1.3-7.7); Neutrophils % (A) 57 %; Platelet Count 148 k/uL (150-450); RBC 2.19 m/uL (4.30-5.90); RDW 14.6 % (11.5-15.5); WBC 4.5 k/uL (3.8-10.6)
[2024-05-26 09:19] LABS: African American GFR (CKD) >90 (>60 ml/min/1.73 sqM); Anion Gap 5 mmol/L; Blood Urea Nitrogen 18 mg/dL (9-20); Calcium 7.8 mg/dL (8.4-10.2); Carbon Dioxide 23 mmol/L (22-30); Chloride 92 mmol/L (98-107); Glucose 106 mg/dL (74-99); Non-African American GFR(CKD) >90 (>60 ml/min/1.73 sqM); Sodium 120 mmol/L (137-145)
[2024-05-26 09:26] LABS: INR 1.3 (<1.2); Prothrombin Time 14.2 sec (10.0-12.5)
[2024-05-26 09:34] LABS: T4, Free (Free Thyroxine) 1.51 ng/dL (0.78-2.19)
[2024-05-26] MEDS: HYDROmorphone 1 MG/ML 1 ML SYRINGE IVP STA (10:49)
[2024-05-26] MEDS: ALBUMIN HUMAN 25% 50 ML in EMPTY BAG 1 BAG IVPB ONE (13:03)
--- NOTE | 2024-05-26 13:17 | P.PN ---
Subjective Patient is seen for follow-up for hyponatremia. Underlying history of EtOH related liver cirrhosis with portal hypertension and ascites. Currently hypervolemic and being diuresed. Noncompliant with fluid restriction and salt intake. Serum sodium dropped to 120 today. No significant complaints. Status post paracentesis today Objective - Vital Signs Vital signs: Vital Signs Temp 97.6 F 05/26/24 07:19 Pulse 77 05/26/24 12:45 Resp 16 05/26/24 12:45 BP 99/62 05/26/24 12:45 Pulse Ox 96 05/26/24 12:45 FiO2 Intake & Output 05/25/24 05/26/24 05/26/24 18:59 06:59 18:59 Intake Total 3300 240 Output Total 100 500 Balance 3200 -260 Intake: Oral 3300 240 Output: Urine 100 500 Other: Voiding Method Toilet Toilet Urinal Urinal # Voids 5 # Bowel Movements 1 - Exam Patient is awake, comfortable, no acute distress. Examination shows edema 2+ bilateral lower extremities. 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 Hyponatremia associated with alcoholic liver disease. Currently hypervolemic and maintained on oral Lasix. Advised patient regarding maintaining salt and fluid restriction. 2. Alcoholic liver disease with portal hypertension and recurrent paracentesis. 3. Hyperkalemia associated with some degree of acute kidney injury, currently improved 4. Acute kidney injury noted on 05/22/2024, creatinine 1.27, with improvement in renal function and serum creatinine decreased to 0.6 mg/dL. Etiology is likely hypotension and hypoperfusion 5. Anemia most likely with underlying component of GI bleed 6. Noncompliance Plan: Patient is advised salt and fluid restriction. Continue with oral Lasix, dose increased yesterday. Repeat sodium this afternoon. If serum sodium continues to trend down patient will need to be started on 3% saline.
--- NOTE | 2024-05-26 14:17 | US ---
EXAMINATION TYPE: US paracentesis abd w/image, diagnostic and therapeutic DATE OF EXAM: 05/26/2024 CLINICAL HISTORY: 33-year-old male with chronic liver disease, distention, and recurrent ascites The procedure was discussed with the patient. The risks, complications, benefits, and alternatives we re discussed and any questions were answered. Informed consent was obtained. The patient was placed s upine on the ultrasound table and prepped and draped in the usual sterile fashion. All elements of maximal barrier technique were utilized. Ultrasound was utilized to determine the precise skin entry site along the right mid abdomen. A 5 [place] One-Step catheter and trocar technique was utilized to access the ascites collection under direct ultrasound guidance. Initial 60 mL aspirate was labeled for laboratory analysis. Approximately 5.8 liters of typical, ellswotrh slucent, straw-colored fluid was removed. Catheter was removed, hemostasis obtained, and a dressing placed. The patient was stable throughout the procedure and remained stable upon discharge from Department of Radiology. IMPRESSION: Successful diagnostic and therapeutic paracentesis under ultrasound guidance. 5.8 L of fluid removed. Laboratory analysis pending. [facility], , 05/26/2024 2:14 PM
--- NOTE | 2024-05-26 16:07 | P.PN ---
Subjective Progress Note Date: 05/26/24 Hospital Course: Patient is a 33-year-old male with a PMH of alcoholic cirrhosis, seizure disor rafaela, depression, and anxiety, who presents to the emergency room with complaints of abdominal discomfort. The patient has recently undergone a TIPS procedure on 03/20/2024. Of note, he was recently admitted on 03/27 for altered mental status and discharged on 08/06 after hospitalization for hepatic encephalopathy and hyponatremia. Patient now reports that over the past few days he has been experiencing severe abdominal discomfort, rated at a 10 out of 10. Notes that the pain is diffuse and constant and worsened with movement. He reports his last paracentesis was on 05/12/2024. He also reports feeling more fatigued and subjective chills. Denied noticing hematochezia or melena. Also denied hematemesis or coffee-ground emesis. In the emergency room, laboratory evaluation was remarkable for lactic acidosis of 2.5, sodium 120, chloride 90, ammonia 71, alk phos 187, T. bili 1.9, CO2 19, BUN 26, creatinine 1.06, hemoglobin 9.5. UA was unremarkable with serum alcohol level less than 10. Ascitis fluid slightly cloudy, WBC 95, following: WBC 2%, lymphocyte 91%, cx negative. Underwent paracentesis with 6L removed in the ED. Started on Rocephin for concerns of SBP. Patient potassium level was elevated on 05/22 and 05/23, Lokelma given, insulin and dextrose given, nephrology consulted due to persistent hyperkalemia, spironolactone discontinued. Nephrology following: Discontinue IV fluids, continue Lasix, salt and fluid restriction, consider 1 dose of Samsca if serum sodium does not improve on repeat blood work this evening Discussed with RN, patient refuses lactulose, he also states that he knows that he cannot be discharged if his ammonia level is high, he also requests Dilaudid every 3 hours and threatens to contact [place] state if his pain is not controlled, he will also requests Atarax to begin with Dilaudid as he gets itchy after Dilaudid;He is not compliant with fluid restriction, orders multiple meals and drinks, he states been has been dealing with this for years and knows exactly what he is doing. 05/26 status post paracentesis 5.8 L, received albumin. Sodium dropped to 120, repeat pending, might need to be started on hypertonic saline Plan to discharge to [facility], pending placement and sodium improvement. Subjective: Patient was seen and examined at bedside, he was sitting at the age of the bed, drinking tomato juice, was mostly complaining of his fluid restriction. He shared that he drinks his own water and Gatorade as well as Gatorade electrolyte powder Pertinent positives and negatives as discussed above, a complete review of systems was performed and all other systems are negative. Vitals Signs Reviewed. General: Chronically ill-appearing Derm: [warm], [dry] Head: [atraumatic], [normocephalic], [symmetric] Eyes: [EOMI], [no lid lag], [anicteric sclera] Mouth: [no lip lesion], [mucus membranes moist] Cardiovascular: [S1S2 reg], [no murmur] Lungs: Refused Abdominal: Distended, generalized tenderness Ext: [no gross muscle atrophy], [no edema], [no contractures] Neuro: refused Psych: [Alert], [oriented], [appropriate affect] Data Reviewed Today: Pertinent Labs: Sodium dropped down to 120, potassium 5.0, normal creatinine normal 0.93, free T4 came back normal 1.51, hemoglobin 7.1, WBC 4.5 Assessment and Plan: Acute hyperkalemia, resolved Acute on chronic hyponatremia likely secondary to cirrhosis [place], resolved -Nephrology following: Discontinue IV fluids, continue Lasix, salt and fluid restriction, consider 1 dose of Samsca if serum sodium does not improve on repeat blood work this evening -[facility] 05/23, IV insulin and dextrose ordered, recheck potassium ordered, remained stable and normal -Holding spironolactone -2.0 fluid restriction. Patient is noncompliant with his fluid and sodium restriction and requested it to be removed as he does not follow with any weight and he knows exactly how much fluid he drinks, he states that he is going to be putting the numbers down for his medical team, he acknowledged risks of not following fluid restriction. -recheck Na, might need to be started on hypertonic saline Medication and diet noncompliance: Provided with multiple indications from multiple team members including nephrology, hospitalist service, nursing staff EEG ordered as patient reports an episode of confusion on 05/22 when he was stut tering his words, he's concerned he had seizure, no previous hx of seizure. Sepsis versus SIRS: Leukocytosis, tachycardic. Rocephin 2g IV QD (D7/7). Peritoneal fluid cultures, UA, BCx CXR neg. Telemetry monitoring discontinued. Abdominal pain, ruled out spontaneous bacterial peritonitis: Completed 7 days of broad-spectrum. IR consulted for paracentesis, repeat 05/26 Acute metabolic encephalopathy and Lethargy resolved: Lactulose 30g PO TID and Rifaximin 550 mg PO BID. patient refuses lactulose despite education on the importance of medication compliance Alcoholic cirrhosis: Lasix 20 mg PO BID. Lactic acidosis: Resolved. Likely due to cirrhosis Normocytic anemia: No signs of obvious bleeding. Monitor CBC. Transfuse if Hg < 7. History of seizure disorder: Keppra 500 mg PO BID. Subclinical hypothyroidism, follow-up with PCP, recheck in 6 weeks Patient appears extremely debilitated. PT and OT consulted. Case management on board. Plans for SNF when available and Na normalized. Overall prognosis appears to be guarded CODE STATUS: FULL CODE DVT Prophylaxis: SCD GI Prophylaxis: Protonix Objective - Vital Signs Vital signs: Vital Signs Temp 97.4 F L 05/26/24 12:47 Pulse 88 05/26/24 15:05 Resp 18 05/26/24 12:47 BP 94/52 05/26/24 13:50 Pulse Ox 100 05/26/24 12:47 FiO2 Intake & Output 05/25/24 05/26/24 05/26/24 18:59 06:59 18:59 Intake Total 3300 240 Output Total 100 500 Balance 3200 -260 Intake: Oral 3300 240 Output: Urine 100 500 Other: Voiding Method Toilet Toilet Toilet Urinal Urinal # Voids 5 # Bowel Movements 1 - Labs CBC & Chem 7: 05/26/24 08:45 05/26/24 13:28 Labs: Abnormal Lab Results - Last 24 Hours (Table) 05/26/24 05/26/24 05/26/24 Range/Units 08:45 08:45 08:45 RBC 2.19 L (4.30-5.90) m/uL Hgb 7.1 L (13.0-17.5) gm/dL Hct 21.4 L (39.0-53.0) % Plt Count 148 L (150-450) k/uL PT 14.2 H (10.0-12.5) sec INR 1.3 H (<1.2) Sodium 120 L (137-145) mmol/L Chloride 92 L (98-107) mmol/L Glucose 106 H (74-99) mg/dL Calcium 7.8 L (8.4-10.2) mg/dL 05/26/24 Range/Units 13:28 RBC (4.30-5.90) m/uL Hgb (13.0-17.5) gm/dL Hct (39.0-53.0) % Plt Count (150-450) k/uL PT (10.0-12.5) sec INR (<1.2) Sodium 123 L (137-145) mmol/L Chloride (98-107) mmol/L Glucose (74-99) mg/dL Calcium (8.4-10.2) mg/dL
--- NOTE | 2024-05-26 18:20 | EEG ---
ELECTROENCEPHALOGRAM REPORT PREAMBLE: This is a 33-year-old male with a questionable seizure. The patient also has history of hepatic encephalopathy, history of alcohol abuse, substance abuse, liver disease, anxiety and depression. CURRENT MEDICATIONS: 1. Xanax. 2. Dilaudid. 3. Keppra. 4. ProAmatine. 5. Remeron. 6. Rifaximin. EEG FINDINGS: This is a 21-channel digital EEG recorded with video component, utilizing 10/20 international system with referential and bipolar montages. The background consists of moderately well-developed and regulated, mixed frequencies of some 8 hertz alpha, intermixed with 6 hertz theta activity in bihemispheric region. The background is posterior dominant and seems to be very slightly reactive to eye opening and closing. The patient was drowsy during most of the study with presence of bilaterally symmetric theta frequency rhythm. Deeper stages of sleep were not seen. No focal or generalized epileptiform activity was seen. IMPRESSION: This is an abnormal EEG due to background slowing, suggestive of mild encephalopathy. No focal, lateralized, or epileptiform activity was seen. MMODL / IJN: [id number] /
[2024-05-26] MEDS: ONDANSETRON 4 MG/2 ML VIAL IVP PRN (19:34)
[2024-05-27 02:12] LABS: Glucose, BF Source Peritoneal Fluid; Glucose, Body Fluid 110 mg/dL; LDH, Body Fluid Source Peritoneal Fluid; T. Protein, Body Fluid Source Peritoneal Fluid; Total Protein, Body Fluid 791 mg/dL
[2024-05-27 03:40] LABS: Appearance,BF Cloudy (Clear)
[2024-05-27 11:03] LABS: Basophils % (A) 1 %; Eosinophils # (A) 0.1 k/uL (0-0.7); Eosinophils % (A) 1 %; HCT 27.9 % (39.0-53.0); Lymphocytes # (A) 1.2 k/uL (1.0-4.8); Lymphocytes % (A) 18 %; MCH 32.4 pg (25.0-35.0); MCHC 33.4 g/dL (31.0-37.0); MCV 97.1 fL (80.0-100.0); Mean Platelet Volume 7.6; Monocytes # (A) 0.6 k/uL (0-1.0); Monocytes % (A) 8 %; Neutrophils % (A) 71 %; Platelet Count 229 k/uL (150-450); RBC 2.87 m/uL (4.30-5.90); RDW 14.3 % (11.5-15.5)
[2024-05-27 11:11] LABS: African American GFR (CKD) >90 (>60 ml/min/1.73 sqM); Anion Gap 9 mmol/L; Blood Urea Nitrogen 19 mg/dL (9-20); Calcium 8.4 mg/dL (8.4-10.2); Carbon Dioxide 25 mmol/L (22-30); Chloride 91 mmol/L (98-107); Glucose 92 mg/dL (74-99); Non-African American GFR(CKD) >90 (>60 ml/min/1.73 sqM); Potassium 4.8 mmol/L (3.5-5.1); Sodium 125 mmol/L (137-145)
[2024-05-27 11:42] LABS: HGB 9.3 gm/dL (13.0-17.5)
--- NOTE | 2024-05-27 12:41 | P.PN ---
Subjective Patient is seen for follow-up for hyponatremia. Underlying history of EtOH related liver cirrhosis with portal hypertension and ascites. Currently hypervolemic and being diuresed. Noncompliant with fluid restriction and salt intake. Serum sodium dropped to 120 yesterday but increased to 123 later on in the afternoon.. No significant complaints. Status post paracentesis on 05/26/2024 Objective - Vital Signs Vital signs: Vital Signs Temp 98 F 05/27/24 12:34 Pulse 94 05/27/24 12:34 Resp 18 05/27/24 12:34 BP 98/45 05/27/24 12:34 Pulse Ox 98 05/27/24 12:34 FiO2 Intake & Output 05/26/24 05/27/24 05/27/24 18:59 06:59 18:59 Output Total 300 Balance -300 Weight 63.503 kg Output: Urine 300 Other: Voiding Method Toilet Toilet Toilet # Voids 2 1 1 - Exam Patient is awake, comfortable, no acute distress. Examination shows edema 2+ bilateral lower extremities. 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 - Labs CBC & Chem 7: 05/27/24 10:46 05/27/24 10:46 Labs: Abnormal Lab Results - Last 24 Hours (Table) 05/26/24 05/26/24 05/27/24 Range/Units 11:46 13:28 10:46 RBC 2.87 L (4.30-5.90) m/uL Hgb 9.3 L D (13.0-17.5) gm/dL Hct 27.9 L (39.0-53.0) % Sodium 123 L (137-145) mmol/L Chloride (98-107) mmol/L Fluid Appearance Cloudy A (Clear) 05/27/24 Range/Units 10:46 RBC (4.30-5.90) m/uL Hgb (13.0-17.5) gm/dL Hct (39.0-53.0) % Sodium 125 L (137-145) mmol/L Chloride 91 L (98-107) mmol/L Fluid Appearance (Clear) Microbiology - Last 24 Hours (Table) 05/26/24 11:46 Gram Stain - Preliminary Ascites Fluid Assessment and Plan Assessment: 1. Hyponatremia associated with alcoholic liver disease. Currently hypervolemic and maintained on oral Lasix. Advised patient regarding maintaining salt and fluid restriction. 2. Alcoholic liver disease with portal hypertension and recurrent paracentesis. 3. Hyperkalemia associated with some degree of acute kidney injury, currently improved 4. Acute kidney injury noted on 05/22/2024, creatinine 1.27, with improvement in renal function and serum creatinine decreased to 0.6 mg/dL. Etiology is likely hypotension and hypoperfusion 5. Anemia most likely with underlying component of GI bleed 6. Noncompliance Plan: Patient is advised salt and fluid restriction. Continue with oral Lasix, dose increased to 40 mg twice daily
--- NOTE | 2024-05-27 12:44 | CDI ---
Documentation Clarification Form Date: 05/27/2024 12:14:45 PM From: Berna Watkins RN CCDS Phone: [phone] Admit Date: 05/18/2024 06:33:00 AM Patient Name: Marcial Arnett Visit Number: [id number] Discharge Date: ATTENTION: The Clinical Documentation Specialists (CDI) and [facility] Coding Staff appreciate your assistance in clarifying documentation. Please respond to the clarification below the line at the bottom and electronically sign. The CDI & [facility] Coding staff will review the response and follow-up if needed. Please note: Queries are made part of the Legal Health Record. If you have any questions, please contact the author of this message via ITS. Doctor: Natalia Mack MD Sepsis versus SIRS is documented 05/19 04/25 medicine notes which may lack sufficient clinical evidence/support in the medical record. Additional clarification is requested. History/Risk Factors: 33 year old male presents to the ED for abdominal discomfort. Medical history: Alcoholic cirrhosis, Seizure disorder, depression and anxiety. 05/18 HP Clinical Indicators: 05/18 05:57 B/P 119/82; HR 79; RR 19; SpO2 96% ra 05/18 20:00 B/P 119/86; HR 140; RR 12; sPo2 96% ra 05/18 Wbc 7.1; 05/19 Wbc 17.4; 05/21 Wbc 11.2 05/18 Ascites Fluid culture Final no growth after four days 05/19 Blood culture no growth after five days 05/19 CXR: Bibasilar acute infiltrates and / or atelectasis 05/22 Paracentesis: successful therapeutic paracentesis under ultrasound guidance. 9.6L of fluid removed. Treatment: 05/18 05/24 Ceftriaxone IVPB Q24H; 05/18 05/20 0.9NS IV 75cc/hr After work up and study, please clarify which diagnosis is most appropriate? [x ] Sepsis ruled out [ ] Sepsis treated prophylactically [ ] Sepsis is a valid diagnosis as evidence by the following: (Please add rationale): [ ] Non-Infectious SIRS due to (please specify) [ ] Non-infectious SIRS due to with organ dysfunction as evidenced by [list organ dysfunction] [ ] Other, please specify [ ] Unable to determine SIRS Criteria: 2 or more of the following may indicate SIRS Temperature < 96.8F (36C) or > 101.0F (38.3C) Heart Rate > 90 bpm Respiratory Rate > 20 breaths/min or PaCO2 < 32 mmHg White Blood Cell Count > 12,000 or < 4,000 cells/mm3 or > 10% bands (Template Last Reviewed: April 2023) [place]
[2024-05-27 15:00] VITALS: BP 108/77; RESP 17; TEMP 97.7
--- NOTE | 2024-05-27 15:35 | P.DS ---
Providers Date of admission: 05/18/24 06:33 Attending physician: Adama Branch MD Consults: 05/23/24 17:42 Consult Physician Routine Consulting Provider: Joseph Peña Consult Reason/Comments: hyperkalemia Do you want consulting provider notified?: Yes Primary care physician: Lilian Bishop MD Hospital Course: Discharge Diagnosis: Acute hypokalemia-resolved Acute on chronic hyponatremia likely secondary to volume overload from cirrhosis, improved [place], resolved Medications and diet noncompliance Abdominal pain, ruled out spontaneous bacterial peritonitis Acute metabolic encephalopathy, resolved Alcoholic cirrhosis Lactic acidosis, resolved Normocytic anemia, chronic History of seizure disorder Subclinical hypothyroidism Hospital Course: Patient is a 33-year-old male with a PMH of alcoholic cirrhosis, seizure disorder, depression, and anxiety, who presents to the emergency room with complaints of abdominal discomfort. The patient has recently undergone a TIPS procedure on 03/20/2024. Of note, he was recently admitted on 03/27 for altered mental status and discharged on 08/06 after hospitalization for hepatic encephalopathy and hyponatremia. Patient now reports that over the past few days he has been experiencing severe abdominal discomfort, rated at a 10 out of 10. Notes that the pain is diffuse and constant and worsened with movement. He reports his last paracentesis was on 05/12/2024. He also reports feeling more fatigued and subjective chills. Denied noticing hematochezia or melena. Also denied hematemesis or coffee-ground emesis. In the emergency room, laboratory evaluation was remarkable for lactic acidosis of 2.5, sodium 120, chloride 90, ammonia 71, alk phos 187, T. bili 1.9, CO2 19, BUN 26, creatinine 1.06, hemoglobin 9.5. UA was unremarkable with serum alcohol level less than 10. Ascitis fluid slightly cloudy, WBC 95, following: WBC 2%, lymphocyte 91%, cx negative. Underwent paracentesis with 6L removed in the ED. Started on Rocephin for concerns of SBP. SBP was ruled out. Patient potassium level was elevated on 05/22 and 05/23, Lokelma given, insulin and dextrose given, nephrology consulted due to persistent hyperkalemia, spironolactone discontinued. Nephrology following: Discontinue IV fluids, continue Lasix, salt and fluid restriction, consider 1 dose of Samsca if serum sodium does not improve on repeat blood work this evening Discussed with RN, patient refuses lactulose, he also states that he knows that he cannot be discharged if his ammonia level is high, he also requests Dilaudid every 3 hours and threatens to contact [place] state if his pain is not controlled, he will also requests Atarax to begin with Dilaudid as he gets itchy after Dilaudid;He is not compliant with fluid restriction, orders multiple meals and drinks, he states been has been dealing with this for years and knows exactly what he is doing. 05/26 status post paracentesis 5.8 L, received albumin. Sodium dropped to 120, patient sodium started trending up to 125. Discussed with nephrology, patient is cleared for discharge, recommended to maintain sodium and fluid restriction. Spironolactone was stopped due to hyperkalemia, Lasix increased to 40 twice daily. Day of discharge patient was ambulating well without assistance in the hallway, he is using bathroom on his own, he verbalized that he would like to be discharged as soon as possible. Discharged home on 05/27, follow-up with PCP, nephrology. Overall prognosis is guarded, patient is high risk for readmission due to medication and diet noncompliance. Patient seen and examined at bedside Vital signs reviewed and stable. General: Chronically ill-appearing Derm: [warm], [dry] Head: [atraumatic], [normocephalic], [symmetric] Eyes: [EOMI], [no lid lag], [anicteric sclera] Mouth: [no lip lesion], [mucus membranes moist] Cardiovascular: [S1S2 reg], [no murmur] Lungs: Refused Abdominal: Distended, generalized tenderness Ext: [no gross muscle atrophy], [no edema], [no contractures] Neuro: refused Psych: [Alert], [oriented], [appropriate affect] A total of 40 minutes of time were spent preparing this complex discharge summary. Patient was discharged on 05/27. Plan - Discharge Summary New Discharge Prescriptions: New HYDROcodone/APAP 5-325MG [[place] 5-325] 1 tab PO Q6HR PRN 3 Days #12 tab PRN Reason: Pain Continue Rifaximin [Xifaxan] 550 mg PO Q12H Omeprazole [PriLOSEC] 20 mg PO BID levETIRAcetam [Keppra] 500 mg PO Q12HR Acamprosate Calcium [Campral] 666 mg PO TID diphenhydrAMINE & Zinc Cream [Benadryl Cream] 1 applic TOPICAL TID PRN PRN Reason: Skin Irritation/ITCHING Albuterol Sulfate [Albuterol Sulfate Hfa] 2 puff INHALATION RT-Q6H PRN PRN Reason: Shortness Of Breath methocarbamoL [Robaxin-750] 750 mg PO Q8H PRN PRN Reason: Muscle Spasm ALPRAZolam [Xanax] 0.25 mg PO DAILY PRN PRN Reason: Anxiety Midodrine [ProAmatine] 5 mg PO TID traZODone HCL [Desyrel] 50 mg PO HS Ondansetron [Zofran] 4 mg PO DAILY PRN PRN Reason: Nausea Lactulose 30 gm PO Q8H hydrOXYzine HCL [Atarax] 25 mg PO Q6H PRN PRN Reason: Anxiety Mirtazapine 7.5 mg PO HS Pregabalin [Lyrica] 50 mg PO BID Thiamine [Vitamin B-1] 100 mg PO DAILY #90 tab Amoxic-Pot Clav 500-125 mg [Augmentin 500-125 mg] 1 tab PO BID Ipratropium-Albuterol Nebulize [Duoneb 0.5 mg-3 mg/3 ml Soln] 3 ml INHALATION RT-Q4H PRN PRN Reason: Shortness Of Breath Ondansetron [Ondansetron ODT] 4 mg PO BID PRN PRN Reason: Nausea Buprenorphine HCl/Naloxone HCl [Suboxone 2 mg-0.5 mg Sl Film] 1 film SL DAILY PRN #30 film PRN Reason: Pain Changed Furosemide [Lasix] 40 mg PO BID #120 tab Discontinued Spironolactone [Aldactone] 25 mg PO BID Discharge Medication List Acamprosate Calcium [Campral] 666 mg PO TID 09/17/23 [History] Lactulose 30 gm PO Q8H 09/17/23 [History] Omeprazole [PriLOSEC] 20 mg PO BID 09/17/23 [History] Ondansetron [Zofran] 4 mg PO DAILY PRN 09/17/23 [History] Rifaximin [Xifaxan] 550 mg PO Q12H 09/17/23 [History] levETIRAcetam [Keppra] 500 mg PO Q12HR 09/17/23 [History] ALPRAZolam [Xanax] 0.25 mg PO DAILY PRN 02/10/24 [History] Albuterol Sulfate [Albuterol Sulfate Hfa] 2 puff INHALATION RT-Q6H PRN 02/10/24 [History] Midodrine [ProAmatine] 5 mg PO TID 02/10/24 [History] Mirtazapine 7.5 mg PO HS 02/10/24 [History] diphenhydrAMINE & Zinc Cream [Benadryl Cream] 1 applic TOPICAL TID PRN 02/10/24 [History] hydrOXYzine HCL [Atarax] 25 mg PO Q6H PRN 02/10/24 [History] methocarbamoL [Robaxin-750] 750 mg PO Q8H PRN 02/10/24 [History] Pregabalin [Lyrica] 50 mg PO BID 02/18/24 [History] Thiamine [Vitamin B-1] 100 mg PO DAILY #90 tab 03/10/24 [Rx] Amoxic-Pot Clav 500-125 mg [Augmentin 500-125 mg] 1 tab PO BID 05/18/24 [History] Ipratropium-Albuterol Nebulize [Duoneb 0.5 mg-3 mg/3 ml Soln] 3 ml INHALATION RT-Q4H PRN 05/18/24 [History] Ondansetron [Ondansetron ODT] 4 mg PO BID PRN 05/18/24 [History] traZODone HCL [Desyrel] 50 mg PO HS 05/18/24 [History] Buprenorphine HCl/Naloxone HCl [Suboxone 2 mg-0.5 mg Sl Film] 1 film SL DAILY PRN #30 film 05/27/24 [Rx] Furosemide [Lasix] 40 mg PO BID #120 tab 05/27/24 [Rx] HYDROcodone/APAP 5-325MG [[place] 5-325] 1 tab PO Q6HR PRN 3 Days #12 tab 05/27/24 [Rx] Follow up Appointment(s)/Referral(s): Rosenda Pittman MD [STAFF PHYSICIAN] - 06/25/24 11:00 am (If the office has an opening sooner they will call you. ) [facility] [REFERRING] - [facility], [NON-STAFF] - Lilian Bishop MD [Primary Care Provider] - 1-2 days (please call this office to get established as a patient.) Patient Instructions/Handouts: Cirrhosis (DC), Ascites (DC) Activity/Diet/Wound Care/Special Instructions: Please, follow up with your PCP, with nephrology. Please, maintain fluid and sodium restriction. Discharge/Stand Alone Forms: Who Do I Call?, Assisted Living Facilities, Community Resources, Help In The Home, Personal Reference Services Head Discharge Disposition: HOME WITH HOME HEALTH SERVICES
[2024-05-27 15:41] VITALS: PULSE 88
== END 2024-05-27 18:12 | disposition home health service (06) | DRG 280 ==
LOC: EC 00:14 → 5NMEDONC 06:33
PROVIDERS: ADMIT Internal Medicine; ATTEND Internal Medicine
PROC: 0W9G3ZX Drainage of Peritoneal Cavity, Percutaneous Approach, Diagnostic (ICD-10-PCS; principal; 2024-05-18)
PROC: 0W9G3ZZ Drainage of Peritoneal Cavity, Percutaneous Approach (ICD-10-PCS; 2024-05-22)
PROC: 0W9G3ZZ Drainage of Peritoneal Cavity, Percutaneous Approach (ICD-10-PCS; 2024-05-26)
DX: K70.31 Alcoholic cirrhosis of liver with ascites (principal); E87.1 Hypo-osmolality and hyponatremia; E03.8 Other specified hypothyroidism; D64.9 Anemia, unspecified; E87.20 Acidosis, unspecified; E87.5 Hyperkalemia; L89.152 Pressure ulcer of sacral region, stage 2; E87.6 Hypokalemia; F19.11 Other psychoactive substance abuse, in remission; E43 Unspecified severe protein-calorie malnutrition; N17.9 Acute kidney failure, unspecified; E87.70 Fluid overload, unspecified; I95.9 Hypotension, unspecified; E87.8 Other disorders of electrolyte and fluid balance, not elsewhere classified; F32.A Depression, unspecified; F41.9 Anxiety disorder, unspecified; G40.909 Epilepsy, unspecified, not intractable, without status epilepticus; G93.41 Metabolic encephalopathy; J98.11 Atelectasis; K76.6 Portal hypertension; K92.2 Gastrointestinal hemorrhage, unspecified; Z79.899 Other long term (current) drug therapy; Z91.119 Patient's noncompliance with dietary regimen due to unspecified reason; Z91.199 Patient's noncompliance with other medical treatment and regimen due to unspecified reason; Z68.1 Body mass index [BMI] 19.9 or less, adult; Z28.21 Immunization not carried out because of patient refusal
CPT/HCPCS: 36415; 49082; 49083; 71045; 80048; 80053; 80320; 81003; 82140; 82150; 82533; 82945; 83605; 83615; 83690; 83935; 84132; 84157; 84295; 84300; 84439; 84443; 85025; 85027; 85610; 85730; 86850; 86900; 86901; 87040; 87070; 87075; 87205; 89050; 94640; 94664; 95816; 96365; 96366; 96367; 96375; 96376; 99285

== ENCOUNTER 2024-06-02 13:14 | Day surgery (SDC) | payer OTHER ==
[2024-06-02 13:59] LABS: Platelet Count 249 k/uL (150-450)
[2024-06-02 14:10] LABS: INR 1.2 (<1.2); Prothrombin Time 12.7 sec (10.0-12.5)
[2024-06-02 14:18] LABS: African American GFR (CKD) >90 (>60 ml/min/1.73 sqM); Non-African American GFR(CKD) >90 (>60 ml/min/1.73 sqM)
[2024-06-02 14:19] VITALS: RESP 16; TEMP 97.6
[2024-06-02] MEDS: ALBUMIN HUMAN 25% 50 ML in EMPTY BAG 1 BAG IVPB SCH (14:29)
[2024-06-02 15:49] VITALS: BP 108/56; PULSE 77
--- NOTE | 2024-06-03 07:41 | US ---
EXAMINATION TYPE: US paracentesis abd w/image DATE OF EXAM: 06/02/2024 1:17 PM COMPARISON: prior paracentesis. CLINICAL INDICATION:Male, 33 years old with history of ascities; , ascites ATTENDING: Dr. Lemuel Vanegas PROCEDURE: Informed consent was obtained. The risks of the procedure were extensively explained incl uding risk of damage to surrounding bowel with perforation and need for additional procedures. Proced ure was performed in the ultrasound procedure suite. Ultrasound imaging of the abdomen demonstrate as citic fluid. An appropriate access site was localized to the right lower abdomen. Timeout was taken p er protocol. The skin was prepped and draped in the usual sterile fashion and then locally anesthetiz ed with 1% lidocaine. The peritoneal cavity was then accessed via a 5-Mexican one-step needle/cathete r. Approximately 7100 mL of clear straw-colored fluid was obtained. Postprocedural imaging of the ab domen demonstrate a minimal amount of abdominal fluid. Patient tolerated procedure well without immediate complication. Hemostasis at the procedural site w as obtained with a sterile bandage placed. The patient was monitored in the holding area following th e procedure and was subsequently discharged in stable condition. IMPRESSION: Ultrasound guided paracentesis, with approximately 7100 mL of clear straw-colored fluid drained. No i mmediate complications were evident. [facility], , 06/03/2024 7:39 AM
== END 2024-06-02 15:45 | disposition home or self-care (01) ==
LOC: RADPROMAIN 13:14
PROVIDERS: ATTEND Internal Medicine
DX: R18.8 Other ascites (principal)
CPT/HCPCS: 82565; 85049; 85610; 36415; 49083; P9047

== ENCOUNTER 2024-06-05 08:28 | Day surgery (SDC) | payer OTHER ==
[2024-06-05 09:23] VITALS: TEMP 98
[2024-06-05 09:55] VITALS: RESP 16
[2024-06-05] MEDS: ALBUMIN HUMAN 25% 50 ML in EMPTY BAG 1 BAG IVPB SCH (10:51)
[2024-06-05 10:54] VITALS: BP 96/60; PULSE 65
--- NOTE | 2024-06-05 13:45 | US ---
EXAMINATION TYPE: US paracentesis abd w/image DATE OF EXAM: 06/05/2024 9:43 AM COMPARISON: prior paracentesis. CLINICAL INDICATION:Male, 33 years old with history of R18.8 OTHER ASCITES; , ascites ATTENDING: Dr. Lemuel Vanegas PROCEDURE: Informed consent was obtained. The risks of the procedure were extensively explained incl uding risk of damage to surrounding bowel with perforation and need for additional procedures. Proced ure was performed in the ultrasound procedure suite. Ultrasound imaging of the abdomen demonstrate as citic fluid. An appropriate access site was localized to the right lower abdomen. Timeout was taken p er protocol. The skin was prepped and draped in the usual sterile fashion and then locally anesthetiz ed with 1% lidocaine. The peritoneal cavity was then accessed via a 5-Montserratian one-step needle/cathete r. Approximately 3500 mL of clear straw-colored fluid was obtained. Postprocedural imaging of the ab domen demonstrate a minimal amount of abdominal fluid. Patient tolerated procedure well without immediate complication. Hemostasis at the procedural site w as obtained with a sterile bandage placed. The patient was monitored in the holding area following th e procedure and was subsequently discharged in stable condition. IMPRESSION: Ultrasound guided paracentesis, with approximately 3500 mL of clear straw-colored fluid drained. No i mmediate complications were evident. [facility], , 06/05/2024 1:42 PM
== END 2024-06-05 10:45 | disposition home or self-care (01) ==
LOC: RADPROMAIN 08:28
PROVIDERS: ATTEND Radiology Body Imaging
DX: R18.8 Other ascites (principal)
CPT/HCPCS: 49083

== ENCOUNTER 2024-06-09 13:29 | Day surgery (SDC) | payer OTHER ==
[2024-06-09 14:23] VITALS: TEMP 97.7
[2024-06-09 14:26] LABS: Mean Platelet Volume 7.8; Platelet Count 295 k/uL (150-450)
[2024-06-09 14:32] LABS: African American GFR (CKD) >90 (>60 ml/min/1.73 sqM); Non-African American GFR(CKD) >90 (>60 ml/min/1.73 sqM)
[2024-06-09 14:33] LABS: INR 1.3 (<1.2); Prothrombin Time 14.1 sec (10.0-12.5)
[2024-06-09] MEDS: ALBUMIN HUMAN 25% 50 ML in EMPTY BAG 1 BAG IVPB SCH (14:42)
[2024-06-09 15:00] VITALS: RESP 14
[2024-06-09 15:47] VITALS: BP 89/51; PULSE 61
--- NOTE | 2024-06-10 11:05 | US ---
EXAMINATION TYPE: US paracentesis abd w/image DATE OF EXAM: 06/09/2024 CLINICAL HISTORY: 33-year-old male R18.8, other ascites, end-stage liver disease, distention and coco n. The procedure was discussed with the patient. The risks, complications, benefits, and alternatives we re discussed and any questions were answered. Informed consent was obtained. The patient was placed s upine on the ultrasound table and prepped and draped in the usual sterile fashion. All elements of maximal barrier technique were utilized. Ultrasound was utilized to determine the precise skin entry site along the right lower quadrant. A 5 Occitan One-Step catheter and trocar technique was utilized to access the ascites collection under direct ultrasound guidance. Approximately 4.6 liters of typical, translucent straw-colored fluid was removed. Catheter was removed, hemostasis obtained, and a dressing placed. The patient was stable throughout the procedure and remained stable upon discharge from Department of Radiology. IMPRESSION: Successful therapeutic paracentesis under ultrasound guidance. 4.6 L of fluid removed. [facility], , 06/10/2024 11:03 AM
== END 2024-06-09 16:46 | disposition home or self-care (01) ==
LOC: RADPROMAIN 13:29
PROVIDERS: ATTEND Radiology Diagnostic Radiology
DX: R18.8 Other ascites (principal); K72.10 Chronic hepatic failure without coma
CPT/HCPCS: 82565; 85049; 85610; 36415; 49083; P9047

== ENCOUNTER 2024-06-12 08:20 | Day surgery (SDC) | payer OTHER ==
[2024-06-12 09:22] LABS: Mean Platelet Volume 7.5; Platelet Count 283 k/uL (150-450)
[2024-06-12 09:28] LABS: INR 1.4 (<1.2); Prothrombin Time 14.9 sec (10.0-12.5)
[2024-06-12 09:34] VITALS: RESP 16; TEMP 98
[2024-06-12 09:45] LABS: African American GFR (CKD) >90 (>60 ml/min/1.73 sqM); Non-African American GFR(CKD) >90 (>60 ml/min/1.73 sqM)
[2024-06-12 09:56] VITALS: PULSE 69
[2024-06-12] MEDS: ALBUMIN HUMAN 25% 50 ML in EMPTY BAG 1 BAG IVPB SCH (10:20)
[2024-06-12 11:02] VITALS: BP 101/56
--- NOTE | 2024-06-12 14:39 | US ---
EXAMINATION TYPE: US paracentesis abd w/image DATE OF EXAM: 06/12/2024 CLINICAL HISTORY: 33-year-old male R18.8, recurrent ascites, underlying liver disease, routine outpa tient biweekly paracentesis The procedure was discussed with the patient. The risks, complications, benefits, and alternatives we re discussed and any questions were answered. Informed consent was obtained. The patient was placed s upine on the ultrasound table and prepped and draped in the usual sterile fashion. All elements of maximal barrier technique were utilized. Ultrasound was utilized to determine the precise skin entry site along the right flank. A 5 Persian One-Step catheter and trocar technique was utilized to access the ascites collection under direct ultrasound guidance. Approximately 5.5 liters of typical translucent straw-colored fluid was removed. Catheter was removed, hemostasis obtained, and a dressing placed. The patient was stable throughout the procedure and remained stable upon discharge from Department of Radiology. IMPRESSION: Successful therapeutic paracentesis under ultrasound guidance. 5.5 L of fluid removed. [facility], , 06/12/2024 2:37 PM
== END 2024-06-12 10:45 | disposition home or self-care (01) ==
LOC: RADPROMAIN 08:20
PROVIDERS: ATTEND Internal Medicine
DX: R18.8 Other ascites (principal); K76.9 Liver disease, unspecified
CPT/HCPCS: 82565; 85049; 85610; 36415; 49083; P9047

== ENCOUNTER 2024-06-16 12:43 | Day surgery (SDC) | payer OTHER ==
[2024-06-16 13:55] VITALS: RESP 16; TEMP 97.6
[2024-06-16] MEDS: ALBUMIN HUMAN 25% 50 ML in EMPTY BAG 1 BAG IVPB SCH (14:00)
[2024-06-16 15:19] VITALS: BP 99/65; PULSE 65
--- NOTE | 2024-06-16 15:23 | US ---
EXAMINATION TYPE: US paracentesis abd w/image DATE OF EXAM: 06/16/2024 CLINICAL HISTORY: Ascites The procedure was discussed with the patient. The risks, complications, benefits, and alternatives we re discussed and any questions were answered. Informed consent was obtained. The patient was placed s upine on the ultrasound table and prepped and draped in the usual sterile fashion. All elements of maximal barrier technique were utilized. Under ultrasound guidance, access into the right lower quadrant was obtained, via the paracentesis catheter system and direct ultrasound guidanc e. Approximately 5.8 L liters of straw-colored fluid was removed. The patient was stable throughout the procedure and remained stable upon discharge from Department of Radiology. IMPRESSION: Successful therapeutic paracentesis under ultrasound guidance. [facility], , 06/16/2024 3:20 PM
== END 2024-06-16 15:05 | disposition home or self-care (01) ==
LOC: RADPROMAIN 12:43
PROVIDERS: ATTEND Internal Medicine
DX: R18.8 Other ascites (principal)
CPT/HCPCS: 36415; 49083; P9047

== ENCOUNTER 2024-06-19 21:22 | Emergency (ER) | payer OTHER ==
[2024-06-19 21:29] VITALS: RESP 16
[2024-06-19 21:35] LABS: Glucose,Whole Blood 132 mg/dL (70-110)
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
[2024-06-19] MEDS: SODIUM CHLORIDE 0.9% 1,000 ML IV STA (21:58)
[2024-06-19] MEDS: HYDROmorphone 0.5 MG/0.5 ML SYRINGE IVP STA ×2 (21:58→22:48)
[2024-06-19 22:15] LABS: Basophils % (A) 0 %; Eosinophils % (A) 0 %; HCT 26.8 % (39.0-53.0); HGB 8.9 gm/dL (13.0-17.5); Lymphocytes # (A) 0.8 k/uL (1.0-4.8); Lymphocytes % (A) 11 %; MCH 30.5 pg (25.0-35.0); MCHC 33.2 g/dL (31.0-37.0); Mean Platelet Volume 7.7; Monocytes # (A) 0.4 k/uL (0-1.0); Monocytes % (A) 6 %; Neutrophils # (A) 5.8 k/uL (1.3-7.7); Neutrophils % (A) 80 %; Platelet Count 154 k/uL (150-450); RBC 2.92 m/uL (4.30-5.90); RDW 14.1 % (11.5-15.5); WBC 7.3 k/uL (3.8-10.6)
[2024-06-19] MEDS: cefTRIAXone IN SWFI 1,000 MG/10 ML SYRINGE IVP STA (22:17)
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
[2024-06-19 22:37] LABS: ALT 18 U/L (4-49); AST 39 U/L (17-59); African American GFR (CKD) >90 (>60 ml/min/1.73 sqM); Albumin 2.7 g/dL (3.5-5.0); Alcohol <10 mg/dL; Alkaline Phosphatase 149 U/L (38-126); Anion Gap 13 mmol/L; Blood Urea Nitrogen 28 mg/dL (9-20); Carbon Dioxide 17 mmol/L (22-30); Chloride 83 mmol/L (98-107); Glucose 126 mg/dL (74-99); Lipase 93 U/L (23-300); Non-African American GFR(CKD) 87 (>60 ml/min/1.73 sqM); Total Bilirubin 1.1 mg/dL (0.2-1.3); Total Protein 6.2 g/dL (6.3-8.2)
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
[2024-06-19 22:40] LABS: Lactic Acid, Venous 5.2 mmol/L (0.7-2.0)
[2024-06-19 22:43] LABS: Sodium 113 mmol/L (137-145)
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
[2024-06-19] MEDS ORDERED: SODIUM CHLORIDE 0.9% 1,000 ML IV SCH (22:45)
[2024-06-19] MEDS: ONDANSETRON 4 MG/2 ML VIAL IVP STA (22:52)
[2024-06-19 22:53] LABS: INR 1.4 (<1.2); Partial Thromboplastin Time 29.6 sec (22.0-30.0); Prothrombin Time 14.9 sec (10.0-12.5)
[2024-06-19] MEDS: DIPH,PERTUS(ACELL)TETVAC-LF 0.5 ML VIAL IM ONE (22:57)
[2024-06-19 22:59] LABS: MCV 91.7 fL (80.0-100.0)
[2024-06-19] MEDS: SODIUM CHLORIDE 0.9% 500 ML 500 ML IV ONE (23:24)
[2024-06-20 00:36] LABS: African American GFR (CKD) >90 (>60 ml/min/1.73 sqM); Anion Gap 10 mmol/L; Blood Urea Nitrogen 27 mg/dL (9-20); Calcium 7.4 mg/dL (8.4-10.2); Carbon Dioxide 18 mmol/L (22-30); Chloride 85 mmol/L (98-107); Glucose 121 mg/dL (74-99); Non-African American GFR(CKD) >90 (>60 ml/min/1.73 sqM); Potassium 4.5 mmol/L (3.5-5.1)
[2024-06-20] MEDS: ONDANSETRON 4 MG/2 ML VIAL IVP STA (00:44)
[2024-06-20] MEDS: HYDROmorphone 0.5 MG/0.5 ML SYRINGE IVP STA ×2 (00:44)
[2024-06-20 00:53] LABS: Sodium 113 mmol/L (137-145)
[2024-06-20 01:16] VITALS: BP 104/69; PULSE 89; TEMP 98
== END 2024-06-20 00:50 | disposition other institution (70) ==
LOC: EC 21:22
DX: S81.811A Laceration without foreign body, right lower leg, initial encounter (principal); S81.011A Laceration without foreign body, right knee, initial encounter; S40.011A Contusion of right shoulder, initial encounter; S30.1XXA Contusion of abdominal wall, initial encounter; S90.31XA Contusion of right foot, initial encounter; S00.83XA Contusion of other part of head, initial encounter; E87.1 Hypo-osmolality and hyponatremia; K70.31 Alcoholic cirrhosis of liver with ascites; F10.20 Alcohol dependence, uncomplicated; T82.898A Other specified complication of vascular prosthetic devices, implants and grafts, initial encounter; V89.2XXA Person injured in unspecified motor-vehicle accident, traffic, initial encounter; Y92.410 Unspecified street and highway as the place of occurrence of the external cause
CPT/HCPCS: 36415; 93005; 86900; 86901; 80053; 80048; 82140; 83605; 83690; 84484; 85025; 85610; 85730; 86850; 72170; 73562; 71045; 72125; 70486; 70450; 71260; 74177; 99291; 96374; 96375 ×2; 96376 ×4; 96361; G0480; J2405; J0696; J1171; Q9967; 80320

== ENCOUNTER 2024-07-06 03:42 | Observation (INO) | payer OTHER ==
[2024-07-06] MEDS: HYDROmorphone 0.5 MG/0.5 ML SYRINGE IVP STA (04:08)
[2024-07-06 04:19] LABS: Anisocytosis Slight; Basophils % (A) 0 %; Eosinophils # (A) 0.1 k/uL (0-0.7); Eosinophils % (A) 2 %; HCT 27.6 % (39.0-53.0); HGB 8.9 gm/dL (13.0-17.5); Hypochromasia Slight; Lymphocytes % (A) 16 %; MCH 30.3 pg (25.0-35.0); MCHC 32.4 g/dL (31.0-37.0); MCV 93.6 fL (80.0-100.0); Mean Platelet Volume 7.7; Monocytes # (A) 0.7 k/uL (0-1.0); Monocytes % (A) 11 %; Neutrophils # (A) 4.3 k/uL (1.3-7.7); Neutrophils % (A) 70 %; Platelet Count 171 k/uL (150-450); RBC 2.95 m/uL (4.30-5.90); RDW 17.4 % (11.5-15.5); WBC 6.1 k/uL (3.8-10.6)
[2024-07-06 04:30] LABS: ALT 20 U/L (4-49); AST 35 U/L (17-59); African American GFR (CKD) >90 (>60 ml/min/1.73 sqM); Alcohol <10 mg/dL; Alkaline Phosphatase 105 U/L (38-126); Anion Gap 10 mmol/L; Blood Urea Nitrogen 12 mg/dL (9-20); Calcium 9.2 mg/dL (8.4-10.2); Carbon Dioxide 25 mmol/L (22-30); Chloride 99 mmol/L (98-107); Glucose 119 mg/dL (74-99); Magnesium 1.5 mg/dL (1.6-2.3); Non-African American GFR(CKD) >90 (>60 ml/min/1.73 sqM); Potassium 3.9 mmol/L (3.5-5.1); Sodium 134 mmol/L (137-145); Total Bilirubin 1.2 mg/dL (0.2-1.3); Total Protein 6.7 g/dL (6.3-8.2)
[2024-07-06] MEDS ORDERED: ALBUTEROL NEBULIZED 2.5 MG/3 ML INHALATION PRN (05:15)
[2024-07-06] MEDS ORDERED: NON FORMULARY DRUG (Buprenorphine Hcl/Naloxone Hcl [Suboxone 2 Mg-0.5 Mg Sl Film] 1 EACH F SUBLINGUAL PRN (05:15)
[2024-07-06] MEDS ORDERED: methocarbamoL 750 MG TAB PO PRN (05:15)
[2024-07-06] MEDS ORDERED: NALOXONE 0.4 MG/ML 1 ML VIAL IV PRN (05:27)
--- NOTE | 2024-07-06 06:08 | ED ---
General Adult HPI - General Chief complaint: Abdominal Pain Stated complaint: all-over pain Time Seen by Provider: 07/06/24 03:55 Source: patient, EMS, RN notes reviewed, old records reviewed Mode of arrival: EMS Limitations: no limitations, physical limitation - History of Present Illness Initial comments: Patient is a 33-year-old male who presents emergency department complaining of generalized body pain. This is chronic for the patient. Has a history of cirrhosis, chronic pancreatitis, chronic substance abuse. Previously was on a liver transplant list however is currently off. Apparently recently was admitted to another hospital and was discharged home but claims that he cannot fill his medications as he has no support at home. Has no family or friends that help him. He does not drive. Presents because he is having generalized body pain. Has none of his medications at home. - Related Data Home Medications Medication Instructions Recorded Confirmed Acamprosate Calcium [Campral] 666 mg PO TID 09/17/23 06/16/24 Lactulose 30 gm PO Q8H 09/17/23 06/16/24 Omeprazole [PriLOSEC] 20 mg PO BID 09/17/23 06/16/24 Rifaximin [Xifaxan] 550 mg PO Q12H 09/17/23 06/16/24 levETIRAcetam [Keppra] 500 mg PO Q12HR 09/17/23 06/16/24 ALPRAZolam [Xanax] 0.25 mg PO DAILY PRN 02/10/24 06/16/24 Albuterol Sulfate [Albuterol 2 puff INHALATION RT-Q6H PRN 02/10/24 06/16/24 Sulfate Hfa] Midodrine [ProAmatine] 5 mg PO TID 02/10/24 06/16/24 Mirtazapine 7.5 mg PO HS 02/10/24 06/16/24 diphenhydrAMINE & Zinc Cream 1 applic TOPICAL TID PRN 02/10/24 06/16/24 [Benadryl Cream] hydrOXYzine HCL [Atarax] 25 mg PO Q6H PRN 02/10/24 06/16/24 methocarbamoL [Robaxin-750] 750 mg PO Q8H PRN 02/10/24 06/16/24 Pregabalin [Lyrica] 50 mg PO BID 02/18/24 06/16/24 Ondansetron [Ondansetron ODT] 4 mg PO BID PRN 05/18/24 06/16/24 traZODone HCL [Desyrel] 50 mg PO HS 05/18/24 06/16/24 Previous Rx's Medication Instructions Recorded Thiamine [Vitamin B-1] 100 mg PO DAILY #90 tab 03/10/24 Buprenorphine HCl/Naloxone HCl 1 film SL DAILY PRN #30 film 05/27/24 [Suboxone 2 mg-0.5 mg Sl Film] Furosemide [Lasix] 40 mg PO BID #120 tab 05/27/24 Allergies Allergy/AdvReac Type Severity Reaction Status Date / Time No Known Allergies Allergy Verified 07/06/24 03:51 Review of Systems ROS Statement: Those systems with pertinent positive or pertinent negative responses have been documented in the HPI. Review of Systems: CONST: Denies fever EYES: Denies blurry vision ENT: Denies nasal congestion C/V: Denies Chest pain RESP: Denies shortness of breath GI: Endorses abdominal pain : Denies dysuria SKIN: Denies rash. MSK: Has body pain NEURO: Denies headache ROS Other: All systems not noted in ROS Statement are negative. Past Medical History Past Medical History: GERD/Reflux, Liver Disease Additional Past Medical History / Comment(s): Pancreatitis, ETOH abuse, subtance abuse, large volume paracentesis, previously on liver transplant list but was removed due to continued substance abuse, chirrhosis History of Any Multi-Drug Resistant Organisms: None Reported Additional Past Surgical History / Comment(s): ERCP stent placement Past Anesthesia/Blood Transfusion Reactions: Unable to Obtain Past Psychological History: Anxiety, Depression Smoking Status: Current every day smoker Past Alcohol Use History: Abuse Past Drug Use History: Marijuana - Past Family History Father Family Medical History: Hypertension Additional Family Medical History / Comment(s): Parkinson's Disease Mother Additional Family Medical History / Comment(s): mental illness General Exam - General Exam Comments Initial Comments: General: Appears in no acute distress. HEAD: Normal with no signs of head trauma. EYES: EOMI ENT: Hearing grossly intact, normal oropharynx. RESPIRATORY: Clear breath sounds bilaterally. No wheezes, rales, or rhonchi. C/V: Regular rate and rhythm. S1 and S2 auscultated, no edema, peripheral pulses 2+ and intact throughout ABD: Abd is soft, nontender, nondistended EXT: Normal range of motion, no obvious deformity. Patient has anticipatory pain to palpation of all 4 extremities. SKIN: No rashes or lesions observed on exposed skin. NEURO: Alert and oriented x 4. Limitations: no limitations, physical limitation Course Vital Signs 07/06/24 07/06/24 03:44 05:07 Temperature 98.7 F Pulse Rate 93 106 H Respiratory 18 18 Rate Blood Pressure 116/87 130/95 O2 Sat by Pulse 100 100 Oximetry Medical Decision Making - Medical Decision Making Was pt. sent in by a medical professional or institution (, HEATHER, FREEZER PERSON, urgent care, hospital, or snf...) When possible be specific @ -No Did you speak to anyone other than the patient for history (EMS, parent, family, police, friend...)? What history was obtained from this source @ -No Did you review nursing and triage notes (agree or disagree)? Why? @ -I reviewed and agree with nursing and triage notes Were old charts reviewed (outside hosp., previous admission, EMS record, old EKG, old radiological studies, urgent care reports/EKG's, snf records)? Report findings @ -No old charts were reviewed Differential Diagnosis (chest pain, altered mental status, abdominal pain women, abdominal pain men, vaginal bleeding, weakness, fever, dyspnea, syncope, headache, dizziness, GI bleed, back pain, seizure, CVA, palpatations, mental health, musculoskeletal)? @ -Debility, chronic pain, electrolyte abnormalities. This list is not all inclusive. EKG interpreted by me (3pts min.). @ -As above X-rays interpreted by me (1pt min.). @ -None done CT interpreted by me (1pt min.). @ -None done U/S interpreted by me (1pt. min.). @ -None done What testing was considered but not performed or refused? (CT, X-rays, U/S, labs)? Why? @ -None What meds were considered but not given or refused? Why? @ -None Did you discuss the management of the patient with other professionals (professionals i.e. HEATHER Art, FREEZER PERSON, lab, RT, psych nurse, family welfare social work professor, generator worker, teacher, youth corrections officer, case resource manager)? Give summary @ -Spoke with Dr. Salas who accepted the admission. Was smoking cessation discussed for >3mins.? @ -No Was critical care preformed (if so, how long)? @ -No Were there social determinants of health that impacted care today? How? (Homelessness, low income, unemployed, alcoholism, drug addiction, transportation, low edu. Level, literacy, decrease access to med. care, retirement, rehab)? @ -No Was there de-escalation of care discussed even if they declined (Discuss DNR or withdrawal of care, Hospice)? DNR status @ -No What co-morbidities impacted this encounter? (DM, HTN, Smoking, COPD, CAD, Cancer, CVA, ARF, Chemo, Hep., AIDS, mental health diagnosis, sleep apnea, morbid obesity)? @ -Liver cirrhosis Was patient admitted / discharged? Hospital course, mention meds given and route, prescriptions, significant lab abnormalities, going to OR and other pertinent info. @ -Patient presents emergency department for chronic body pain. States he cannot fill any of his normal medications. Presents for further evaluation. Has no acute complaints. We will obtain screening EKG and labs. Patient was in agreement this plan. Vital signs are within acceptable limits. Patient given analgesic medication. EKG shows no signs of acute ischemia. Laboratory studies are all within acceptable limits.Patient has mild hypomagnesemia which was replenished. I did the patient. He is feeling improved. He continues to state that he cannot fill any of his home prescriptions. I did offer him admission for consult with case management and social work to evaluate for possible home health or placement to help. He excepted. He understands he will not be receiving any further IV narcotics or IV pain medications. He was in agreement this plan. He states he cannot take care of himself at home and he has no support. I spoke with the admitting provider, Dr. Salas who accepted the admission. Undiagnosed new problem with uncertain prognosis? @ -No Drug Therapy requiring intensive monitoring for toxicity (Heparin, Nitro, Insulin, Cardizem)? @ -No Were any procedures done? @ -No Diagnosis/symptom? @ -Debility, chronic body pain, Hypomagnesemia Acute, or Chronic, or Acute on Chronic? @ -Acute on chronic Uncomplicated (without systemic symptoms) or Complicated (systemic symptoms)? @ -Complicated Side effects of treatment? @ -No Exacerbation, Progression, or Severe Exacerbation? @ -No Poses a threat to life or bodily function? How? (Chest pain, [place], [place], pneumonia, PE, COPD, DKA, ARF, appy, cholecystitis, CVA, Diverticulitis, Homicidal, Suicidal, threat to staff... and all critical care pts) @ -Potentially, if patient does not have access to his normal home medications, can result in significant morbidity and mortality. - Lab Data Result diagrams: 07/06/24 04:11 07/06/24 04:11 Lab Results 07/06/24 07/06/24 07/06/24 Range/Units 04:11 04:11 04:21 WBC 6.1 (3.8-10.6) k/uL RBC 2.95 L (4.30-5.90) m/uL Hgb 8.9 L (13.0-17.5) gm/dL Hct 27.6 L (39.0-53.0) % MCV 93.6 (80.0-100.0) fL MCH 30.3 (25.0-35.0) pg MCHC 32.4 (31.0-37.0) g/dL RDW 17.4 H (11.5-15.5) % Plt Count 171 (150-450) k/uL MPV 7.7 Neutrophils % 70 % Lymphocytes % 16 % Monocytes % 11 % Eosinophils % 2 % Basophils % 0 % Neutrophils # 4.3 (1.3-7.7) k/uL Lymphocytes # 1.0 (1.0-4.8) k/uL Monocytes # 0.7 (0-1.0) k/uL Eosinophils # 0.1 (0-0.7) k/uL Basophils # 0.0 (0-0.2) k/uL Hypochromasia Slight Anisocytosis Slight Sodium 134 L (137-145) mmol/L Potassium 3.9 (3.5-5.1) mmol/L Chloride 99 (98-107) mmol/L Carbon Dioxide 25 (22-30) mmol/L Anion Gap 10 mmol/L BUN 12 (9-20) mg/dL Creatinine 0.61 L (0.66-1.25) mg/dL Est GFR (CKD-EPI)AfAm >90 (>60 ml/min/1.73 sqM) Est GFR (CKD-EPI)NonAf >90 (>60 ml/min/1.73 sqM) Glucose 119 H (74-99) mg/dL Calcium 9.2 (8.4-10.2) mg/dL Magnesium 1.5 L (1.6-2.3) mg/dL Total Bilirubin 1.2 (0.2-1.3) mg/dL AST 35 (17-59) U/L ALT 20 (4-49) U/L Alkaline Phosphatase 105 (38-126) U/L Ammonia 22 (<30) umol/L Total Protein 6.7 (6.3-8.2) g/dL Albumin 4.0 (3.5-5.0) g/dL Serum Alcohol <10 mg/dL - EKG Data -: EKG Interpreted by Me EKG Comments: 12-lead Electrocardiogram Interpretation Note EKG was reviewed and interpreted by myself. 12-lead ECG performed at 0356 is interpreted by me as revealing normal sinus rhythm at a rate of 93 beats per minute. O[place]e is rightward deviated. CO interval is 133 ms, QRS duration is 89 ms, QTc is 330 ms.. There were no ST or T wave abnormalities to suggest myocardial ischemia or injury. R wave progression across the precordium was satisfactory. By my interpretation this EKG is non-diagnostic for acute ische juanpablo. Disposition Clinical Impression: Debility, Chronic pain, Hypomagnesemia Disposition: ADMITTED IP TO THIS HOSP Condition: Stable Time of Disposition: 05:27
[2024-07-06] MEDS: ACETAMINOPHEN TAB 325 MG TAB PO PRN (06:46)
[2024-07-06] MEDS: LACTULOSE 20 GM/30 ML CUP PO SCH ×2 (06:46→07:23)
[2024-07-06] MEDS: PANTOPRAZOLE 40 MG TABLET PO SCH (06:47)
[2024-07-06] MEDS: MAGNESIUM SULFATE-D5W PMX 1 GM in DEXTROSE/WATER 1 100ML.BAG IVPB ONE (07:55)
[2024-07-06] MEDS: PREGABALIN 50 MG CAP PO SCH (09:23)
[2024-07-06] MEDS: MIDODRINE 5 MG TAB PO SCH (09:23)
[2024-07-06] MEDS: levETIRAcetam 500 MG TAB PO SCH (09:23)
[2024-07-06] MEDS: THIAMINE 100 MG TAB PO SCH (09:23)
[2024-07-06] MEDS: FUROSEMIDE 40 MG TAB PO SCH (09:23)
[2024-07-06] MEDS: ONDANSETRON ODT 4 MG TAB PO PRN (10:12)
--- NOTE | 2024-07-06 13:25 | P.HPIM ---
History of Present Illness This is a pleasant 33 years old male with past medical history of liver cirrhosis Patient was recently discharged from [facility] where he was treated for higher level of ammonia and electrolytes as he explains. He is supposed to go to rehab but he went home 2 days ago. Patient has thin built, generalized weakness and he cannot drive, he could not get his pain prescription and that is why he came to the hospital He is fully awake and oriented, ammonia level is low He denies chest pain or dyspnea or coughing. No urinary complaint His abdomen is significantly distended and tense with some tenderness. He denies currently smoking alcohol or illicit drugs. Hemodynamically stable and afebrile. WBC is 6.1, hemoglobin 8.9 which is at baseline. BMP and LFTs were unremarkable Ammonia level is low at 22, alcohol level less than 10 EKG showing sinus rhythm at [address]-T changes Patient will start crying during the conversation because of his situation but he denies depression or suicidal/homicidal ideation Review of Systems Review of systems CONSTITUTIONAL: No fever, no malaise, no fatigue. HEENT: No recent visual problems or hearing problems. Denied any sore throat. CARDIOVASCULAR: No orthopnea, PND, no palpitations, no syncope. PULMONARY: No shortness of breath, no cough, no hemoptysis. GASTROINTESTINAL: No diarrhea, no nausea, no vomiting,. Normoactive bowel sounds. NEUROLOGICAL: No headaches, no weakness, no numbness. HEMATOLOGICAL: Denies any bleeding or petechiae. GENITOURINARY: Denies any burning micturition, frequency, or urgency. MUSCULOSKELETAL/RHEUMATOLOGICAL: Denies any joint pain, swelling, or any muscle pain. ENDOCRINE: Denies any polyuria or polydipsia. Past Medical History Past Medical History: GERD/Reflux, Liver Disease Additional Past Medical History / Comment(s): Pancreatitis, ETOH abuse, subtance abuse, large volume paracentesis, previously on liver transplant list but was removed due to continued substance abuse, chirrhosis History of Any Multi-Drug Resistant Organisms: None Reported Additional Past Surgical History / Comment(s): ERCP stent placement Past Anesthesia/Blood Transfusion Reactions: Unable to Obtain Past Psychological History: Anxiety, Depression Smoking Status: Current every day smoker Past Alcohol Use History: Abuse Past Drug Use History: Marijuana - Past Family History Father Family Medical History: Hypertension Additional Family Medical History / Comment(s): Parkinson's Disease Mother Additional Family Medical History / Comment(s): mental illness Medications and Allergies Home Medications Medication Instructions Recorded Confirmed Type Acamprosate Calcium [Campral] 666 mg PO TID 09/17/23 06/16/24 History Lactulose 30 gm PO Q8H 09/17/23 06/16/24 History Omeprazole [PriLOSEC] 20 mg PO BID 09/17/23 06/16/24 History Rifaximin [Xifaxan] 550 mg PO Q12H 09/17/23 06/16/24 History levETIRAcetam [Keppra] 500 mg PO Q12HR 09/17/23 06/16/24 History ALPRAZolam [Xanax] 0.25 mg PO DAILY PRN 02/10/24 06/16/24 History Albuterol Sulfate [Albuterol 2 puff INHALATION RT-Q6H PRN 02/10/24 06/16/24 History Sulfate Hfa] Midodrine [ProAmatine] 5 mg PO TID 02/10/24 06/16/24 History Mirtazapine 7.5 mg PO HS 02/10/24 06/16/24 History diphenhydrAMINE & Zinc Cream 1 applic TOPICAL TID PRN 02/10/24 06/16/24 History [Benadryl Cream] hydrOXYzine HCL [Atarax] 25 mg PO Q6H PRN 02/10/24 06/16/24 History methocarbamoL [Robaxin-750] 750 mg PO Q8H PRN 02/10/24 06/16/24 History Pregabalin [Lyrica] 50 mg PO BID 02/18/24 06/16/24 History Thiamine [Vitamin B-1] 100 mg PO DAILY #90 tab 03/10/24 06/16/24 Rx Ondansetron [Ondansetron ODT] 4 mg PO BID PRN 05/18/24 06/16/24 History traZODone HCL [Desyrel] 50 mg PO HS 05/18/24 06/16/24 History Buprenorphine HCl/Naloxone HCl 1 film SL DAILY PRN #30 film 05/27/24 06/16/24 Rx [Suboxone 2 mg-0.5 mg Sl Film] Furosemide [Lasix] 40 mg PO BID #120 tab 05/27/24 06/16/24 Rx Allergies Allergy/AdvReac Type Severity Reaction Status Date / Time No Known Allergies Allergy Verified 07/06/24 03:51 Physical Exam Vitals: Vital Signs Temp Pulse Pulse Resp BP BP Pulse Ox 07/06/24 07:22 98.7 F 71 18 132/87 97 07/06/24 05:07 106 H 18 130/95 100 07/06/24 03:44 98.7 F 93 18 116/87 100 Intake and Output 07/05/24 07/06/24 07/06/24 22:59 06:59 14:59 Other: Weight 58.967 kg -GENERAL: The patient is alert and oriented x3, not in any acute distress. Well developed, well nourished. Cachectic HEENT: Pupils are round and equally reacting to light. EOMI. No scleral icterus. No conjunctival pallor. Normocephalic, atraumatic. No pharyngeal erythema. No thyromegaly. CARDIOVASCULAR: S1 and S2 present. No murmurs, rubs, or gallops. PULMONARY: Chest is clear to auscultation, no wheezing , no crackles. -ABDOMEN: Soft, generally tender r, tense and distended, normoactive bowel sounds. No palpable organomegaly. MUSCULOSKELETAL: No joint swelling or deformity. EXTREMITIES: No cyanosis, clubbing, or pedal edema. NEUROLOGICAL: Gross neurological examination did not reveal any focal deficits. SKIN: No rashes. no petechiae. Results CBC & Chem 7: 07/06/24 04:11 07/06/24 04:11 Labs: Abnormal Lab Results - Last 24 Hours (Table) 07/06/24 07/06/24 Range/Units 04:11 04:11 RBC 2.95 L (4.30-5.90) m/uL Hgb 8.9 L (13.0-17.5) gm/dL Hct 27.6 L (39.0-53.0) % RDW 17.4 H (11.5-15.5) % Sodium 134 L (137-145) mmol/L Creatinine 0.61 L (0.66-1.25) mg/dL Glucose 119 H (74-99) mg/dL Magnesium 1.5 L (1.6-2.3) mg/dL Thrombosis Risk Factor Assmnt - Choose All That Apply Any of the Below Risk Factors Present?: Yes Each Factor Represents 1 point: Swollen legs (current) Thrombosis Risk Factor Assessment Total Risk Factor Score: 1 Thrombosis Risk Factor Assessment Level: Low Risk Assessment and Plan Assessment: Decompensated liver cirrhosis with ascites Constipation Chronic anemia 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 Also start Ultram. Risk-benefit explained Consult IR for paracentesis Labs and medication were reviewed.. Continue same treatment. Continue with symptomatic treatment. Resume home medication. Monitor labs and vitals. DVT and GI prophylaxis. Further recommendations as per clinical course of the patient DVT prophylaxis: Subcutaneous heparin GI Prophylaxis: Pepcid PT/OT: Pending Prognosis is guarded
[2024-07-06] MEDS: HYDROmorphone 0.5 MG/0.5 ML SYRINGE IVP PRN (14:03)
[2024-07-06] MEDS: traMADol 50 MG TAB PO PRN (17:18)
[2024-07-06] MEDS ORDERED: traZODone HCL 50 MG TAB PO SCH (21:00)
[2024-07-06] MEDS ORDERED: traZODone HCL 50 MG TAB PO PRN (21:00)
[2024-07-06] MEDS: ALPRAZolam 0.25 MG TAB PO PRN (22:00)
[2024-07-06] MEDS: MIRTAZAPINE 15 MG TAB PO SCH (22:01)
[2024-07-07] MEDS: MIDODRINE 5 MG TAB PO SCH (06:22)
[2024-07-07] MEDS: SPIRONOLACTONE 25 MG TAB PO SCH (08:18)
[2024-07-07 10:35] LABS: Basophils # (A) 0.05 X 10*3/uL (0.00-0.10); Basophils % (A) 0.8 %; Eosinophils % (A) 4.7 %; HCT 24.3 % (39.6-50.0); HGB 7.8 g/dL (13.0-17.0); Lymphocytes # (A) 1.19 X 10*3/uL (0.90-5.00); Lymphocytes % (A) 18.5 %; MCH 30.4 pg (27.0-32.0); MCHC 32.1 g/dL (32.0-37.0); MCV 94.6 FL (80.0-97.0); Mean Platelet Volume 10.8 FL (9.5-12.2); Monocytes # (A) 1.36 X 10*3/uL (0.20-1.00); Monocytes % (A) 21.1 %; NRBC Per 100 WBC 0 X 10*3/uL (0.00-0.01); Neutrophils # (A) 3.52 X 10*3/uL (1.80-7.70); Neutrophils % (A) 54.6 %; Platelet Count 168 X 10*3/uL (140-440); RBC 2.57 X 10*6/uL (4.40-5.60); RDW 18.1 % (11.5-14.5); WBC 6.44 X 10*3/uL (4.50-10.00)
[2024-07-07 10:51] LABS: ALT 18 U/L (10-49); AST 26 U/L (14-35); Albumin 3.6 g/dL (3.8-4.9); Alkaline Phosphatase 132 U/L (41-126); BUN/Creat Ratio 19.17 Ratio (12.00-20.00); Blood Urea Nitrogen 11.5 mg/dL (9.0-27.0); Calcium 8.2 mg/dL (8.7-10.3); Carbon Dioxide 23.5 mmol/L (21.6-31.8); Chloride 98 mmol/L (96-109); Glucose 159 mg/dL (70-110); Sodium 131 mmol/L (135-145); Total Bilirubin 0.8 mg/dL (0.3-1.2); Total Protein 5.6 g/dL (6.2-8.2)
[2024-07-07 13:24] VITALS: BMI 20.3
[2024-07-07 13:31] LABS: INR 1.5 (<1.2); Prothrombin Time 15.7 sec (10.0-12.5)
--- NOTE | 2024-07-07 15:54 | US ---
EXAMINATION TYPE: US paracentesis abd w/image DATE OF EXAM: 07/07/2024 CLINICAL HISTORY: Ascites The procedure was discussed with the patient. The risks, complications, benefits, and alternatives we re discussed and any questions were answered. Informed consent was obtained. The patient was placed s upine on the ultrasound table and prepped and draped in the usual sterile fashion. All elements of maximal barrier technique were utilized. Under ultrasound guidance, access into the right lower quadrant was obtained, via the paracentesis catheter system and direct ultrasound guidanc e. Approximately 4.6 liters of straw-colored fluid was removed. The patient was stable throughout the pr ocedure and remained stable upon discharge from Department of Radiology. IMPRESSION: Successful therapeutic paracentesis under ultrasound guidance. [facility], , 07/07/2024 3:52 PM
[2024-07-07] MEDS: ALBUMIN HUMAN 25% 50 ML in EMPTY BAG 1 BAG IVPB SCH (17:08)
[2024-07-07] MEDS: hydrOXYzine HCL 25 MG TAB PO PRN (21:24)
[2024-07-08] MEDS: oxyCODONE-APAP 5-325MG 1 EACH TAB PO PRN (04:12)
--- NOTE | 2024-07-08 04:24 | P.PN ---
Subjective Date of service for this note is 07/07/2024 This is a pleasant 33 years old male with past medical history of liver cirrhosis Patient was recently discharged from [facility] where he was treated for higher level of ammonia and electrolytes as he explains. He is supposed to go to rehab but he went home 2 days ago. Patient has thin built, generalized weakness and he cannot drive, he could not get his pain prescription and that is why he came to the hospital He is fully awake and oriented, ammonia level is low He denies chest pain or dyspnea or coughing. No urinary complaint His abdomen is significantly distended and tense with some tenderness. He denies currently smoking alcohol or illicit drugs. Hemodynamically stable and afebrile. WBC is 6.1, hemoglobin 8.9 which is at baseline. BMP and LFTs were unremarkable Ammonia level is low at 22, alcohol level less than 10 EKG showing sinus rhythm at [address]-T changes Patient will start crying during the conversation because of his situation but he denies depression or suicidal/homicidal ideation 07/07 Patient remains awake and alert. He has severely distended abdomen secondary to ascites he underwent paracentesis today where 4.6 L of ascites fluid removed. Postprocedure patient received 2 doses of albumin. Hemodynamically stable INR is 1.5 and labs look stable Other than that patient supposed to go to rehab as he was recently discharged f rom another hospital for 2 days prior to coming to our hospital. Patient request to talk to child protective services social worker which is consulted. Possible discharge in 24 to 48 hours Objective - Vital Signs Vital signs: Vital Signs Temp 98.4 F 07/08/24 01:06 Pulse 79 07/08/24 01:06 Resp 14 07/08/24 01:06 BP 101/61 07/08/24 01:06 Pulse Ox 99 07/08/24 01:06 FiO2 Intake & Output 07/07/24 07/07/24 07/08/24 06:59 18:59 06:59 Output Total 300 Balance -300 Weight 58.967 kg Output: Urine 300 Other: # Voids 4 1 # Bowel Movements 1 - Exam -GENERAL: The patient is alert and oriented x3, not in any acute distress. Well developed, well nourished. G thin built HEENT: Pupils are round and equally reacting to light. EOMI. No scleral icterus. No conjunctival pallor. Normocephalic, atraumatic. No pharyngeal erythema. No thyromegaly. CARDIOVASCULAR: S1 and S2 present. No murmurs, rubs, or gallops. PULMONARY: Chest is clear to auscultation, no wheezing , no crackles. ABDOMEN: Soft, nontender, nondistended, normoactive bowel sounds. No palpable organomegaly. MUSCULOSKELETAL: No joint swelling or deformity. EXTREMITIES: No cyanosis, clubbing, or pedal edema. NEUROLOGICAL: Gross neurological examination did not reveal any focal deficits. SKIN: No rashes. no petechiae. - Labs CBC & Chem 7: 07/07/24 08:03 07/07/24 08:03 Labs: Abnormal Lab Results - Last 24 Hours (Table) 07/07/24 07/07/24 07/07/24 Range/Units 08:03 08:03 12:35 RBC 2.57 L (4.40-5.60) X 10*6/uL Hgb 7.8 L (13.0-17.0) g/dL Hct 24.3 L (39.6-50.0) % RDW 18.1 H (11.5-14.5) % Monocytes # 1.36 H (0.20-1.00) X 10*3/uL PT 15.7 H (10.0-12.5) sec INR 1.5 H (<1.2) Sodium 131 L (135-145) mmol/L Glucose 159 H (70-110) mg/dL Calcium 8.2 L (8.7-10.3) mg/dL Alkaline Phosphatase 132 H (41-126) U/L Total Protein 5.6 L (6.2-8.2) g/dL Albumin 3.6 L (3.8-4.9) g/dL Assessment and Plan Assessment: Decompensated liver cirrhosis with ascites, status post paracentesis and 4.6 of fluid removed on 07/07 Malnutrition Generalized weakness require rehab upon discharge Constipation Chronic anemia 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 Give 2 units of albumin after paracentesis Nutrition consult end worker consult, patient requires rehab upon discharge Patient was instructed to follow-up with Dr. Baum from GI service as an outpatient upon discharge and he agree. Contact information was provided in the discharge instructions Labs and medication were reviewed.. Continue same treatment. Continue with symptomatic treatment. Resume home medication. Monitor labs and vitals. DVT and GI prophylaxis. Further recommendations as per clinical course of the p atient DVT prophylaxis: Subcutaneous heparin GI Prophylaxis: Pepcid PT/OT: Pending Prognosis is guarded
[2024-07-08 10:17] LABS: Basophils # (A) 0.04 X 10*3/uL (0.00-0.10); Basophils % (A) 0.6 %; Eosinophils # (A) 0.31 X 10*3/uL (0.04-0.35); Eosinophils % (A) 4.9 %; HCT 26.2 % (39.6-50.0); HGB 8.4 g/dL (13.0-17.0); Lymphocytes # (A) 1.24 X 10*3/uL (0.90-5.00); Lymphocytes % (A) 19.4 %; MCH 30.2 pg (27.0-32.0); MCHC 32.1 g/dL (32.0-37.0); MCV 94.2 FL (80.0-97.0); Mean Platelet Volume 11.3 FL (9.5-12.2); Monocytes # (A) 1.38 X 10*3/uL (0.20-1.00); Monocytes % (A) 21.6 %; NRBC Per 100 WBC 0 X 10*3/uL (0.00-0.01); Neutrophils # (A) 3.39 X 10*3/uL (1.80-7.70); Neutrophils % (A) 53.2 %; Platelet Count 186 X 10*3/uL (140-440); RBC 2.78 X 10*6/uL (4.40-5.60); RDW 18.9 % (11.5-14.5); WBC 6.38 X 10*3/uL (4.50-10.00)
[2024-07-08 10:35] LABS: ALT 15 U/L (10-49); AST 25 U/L (14-35); Albumin 3.6 g/dL (3.8-4.9); Albumin/Globulin Ratio 1.64 Ratio (1.60-3.17); Alkaline Phosphatase 141 U/L (41-126); BUN/Creat Ratio 13.25 Ratio (12.00-20.00); Bilirubin, Conjugated 0.42 mg/dL (0.20-0.40); Bilirubin,Unconjugated 0.58 mg/dL (0.20-1.00); Blood Urea Nitrogen 10.6 mg/dL (9.0-27.0); Calcium 8.5 mg/dL (8.7-10.3); Carbon Dioxide 25.2 mmol/L (21.6-31.8); Chloride 97 mmol/L (96-109); Globulin 2.2 g/dL (1.6-3.3); Glucose 97 mg/dL (70-110); Potassium 4.1 mmol/L (3.5-5.5); Sodium 131 mmol/L (135-145); Total Protein 5.8 g/dL (6.2-8.2)
[2024-07-08 15:59] VITALS: BP 100/70; PULSE 64; RESP 16; TEMP 98.6
--- NOTE | 2024-07-10 10:12 | P.DS ---
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 Patient will follow-up with nurse practitioner Lola Cummings [employer] in the outpatient setting upon discharge. Patient is to continue with current medications and scheduled outpatient paracentesis. Patient to follow-up with GI outpatient as scheduled. Total time taken is greater than 35 minutes. Hospital course This is a 33-year-old male who was recently admitted with abdominal distention with decompensated liver cirrhosis with ascites status post paracentesis with approximately 4.6 L removed. Patient has chronic liver cirrhosis with multiple complications and noncompliance has been told by specialist he is a hospice candidate although has not been formally discussed. Recommend home care with palliative and discussed with hospice in the outpatient setting. Patient also to follow-up with GI specialist outpatient. Currently no reports of chest pain, shortness of breath, or palpitations. Patient is afebrile. No reports of nausea or vomiting and patient is tolerating diet. Patient will be discharged home today. Guarded prognosis and high risk for readmissions given significant comorbidities. Prognosis is poor. Physical exam: Gen: This is a 33-year-old male who is awake, alert and oriented x 2-3, baseline, elderly appearing, ill-appearing, thin built HEENT: Head is atraumatic, normocephalic. Pupils equal, round. Sclerae is anicteric. NECK: Supple. No JVD. No lymphadenopathy. No thyromegaly. LUNGS: Clear to auscultation. No wheezes or rhonchi. No intercostal retractions. HEART: Regular rate and rhythm. No murmur. ABDOMEN: Soft. Significant abdominal distention although somewhat improved status post paracentesis yesterday. Bowel sounds are present. No masses. No tenderness. EXTREMITIES: No pedal edema. No calf tenderness. NEUROLOGICAL: Patient is awake, alert and oriented x3. Cranial nerves 2 through 12 are grossly intact. Please refer to medication reconciliation sheet for a list of medications. The impression and plan of care has been dictated by Kaia Sanabria, Nurse Practitioner as directed. Dr. Pelon MD I have performed a history and examination and MDM of this patient, discussed the same with the dictator, and agree with the dictator's assessment and plan as written ,documented as a scribe. Based on total visit time, I have performed more than 50% of the visit. Patient Condition at Discharge: Stable Plan - Discharge Summary Discharge Rx Participant: No New Discharge Prescriptions: New Furosemide [Lasix] 40 mg PO BID #60 tab Acetaminophen Tab [Tylenol] 650 mg PO Q6HR PRN tab PRN Reason: Mild Pain Or Fever > 100.5 Ondansetron Odt [Zofran ODT] 4 mg PO BID PRN #10 tab PRN Reason: Nausea Continue Rifaximin [Xifaxan] 550 mg PO Q12H Omeprazole [PriLOSEC] 20 mg PO BID levETIRAcetam [Keppra] 500 mg PO Q12HR Acamprosate Calcium [Campral] 666 mg PO TID diphenhydrAMINE & Zinc Cream [Benadryl Cream] 1 applic TOPICAL TID PRN PRN Reason: Skin Irritation/ITCHING Albuterol Sulfate [Albuterol Sulfate Hfa] 2 puff INHALATION RT-Q6H PRN PRN Reason: Shortness Of Breath methocarbamoL [Robaxin-750] 750 mg PO Q6H PRN PRN Reason: Muscle Spasm ALPRAZolam [Xanax] 0.25 mg PO DAILY PRN PRN Reason: Anxiety Midodrine [ProAmatine] 10 mg PO TID traZODone HCL [Desyrel] 50 mg PO HS PRN PRN Reason: Insomnia Fludrocortisone [Florinef] 0.1 mg PO DAILY Folic Acid 1 mg PO DAILY oxyCODONE-APAP 5-325MG [Percocet 5-325 mg] 1 tab PO DAILY PRN PRN Reason: Pain Lactulose 20 gm PO TID hydrOXYzine HCL [Atarax] 25 mg PO Q6H PRN PRN Reason: Anxiety Mirtazapine 7.5 mg PO HS Pregabalin [Lyrica] 50 mg PO BID Thiamine [Vitamin B-1] 100 mg PO DAILY #90 tab Buprenorphine HCl/Naloxone HCl [Suboxone 2 mg-0.5 mg Sl Film] 1 film SL DAILY PRN #30 film PRN Reason: Pain Ondansetron [Zofran] 5 mg PO DAILY PRN PRN Reason: Nausea Spironolactone [Aldactone] 50 mg PO DAILY Discontinued Furosemide [Lasix] 20 mg PO DAILY Discharge Medication List Acamprosate Calcium [Campral] 666 mg PO TID 09/17/23 [History] Lactulose 20 gm PO TID 09/17/23 [History] Omeprazole [PriLOSEC] 20 mg PO BID 09/17/23 [History] Rifaximin [Xifaxan] 550 mg PO Q12H 09/17/23 [History] levETIRAcetam [Keppra] 500 mg PO Q12HR 09/17/23 [History] ALPRAZolam [Xanax] 0.25 mg PO DAILY PRN 02/10/24 [History] Albuterol Sulfate [Albuterol Sulfate Hfa] 2 puff INHALATION RT-Q6H PRN 02/10/24 [History] Midodrine [ProAmatine] 10 mg PO TID 02/10/24 [History] Mirtazapine 7.5 mg PO HS 02/10/24 [History] diphenhydrAMINE & Zinc Cream [Benadryl Cream] 1 applic TOPICAL TID PRN 02/10/24 [History] hydrOXYzine HCL [Atarax] 25 mg PO Q6H PRN 02/10/24 [History] methocarbamoL [Robaxin-750] 750 mg PO Q6H PRN 02/10/24 [History] Pregabalin [Lyrica] 50 mg PO BID 02/18/24 [History] Thiamine [Vitamin B-1] 100 mg PO DAILY #90 tab 03/10/24 [Rx] traZODone HCL [Desyrel] 50 mg PO HS PRN 05/18/24 [History] Buprenorphine HCl/Naloxone HCl [Suboxone 2 mg-0.5 mg Sl Film] 1 film SL DAILY PRN #30 film 05/27/24 [Rx] Fludrocortisone [Florinef] 0.1 mg PO DAILY 07/06/24 [History] Folic Acid 1 mg PO DAILY 07/06/24 [History] Ondansetron [Zofran] 5 mg PO DAILY PRN 07/06/24 [History] Spironolactone [Aldactone] 50 mg PO DAILY 07/06/24 [History] oxyCODONE-APAP 5-325MG [Percocet 5-325 mg] 1 tab PO DAILY PRN 07/06/24 [History] Acetaminophen Tab [Tylenol] 650 mg PO Q6HR PRN tab 07/08/24 [Rx] Furosemide [Lasix] 40 mg PO BID #60 tab 07/08/24 [Rx] Ondansetron Odt [Zofran ODT] 4 mg PO BID PRN #10 tab 07/08/24 [Rx] Follow up Appointment(s)/Referral(s): Lola Blank NPC [Primary Care Provider] - 1 Week Chiquita Baum MD [STAFF PHYSICIAN] - 1 Week [facility], [NON-STAFF] - As Needed Activity/Diet/Wound Care/Special Instructions: Activity limited until follow-up Follow-up with primary care provider on discharge Follow-up with GI outpatient Continue taking medications as prescribed Continue with home care and consider palliative and/or hospice services Follow-up with liver specialist outpatient Discharge/Stand Alone Forms: Who Do I Call?, Help In The Home Discharge Disposition: HOME WITH HOME HEALTH SERVICES
== END 2024-07-08 18:45 | disposition home health service (06) ==
LOC: EC 03:42 → 4SSUR 05:29
PROVIDERS: ADMIT Internal Medicine; ATTEND Internal Medicine
DX: K74.60 Unspecified cirrhosis of liver (principal); R18.8 Other ascites; G89.29 Other chronic pain; E83.42 Hypomagnesemia; R53.81 Other malaise; K21.9 Gastro-esophageal reflux disease without esophagitis; F32.A Depression, unspecified; F41.9 Anxiety disorder, unspecified; K59.00 Constipation, unspecified; D64.9 Anemia, unspecified; R64 Cachexia; E44.0 Moderate protein-calorie malnutrition; F17.200 Nicotine dependence, unspecified, uncomplicated; Z68.20 Body mass index [BMI] 20.0-20.9, adult; Z79.899 Other long term (current) drug therapy
CPT/HCPCS: 96376 ×2; 96365; 96366; 96367; 96375; 99284; 36415; 93005; 97162; 97166; 80053 ×2; 80048; 80076; 82140; 83735; 85025 ×3; 85610; 83036; 49083; G0378 ×3; G0480; P9047; J3475; J1171 ×2; 80320

== ENCOUNTER 2024-08-22 08:34 | Day surgery (SDC) | payer OTHER ==
[2024-08-22 09:20] LABS: Mean Platelet Volume 9.7 fL (9.5-12.2); Platelet Count 251 10*3/uL (140-440)
[2024-08-22 09:27] LABS: INR 1.4 (<1.2); Prothrombin Time 14.7 sec (10.0-12.5)
[2024-08-22 09:31] LABS: African American GFR (CKD) >90 (>60 ml/min/1.73 sqM); Non-African American GFR(CKD) >90 (>60 ml/min/1.73 sqM)
[2024-08-22 09:50] VITALS: RESP 18; TEMP 98.3
[2024-08-22] MEDS: ALBUMIN HUMAN 25% 50 ML in EMPTY BAG 1 BAG IVPB SCH (10:10)
[2024-08-22 11:13] VITALS: BP 101/54; PULSE 82
--- NOTE | 2024-08-22 11:51 | US ---
EXAMINATION TYPE: US paracentesis abd w/image DATE OF EXAM: Aug 22 2024 COMPARISON: July 07 2024 prior paracentesis. CLINICAL INDICATION:Male, 33 years old with history of ascites; distention, ascites ATTENDING: Dr. Harris PROCEDURE: Informed consent was obtained. The risks of the procedure were extensively explained incl uding risk of damage to surrounding bowel with perforation and need for additional procedures. Proced ure was performed in the ultrasound procedure suite. Ultrasound imaging of the abdomen demonstrate ascitic fluid. An appropriate access site was localized to the right lower abdomen. Timeout was taken per protocol. The skin was prepped and draped in the u sual sterile fashion and then locally anesthetized with 1% lidocaine. The peritoneal cavity was then accessed via a 5-Yoruba one-step needle/catheter. Approximately 4700 mL of clear straw-colored flui d was obtained. Patient tolerated procedure well without immediate complication. Hemostasis at the procedural site w as obtained with a sterile bandage placed. The patient was monitored in the holding area following th e procedure and was subsequently discharged in stable condition. IMPRESSION: Ultrasound guided paracentesis, with approximately 4700 mL of clear straw-colored fluid drained for t herapeutic purposes. No immediate complications were evident. [facility], , 08/22/2024 11:49 AM
== END 2024-08-22 11:05 | disposition home or self-care (01) ==
LOC: RADPROMAIN 08:34
PROVIDERS: ATTEND Internal Medicine
DX: R18.8 Other ascites (principal)
CPT/HCPCS: 82565; 85049; 85610; 36415; 49083; P9047